=== PATIENT | male | born 1970 | race Caucasian/White ===

== ENCOUNTER 2018-09-12 13:11 | Inpatient (IN) ==
--- OUTSIDE RECORDS SUMMARY | 2018-09-12 13:14 | External Medical Summary | Continuity of Care Document ---
:1970 Author Name Heron De Guzman Address Unavailable Unavailable , Care Team Providers Name Role Phone Grabiel De Guzman Unavailable [email or web address] [place] Cholelithiasis with acute cholecystitis (574.00) (K80.00) Mitral insufficiency (424.0) (I34.0) Allergies and Adverse Reactions No Known Drug Allergies (Allergy) Medications Lisinopril 20 MG Oral Tablet Refills: 0 PriLOSEC 20 MG CPDR Refills: 0 Procedures History of Hernia Repair Status: Complet ed History of Cholecystectomy Laparoscopic Status: Completed History of Ankle Surgery Status: Complet ed Immunizations Immunizations not documented Family History Father Family history of hypertension (V17.49) (Z82.49) Status: Act clotilde Mother Family history of diabetes mellitus (V18.0) (Z83.3) Status: Active Social History - Smoking Status Current some day smoker Plan of Treatment Planned Observations Planned Goals not documented Results No Known Results Results not documented
[2018-09-12] MEDS ORDERED: SODIUM CHLORIDE 0.9% 1000ML 1,000 ML IV ONE (13:30)
[2018-09-12 13:45] LABS: Hematocrit (blood only) 41.4 % (42-52); Mean Corpuscular Hgb Conc 36.2 g/dL (32-36); Mean Corpuscular Volume 82.6 fL (80-100); Mean Platelet Volume 9.3 fL (7.4-10.4); Platelet Count 326 K/uL (130-400); RDW Coefficient of Variation 13.8 % (11.5-14.5); RDW Standard Deviation 41.4 fL (36.4-46.3); Red Blood Count 5.01 M/uL (4.7-6.1); White Blood Count 17.85 K/uL (4.8-10.8)
[2018-09-12] MEDS ORDERED: LORazepam 2 MG/ML VIAL (IM USE) ONE (13:47)
[2018-09-12] MEDS ORDERED: LORazepam 2 MG/4 ML VIAL IV PRN ×2 (13:47→18:00)
[2018-09-12] MEDS ORDERED: HALOPERIDOL LACTATE 5 MG/ML 1 ML VIAL IM STA ×2 (13:47→14:09)
[2018-09-12] MEDS ORDERED: HALOPERIDOL LACTATE 5 MG/ML 1 ML VIAL ONE (13:48)
--- NOTE | 2018-09-12 13:54 | XRay Report ---
XR chest 1V portable CLINICAL HISTORY: Acute change in mental status COMPARISON STUDY: December 28, 2013 FINDINGS: There are postsurgical changes of a midline sternotomy and valvular replacement. There is n o failure. There is no focal pulmonary consolidation. There are no pleural effusions.[ IMPRESSION: No active disease in the chest. Electronically signed by: Jason Restrepo M.D. 09/12/2018 1:52 PM
[2018-09-12 13:58] LABS: iSTAT Ionized Calcium 1.08 mmol/l (1.12-1.32); iSTAT Potassium 3.8 mEq/L (3.3-5.0)
[2018-09-12 13:59] LABS: Partial Thromboplastin Time 26.2 Seconds (21.0-31.0); Prothrombin Time 10.6 Seconds (9.0-12.0)
[2018-09-12 14:01] LABS: Alanine Aminotransferase 83 U/L (12-78); Albumin Level 3.9 gm/dl (3.4-5.0); Aspartate Aminotransferase 47 U/L (15-37); BUN Creatinine Ratio 11.8 (10-20); Blood Urea Nitrogen 15 mg/dl (7-18); Calcium 9.8 mg/dl (8.5-10.1); Carbon Dioxide 16 mmol/L (21-32); Chloride 104 mmol/L (98-107); Creatinine Clr Calc Pharmacy 78.2 ml/min; Est GFR (African American) 78.2; Est GFR (Non-African American) 67.5; Glucose 121 mg/dl (70-99); Magnesium 1.4 mg/dl (1.8-2.4); Potassium 3.8 mmol/L (3.5-5.1); Sodium 134 mmol/L (136-145)
[2018-09-12 14:06] LABS: Albumin Globulin Ratio 0.8 (0.9-2); Alkaline Phosphatase 179 U/L (45-117); Bilirubin,Total 1.1 mg/dl (0.2-1); Globulin 4.7 gm/dl (2.5-4.0); Total Protein 8.6 gm/dl (6.4-8.2); Troponin I < 0.015 ng/ml (0-0.045)
[2018-09-12] MEDS ORDERED: LORazepam 2 MG/4 ML VIAL IV STA (14:09)
[2018-09-12 14:10] LABS: Basophils # (auto) 0.04 K/uL (0-0.2); Basophils % (auto) 0.2 %; Eosinophils # (auto) 0.03 K/uL (0-0.5); Eosinophils % (auto) 0.2 %; Immature Granulocytes # (auto) 0.17 K/uL (0.00-0.02); Lymphocytes # (auto) 2.22 K/uL (1.2-3.4); Lymphocytes % (auto) 12.4 %; Monocytes # (auto) 1.08 K/uL (0.11-0.59); Monocytes % (auto) 6.1 %; Neutrophils # (auto) 14.31 K/uL (1.4-6.5); Neutrophils % (auto) 80.1 %
[2018-09-12] MEDS ORDERED: OPTIRAY 320 125ml IV PRN (14:27)
--- NOTE | 2018-09-12 14:44 | CT Scan Report ---
CT angio head wo/w CT DOSE: 1202.32 mGy.cm CLINICAL HISTORY: Acute change in mental status. Possible stroke. Combative patient. TECHNIQUE: Unenhanced images were obtained the brain. CT angiography was then performed in a dynamic helical fashion during intravenous administration of 119 cc Optiray 320. MIP imaging was acquired A dose lowering technique was utilized adhering to the principles of ALARA. COMPARISON STUDY: None. FINDINGS: The noncontrast study, there is no CT evidence of acute cortical infarction. There is no ev idence of midline shift. There is no evidence of acute hemorrhage. There is no evidence of hydrocepha miguel ángel. No calvarial fractures are visualized. The postcontrast images, there is evidence for dominant left vertebral artery. There are no major int racranial branch occlusions. There are no lesion suspicious for aneurysm. The dural venous sinuses ap pear patent. IMPRESSION: 1. No acute intracranial findings 2. Unremarkable CT angiography of the brain. Electronically signed by: Jason Restrepo M.D. 09/12/2018 2:42 PM
--- NOTE | 2018-09-12 14:45 | CT Scan Report ---
CT angio neck with con CLINICAL HISTORY: Acute change in mental status. Possible acute stroke. COMPARISON STUDY: No previous studies for comparison. TECHNIQUE: CT angiography was performed from the aortic arch to the skull base. MIP imaging was perfo rmed. The patient was scanned in a dynamic helical fashion during intravenous administration of 119 c c of Optiray 320. A dose lowering technique was utilized adhering to the principles of ALARA. CT DOSE: Technique: CT angiogram of the carotid and vertebral arteries was obtained using intravenous contrast and 3-D reconstruction. NASCET criteria was utilized. Findings: The right carotid revealed no evidence of aneurysm and no evidence of dissection. There is no evidenc e of hemodynamic significant stenosis. The left carotid revealed no evidence of hemodynamic significant stenosis. There is no evidence of an eurysm. There is no evidence of dissection. There is no evidence of hemodynamically significant vertebral stenosis. There is no evidence of verte bral dissection. There is a dominant left vertebral artery. IMPRESSION: No evidence of hemodynamically significant carotid or vertebral artery stenosis. No evidence of disse ction. Electronically signed by: Jason Restrepo M.D. 09/12/2018 2:44 PM
[2018-09-12 15:53] LABS: Appearance Urine Clear (Clear); Bacteria Urine Automated Negative (Negative); Bilirubin Urine Negative (Negative); Blood Urine 1+ (Negative); Color Urine Yellow; Glucose Urine UA Negative (Negative); Ketones Urine 1+ (Negative); Leukocyte Esterase Urine Negative (Negative); Nitrite Urine Negative (Negative); Protein Urine Negative (Negative); Specific Gravity Urine 1.013 (1.000-1.030); Urobilinogen Urine Negative (Negative); WBC Urine Automated 0 /hpf (0-5); pH Urine 8.5 (4.5-7.5)
[2018-09-12 16:18] LABS: Amphetamines+Metham, Urine Neg (Neg); Barbiturates, Urine Neg (Neg); Benzodiazepine, Urine Neg (Neg); Cocaine, Urine Neg (Neg); MDMA (Ecstacy), Urine Neg (Neg); Methadone, Urine Neg (Neg); Opiate, Urine Neg (Neg); Phencyclidine, Urine Neg (Neg)
[2018-09-12] MEDS ORDERED: PIPERACILL/TAZOBAC CONSULT ACTIVE PRN ×2 (16:18→18:00)
[2018-09-12] MEDS ORDERED: DAPTOmycin 400 MG in SYRINGE 0 ML IV ONE (16:45)
--- NOTE | 2018-09-12 16:46 | CT Scan Report ---
CT SCAN OF THE ABDOMEN AND PELVIS WITHOUT CONTRAST CLINICAL HISTORY: Elevated bilirubin and LFTs. COMPARISON STUDY: Biliary ultrasound dated 12/28/2013 TECHNIQUE: CT scan of the abdomen and pelvis was performed from the lung bases to the proximal femurs . Images are reviewed in the axial, sagittal, and coronal planes. IV contrast was not administered fo r this examination. A dose lowering technique was utilized adhering to the principles of ALARA. CT DOSE: 662.05 mGy.cm FINDINGS: Lower chest: There is a small hiatal hernia. Liver: The unenhanced liver is normal in size, contour, and attenuation. There is no intrahepatic wil iary ductal dilatation. Gallbladder: Surgically absent Spleen: Normal in size and attenuation. Pancreas: Unremarkable. Adrenal glands: Unremarkable. Kidneys: There is bilateral contrast excretion secondary to a CT scan performed earlier in the day Bowel: There are no transition zones indicate bowel obstruction. There is colonic diverticulosis. The re is no acute diverticulitis. The appendix is difficult to visualize with certainty. There is no ventura dence of acute appendicitis. Peritoneum: There is no intraperitoneal free air or abdominal ascites. Vasculature: The abdominal aorta is normal in course and caliber. Adenopathy: None. Pelvic viscera: The bladder, and pelvic viscera are unremarkable. Skeletal structures: No destructive osseous lesions are seen. IMPRESSION: No acute intra-abdominal or pelvic findings. Electronically signed by: Jason Restrepo M.D. 09/12/2018 4:44 PM
--- NOTE | 2018-09-12 16:51 | History & Physical Report ---
Date of Service September 12, 2018 Assessment & Plan (1) Acute alteration in mental status: Acute change of mental status. Similar episode about 1 year ago per family, but details including place of hospitalization not available. Family will try to get more info. Encephalopathy / delirium - etiology to be determined. Patient has been experiencing severe left wrist and right knee pain. Not sleeping well or eating much. Dehydration, sleep deprivation could be contributing factors. Taking various analgesics, including at least 2 tablets of oxycodone/acetaminophen. No recent alcohol ingestion per family; blood alcohol level undetectable. No known history of cirrhois; serum ammonia normal. Urine tox screen negative. Consider possibility of ingestion of other substances. No acute findings on CT of head. Consider encephalopathy secondary to possible infection as discussed below. Low clinical suspicion for CL[employer] CUTTING INSPECTOR infection; LP would be difficult to obtain safely at this time. Required high doses of lorazepam and haloperidol in ICU for sedation. Admit to ICU for monitoring and further evaluation / management. Case discussed with CCM. (2) Leukocytosis: Meets criteria for SIRS. May or may not have infection. Recent flu symptoms, improving per family. No infiltrates on chest x-ray. UA does not appear to be infected. No acute findings on CT of abdomen and pelvis. Left wrist pain and right knee pain- possible gout, but need to r/o septic arthr itis. Ortho consulted. Blood cultures obtained in ED. Lactate normal. Procalcitonin normal (0.22). ESR 50. CRP pending. Empiric antibiotic coverage with daptomycin and piperacillin / tazobactam pendin g culture results. (3) Transaminitis: LFT's elevated as noted. S/P cholecystectomy. No acute findings on CT of abdomen. History of alcohol use, but none recently per family. Taking uncertain amount of acetaminophen for pain. Check acetaminophen level. Follow LFT's. (4) Hypertension: Usually takes metoprolol succinate. IV metoprolol tartrate while NPO. (5) Status post mitral valve replacement with bioprosthetic valve: No murmur appreciated. No peripheral stigmata of endocarditis. Hemodynamically stable. Check blood cultures. (6) Gout: Check uric acid. Resume allopurinol when able. Ortho consulted regarding left wrist and right knee pain. Coordinate care with outpatient Rheum. (7) Depression: Resume venlafaxine when able to take oral meds. (8) GERD (gastroesophageal reflux disease): IV famotidine while acutely ill and NPO, then resume PPI. (9) DVT prophylaxis: SCD's. Add prophylactic anticoagulant if no need for invasive procedures. Ambulate when able. (10) History of alcohol use: No recent alcohol consumption per family. Empiric IV thiamine, MVI, etc. (11) Discharge planning issues: Discharge disposition to be determined. Probable discharge to home. Family Medicine follow-up with Dr. Berta Mead. History of Present Illness Chief Complaint: confusion Primary Care Provider: Berta Mead, 47 YO male followed by Dr Berta Mead. History of myxomatous mitral valve with bioprosthetic MVR 2013, gout, and other problems as noted below. History of alcohol use in the past, but no recent consumption per family's report. History of hospitalization in [place] or [facility] about 1 year ago, apparently for altered mental status but family does not know the facility or diagnosis. Lives with his family. Experiencing severe left wrist pain attributed to gout. More recently developed right knee pain as well. Pain has been very severe and patient has not been able to sleep or eat well for past few days. Prescribed allopurinol and diclofenac for the gout. Family reports that he is also taking acetaminophen PRN as well as a few doses of ibuprofen. He also took 2 tablets of oxycodone / acetaminophen yesterday. Around 9:00 this morning he seemed to be OK. Came downstairs around 11:30; family observed that he was very confused and nonverbal. Brought to ED for evaluation. CT head ordered to rule out CL[employer] CUTTING INSPECTOR event. Required several doses of lorazepam and haloperidol to obtain CT. Patient was very sedated at time of my evaluation and unable to offer any history. Family reports that he had flu symptoms with pharyngitis and cough about a week ago, but seemed to be recovering from that illness. Allergies Allergy/AdvReac Type Severity Reaction Status Date / Time No Known Allergies Allergy Unknown Verified 12/28/13 08:46 Home Medications Home Medications Medication Instructions Recorded Confirmed Type metoprolol succinate 25 mg PO DAILY 03/25/18 09/12/18 History omeprazole 20 mg PO DAILY 03/25/18 09/12/18 History allopurinol 300 mg PO DAILY 09/12/18 09/12/18 History diclofenac sodium 75 mg PO BID 09/12/18 09/12/18 History venlafaxine 150 mg PO DAILY 09/12/18 09/12/18 History Past Med/Surg History Medical History Migraine (Chronic) GERD (gastroesophageal reflux disease) (Chronic) Depression (Chronic) Anxiety (Chronic) Gout (Chronic) Hypertension (Chronic) Gallstones (Resolved) Surgical History Status post mitral valve replacement with bioprosthetic valve (Chronic) Status post cholecystectomy (Chronic) H/O hernia repair (Chronic) Social History Preferred Language: [place] Breast Surgeon Required: No Beliefs That Will Affect Care: None Current Living Situation: Parent Current Living Situation Comment: live with mother Other Information That Helps Us Care for You: No Feels Safe at Home: Yes Safety Concerns: Feels Safe At This Time Smoking Status: Unknown if ever smoked Hx Alcohol Use: No Hx Substance Use: No Review of Systems Review of Systems: Unobtainable due to reduced consciousness Physical Exam Constitutional: WD/WN, vitals as above well developed, well nourished, + acute distress, + ill appearing and + altered mental status Eyes: PERRL, conjunctivae normal, anicteric sclerae ENMT: external ear and nose normal, oropharynx normal (patient unable to cooperate with assessment of oropharynx) Neck: trachea midline, no thyromegaly Respiratory: normal respiratory effort, lungs clear to auscultation Cardiovascular: Rate/Rhythm: regular rate, regular rhythm and + tachycardic Heart Sounds: no gallop, no murmur and no cardiac rub Vessels: posterior tibial pulses present and dorsalis pedis pulses present; no JVD Extremities: normal capillary refill; no calf tenderness and no edema Gastrointestinal (Abdomen): normal bowel sounds, soft, nontender, no hepatosplenomegaly Musculoskeletal: Head/Neck/Chest: neck supple Extremities: strength 5/5 throughout, + wrist abnormality (swelling, warmth, erythema left wrist) and + hand abnormality (erythema and swelling dorsum left hand); no cyanosis and no clubbing Knee: + knee abnormal to inspection (erythema, warmth, tenderness right knee, ? small effusion) Skin: no rashes, warm and dry Neurologic: sedated after receiving lorazepam and haloperidol nonverbal does not follow commands pupils 3 mm, reactive moves all 4 extr plantar reflexes downgoing bilat Psychiatric: Orientation: + not alert and + not oriented x 3 Lymphatic: no cervical lymphadenopathy Results & Data Vital Signs (Past 12 Hours) Vital Signs Temp Pulse Resp BP Pulse Ox 09/12/18 16:41 90 147/113 H 97 09/12/18 16:40 102 H 97 09/12/18 16:38 101 H 98 09/12/18 16:21 105 H 147/94 H 97 09/12/18 16:20 108 H 99 09/12/18 16:10 101 H 98 09/12/18 16:01 100 H 130/79 96 09/12/18 16:00 100 H 97 09/12/18 15:51 113 H 132/89 98 09/12/18 15:50 112 H 97 09/12/18 15:42 105 H 134/79 95 09/12/18 15:40 104 H 96 09/12/18 15:32 100 H 96 09/12/18 15:31 100 H 121/66 94 09/12/18 15:30 99 H 95 09/12/18 15:23 99 H 129/81 92 09/12/18 15:21 100 H 125/78 96 09/12/18 15:20 114 H 09/12/18 15:11 99 H 134/90 98 09/12/18 15:10 98 H 99 09/12/18 15:00 117 H 96 09/12/18 14:51 108 H 123/78 94 09/12/18 14:50 102 H 97 09/12/18 14:41 96 H 124/85 95 09/12/18 14:40 95 H 94 09/12/18 14:37 103 H 133/85 96 09/12/18 14:36 105 H 99 09/12/18 14:16 97 H 96 09/12/18 14:15 94 H 129/82 99 09/12/18 13:54 86 126/98 09/12/18 13:53 97 H 09/12/18 13:13 37.2 C 111 H 20 161/111 H 97 Laboratory Results Laboratory Results - last 24 hr 09/12/18 09/12/18 09/12/18 13:33 13:33 13:33 WBC 17.85 H RBC 5.01 Hgb 15.0 POC Hgb Hct 41.4 L POC Hct MCV 82.6 MCH 29.9 MCHC 36.2 H RDW Std Deviation 41.4 RDW Coeff of Misha 13.8 Plt Count 326 MPV 9.3 Immature Gran % (Auto) 1.0 Neut % (Auto) 80.1 Lymph % (Auto) 12.4 [place] % (Auto) 6.1 Eos % (Auto) 0.2 Baso % (Auto) 0.2 Immature Gran # (Auto) 0.17 H Neut # (Auto) 14.31 H Lymph # (Auto) 2.22 [place] # (Auto) 1.08 H Eos # (Auto) 0.03 Baso # (Auto) 0.04 PT 10.6 INR 1.0 APTT 26.2 PTT Ratio 1.0 POC Sodium Sodium 134 L POC Potassium Potassium 3.8 POC Chloride Chloride 104 Carbon Dioxide 16 L POC Total CO2 Anion Gap 14.0 H POC Anion Gap POC BUN BUN 15 Creatinine 1.26 POC Creatinine Est Cr Clr Drug Dosing 78.2 Est GFR ( Amer) 78.2 Est GFR (Non-Af Amer) 67.5 BUN/Creatinine Ratio 11.8 Glucose 121 H POC Glucose (other) Lactate Uric Acid 4.6 Calcium 9.8 POC Ioniz Calcium Herbert Magnesium 1.4 L Total Bilirubin 1.1 H AST 47 H ALT 83 H Alkaline Phosphatase 179 H Ammonia Troponin I < 0.015 Total Protein 8.6 H Albumin 3.9 Globulin 4.7 H Albumin/Globulin Ratio 0.8 L Procalcitonin Urine Color Urine Appearance Urine pH Ur Specific [place] Urine Protein Urine Glucose (UA) Urine Ketones Urine Blood Urine Nitrite Urine Bilirubin Urine Urobilinogen Ur Leukocyte Esterase Urine WBC (Auto) Urine RBC (Auto) U Hyaline Cast (Auto) U Epithel Cells (Auto) Urine Bacteria (Auto) Urine Opiates Screen Ur Methadone, Qual Urine Barbiturates Ur Phencyclidine (PCP) U Amphetamin/Meth Scrn MDMA (Ecstasy) Screen U Benzodiazepines Scrn Ur Cocaine Metabolite U Marijuana (THC) Screen Ethyl Alcohol mg/dL Blood Type Antibody Screen 09/12/18 09/12/18 09/12/18 13:33 13:38 13:49 WBC RBC Hgb POC Hgb 15.0 Hct POC Hct 44 MCV MCH MCHC RDW Std Deviation RDW Coeff of Misha Plt Count MPV Immature Gran % (Auto) Neut % (Auto) Lymph % (Auto) [place] % (Auto) Eos % (Auto) Baso % (Auto) Immature Gran # (Auto) Neut # (Auto) Lymph # (Auto) [place] # (Auto) Eos # (Auto) Baso # (Auto) PT INR APTT PTT Ratio POC Sodium 137 Sodium POC Potassium 3.8 Potassium POC Chloride 103 Chloride Carbon Dioxide POC Total CO2 15 L Anion Gap POC Anion Gap 24.0 POC BUN 15 BUN Creatinine POC Creatinine 1.0 Est Cr Clr Drug Dosing Est GFR ( Amer) Est GFR (Non-Af Amer) BUN/Creatinine Ratio Glucose POC Glucose (other) 129 H Lactate Uric Acid Cancelled Calcium POC Ioniz Calcium Herbert 1.08 L Magnesium Total Bilirubin AST ALT Alkaline Phosphatase Ammonia Troponin I Total Protein Albumin Globulin Albumin/Globulin Ratio Procalcitonin Urine Color Urine Appearance Urine pH Ur Specific [place] Urine Protein Urine Glucose (UA) Urine Ketones Urine Blood Urine Nitrite Urine Bilirubin Urine Urobilinogen Ur Leukocyte Esterase Urine WBC (Auto) Urine RBC (Auto) U Hyaline Cast (Auto) U Epithel Cells (Auto) Urine Bacteria (Auto) Urine Opiates Screen Ur Methadone, Qual Urine Barbiturates Ur Phencyclidine (PCP) U Amphetamin/Meth Scrn MDMA (Ecstasy) Screen U Benzodiazepines Scrn Ur Cocaine Metabolite U Marijuana (THC) Screen Ethyl Alcohol mg/dL Blood Type A Positive Antibody Screen NEGATIVE 09/12/18 09/12/18 09/12/18 15:15 15:15 16:23 WBC RBC Hgb POC Hgb Hct POC Hct MCV MCH MCHC RDW Std Deviation RDW Coeff of Misha Plt Count MPV Immature Gran % (Auto) Neut % (Auto) Lymph % (Auto) [place] % (Auto) Eos % (Auto) Baso % (Auto) Immature Gran # (Auto) Neut # (Auto) Lymph # (Auto) [place] # (Auto) Eos # (Auto) Baso # (Auto) PT INR APTT PTT Ratio POC Sodium Sodium POC Potassium Potassium POC Chloride Chloride Carbon Dioxide POC Total CO2 Anion Gap POC Anion Gap POC BUN BUN Creatinine POC Creatinine Est Cr Clr Drug Dosing Est GFR ( Amer) Est GFR (Non-Af Amer) BUN/Creatinine Ratio Glucose POC Glucose (other) Lactate 1.3 Uric Acid Calcium POC Ioniz Calcium Herbert Magnesium Total Bilirubin AST ALT Alkaline Phosphatase Ammonia Troponin I Total Protein Albumin Globulin Albumin/Globulin Ratio Procalcitonin Urine Color Yellow Urine Appearance Clear Urine pH 8.5 H Ur Specific [place] 1.013 Urine Protein Negative Urine Glucose (UA) Negative Urine Ketones 1+ H Urine Blood 1+ H Urine Nitrite Negative Urine Bilirubin Negative Urine Urobilinogen Negative Ur Leukocyte Esterase Negative Urine WBC (Auto) 0 Urine RBC (Auto) 5-10 H U Hyaline Cast (Auto) 1-5 U Epithel Cells (Auto) 10-20 H Urine Bacteria (Auto) Negative Urine Opiates Screen Neg Ur Methadone, Qual Neg Urine Barbiturates Neg Ur Phencyclidine (PCP) Neg U Amphetamin/Meth Scrn Neg MDMA (Ecstasy) Screen Neg U Benzodiazepines Scrn Neg Ur Cocaine Metabolite Neg U Marijuana (THC) Screen Neg Ethyl Alcohol mg/dL Blood Type Antibody Screen 09/12/18 09/12/18 09/12/18 16:23 16:23 16:24 WBC RBC Hgb POC Hgb Hct POC Hct MCV MCH MCHC RDW Std Deviation RDW Coeff of Misha Plt Count MPV Immature Gran % (Auto) Neut % (Auto) Lymph % (Auto) [place] % (Auto) Eos % (Auto) Baso % (Auto) Immature Gran # (Auto) Neut # (Auto) Lymph # (Auto) [place] # (Auto) Eos # (Auto) Baso # (Auto) PT INR APTT PTT Ratio POC Sodium Sodium POC Potassium Potassium POC Chloride Chloride Carbon Dioxide POC Total CO2 Anion Gap POC Anion Gap POC BUN BUN Creatinine POC Creatinine Est Cr Clr Drug Dosing Est GFR ( Amer) Est GFR (Non-Af Amer) BUN/Creatinine Ratio Glucose POC Glucose (other) Lactate Uric Acid Calcium POC Ioniz Calcium Herbert Magnesium Total Bilirubin AST ALT Alkaline Phosphatase Ammonia 16.7 Troponin I Total Protein Albumin Globulin Albumin/Globulin Ratio Procalcitonin 0.22 Urine Color Urine Appearance Urine pH Ur Specific [place] Urine Protein Urine Glucose (UA) Urine Ketones Urine Blood Urine Nitrite Urine Bilirubin Urine Urobilinogen Ur Leukocyte Esterase Urine WBC (Auto) Urine RBC (Auto) U Hyaline Cast (Auto) U Epithel Cells (Auto) Urine Bacteria (Auto) Urine Opiates Screen Ur Methadone, Qual Urine Barbiturates Ur Phencyclidine (PCP) U Amphetamin/Meth Scrn MDMA (Ecstasy) Screen U Benzodiazepines Scrn Ur Cocaine Metabolite U Marijuana (THC) Screen Ethyl Alcohol mg/dL < 3.0 Blood Type Antibody Screen Diagnostic Findings PORTABLE CHEST X-RAY FINDINGS: There are postsurgical changes of a midline sternotomy and valvular replacement. There is no failure. There is no focal pulmonary consolidation. There are no pleural effusions.[ IMPRESSION: No active disease in the chest. Electronically signed by: Jason Restrepo M.D. 09/12/2018 1:52 PM CTA HEAD FINDINGS: The noncontrast study, there is no CT evidence of acute cortical infarction. The re is no evidence of midline shift. There is no evidence of acute hemorrhage. There is no evidence of hydrocephalus. No calvarial fractures are visualized. The postcontrast images, there is evidence for dominant left vertebral artery. There are no major intracranial branch occlusions. There are no lesion suspicious for aneurysm. The dural venous sinuses appear patent. IMPRESSION: 1. No acute intracranial findings 2. Unremarkable CT angiography of the brain. Electronically signed by: Jason Restrepo M.D. 09/12/2018 2:42 PM CTA CERVICAL VESSELS Findings: The right carotid revealed no evidence of aneurysm and no evidence of dissection. There is no evidence of hemodynamic significant stenosis. The left carotid revealed no evidence of hemodynamic significant stenosis. There is no evidence of aneurysm. There is no evidence of dissection. There is no evidence of hemodynamically significant vertebral stenosis. There is no evidence of vertebral dissection. There is a dominant left vertebral artery. IMPRESSION: No evidence of hemodynamically significant carotid or vertebral artery stenosis. No evidence of dissection. Electronically signed by: Jason Restrepo M.D. 09/12/2018 2:[address] ABDOMEN AND PELVIS IMPRESSION: No acute intra-abdominal or pelvic findings. Electronically signed by: Jason Restrepo M.D. 09/12/2018 4:44 PM ECG Additional Comments: EKG performed at [address] at 115 / min, slight ST depression anterior leads. Code Status & VTE Plan Code Status full code VTE Prophylaxis Plan VTE Prophylaxis will be ordered: Yes (1) Leukocytosis Leukocytosis type: unspecified Qualified Code(s): D72.829 - Elevated white blood cell count, unspecified
[2018-09-12] MEDS ORDERED: PIPERACILLIN/TAZOBACTAM 4.5 GM/120 ML BAG IV ONE (17:00)
[2018-09-12 17:20] LABS: Uric Acid 4.6 mg/dl (2.6-7.2)
[2018-09-12] MEDS ORDERED: ICU PROTOCOL FOR HYPERGLYCEMIA PRN (18:00)
[2018-09-12] MEDS ORDERED: PIPERACILLIN/TAZOBACTAM 4.5 GM in DEXTROSE 5% 100 ML IV SCH (18:00)
[2018-09-12] MEDS ORDERED: HYDROmorphone INJ 1 MG/ML SYRINGE IV PRN (18:00)
--- NOTE | 2018-09-12 18:57 | XRay Report ---
XR wrist LT w scaphoid CLINICAL HISTORY: Left wrist pain COMPARISON: None. DISCUSSION: No acute fractures are visualized. Degenerative changes are present within the wrist. The re is a carpal instability pattern with volar tilt of the lunate. IMPRESSION: 1. No acute fractures 2. Carpal instability pattern with volar tilt of the lunate. Electronically signed by: Jason Restrepo M.D. 09/12/2018 6:55 PM
--- NOTE | 2018-09-12 18:57 | XRay Report ---
XR knee RT 3V CLINICAL HISTORY: R knee pain COMPARISON: None. DISCUSSION: No fractures or dislocations are visualized. No destructive lesions are evident IMPRESSION: No fractures or dislocations identified. Electronically signed by: Jason Restrepo M.D. 09/12/2018 6:56 PM
[2018-09-12 18:58] LABS: BUN Creatinine Ratio 13.2 (10-20); C Reactive Protein 7.2 mg/dl (0-0.29); Calcium 8.8 mg/dl (8.5-10.1); Creatinine Clr Calc Pharmacy 87.6 ml/min; Est GFR (African American) 92.2; Est GFR (Non-African American) 79.5; Potassium 3.7 mmol/L (3.5-5.1)
[2018-09-12] MEDS ORDERED: THIAMINE HCL 100 MG in SYRINGE 9 ML IV STA (19:13)
[2018-09-12] MEDS: NORMOSOL-R 1,000 ML IV SCH ×2 (19:14→21:34)
--- NOTE | 2018-09-12 19:28 | Critical Care Consultation ---
Date of Consultation September 12, 2018 Assessment & Plan (1) Admitted to intensive care unit: Reason Critically Ill: 47-year-old male with high gap acidosis and acute mental status changes PLAN: Neuro: Acute encephalopathy: Toxic versus metabolic versus infectious -Patient does not exhibit particular toxidrome -Check HIV and RPR however abrupt mental status change makes these less likely -Check osmolar gap consider isopropyl alcohol ingestion versus toxic alcohol -CTA largely unremarkable, no focality to neuro exam at this time: I think CVA is highly unlikely -Consideration given to synthetic marijuana use -Ammonia within normal limits -Cannot exclude complex migraine however patient was previously combative and would likely require intubation and heavy sedation to obtain adequate images -At this time I feel the risks associated with the aforementioned procedures outweigh the benefits as family reports he is appears to be mildly improving Resp: Nicotine dependence -Smokeless tobacco use CV: Mitral valve replacement -Blood cultures pending -No obvious stigmata of them full vision to brain on CT imaging: Patient does not improve would consider MRI brain Fluids/Renal: High gap anion gap: Present on admission -Has resolved on 1800 labs ID: HIV and RPR pending -Afebrile, no meningismus signs -During my evaluation family states patient seems to be improving and his mental status -Family consented to LP I am deferring at this time however if patient becomes combative again I would intubate the patient to safely perform a lumbar puncture and obtained MRI imaging of the brain -Procalcitonin not indicative of sepsis -Blood cultures pending GI/Nutrition: Transaminitis -Check acute hepatitis panel Heme: Leukocytosis -With left shift DVT prophylaxis: SCDs, holding DVT prophylaxis in the setting that patient may need LP in the next 12 to 24 hours Endocrine: ICU hyperglycemia protocol Musculoskeletal: Polyarthralgia: Urine chlamydia and gonococcus reference DNA probe sent -I think disseminated gonococcus would be unlikely he does not exhibit skin changes or pustules consistent with disseminated gonococcus Elevated CRP Elevated ESR -Elevation equal to age do not feel this is profound elevation at this time. Vascular access: Peripheral IVs Code Status: Full I have personally spent 60 minutes of critical care time in the direct management of this patient. This is a life/limb threatening event. This includes time spent evaluating patient, direct bedside care, chart review, placing orders, interpretation of diagnostic studies, discussion with consultants, patient, and/or family members regarding treatment decisions, as well as other required patient management activities. This time is exclusive of all separately billable procedures, and teaching time and separate from and in addition to any other critical care service time. Present on Admission?: Yes History of Present Illness Attending Physician: Edison Gibson MD History is obtained from family and other providers. Patient is a 47-year-old male with a significant past medical history for mitral valve replacement in 2013 at [facility] secondary to myxomatous mitral valve, status post cholecystectomy prior to that, migraines, reflux, gout. He is also recovering alcoholic reports that he has been sober for approximately 2 years. Family states that approximately 1 week prior patient was complaining of URI upper symptoms of sore throat nasal discharge and headache. In the last 72 hours the patient has not had headache. He was however complaining of arthralgias which is becoming more of a chronic issue for him. The report is t hat he was complaining of an acute gout flare in the last 24 hours. Approximately 11 AM this morning the patient went to his room and then returned to the living room in a altered mental state. He has not complained of fevers or chills in the last 48 hours either. He lives with his parents he does not drive and was incarcerated in the previous 2 years. Of note he had a similar episode while in senior care and he was seen at a [facility], he does not know the results of his evaluation and was reported to be attempting to receive medical records his family does not know what occurred at that time either. Family reports that he chews tobacco does not smoke and there is no reported use of illicit substances. Father reports that he does not know where there is isopropyl alcohol in the house and he does not believe his son would be drinking isopropyl alcohol. He is and has not designated a healthcare power of patent attorney. Allergies Allergy/AdvReac Type Severity Reaction Status Date / Time No Known Allergies Allergy Unknown Verified 12/28/13 08:46 Home Medications Home Medications Medication Instructions Recorded Confirmed Type metoprolol succinate 25 mg PO DAILY 03/25/18 09/12/18 History omeprazole 20 mg PO DAILY 03/25/18 09/12/18 History allopurinol 300 mg PO DAILY 09/12/18 09/12/18 History diclofenac sodium 75 mg PO BID 09/12/18 09/12/18 History venlafaxine 150 mg PO DAILY 09/12/18 09/12/18 History Patient History Medical History Migraine (Chronic) GERD (gastroesophageal reflux disease) (Chronic) Depression (Chronic) Anxiety (Chronic) Gout (Chronic) Hypertension (Chronic) Gallstones (Resolved) Surgical History Status post mitral valve replacement with bioprosthetic valve (Chronic) Status post cholecystectomy (Chronic) H/O hernia repair (Chronic) Social History Preferred Language: Ghanaian Head Correction Officer Required: No Beliefs That Will Affect Care: None Current Living Situation: Parent Current Living Situation Comment: live with mother Other Information That Helps Us Care for You: No Feels Safe at Home: Yes Safety Concerns: Feels Safe At This Time Smoking Status: Unknown if ever smoked Hx Alcohol Use: No Hx Substance Use: No Review of Systems Review of Systems: Unobtainable due to reduced consciousness Physical Exam Physical Exam: General: Well-nourished middle-age male appears stated age I have reviewed the recorded vital signs Neurological: RASS score: -1, Moves all 4 extremities, Psychological: Glascow Coma Scale: Eyes: 4, Verbal 4, Motor 6, Total 14 not following complex commands Eyes: Pupils are equal, round and reactive to light, anicteric sclera. Symmetrical lids. HENT: Oropharynx is clear mucous membranes are moist, . Neck: Supple. Symmetric. trachea midline. No thyromegaly. Cardiovascular: Normal peripheral perfusion. Distal pulses and capillary refill intact. No JVD. Respiratory: Respirations are non-labored, no accessory muscle use. Breath sounds are equal. Gastrointestinal: Soft. Non-distended. Lymphatic: No cervical lymphadenopathy. Musculoskeletal: No deformity. No clubbing nor cyanosis. Results & Data Vital Signs (Past 12 Hours) Vital Signs Temp Pulse Pulse Resp BP BP Pulse Ox 09/12/18 18:00 37 C 85 14 137/85 92 09/12/18 17:21 95 H 139/98 99 09/12/18 17:20 95 H 98 09/12/18 17:11 96 H 158/92 H 100 09/12/18 17:10 94 H 100 09/12/18 17:01 91 H 142/98 H 100 09/12/18 17:00 86 100 09/12/18 16:51 90 159/93 H 98 09/12/18 16:50 89 99 09/12/18 16:41 90 147/113 H 97 09/12/18 16:40 102 H 97 09/12/18 16:38 101 H 98 09/12/18 16:21 105 H 147/94 H 97 09/12/18 16:20 108 H 99 09/12/18 16:10 101 H 98 09/12/18 16:01 100 H 130/79 96 09/12/18 16:00 100 H 97 09/12/18 15:51 113 H 132/89 98 09/12/18 15:50 112 H 97 09/12/18 15:42 105 H 134/79 95 09/12/18 15:40 104 H 96 09/12/18 15:32 100 H 96 09/12/18 15:31 100 H 121/66 94 09/12/18 15:30 99 H 95 09/12/18 15:23 99 H 129/81 92 09/12/18 15:21 100 H 125/78 96 09/12/18 15:20 114 H 09/12/18 15:11 99 H 134/90 98 09/12/18 15:10 98 H 99 09/12/18 15:00 117 H 96 09/12/18 14:51 108 H 123/78 94 09/12/18 14:50 102 H 97 09/12/18 14:41 96 H 124/85 95 09/12/18 14:40 95 H 94 09/12/18 14:37 103 H 133/85 96 09/12/18 14:36 105 H 99 09/12/18 14:16 97 H 96 09/12/18 14:15 94 H 129/82 99 09/12/18 13:54 86 126/98 09/12/18 13:53 97 H 09/12/18 13:13 37.2 C 111 H 20 161/111 H 97 Laboratory Results 09/12/18 09/12/18 09/12/18 Range/Units 19:19 18:17 18:17 WBC (4.8-10.8) K/uL RBC (4.7-6.1) M/uL Hgb (14.0-18.0) g/dL POC Hgb (14.0-18.0) g/dl Hct (42-52) % POC Hct (42-52) % MCV (80-100) fL MCH (25-34) pg MCHC (32-36) g/dL RDW Std Deviation (36.4-46.3) fL RDW Coeff of Misha (11.5-14.5) % Plt Count (130-400) K/uL MPV (7.4-10.4) fL Immature Gran % (Auto) % Neut % (Auto) % Lymph % (Auto) % Kittson % (Auto) % Eos % (Auto) % Baso % (Auto) % Immature Gran # (Auto) (0.00-0.02) K/uL Neut # (Auto) (1.4-6.5) K/uL Lymph # (Auto) (1.2-3.4) K/uL Kittson # (Auto) (0.11-0.59) K/uL Eos # (Auto) (0-0.5) K/uL Baso # (Auto) (0-0.2) K/uL ESR 50 H (0-14) mm/hr PT (9.0-12.0) Seconds INR (0.9-1.1) APTT (21.0-31.0) Seconds PTT Ratio VBG pH Pending POC Sodium (135-144) mEq/L Sodium (136-145) mmol/L POC Potassium (3.3-5.0) mEq/L Potassium (3.5-5.1) mmol/L POC Chloride (101-112) mEq/L Chloride (98-107) mmol/L Carbon Dioxide (21-32) mmol/L POC Total CO2 (24-31) mEq/l Anion Gap (3-11) POC Anion Gap (16-25) mmol/L POC BUN (7-18) mg/dl BUN (7-18) mg/dl Creatinine (0.6-1.4) mg/dl POC Creatinine (0.6-1.3) mg/dl Est Cr Clr Drug Dosing ml/min Est GFR ( Amer) Est GFR (Non-Af Amer) BUN/Creatinine Ratio (10-20) Glucose (70-99) mg/dl POC Glucose (other) (70-99) mg/dl Lactate (0.4-2.0) mmol/L Uric Acid (2.6-7.2) mg/dl Calcium (8.5-10.1) mg/dl POC Ioniz Calcium Herbert (1.12-1.32) mmol/l Magnesium (1.8-2.4) mg/dl Total Bilirubin (0.2-1) mg/dl AST (15-37) U/L ALT (12-78) U/L Alkaline Phosphatase (45-117) U/L Ammonia (11-32) umol/L Troponin I (0-0.045) ng/ml C-Reactive Protein (0-0.29) mg/dl C-React Prot High Sens Total Protein (6.4-8.2) gm/dl Albumin (3.4-5.0) gm/dl Globulin (2.5-4.0) gm/dl Albumin/Globulin Ratio (0.9-2) Procalcitonin (0-0.5) ng/ml Urine Color Urine Appearance (Clear) Urine pH (4.5-7.5) Ur Specific Leggett (1.000-1.030) Urine Protein (Negative) Urine Glucose (UA) (Negative) Urine Ketones (Negative) Urine Blood (Negative) Urine Nitrite (Negative) Urine Bilirubin (Negative) Urine Urobilinogen (Negative) Ur Leukocyte Esterase (Negative) Urine WBC (Auto) (0-5) /hpf Urine RBC (Auto) (0-4) /hpf U Hyaline Cast (Auto) (0-5) /lpf U Epithel Cells (Auto) (0-5) /lpf Urine Bacteria (Auto) (Negative) Nasal Screen MRSA (PCR) Urine Opiates Screen (Neg) Ur Methadone, Qual (Neg) Acetaminophen < 2 L (10-30) ug/ml Urine Barbiturates (Neg) Ur Phencyclidine (PCP) (Neg) U Amphetamin/Meth Scrn (Neg) MDMA (Ecstasy) Screen (Neg) U Benzodiazepines Scrn (Neg) Ur Cocaine Metabolite (Neg) U Marijuana (THC) Screen (Neg) Ethyl Alcohol mg/dL (0-3) mg/dl Blood Type Antibody Screen 09/12/18 09/12/18 09/12/18 Range/Units 18:13 18:00 16:24 WBC (4.8-10.8) K/uL RBC (4.7-6.1) M/uL Hgb (14.0-18.0) g/dL POC Hgb (14.0-18.0) g/dl Hct (42-52) % POC Hct (42-52) % MCV (80-100) fL MCH (25-34) pg MCHC (32-36) g/dL RDW Std Deviation (36.4-46.3) fL RDW Coeff of Misha (11.5-14.5) % Plt Count (130-400) K/uL MPV (7.4-10.4) fL Immature Gran % (Auto) % Neut % (Auto) % Lymph % (Auto) % Kittson % (Auto) % Eos % (Auto) % Baso % (Auto) % Immature Gran # (Auto) (0.00-0.02) K/uL Neut # (Auto) (1.4-6.5) K/uL Lymph # (Auto) (1.2-3.4) K/uL Kittson # (Auto) (0.11-0.59) K/uL Eos # (Auto) (0-0.5) K/uL Baso # (Auto) (0-0.2) K/uL ESR (0-14) mm/hr PT (9.0-12.0) Seconds INR (0.9-1.1) APTT (21.0-31.0) Seconds PTT Ratio VBG pH POC Sodium (135-144) mEq/L Sodium 135 L (136-145) mmol/L POC Potassium (3.3-5.0) mEq/L Potassium 3.7 (3.5-5.1) mmol/L POC Chloride (101-112) mEq/L Chloride 104 (98-107) mmol/L Carbon Dioxide 23 (21-32) mmol/L POC Total CO2 (24-31) mEq/l Anion Gap 8.0 (3-11) POC Anion Gap (16-25) mmol/L POC BUN (7-18) mg/dl BUN 15 (7-18) mg/dl Creatinine 1.10 (0.6-1.4) mg/dl POC Creatinine (0.6-1.3) mg/dl Est Cr Clr Drug Dosing 87.6 ml/min Est GFR ( Amer) 92.2 Est GFR (Non-Af Amer) 79.5 BUN/Creatinine Ratio 13.2 (10-20) Glucose 130 H (70-99) mg/dl POC Glucose (other) (70-99) mg/dl Lactate (0.4-2.0) mmol/L Uric Acid (2.6-7.2) mg/dl Calcium 8.8 (8.5-10.1) mg/dl POC Ioniz Calcium Herbert (1.12-1.32) mmol/l Magnesium (1.8-2.4) mg/dl Total Bilirubin (0.2-1) mg/dl AST (15-37) U/L ALT (12-78) U/L Alkaline Phosphatase (45-117) U/L Ammonia (11-32) umol/L Troponin I (0-0.045) ng/ml C-Reactive Protein 7.20 H (0-0.29) mg/dl C-React Prot High Sens Total Protein (6.4-8.2) gm/dl Albumin (3.4-5.0) gm/dl Globulin (2.5-4.0) gm/dl Albumin/Globulin Ratio (0.9-2) Procalcitonin 0.22 (0-0.5) ng/ml Urine Color Urine Appearance (Clear) Urine pH (4.5-7.5) Ur Specific Leggett (1.000-1.030) Urine Protein (Negative) Urine Glucose (UA) (Negative) Urine Ketones (Negative) Urine Blood (Negative) Urine Nitrite (Negative) Urine Bilirubin (Negative) Urine Urobilinogen (Negative) Ur Leukocyte Esterase (Negative) Urine WBC (Auto) (0-5) /hpf Urine RBC (Auto) (0-4) /hpf U Hyaline Cast (Auto) (0-5) /lpf U Epithel Cells (Auto) (0-5) /lpf Urine Bacteria (Auto) (Negative) Nasal Screen MRSA (PCR) Pending Urine Opiates Screen (Neg) Ur Methadone, Qual (Neg) Acetaminophen (10-30) ug/ml Urine Barbiturates (Neg) Ur Phencyclidine (PCP) (Neg) U Amphetamin/Meth Scrn (Neg) MDMA (Ecstasy) Screen (Neg) U Benzodiazepines Scrn (Neg) Ur Cocaine Metabolite (Neg) U Marijuana (THC) Screen (Neg) Ethyl Alcohol mg/dL (0-3) mg/dl Blood Type Antibody Screen 05/12/19 05/12/19 05/12/19 Range/Units 16:23 16:23 16:23 WBC (4.8-10.8) K/uL RBC (4.7-6.1) M/uL Hgb (14.0-18.0) g/dL POC Hgb (14.0-18.0) g/dl Hct (42-52) % POC Hct (42-52) % MCV (80-100) fL MCH (25-34) pg MCHC (32-36) g/dL RDW Std Deviation (36.4-46.3) fL RDW Coeff of Misha (11.5-14.5) % Plt Count (130-400) K/uL MPV (7.4-10.4) fL Immature Gran % (Auto) % Neut % (Auto) % Lymph % (Auto) % Kittson % (Auto) % Eos % (Auto) % Baso % (Auto) % Immature Gran # (Auto) (0.00-0.02) K/uL Neut # (Auto) (1.4-6.5) K/uL Lymph # (Auto) (1.2-3.4) K/uL Kittson # (Auto) (0.11-0.59) K/uL Eos # (Auto) (0-0.5) K/uL Baso # (Auto) (0-0.2) K/uL ESR (0-14) mm/hr PT (9.0-12.0) Seconds INR (0.9-1.1) APTT (21.0-31.0) Seconds PTT Ratio VBG pH POC Sodium (135-144) mEq/L Sodium (136-145) mmol/L POC Potassium (3.3-5.0) mEq/L Potassium (3.5-5.1) mmol/L POC Chloride (101-112) mEq/L Chloride (98-107) mmol/L Carbon Dioxide (21-32) mmol/L POC Total CO2 (24-31) mEq/l Anion Gap (3-11) POC Anion Gap (16-25) mmol/L POC BUN (7-18) mg/dl BUN (7-18) mg/dl Creatinine (0.6-1.4) mg/dl POC Creatinine (0.6-1.3) mg/dl Est Cr Clr Drug Dosing ml/min Est GFR ( Amer) Est GFR (Non-Af Amer) BUN/Creatinine Ratio (10-20) Glucose (70-99) mg/dl POC Glucose (other) (70-99) mg/dl Lactate 1.3 (0.4-2.0) mmol/L Uric Acid (2.6-7.2) mg/dl Calcium (8.5-10.1) mg/dl POC Ioniz Calcium Herbert (1.12-1.32) mmol/l Magnesium (1.8-2.4) mg/dl Total Bilirubin (0.2-1) mg/dl AST (15-37) U/L ALT (12-78) U/L Alkaline Phosphatase (45-117) U/L Ammonia 16.7 (11-32) umol/L Troponin I (0-0.045) ng/ml C-Reactive Protein (0-0.29) mg/dl C-React Prot High Sens Total Protein (6.4-8.2) gm/dl Albumin (3.4-5.0) gm/dl Globulin (2.5-4.0) gm/dl Albumin/Globulin Ratio (0.9-2) Procalcitonin (0-0.5) ng/ml Urine Color Urine Appearance (Clear) Urine pH (4.5-7.5) Ur Specific Leggett (1.000-1.030) Urine Protein (Negative) Urine Glucose (UA) (Negative) Urine Ketones (Negative) Urine Blood (Negative) Urine Nitrite (Negative) Urine Bilirubin (Negative) Urine Urobilinogen (Negative) Ur Leukocyte Esterase (Negative) Urine WBC (Auto) (0-5) /hpf Urine RBC (Auto) (0-4) /hpf U Hyaline Cast (Auto) (0-5) /lpf U Epithel Cells (Auto) (0-5) /lpf Urine Bacteria (Auto) (Negative) Nasal Screen MRSA (PCR) Urine Opiates Screen (Neg) Ur Methadone, Qual (Neg) Acetaminophen (10-30) ug/ml Urine Barbiturates (Neg) Ur Phencyclidine (PCP) (Neg) U Amphetamin/Meth Scrn (Neg) MDMA (Ecstasy) Screen (Neg) U Benzodiazepines Scrn (Neg) Ur Cocaine Metabolite (Neg) U Marijuana (THC) Screen (Neg) Ethyl Alcohol mg/dL < 3.0 (0-3) mg/dl Blood Type Antibody Screen 09/12/18 09/12/18 09/12/18 Range/Units 15:15 15:15 13:49 WBC (4.8-10.8) K/uL RBC (4.7-6.1) M/uL Hgb (14.0-18.0) g/dL POC Hgb (14.0-18.0) g/dl Hct (42-52) % POC Hct (42-52) % MCV (80-100) fL MCH (25-34) pg MCHC (32-36) g/dL RDW Std Deviation (36.4-46.3) fL RDW Coeff of Misha (11.5-14.5) % Plt Count (130-400) K/uL MPV (7.4-10.4) fL Immature Gran % (Auto) % Neut % (Auto) % Lymph % (Auto) % Kittson % (Auto) % Eos % (Auto) % Baso % (Auto) % Immature Gran # (Auto) (0.00-0.02) K/uL Neut # (Auto) (1.4-6.5) K/uL Lymph # (Auto) (1.2-3.4) K/uL Kittson # (Auto) (0.11-0.59) K/uL Eos # (Auto) (0-0.5) K/uL Baso # (Auto) (0-0.2) K/uL ESR (0-14) mm/hr PT (9.0-12.0) Seconds INR (0.9-1.1) APTT (21.0-31.0) Seconds PTT Ratio VBG pH POC Sodium (135-144) mEq/L Sodium (136-145) mmol/L POC Potassium (3.3-5.0) mEq/L Potassium (3.5-5.1) mmol/L POC Chloride (101-112) mEq/L Chloride (98-107) mmol/L Carbon Dioxide (21-32) mmol/L POC Total CO2 (24-31) mEq/l Anion Gap (3-11) POC Anion Gap (16-25) mmol/L POC BUN (7-18) mg/dl BUN (7-18) mg/dl Creatinine (0.6-1.4) mg/dl POC Creatinine (0.6-1.3) mg/dl Est Cr Clr Drug Dosing ml/min Est GFR ( Amer) Est GFR (Non-Af Amer) BUN/Creatinine Ratio (10-20) Glucose (70-99) mg/dl POC Glucose (other) (70-99) mg/dl Lactate (0.4-2.0) mmol/L Uric Acid (2.6-7.2) mg/dl Calcium (8.5-10.1) mg/dl POC Ioniz Calcium Herbert (1.12-1.32) mmol/l Magnesium (1.8-2.4) mg/dl Total Bilirubin (0.2-1) mg/dl AST (15-37) U/L ALT (12-78) U/L Alkaline Phosphatase (45-117) U/L Ammonia (11-32) umol/L Troponin I (0-0.045) ng/ml C-Reactive Protein (0-0.29) mg/dl C-React Prot High Sens Total Protein (6.4-8.2) gm/dl Albumin (3.4-5.0) gm/dl Globulin (2.5-4.0) gm/dl Albumin/Globulin Ratio (0.9-2) Procalcitonin (0-0.5) ng/ml Urine Color Yellow Urine Appearance Clear (Clear) Urine pH 8.5 H (4.5-7.5) Ur Specific Leggett 1.013 (1.000-1.030) Urine Protein Negative (Negative) Urine Glucose (UA) Negative (Negative) Urine Ketones 1+ H (Negative) Urine Blood 1+ H (Negative) Urine Nitrite Negative (Negative) Urine Bilirubin Negative (Negative) Urine Urobilinogen Negative (Negative) Ur Leukocyte Esterase Negative (Negative) Urine WBC (Auto) 0 (0-5) /hpf Urine RBC (Auto) 5-10 H (0-4) /hpf U Hyaline Cast (Auto) 1-5 (0-5) /lpf U Epithel Cells (Auto) 10-20 H (0-5) /lpf Urine Bacteria (Auto) Negative (Negative) Nasal Screen MRSA (PCR) Urine Opiates Screen Neg (Neg) Ur Methadone, Qual Neg (Neg) Acetaminophen (10-30) ug/ml Urine Barbiturates Neg (Neg) Ur Phencyclidine (PCP) Neg (Neg) U Amphetamin/Meth Scrn Neg (Neg) MDMA (Ecstasy) Screen Neg (Neg) U Benzodiazepines Scrn Neg (Neg) Ur Cocaine Metabolite Neg (Neg) U Marijuana (THC) Screen Neg (Neg) Ethyl Alcohol mg/dL (0-3) mg/dl Blood Type A Positive Antibody Screen NEGATIVE 09/12/18 09/12/18 09/12/18 Range/Units 13:38 13:33 13:33 WBC (4.8-10.8) K/uL RBC (4.7-6.1) M/uL Hgb (14.0-18.0) g/dL POC Hgb 15.0 (14.0-18.0) g/dl Hct (42-52) % POC Hct 44 (42-52) % MCV (80-100) fL MCH (25-34) pg MCHC (32-36) g/dL RDW Std Deviation (36.4-46.3) fL RDW Coeff of Misha (11.5-14.5) % Plt Count (130-400) K/uL MPV (7.4-10.4) fL Immature Gran % (Auto) % Neut % (Auto) % Lymph % (Auto) % Kittson % (Auto) % Eos % (Auto) % Baso % (Auto) % Immature Gran # (Auto) (0.00-0.02) K/uL Neut # (Auto) (1.4-6.5) K/uL Lymph # (Auto) (1.2-3.4) K/uL Kittson # (Auto) (0.11-0.59) K/uL Eos # (Auto) (0-0.5) K/uL Baso # (Auto) (0-0.2) K/uL ESR (0-14) mm/hr PT (9.0-12.0) Seconds INR (0.9-1.1) APTT (21.0-31.0) Seconds PTT Ratio VBG pH POC Sodium 137 (135-144) mEq/L Sodium (136-145) mmol/L POC Potassium 3.8 (3.3-5.0) mEq/L Potassium (3.5-5.1) mmol/L POC Chloride 103 (101-112) mEq/L Chloride (98-107) mmol/L Carbon Dioxide (21-32) mmol/L POC Total CO2 15 L (24-31) mEq/l Anion Gap (3-11) POC Anion Gap 24.0 (16-25) mmol/L POC BUN 15 (7-18) mg/dl BUN (7-18) mg/dl Creatinine (0.6-1.4) mg/dl POC Creatinine 1.0 (0.6-1.3) mg/dl Est Cr Clr Drug Dosing ml/min Est GFR ( Amer) Est GFR (Non-Af Amer) BUN/Creatinine Ratio (10-20) Glucose (70-99) mg/dl POC Glucose (other) 129 H (70-99) mg/dl Lactate (0.4-2.0) mmol/L Uric Acid Cancelled (2.6-7.2) mg/dl Calcium (8.5-10.1) mg/dl POC Ioniz Calcium Herbert 1.08 L (1.12-1.32) mmol/l Magnesium (1.8-2.4) mg/dl Total Bilirubin (0.2-1) mg/dl AST (15-37) U/L ALT (12-78) U/L Alkaline Phosphatase (45-117) U/L Ammonia (11-32) umol/L Troponin I (0-0.045) ng/ml C-Reactive Protein (0-0.29) mg/dl C-React Prot High Sens Pending Total Protein (6.4-8.2) gm/dl Albumin (3.4-5.0) gm/dl Globulin (2.5-4.0) gm/dl Albumin/Globulin Ratio (0.9-2) Procalcitonin (0-0.5) ng/ml Urine Color Urine Appearance (Clear) Urine pH (4.5-7.5) Ur Specific Leggett (1.000-1.030) Urine Protein (Negative) Urine Glucose (UA) (Negative) Urine Ketones (Negative) Urine Blood (Negative) Urine Nitrite (Negative) Urine Bilirubin (Negative) Urine Urobilinogen (Negative) Ur Leukocyte Esterase (Negative) Urine WBC (Auto) (0-5) /hpf Urine RBC (Auto) (0-4) /hpf U Hyaline Cast (Auto) (0-5) /lpf U Epithel Cells (Auto) (0-5) /lpf Urine Bacteria (Auto) (Negative) Nasal Screen MRSA (PCR) Urine Opiates Screen (Neg) Ur Methadone, Qual (Neg) Acetaminophen (10-30) ug/ml Urine Barbiturates (Neg) Ur Phencyclidine (PCP) (Neg) U Amphetamin/Meth Scrn (Neg) MDMA (Ecstasy) Screen (Neg) U Benzodiazepines Scrn (Neg) Ur Cocaine Metabolite (Neg) U Marijuana (THC) Screen (Neg) Ethyl Alcohol mg/dL (0-3) mg/dl Blood Type Antibody Screen 09/12/18 09/12/18 09/12/18 Range/Units 13:33 13:33 13:33 WBC 17.85 H (4.8-10.8) K/uL RBC 5.01 (4.7-6.1) M/uL Hgb 15.0 (14.0-18.0) g/dL POC Hgb (14.0-18.0) g/dl Hct 41.4 L (42-52) % POC Hct (42-52) % MCV 82.6 (80-100) fL MCH 29.9 (25-34) pg MCHC 36.2 H (32-36) g/dL RDW Std Deviation 41.4 (36.4-46.3) fL RDW Coeff of Misha 13.8 (11.5-14.5) % Plt Count 326 (130-400) K/uL MPV 9.3 (7.4-10.4) fL Immature Gran % (Auto) 1.0 % Neut % (Auto) 80.1 % Lymph % (Auto) 12.4 % [place] % (Auto) 6.1 % Eos % (Auto) 0.2 % Baso % (Auto) 0.2 % Immature Gran # (Auto) 0.17 H (0.00-0.02) K/uL Neut # (Auto) 14.31 H (1.4-6.5) K/uL Lymph # (Auto) 2.22 (1.2-3.4) K/uL [place] # (Auto) 1.08 H (0.11-0.59) K/uL Eos # (Auto) 0.03 (0-0.5) K/uL Baso # (Auto) 0.04 (0-0.2) K/uL ESR (0-14) mm/hr PT 10.6 (9.0-12.0) Seconds INR 1.0 (0.9-1.1) APTT 26.2 (21.0-31.0) Seconds PTT Ratio 1.0 VBG pH POC Sodium (135-144) mEq/L Sodium 134 L (136-145) mmol/L POC Potassium (3.3-5.0) mEq/L Potassium 3.8 (3.5-5.1) mmol/L POC Chloride (101-112) mEq/L Chloride 104 (98-107) mmol/L Carbon Dioxide 16 L (21-32) mmol/L POC Total CO2 (24-31) mEq/l Anion Gap 14.0 H (3-11) POC Anion Gap (16-25) mmol/L POC BUN (7-18) mg/dl BUN 15 (7-18) mg/dl Creatinine 1.26 (0.6-1.4) mg/dl POC Creatinine (0.6-1.3) mg/dl Est Cr Clr Drug Dosing 78.2 ml/min Est GFR ( Amer) 78.2 Est GFR (Non-Af Amer) 67.5 BUN/Creatinine Ratio 11.8 (10-20) Glucose 121 H (70-99) mg/dl POC Glucose (other) (70-99) mg/dl Lactate (0.4-2.0) mmol/L Uric Acid 4.6 (2.6-7.2) mg/dl Calcium 9.8 (8.5-10.1) mg/dl POC Ioniz Calcium Herbert (1.12-1.32) mmol/l Magnesium 1.4 L (1.8-2.4) mg/dl Total Bilirubin 1.1 H (0.2-1) mg/dl AST 47 H (15-37) U/L ALT 83 H (12-78) U/L Alkaline Phosphatase 179 H (45-117) U/L Ammonia (11-32) umol/L Troponin I < 0.015 (0-0.045) ng/ml C-Reactive Protein (0-0.29) mg/dl C-React Prot High Sens Total Protein 8.6 H (6.4-8.2) gm/dl Albumin 3.9 (3.4-5.0) gm/dl Globulin 4.7 H (2.5-4.0) gm/dl Albumin/Globulin Ratio 0.8 L (0.9-2) Procalcitonin (0-0.5) ng/ml Urine Color Urine Appearance (Clear) Urine pH (4.5-7.5) Ur Specific [place] (1.000-1.030) Urine Protein (Negative) Urine Glucose (UA) (Negative) Urine Ketones (Negative) Urine Blood (Negative) Urine Nitrite (Negative) Urine Bilirubin (Negative) Urine Urobilinogen (Negative) Ur Leukocyte Esterase (Negative) Urine WBC (Auto) (0-5) /hpf Urine RBC (Auto) (0-4) /hpf U Hyaline Cast (Auto) (0-5) /lpf U Epithel Cells (Auto) (0-5) /lpf Urine Bacteria (Auto) (Negative) Nasal Screen MRSA (PCR) Urine Opiates Screen (Neg) Ur Methadone, Qual (Neg) Acetaminophen (10-30) ug/ml Urine Barbiturates (Neg) Ur Phencyclidine (PCP) (Neg) U Amphetamin/Meth Scrn (Neg) MDMA (Ecstasy) Screen (Neg) U Benzodiazepines Scrn (Neg) Ur Cocaine Metabolite (Neg) U Marijuana (THC) Screen (Neg) Ethyl Alcohol mg/dL (0-3) mg/dl Blood Type Antibody Screen Diagnostic Findings I have reviewed the radiology report of the CT abdomen pelvis, CTA head, CTA neck, chest x-ray, wrist x-ray with scaphoid view
[2018-09-12] MEDS: METOPROLOL TARTRATE 1 MG/ML VIAL IV SCH ×2 (19:31→23:07)
[2018-09-12] MEDS: FAMOTIDINE 20 MG in SYRINGE 3 ML IV SCH (19:32)
[2018-09-12 20:30] LABS: Hepatitis B Surface Antigen Neg (Neg)
--- NOTE | 2018-09-12 20:48 | Emergency Department Note ---
Entered by Manuel Jara acting as a scribe for History of Present Illness General Chief complaint: Swelling/Edema to Extremity Stated complaint: GOUT PAIN Source: family and RN notes reviewed History of Present Illness Provider complaint: Altered Mental Status Onset (ago): hour(s) (This morning) Location: head Pain Consistency: + constant Maximum Pain Intensity: 10 Relieved By: + none Exacerbated By: + none Associated symptoms: + other (Right hand and left knee pain) The patient is a 47 year old male who presents to the Emergency Room with complaints of constant altered mental status that started this morning, per his family. The patient has not been talking, does not answer questions, and does not follow commands. The patient's mother states that he few days ago he had injections for gout flare ups in his left hand and right knee. She also notes that this morning he took 2 Percocet with his breakfast for pain. She states when she left the house this morning he was normal but when she returned he was in his current state. He was last known normal around 9 AM with saw him again later they brought him in for further evaluation due to the confusion. The patient has a history of CAD and has had heart surgery in the past. HPI is limtied secondary to patient's mental status. Home Medications Home Medications Medication Instructions Recorded Confirmed Type metoprolol succinate 25 mg PO DAILY 03/25/18 09/12/18 History omeprazole 20 mg PO DAILY 03/25/18 09/12/18 History allopurinol 300 mg PO DAILY 09/12/18 09/12/18 History diclofenac sodium 75 mg PO BID 09/12/18 09/12/18 History venlafaxine 150 mg PO DAILY 09/12/18 09/12/18 History Allergies Allergy/AdvReac Type Severity Reaction Status Date / Time No Known Allergies Allergy Unknown Verified 12/28/13 08:46 Past Med/Surg History Medical History Migraine (Chronic) GERD (gastroesophageal reflux disease) (Chronic) Depression (Chronic) Anxiety (Chronic) Gout (Chronic) Hypertension (Chronic) Gallstones (Resolved) Surgical History Status post mitral valve replacement with bioprosthetic valve (Chronic) Status post cholecystectomy (Chronic) H/O hernia repair (Chronic) Social History Preferred Language: Bengali 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 Other (Limited secondary to patient's mental status) Physical Exam Vital Signs Vital Signs - 24 hr 09/12/18 13:13 09/12/18 13:53 09/12/18 13:54 Temperature 37.2 C Temperature Source Oral Sepsis Recent Fever Within 48 Hours No Sepsis New/Unexplained Change in Mental Status No Sepsis Action Taken by Nursing No Action Required Pulse Rate 111 H 97 H 86 Pulse Rate [Apical] Pulse Rate from SpO2 Sensor Pulse Rhythm [Apical] Pulse Strength [Apical] Respiratory Rate 20 Respiratory Effort / Characteristics Non-Labored Respiratory Depth Normal Respiratory Pattern Regular Blood Pressure 161/111 H 126/98 Blood Pressure [Left Arm] Blood Pressure Mean 127 107 Blood Pressure Mean [Left Arm] Blood Pressure Position Sitting Blood Pressure Position [Left Arm] Pulse Oximetry 97 Oxygen Delivery Method Room Air Oxygen Flow Rate 09/12/18 14:15 09/12/18 14:16 09/12/18 14:36 Temperature Temperature Source Sepsis Recent Fever Within 48 Hours Sepsis New/Unexplained Change in Mental Status Sepsis Action Taken by Nursing Pulse Rate 94 H 97 H 105 H Pulse Rate [Apical] Pulse Rate from SpO2 Sensor 95 H 97 H 103 H Pulse Rhythm [Apical] Pulse Strength [Apical] Respiratory Rate Respiratory Effort / Characteristics Respiratory Depth Respiratory Pattern Blood Pressure 129/82 Blood Pressure [Left Arm] Blood Pressure Mean 97 Blood Pressure Mean [Left Arm] Blood Pressure Position Blood Pressure Position [Left Arm] Pulse Oximetry 99 96 99 Oxygen Delivery Method Nasal Cannula Nasal Cannula Nasal Cannula Oxygen Flow Rate 2 2 2 09/12/18 14:37 09/12/18 14:40 09/12/18 14:41 Temperature Temperature Source Sepsis Recent Fever Within 48 Hours Sepsis New/Unexplained Change in Mental Status Sepsis Action Taken by Nursing Pulse Rate 103 H 95 H 96 H Pulse Rate [Apical] Pulse Rate from SpO2 Sensor 102 H 95 H 97 H Pulse Rhythm [Apical] Pulse Strength [Apical] Respiratory Rate Respiratory Effort / Characteristics Respiratory Depth Respiratory Pattern Blood Pressure 133/85 124/85 Blood Pressure [Left Arm] Blood Pressure Mean 101 98 Blood Pressure Mean [Left Arm] Blood Pressure Position Blood Pressure Position [Left Arm] Pulse Oximetry 96 94 95 Oxygen Delivery Method Oxygen Flow Rate 09/12/18 14:50 05/12/19 14:51 09/12/18 15:00 Temperature Temperature Source Sepsis Recent Fever Within 48 Hours Sepsis New/Unexplained Change in Mental Status Sepsis Action Taken by Nursing Pulse Rate 102 H 108 H 117 H Pulse Rate [Apical] Pulse Rate from SpO2 Sensor 102 H 107 H 117 H Pulse Rhythm [Apical] Pulse Strength [Apical] Respiratory Rate Respiratory Effort / Characteristics Respiratory Depth Respiratory Pattern Blood Pressure 123/78 Blood Pressure [Left Arm] Blood Pressure Mean 93 Blood Pressure Mean [Left Arm] Blood Pressure Position Blood Pressure Position [Left Arm] Pulse Oximetry 97 94 96 Oxygen Delivery Method Nasal Cannula Nasal Cannula Oxygen Flow Rate 2 2 09/12/18 15:10 09/12/18 15:11 09/12/18 15:20 Temperature Temperature Source Sepsis Recent Fever Within 48 Hours Sepsis New/Unexplained Change in Mental Status Sepsis Action Taken by Nursing Pulse Rate 98 H 99 H 114 H Pulse Rate [Apical] Pulse Rate from SpO2 Sensor 97 H 98 H Pulse Rhythm [Apical] Pulse Strength [Apical] Respiratory Rate Respiratory Effort / Characteristics Respiratory Depth Respiratory Pattern Blood Pressure 134/90 Blood Pressure [Left Arm] Blood Pressure Mean 104 Blood Pressure Mean [Left Arm] Blood Pressure Position Blood Pressure Position [Left Arm] Pulse Oximetry 99 98 Oxygen Delivery Method Nasal Cannula Nasal Cannula Oxygen Flow Rate 2 2 09/12/18 15:21 09/12/18 15:23 09/12/18 15:30 Temperature Temperature Source Sepsis Recent Fever Within 48 Hours Sepsis New/Unexplained Change in Mental Status Sepsis Action Taken by Nursing Pulse Rate 100 H 99 H 99 H Pulse Rate [Apical] Pulse Rate from SpO2 Sensor 99 H 99 H 99 H Pulse Rhythm [Apical] Pulse Strength [Apical] Respiratory Rate Respiratory Effort / Characteristics Respiratory Depth Respiratory Pattern Blood Pressure 125/78 129/81 Blood Pressure [Left Arm] Blood Pressure Mean 93 97 Blood Pressure Mean [Left Arm] Blood Pressure Position Blood Pressure Position [Left Arm] Pulse Oximetry 96 92 95 Oxygen Delivery Method Nasal Cannula Nasal Cannula Nasal Cannula Oxygen Flow Rate 2 2 2 09/12/18 15:31 09/12/18 15:32 09/12/18 15:40 Temperature Temperature Source Sepsis Recent Fever Within 48 Hours Sepsis New/Unexplained Change in Mental Status Sepsis Action Taken by Nursing Pulse Rate 100 H 100 H 104 H Pulse Rate [Apical] Pulse Rate from SpO2 Sensor 100 H 100 H 104 H Pulse Rhythm [Apical] Pulse Strength [Apical] Respiratory Rate Respiratory Effort / Characteristics Respiratory Depth Respiratory Pattern Blood Pressure 121/66 Blood Pressure [Left Arm] Blood Pressure Mean 84 Blood Pressure Mean [Left Arm] Blood Pressure Position Blood Pressure Position [Left Arm] Pulse Oximetry 94 96 96 Oxygen Delivery Method Nasal Cannula Nasal Cannula Nasal Cannula Oxygen Flow Rate 2 2 2 09/12/18 15:42 09/12/18 15:50 09/12/18 15:51 Temperature Temperature Source Sepsis Recent Fever Within 48 Hours Sepsis New/Unexplained Change in Mental Status Sepsis Action Taken by Nursing Pulse Rate 105 H 112 H 113 H Pulse Rate [Apical] Pulse Rate from SpO2 Sensor 104 H 111 H 113 H Pulse Rhythm [Apical] Pulse Strength [Apical] Respiratory Rate Respiratory Effort / Characteristics Respiratory Depth Respiratory Pattern Blood Pressure 134/79 132/89 Blood Pressure [Left Arm] Blood Pressure Mean 97 103 Blood Pressure Mean [Left Arm] Blood Pressure Position Blood Pressure Position [Left Arm] Pulse Oximetry 95 97 98 Oxygen Delivery Method Nasal Cannula Nasal Cannula Nasal Cannula Oxygen Flow Rate 2 2 2 09/12/18 16:00 09/12/18 16:01 09/12/18 16:10 Temperature Temperature Source Sepsis Recent Fever Within 48 Hours Sepsis New/Unexplained Change in Mental Status Sepsis Action Taken by Nursing Pulse Rate 100 H 100 H 101 H Pulse Rate [Apical] Pulse Rate from SpO2 Sensor 100 H 98 H 103 H Pulse Rhythm [Apical] Pulse Strength [Apical] Respiratory Rate Respiratory Effort / Characteristics Respiratory Depth Respiratory Pattern Blood Pressure 130/79 Blood Pressure [Left Arm] Blood Pressure Mean 96 Blood Pressure Mean [Left Arm] Blood Pressure Position Blood Pressure Position [Left Arm] Pulse Oximetry 97 96 98 Oxygen Delivery Method Nasal Cannula Nasal Cannula Nasal Cannula Oxygen Flow Rate 2 2 2 09/12/18 16:20 09/12/18 16:21 09/12/18 16:38 Temperature Temperature Source Sepsis Recent Fever Within 48 Hours Sepsis New/Unexplained Change in Mental Status Sepsis Action Taken by Nursing Pulse Rate 108 H 105 H 101 H Pulse Rate [Apical] Pulse Rate from SpO2 Sensor 207 H 106 H Pulse Rhythm [Apical] Pulse Strength [Apical] Respiratory Rate Respiratory Effort / Characteristics Respiratory Depth Respiratory Pattern Blood Pressure 147/94 H Blood Pressure [Left Arm] Blood Pressure Mean 111 Blood Pressure Mean [Left Arm] Blood Pressure Position Blood Pressure Position [Left Arm] Pulse Oximetry 99 97 98 Oxygen Delivery Method Nasal Cannula Nasal Cannula Nasal Cannula Oxygen Flow Rate 2 2 2 09/12/18 16:40 09/12/18 16:41 09/12/18 16:50 Temperature Temperature Source Sepsis Recent Fever Within 48 Hours Sepsis New/Unexplained Change in Mental Status Sepsis Action Taken by Nursing Pulse Rate 102 H 90 89 Pulse Rate [Apical] Pulse Rate from SpO2 Sensor 103 H 90 89 Pulse Rhythm [Apical] Pulse Strength [Apical] Respiratory Rate Respiratory Effort / Characteristics Respiratory Depth Respiratory Pattern Blood Pressure 147/113 H Blood Pressure [Left Arm] Blood Pressure Mean 124 Blood Pressure Mean [Left Arm] Blood Pressure Position Blood Pressure Position [Left Arm] Pulse Oximetry 97 97 99 Oxygen Delivery Method Nasal Cannula Nasal Cannula Nasal Cannula Oxygen Flow Rate 2 2 2 09/12/18 16:51 09/12/18 17:00 09/12/18 17:01 Temperature Temperature Source Sepsis Recent Fever Within 48 Hours Sepsis New/Unexplained Change in Mental Status Sepsis Action Taken by Nursing Pulse Rate 90 86 91 H Pulse Rate [Apical] Pulse Rate from SpO2 Sensor 91 H 87 92 H Pulse Rhythm [Apical] Pulse Strength [Apical] Respiratory Rate Respiratory Effort / Characteristics Respiratory Depth Respiratory Pattern Blood Pressure 159/93 H 142/98 H Blood Pressure [Left Arm] Blood Pressure Mean 115 112 Blood Pressure Mean [Left Arm] Blood Pressure Position Blood Pressure Position [Left Arm] Pulse Oximetry 98 100 100 Oxygen Delivery Method Nasal Cannula Room Air Room Air Oxygen Flow Rate 2 09/12/18 17:10 09/12/18 17:11 09/12/18 17:20 Temperature Temperature Source Sepsis Recent Fever Within 48 Hours Sepsis New/Unexplained Change in Mental Status Sepsis Action Taken by Nursing Pulse Rate 94 H 96 H 95 H Pulse Rate [Apical] Pulse Rate from SpO2 Sensor 94 H 96 H 93 H Pulse Rhythm [Apical] Pulse Strength [Apical] Respiratory Rate Respiratory Effort / Characteristics Respiratory Depth Respiratory Pattern Blood Pressure 158/92 H Blood Pressure [Left Arm] Blood Pressure Mean 114 Blood Pressure Mean [Left Arm] Blood Pressure Position Blood Pressure Position [Left Arm] Pulse Oximetry 100 100 98 Oxygen Delivery Method Room Air Room Air Room Air Oxygen Flow Rate 09/12/18 17:21 09/12/18 18:00 09/12/18 19:00 Temperature 37 C Temperature Source Oral Sepsis Recent Fever Within 48 Hours Sepsis New/Unexplained Change in Mental Status Sepsis Action Taken by Nursing Pulse Rate 95 H Pulse Rate [Apical] 85 90 Pulse Rate from SpO2 Sensor 96 H Pulse Rhythm [Apical] Regular Regular Pulse Strength [Apical] Normal Normal Respiratory Rate 14 14 Respiratory Effort / Characteristics Non-Labored Non-Labored Spontaneous Respiratory Depth Normal Normal Respiratory Pattern Regular Blood Pressure 139/98 Blood Pressure [Left Arm] 137/85 132/85 Blood Pressure Mean 111 Blood Pressure Mean [Left Arm] 102 100 Blood Pressure Position Blood Pressure Position [Left Arm] Lying Lying Pulse Oximetry 99 92 96 Oxygen Delivery Method Room Air Room Air Room Air Oxygen Flow Rate 09/12/18 19:31 09/12/18 20:00 Temperature 37.2 C Temperature Source Axillary Sepsis Recent Fever Within 48 Hours Sepsis New/Unexplained Change in Mental Status Sepsis Action Taken by Nursing Pulse Rate 87 Pulse Rate [Apical] 77 Pulse Rate from SpO2 Sensor Pulse Rhythm [Apical] Regular Pulse Strength [Apical] Normal Respiratory Rate 14 Respiratory Effort / Characteristics Non-Labored Spontaneous Respiratory Depth Normal Respiratory Pattern Regular Blood Pressure 132/85 Blood Pressure [Left Arm] 144/74 H Blood Pressure Mean Blood Pressure Mean [Left Arm] 97 Blood Pressure Position Blood Pressure Position [Left Arm] Lying Pulse Oximetry 96 Oxygen Delivery Method Room Air Oxygen Flow Rate GENERAL: Sitting up in bed, moving all extremities, Non focal and non verbal. EYE EXAM: normal conjunctiva. PERRL and EOM's grossly intact. OROPHARYNX: no exudate, no erythema, lips, buccal mucosa, and tongue normal and mucous membranes are moist NECK: supple, no nuchal rigidity, no adenopathy, non-tender LUNGS: Clear to auscultation. Normal chest wall mechanics HEART: no murmurs, S1 normal and S2 normal ABDOMEN: abdomen soft, non-tender, normo-active bowel, sounds, no masses, no rebound or guarding. BACK: Back is symmetrical on inspection and there is no deformity, no midline tenderness, no CVA tenderness. SKIN: no rashes and no bruising UPPER EXTREMITIES: upper extremities are grossly normal with exception of pain with palpation to the left wrist and swelling of the left forearm. LOWER EXTREMITIES: No pitting edema. Pain on palpation of the right knee. No significant surrounding erythema does have a small amount of effusion. NEURO EXAM: Awake with eyes open, moving all extremities spontaneously, non verbal, non focal, unable to perform finger to nose or drift. Does withdraw from pain as he has a moderate pain in his right knee. Course ED COURSE: Vital signs were reviewed and showed hypertension and tachycardia. The patients medical record was reviewed The above diagnostic studies were performed and reviewed. ED treatments and interventions as stated above. 1325: The patient was evaluated in room B01. A complete history and physical examination was performed. 1338: The patient became combative while getting his CT scan so I am ordering sedation medication in order to complete the scan. 1352: I updated the patient's family. 1354: I spoke to the patient's mother who said that he has had two episodes like this before. 1357: I spoke to Dr. Torres I[facility] who recommended a CTA. 1406: The patient became combative at CT scan again so I am ordering more sedation medication. 1508: I spoke to Jossie MILLER about the patient's case. 1512: I updated the family on the treatment plan and they agreed. 1540: I spoke to Dr. Arthur Phelps about the patient's case and he is going to accept him for further evaluation. Based on the patients age, coexisting illnesses, exam and lab findings the decision to treat as an inpatient was made. The patient remained stable while under my care. The patient will be evaluated for further management. Consultations Consultation #1: I spoke to Dr. Torres Sanchez who recommended a CTA. Time: 13:57 Consultation #2: I spoke to Jossie MILLER about the patient's case and she is going to accept him for further evaluation. Time: 15:08 Consultation #3: I spoke to Dr. Arthur Phelps about the patient's case and he is going to accept him for further evaluation. Time: 15:40 Administered Medications Parenteral Electrolytes (Normosol-R) 1,000 mls @ 500 mls/hr IV .Q2H JUAN Stop: 09/12/18 21:59 Last Admin: 09/12/18 19:14 Dose: 500 mls/hr Documented by: [id number] Famotidine 20 mg/ Syringe 5 mls @ 2.5 mls/min IV BID JUAN Stop: 10/12/18 20:59 Last Admin: 09/12/18 19:32 Dose: 2.5 mls/min Documented by: [id number] Ioversol (Optiray 320 125ml) 119 ml IV ONCE PRN PRN Reason: Interaction Checking Stop: 09/16/18 14:26 Last Admin: 09/12/18 14:27 Dose: 119 ml Documented by: [id number] Metoprolol Tartrate (Lopressor) 5 mg IV Q6 JUAN Stop: 10/12/18 17:59 Last Admin: 09/12/18 19:31 Dose: 5 mg Documented by: [id number] Discontinued Medications Haloperidol Lactate (Haldol) 10 mg IM NOW STA Stop: 09/12/18 13:48 Last Admin: 09/12/18 13:30 Dose: 10 mg Documented by: [id number] Haloperidol Lactate (Haldol) Confirm Administered Dose 10 mg .ROUTE .STK-MED ONE Stop: 09/12/18 13:49 Last Admin: 09/12/18 14:09 Dose: 10 mg Documented by: [id number] Haloperidol Lactate (Haldol) 10 mg IM NOW STA Stop: 09/12/18 14:10 Last Admin: 09/12/18 14:42 Dose: Not Given Documented by: [id number] Sodium Chloride (Nss 1000ml) 1,000 mls @ 999 mls/hr IV .Q1H1M ONE Stop: 09/12/18 14:30 Last Infusion: 09/12/18 16:49 Dose: 0 mls/hr Documented by: [id number] Admin: 09/12/18 14:40 Dose: 999 mls/hr Documented by: [id number] Lorazepam (Ativan) 2 mg in 4 mls @ 4 mls/min IV NOW STA Stop: 09/12/18 14:10 Last Admin: 09/12/18 14:42 Dose: 4 mls/min Documented by: [id number] Daptomycin 400 mg/ Syringe 8 mls @ 4 mls/min IV 1645 ONE; Protocol Stop: 09/12/18 16:46 Last Admin: 09/12/18 17:06 Dose: 4 mls/min Documented by: [id number] Piperacillin Sod/Tazobactam Sod (Zosyn) 4.5 gm in 120 mls @ 240 mls/hr IV 1700 ONE Stop: 09/12/18 17:29 Last Infusion: 09/12/18 17:36 Dose: 0 mls/hr Documented by: [id number] Admin: 09/12/18 17:06 Dose: 240 mls/hr Documented by: [id number] Thiamine HCl 100 mg/ Syringe 10 mls @ 2 mls/min IV NOW STA Stop: 09/12/18 19:17 Last Admin: 09/12/18 19:31 Dose: 2 mls/min Documented by: [id number] Lorazepam (Ativan) Confirm Administered Dose 2 mg .ROUTE .STK-MED ONE Stop: 09/12/18 13:48 Last Admin: 09/12/18 14:18 Dose: 2 mg Documented by: [id number] Medical Decision Making Differential Diagnosis Differential: Toxicological, Infectious, Stroke, SAH, Trauma, Electrolyte Abnormality, Hypoglycemia, Alcohol Intoxication, Drug Intoxication, Cardiac Abnormality, Sepsis, Meningitis/Encephalitis, Trauma, Excited Delirium, Serotonin Syndrome, Psychiatric, amongst other pathologies entertained. Medical Records Attestation: I reviewed the patient's medical records. Home Medications Current Medication List: was personally reviewed by me Laboratory Data Attestation: I reviewed the patient's lab results. Result diagrams: 09/12/18 13:33 09/12/18 18:13 Lab Results 09/12/18 09/12/18 09/12/18 Range/Units 13:33 13:33 13:33 WBC 17.85 H (4.8-10.8) K/uL RBC 5.01 (4.7-6.1) M/uL Hgb 15.0 (14.0-18.0) g/dL POC Hgb (14.0-18.0) g/dl Hct 41.4 L (42-52) % POC Hct (42-52) % MCV 82.6 (80-100) fL MCH 29.9 (25-34) pg MCHC 36.2 H (32-36) g/dL RDW Std Deviation 41.4 (36.4-46.3) fL RDW Coeff of Misha 13.8 (11.5-14.5) % Plt Count 326 (130-400) K/uL MPV 9.3 (7.4-10.4) fL Immature Gran % (Auto) 1.0 % Neut % (Auto) 80.1 % Lymph % (Auto) 12.4 % [place] % (Auto) 6.1 % Eos % (Auto) 0.2 % Baso % (Auto) 0.2 % Immature Gran # (Auto) 0.17 H (0.00-0.02) K/uL Neut # (Auto) 14.31 H (1.4-6.5) K/uL Lymph # (Auto) 2.22 (1.2-3.4) K/uL [place] # (Auto) 1.08 H (0.11-0.59) K/uL Eos # (Auto) 0.03 (0-0.5) K/uL Baso # (Auto) 0.04 (0-0.2) K/uL ESR (0-14) mm/hr PT 10.6 (9.0-12.0) Seconds INR 1.0 (0.9-1.1) APTT 26.2 (21.0-31.0) Seconds PTT Ratio 1.0 VBG pH (7.36-7.41) POC Sodium (135-144) mEq/L Sodium 134 L (136-145) mmol/L POC Potassium (3.3-5.0) mEq/L Potassium 3.8 (3.5-5.1) mmol/L POC Chloride (101-112) mEq/L Chloride 104 (98-107) mmol/L Carbon Dioxide 16 L (21-32) mmol/L POC Total CO2 (24-31) mEq/l Anion Gap 14.0 H (3-11) POC Anion Gap (16-25) mmol/L POC BUN (7-18) mg/dl BUN 15 (7-18) mg/dl Creatinine 1.26 (0.6-1.4) mg/dl POC Creatinine (0.6-1.3) mg/dl Est Cr Clr Drug Dosing 78.2 ml/min Est GFR ( Amer) 78.2 Est GFR (Non-Af Amer) 67.5 BUN/Creatinine Ratio 11.8 (10-20) Glucose 121 H (70-99) mg/dl POC Glucose (other) (70-99) mg/dl Osmolality (280-300) mOsm/kg Lactate (0.4-2.0) mmol/L Uric Acid 4.6 (2.6-7.2) mg/dl Calcium 9.8 (8.5-10.1) mg/dl POC Ioniz Calcium Herbert (1.12-1.32) mmol/l Magnesium 1.4 L (1.8-2.4) mg/dl Total Bilirubin 1.1 H (0.2-1) mg/dl AST 47 H (15-37) U/L ALT 83 H (12-78) U/L Alkaline Phosphatase 179 H (45-117) U/L Ammonia (11-32) umol/L Troponin I < 0.015 (0-0.045) ng/ml C-Reactive Protein (0-0.29) mg/dl Total Protein 8.6 H (6.4-8.2) gm/dl Albumin 3.9 (3.4-5.0) gm/dl Globulin 4.7 H (2.5-4.0) gm/dl Albumin/Globulin Ratio 0.8 L (0.9-2) Procalcitonin (0-0.5) ng/ml Urine Color Urine Appearance (Clear) Urine pH (4.5-7.5) Ur Specific [place] (1.000-1.030) Urine Protein (Negative) Urine Glucose (UA) (Negative) Urine Ketones (Negative) Urine Blood (Negative) Urine Nitrite (Negative) Urine Bilirubin (Negative) Urine Urobilinogen (Negative) Ur Leukocyte Esterase (Negative) Urine WBC (Auto) (0-5) /hpf Urine RBC (Auto) (0-4) /hpf U Hyaline Cast (Auto) (0-5) /lpf U Epithel Cells (Auto) (0-5) /lpf Urine Bacteria (Auto) (Negative) Nasal Screen MRSA (PCR) (Negative) Urine Opiates Screen (Neg) Ur Methadone, Qual (Neg) Acetaminophen (10-30) ug/ml Urine Barbiturates (Neg) Ur Phencyclidine (PCP) (Neg) U Amphetamin/Meth Scrn (Neg) MDMA (Ecstasy) Screen (Neg) U Benzodiazepines Scrn (Neg) Ur Cocaine Metabolite (Neg) U Marijuana (THC) Screen (Neg) Ethyl Alcohol mg/dL (0-3) mg/dl Hep Bs Antigen (Neg) Blood Type Antibody Screen 09/12/18 09/12/18 09/12/18 Range/Units 13:33 13:38 13:49 WBC (4.8-10.8) K/uL RBC (4.7-6.1) M/uL Hgb (14.0-18.0) g/dL POC Hgb 15.0 (14.0-18.0) g/dl Hct (42-52) % POC Hct 44 (42-52) % MCV (80-100) fL MCH (25-34) pg MCHC (32-36) g/dL RDW Std Deviation (36.4-46.3) fL RDW Coeff of Misha (11.5-14.5) % Plt Count (130-400) K/uL MPV (7.4-10.4) fL Immature Gran % (Auto) % Neut % (Auto) % Lymph % (Auto) % [place] % (Auto) % Eos % (Auto) % Baso % (Auto) % Immature Gran # (Auto) (0.00-0.02) K/uL Neut # (Auto) (1.4-6.5) K/uL Lymph # (Auto) (1.2-3.4) K/uL [place] # (Auto) (0.11-0.59) K/uL Eos # (Auto) (0-0.5) K/uL Baso # (Auto) (0-0.2) K/uL ESR (0-14) mm/hr PT (9.0-12.0) Seconds INR (0.9-1.1) APTT (21.0-31.0) Seconds PTT Ratio VBG pH (7.36-7.41) POC Sodium 137 (135-144) mEq/L Sodium (136-145) mmol/L POC Potassium 3.8 (3.3-5.0) mEq/L Potassium (3.5-5.1) mmol/L POC Chloride 103 (101-112) mEq/L Chloride (98-107) mmol/L Carbon Dioxide (21-32) mmol/L POC Total CO2 15 L (24-31) mEq/l Anion Gap (3-11) POC Anion Gap 24.0 (16-25) mmol/L POC BUN 15 (7-18) mg/dl BUN (7-18) mg/dl Creatinine (0.6-1.4) mg/dl POC Creatinine 1.0 (0.6-1.3) mg/dl Est Cr Clr Drug Dosing ml/min Est GFR ( Amer) Est GFR (Non-Af Amer) BUN/Creatinine Ratio (10-20) Glucose (70-99) mg/dl POC Glucose (other) 129 H (70-99) mg/dl Osmolality (280-300) mOsm/kg Lactate (0.4-2.0) mmol/L Uric Acid Cancelled (2.6-7.2) mg/dl Calcium (8.5-10.1) mg/dl POC Ioniz Calcium Herbert 1.08 L (1.12-1.32) mmol/l Magnesium (1.8-2.4) mg/dl Total Bilirubin (0.2-1) mg/dl AST (15-37) U/L ALT (12-78) U/L Alkaline Phosphatase (45-117) U/L Ammonia (11-32) umol/L Troponin I (0-0.045) ng/ml C-Reactive Protein (0-0.29) mg/dl Total Protein (6.4-8.2) gm/dl Albumin (3.4-5.0) gm/dl Globulin (2.5-4.0) gm/dl Albumin/Globulin Ratio (0.9-2) Procalcitonin (0-0.5) ng/ml Urine Color Urine Appearance (Clear) Urine pH (4.5-7.5) Ur Specific [place] (1.000-1.030) Urine Protein (Negative) Urine Glucose (UA) (Negative) Urine Ketones (Negative) Urine Blood (Negative) Urine Nitrite (Negative) Urine Bilirubin (Negative) Urine Urobilinogen (Negative) Ur Leukocyte Esterase (Negative) Urine WBC (Auto) (0-5) /hpf Urine RBC (Auto) (0-4) /hpf U Hyaline Cast (Auto) (0-5) /lpf U Epithel Cells (Auto) (0-5) /lpf Urine Bacteria (Auto) (Negative) Nasal Screen MRSA (PCR) (Negative) Urine Opiates Screen (Neg) Ur Methadone, Qual (Neg) Acetaminophen (10-30) ug/ml Urine Barbiturates (Neg) Ur Phencyclidine (PCP) (Neg) U Amphetamin/Meth Scrn (Neg) MDMA (Ecstasy) Screen (Neg) U Benzodiazepines Scrn (Neg) Ur Cocaine Metabolite (Neg) U Marijuana (THC) Screen (Neg) Ethyl Alcohol mg/dL (0-3) mg/dl Hep Bs Antigen (Neg) Blood Type A Positive Antibody Screen NEGATIVE 09/12/18 09/12/18 09/12/18 Range/Units 15:15 15:15 16:23 WBC (4.8-10.8) K/uL RBC (4.7-6.1) M/uL Hgb (14.0-18.0) g/dL POC Hgb (14.0-18.0) g/dl Hct (42-52) % POC Hct (42-52) % MCV (80-100) fL MCH (25-34) pg MCHC (32-36) g/dL RDW Std Deviation (36.4-46.3) fL RDW Coeff of Misha (11.5-14.5) % Plt Count (130-400) K/uL MPV (7.4-10.4) fL Immature Gran % (Auto) % Neut % (Auto) % Lymph % (Auto) % [place] % (Auto) % Eos % (Auto) % Baso % (Auto) % Immature Gran # (Auto) (0.00-0.02) K/uL Neut # (Auto) (1.4-6.5) K/uL Lymph # (Auto) (1.2-3.4) K/uL [place] # (Auto) (0.11-0.59) K/uL Eos # (Auto) (0-0.5) K/uL Baso # (Auto) (0-0.2) K/uL ESR (0-14) mm/hr PT (9.0-12.0) Seconds INR (0.9-1.1) APTT (21.0-31.0) Seconds PTT Ratio VBG pH (7.36-7.41) POC Sodium (135-144) mEq/L Sodium (136-145) mmol/L POC Potassium (3.3-5.0) mEq/L Potassium (3.5-5.1) mmol/L POC Chloride (101-112) mEq/L Chloride (98-107) mmol/L Carbon Dioxide (21-32) mmol/L POC Total CO2 (24-31) mEq/l Anion Gap (3-11) POC Anion Gap (16-25) mmol/L POC BUN (7-18) mg/dl BUN (7-18) mg/dl Creatinine (0.6-1.4) mg/dl POC Creatinine (0.6-1.3) mg/dl Est Cr Clr Drug Dosing ml/min Est GFR ( Amer) Est GFR (Non-Af Amer) BUN/Creatinine Ratio (10-20) Glucose (70-99) mg/dl POC Glucose (other) (70-99) mg/dl Osmolality (280-300) mOsm/kg Lactate 1.3 (0.4-2.0) mmol/L Uric Acid (2.6-7.2) mg/dl Calcium (8.5-10.1) mg/dl POC Ioniz Calcium Herbert (1.12-1.32) mmol/l Magnesium (1.8-2.4) mg/dl Total Bilirubin (0.2-1) mg/dl AST (15-37) U/L ALT (12-78) U/L Alkaline Phosphatase (45-117) U/L Ammonia (11-32) umol/L Troponin I (0-0.045) ng/ml C-Reactive Protein (0-0.29) mg/dl Total Protein (6.4-8.2) gm/dl Albumin (3.4-5.0) gm/dl Globulin (2.5-4.0) gm/dl Albumin/Globulin Ratio (0.9-2) Procalcitonin (0-0.5) ng/ml Urine Color Yellow Urine Appearance Clear (Clear) Urine pH 8.5 H (4.5-7.5) Ur Specific [place] 1.013 (1.000-1.030) Urine Protein Negative (Negative) Urine Glucose (UA) Negative (Negative) Urine Ketones 1+ H (Negative) Urine Blood 1+ H (Negative) Urine Nitrite Negative (Negative) Urine Bilirubin Negative (Negative) Urine Urobilinogen Negative (Negative) Ur Leukocyte Esterase Negative (Negative) Urine WBC (Auto) 0 (0-5) /hpf Urine RBC (Auto) 5-10 H (0-4) /hpf U Hyaline Cast (Auto) 1-5 (0-5) /lpf U Epithel Cells (Auto) 10-20 H (0-5) /lpf Urine Bacteria (Auto) Negative (Negative) Nasal Screen MRSA (PCR) (Negative) Urine Opiates Screen Neg (Neg) Ur Methadone, Qual Neg (Neg) Acetaminophen (10-30) ug/ml Urine Barbiturates Neg (Neg) Ur Phencyclidine (PCP) Neg (Neg) U Amphetamin/Meth Scrn Neg (Neg) MDMA (Ecstasy) Screen Neg (Neg) U Benzodiazepines Scrn Neg (Neg) Ur Cocaine Metabolite Neg (Neg) U Marijuana (THC) Screen Neg (Neg) Ethyl Alcohol mg/dL (0-3) mg/dl Hep Bs Antigen (Neg) Blood Type Antibody Screen 09/12/18 09/12/18 09/12/18 Range/Units 16:23 16:23 16:24 WBC (4.8-10.8) K/uL RBC (4.7-6.1) M/uL Hgb (14.0-18.0) g/dL POC Hgb (14.0-18.0) g/dl Hct (42-52) % POC Hct (42-52) % MCV (80-100) fL MCH (25-34) pg MCHC (32-36) g/dL RDW Std Deviation (36.4-46.3) fL RDW Coeff of Misha (11.5-14.5) % Plt Count (130-400) K/uL MPV (7.4-10.4) fL Immature Gran % (Auto) % Neut % (Auto) % Lymph % (Auto) % [place] % (Auto) % Eos % (Auto) % Baso % (Auto) % Immature Gran # (Auto) (0.00-0.02) K/uL Neut # (Auto) (1.4-6.5) K/uL Lymph # (Auto) (1.2-3.4) K/uL [place] # (Auto) (0.11-0.59) K/uL Eos # (Auto) (0-0.5) K/uL Baso # (Auto) (0-0.2) K/uL ESR (0-14) mm/hr PT (9.0-12.0) Seconds INR (0.9-1.1) APTT (21.0-31.0) Seconds PTT Ratio VBG pH (7.36-7.41) POC Sodium (135-144) mEq/L Sodium (136-145) mmol/L POC Potassium (3.3-5.0) mEq/L Potassium (3.5-5.1) mmol/L POC Chloride (101-112) mEq/L Chloride (98-107) mmol/L Carbon Dioxide (21-32) mmol/L POC Total CO2 (24-31) mEq/l Anion Gap (3-11) POC Anion Gap (16-25) mmol/L POC BUN (7-18) mg/dl BUN (7-18) mg/dl Creatinine (0.6-1.4) mg/dl POC Creatinine (0.6-1.3) mg/dl Est Cr Clr Drug Dosing ml/min Est GFR ( Amer) Est GFR (Non-Af Amer) BUN/Creatinine Ratio (10-20) Glucose (70-99) mg/dl POC Glucose (other) (70-99) mg/dl Osmolality (280-300) mOsm/kg Lactate (0.4-2.0) mmol/L Uric Acid (2.6-7.2) mg/dl Calcium (8.5-10.1) mg/dl POC Ioniz Calcium Herbert (1.12-1.32) mmol/l Magnesium (1.8-2.4) mg/dl Total Bilirubin (0.2-1) mg/dl AST (15-37) U/L ALT (12-78) U/L Alkaline Phosphatase (45-117) U/L Ammonia 16.7 (11-32) umol/L Troponin I (0-0.045) ng/ml C-Reactive Protein (0-0.29) mg/dl Total Protein (6.4-8.2) gm/dl Albumin (3.4-5.0) gm/dl Globulin (2.5-4.0) gm/dl Albumin/Globulin Ratio (0.9-2) Procalcitonin 0.22 (0-0.5) ng/ml Urine Color Urine Appearance (Clear) Urine pH (4.5-7.5) Ur Specific [place] (1.000-1.030) Urine Protein (Negative) Urine Glucose (UA) (Negative) Urine Ketones (Negative) Urine Blood (Negative) Urine Nitrite (Negative) Urine Bilirubin (Negative) Urine Urobilinogen (Negative) Ur Leukocyte Esterase (Negative) Urine WBC (Auto) (0-5) /hpf Urine RBC (Auto) (0-4) /hpf U Hyaline Cast (Auto) (0-5) /lpf U Epithel Cells (Auto) (0-5) /lpf Urine Bacteria (Auto) (Negative) Nasal Screen MRSA (PCR) (Negative) Urine Opiates Screen (Neg) Ur Methadone, Qual (Neg) Acetaminophen (10-30) ug/ml Urine Barbiturates (Neg) Ur Phencyclidine (PCP) (Neg) U Amphetamin/Meth Scrn (Neg) MDMA (Ecstasy) Screen (Neg) U Benzodiazepines Scrn (Neg) Ur Cocaine Metabolite (Neg) U Marijuana (THC) Screen (Neg) Ethyl Alcohol mg/dL < 3.0 (0-3) mg/dl Hep Bs Antigen (Neg) Blood Type Antibody Screen 09/12/18 09/12/18 09/12/18 Range/Units 18:00 18:13 18:17 WBC (4.8-10.8) K/uL RBC (4.7-6.1) M/uL Hgb (14.0-18.0) g/dL POC Hgb (14.0-18.0) g/dl Hct (42-52) % POC Hct (42-52) % MCV (80-100) fL MCH (25-34) pg MCHC (32-36) g/dL RDW Std Deviation (36.4-46.3) fL RDW Coeff of Misha (11.5-14.5) % Plt Count (130-400) K/uL MPV (7.4-10.4) fL Immature Gran % (Auto) % Neut % (Auto) % Lymph % (Auto) % [place] % (Auto) % Eos % (Auto) % Baso % (Auto) % Immature Gran # (Auto) (0.00-0.02) K/uL Neut # (Auto) (1.4-6.5) K/uL Lymph # (Auto) (1.2-3.4) K/uL [place] # (Auto) (0.11-0.59) K/uL Eos # (Auto) (0-0.5) K/uL Baso # (Auto) (0-0.2) K/uL ESR (0-14) mm/hr PT (9.0-12.0) Seconds INR (0.9-1.1) APTT (21.0-31.0) Seconds PTT Ratio VBG pH (7.36-7.41) POC Sodium (135-144) mEq/L Sodium 135 L (136-145) mmol/L POC Potassium (3.3-5.0) mEq/L Potassium 3.7 (3.5-5.1) mmol/L POC Chloride (101-112) mEq/L Chloride 104 (98-107) mmol/L Carbon Dioxide 23 (21-32) mmol/L POC Total CO2 (24-31) mEq/l Anion Gap 8.0 (3-11) POC Anion Gap (16-25) mmol/L POC BUN (7-18) mg/dl BUN 15 (7-18) mg/dl Creatinine 1.10 (0.6-1.4) mg/dl POC Creatinine (0.6-1.3) mg/dl Est Cr Clr Drug Dosing 87.6 ml/min Est GFR ( Amer) 92.2 Est GFR (Non-Af Amer) 79.5 BUN/Creatinine Ratio 13.2 (10-20) Glucose 130 H (70-99) mg/dl POC Glucose (other) (70-99) mg/dl Osmolality (280-300) mOsm/kg Lactate (0.4-2.0) mmol/L Uric Acid (2.6-7.2) mg/dl Calcium 8.8 (8.5-10.1) mg/dl POC Ioniz Calcium Herbert (1.12-1.32) mmol/l Magnesium (1.8-2.4) mg/dl Total Bilirubin (0.2-1) mg/dl AST (15-37) U/L ALT (12-78) U/L Alkaline Phosphatase (45-117) U/L Ammonia (11-32) umol/L Troponin I (0-0.045) ng/ml C-Reactive Protein 7.20 H (0-0.29) mg/dl Total Protein (6.4-8.2) gm/dl Albumin (3.4-5.0) gm/dl Globulin (2.5-4.0) gm/dl Albumin/Globulin Ratio (0.9-2) Procalcitonin (0-0.5) ng/ml Urine Color Urine Appearance (Clear) Urine pH (4.5-7.5) Ur Specific [place] (1.000-1.030) Urine Protein (Negative) Urine Glucose (UA) (Negative) Urine Ketones (Negative) Urine Blood (Negative) Urine Nitrite (Negative) Urine Bilirubin (Negative) Urine Urobilinogen (Negative) Ur Leukocyte Esterase (Negative) Urine WBC (Auto) (0-5) /hpf Urine RBC (Auto) (0-4) /hpf U Hyaline Cast (Auto) (0-5) /lpf U Epithel Cells (Auto) (0-5) /lpf Urine Bacteria (Auto) (Negative) Nasal Screen MRSA (PCR) Negative (Negative) Urine Opiates Screen (Neg) Ur Methadone, Qual (Neg) Acetaminophen < 2 L (10-30) ug/ml Urine Barbiturates (Neg) Ur Phencyclidine (PCP) (Neg) U Amphetamin/Meth Scrn (Neg) MDMA (Ecstasy) Screen (Neg) U Benzodiazepines Scrn (Neg) Ur Cocaine Metabolite (Neg) U Marijuana (THC) Screen (Neg) Ethyl Alcohol mg/dL (0-3) mg/dl Hep Bs Antigen (Neg) Blood Type Antibody Screen 09/12/18 09/12/18 09/12/18 Range/Units 18:17 19:19 19:19 WBC (4.8-10.8) K/uL RBC (4.7-6.1) M/uL Hgb (14.0-18.0) g/dL POC Hgb (14.0-18.0) g/dl Hct (42-52) % POC Hct (42-52) % MCV (80-100) fL MCH (25-34) pg MCHC (32-36) g/dL RDW Std Deviation (36.4-46.3) fL RDW Coeff of Misha (11.5-14.5) % Plt Count (130-400) K/uL MPV (7.4-10.4) fL Immature Gran % (Auto) % Neut % (Auto) % Lymph % (Auto) % [place] % (Auto) % Eos % (Auto) % Baso % (Auto) % Immature Gran # (Auto) (0.00-0.02) K/uL Neut # (Auto) (1.4-6.5) K/uL Lymph # (Auto) (1.2-3.4) K/uL [place] # (Auto) (0.11-0.59) K/uL Eos # (Auto) (0-0.5) K/uL Baso # (Auto) (0-0.2) K/uL ESR 50 H (0-14) mm/hr PT (9.0-12.0) Seconds INR (0.9-1.1) APTT (21.0-31.0) Seconds PTT Ratio VBG pH 7.48 H (7.36-7.41) POC Sodium (135-144) mEq/L Sodium (136-145) mmol/L POC Potassium (3.3-5.0) mEq/L Potassium (3.5-5.1) mmol/L POC Chloride (101-112) mEq/L Chloride (98-107) mmol/L Carbon Dioxide (21-32) mmol/L POC Total CO2 (24-31) mEq/l Anion Gap (3-11) POC Anion Gap (16-25) mmol/L POC BUN (7-18) mg/dl BUN (7-18) mg/dl Creatinine (0.6-1.4) mg/dl POC Creatinine (0.6-1.3) mg/dl Est Cr Clr Drug Dosing ml/min Est GFR ( Amer) Est GFR (Non-Af Amer) BUN/Creatinine Ratio (10-20) Glucose (70-99) mg/dl POC Glucose (other) (70-99) mg/dl Osmolality 282 (280-300) mOsm/kg Lactate (0.4-2.0) mmol/L Uric Acid (2.6-7.2) mg/dl Calcium (8.5-10.1) mg/dl POC Ioniz Calcium Herbert (1.12-1.32) mmol/l Magnesium (1.8-2.4) mg/dl Total Bilirubin (0.2-1) mg/dl AST (15-37) U/L ALT (12-78) U/L Alkaline Phosphatase (45-117) U/L Ammonia (11-32) umol/L Troponin I (0-0.045) ng/ml C-Reactive Protein (0-0.29) mg/dl Total Protein (6.4-8.2) gm/dl Albumin (3.4-5.0) gm/dl Globulin (2.5-4.0) gm/dl Albumin/Globulin Ratio (0.9-2) Procalcitonin (0-0.5) ng/ml Urine Color Urine Appearance (Clear) Urine pH (4.5-7.5) Ur Specific [place] (1.000-1.030) Urine Protein (Negative) Urine Glucose (UA) (Negative) Urine Ketones (Negative) Urine Blood (Negative) Urine Nitrite (Negative) Urine Bilirubin (Negative) Urine Urobilinogen (Negative) Ur Leukocyte Esterase (Negative) Urine WBC (Auto) (0-5) /hpf Urine RBC (Auto) (0-4) /hpf U Hyaline Cast (Auto) (0-5) /lpf U Epithel Cells (Auto) (0-5) /lpf Urine Bacteria (Auto) (Negative) Nasal Screen MRSA (PCR) (Negative) Urine Opiates Screen (Neg) Ur Methadone, Qual (Neg) Acetaminophen (10-30) ug/ml Urine Barbiturates (Neg) Ur Phencyclidine (PCP) (Neg) U Amphetamin/Meth Scrn (Neg) MDMA (Ecstasy) Screen (Neg) U Benzodiazepines Scrn (Neg) Ur Cocaine Metabolite (Neg) U Marijuana (THC) Screen (Neg) Ethyl Alcohol mg/dL (0-3) mg/dl Hep Bs Antigen (Neg) Blood Type Antibody Screen 09/12/18 Range/Units 19:35 WBC (4.8-10.8) K/uL RBC (4.7-6.1) M/uL Hgb (14.0-18.0) g/dL POC Hgb (14.0-18.0) g/dl Hct (42-52) % POC Hct (42-52) % MCV (80-100) fL MCH (25-34) pg MCHC (32-36) g/dL RDW Std Deviation (36.4-46.3) fL RDW Coeff of Misha (11.5-14.5) % Plt Count (130-400) K/uL MPV (7.4-10.4) fL Immature Gran % (Auto) % Neut % (Auto) % Lymph % (Auto) % [place] % (Auto) % Eos % (Auto) % Baso % (Auto) % Immature Gran # (Auto) (0.00-0.02) K/uL Neut # (Auto) (1.4-6.5) K/uL Lymph # (Auto) (1.2-3.4) K/uL [place] # (Auto) (0.11-0.59) K/uL Eos # (Auto) (0-0.5) K/uL Baso # (Auto) (0-0.2) K/uL ESR (0-14) mm/hr PT (9.0-12.0) Seconds INR (0.9-1.1) APTT (21.0-31.0) Seconds PTT Ratio VBG pH (7.36-7.41) POC Sodium (135-144) mEq/L Sodium (136-145) mmol/L POC Potassium (3.3-5.0) mEq/L Potassium (3.5-5.1) mmol/L POC Chloride (101-112) mEq/L Chloride (98-107) mmol/L Carbon Dioxide (21-32) mmol/L POC Total CO2 (24-31) mEq/l Anion Gap (3-11) POC Anion Gap (16-25) mmol/L POC BUN (7-18) mg/dl BUN (7-18) mg/dl Creatinine (0.6-1.4) mg/dl POC Creatinine (0.6-1.3) mg/dl Est Cr Clr Drug Dosing ml/min Est GFR ( Amer) Est GFR (Non-Af Amer) BUN/Creatinine Ratio (10-20) Glucose (70-99) mg/dl POC Glucose (other) (70-99) mg/dl Osmolality (280-300) mOsm/kg Lactate (0.4-2.0) mmol/L Uric Acid (2.6-7.2) mg/dl Calcium (8.5-10.1) mg/dl POC Ioniz Calcium Herbert (1.12-1.32) mmol/l Magnesium (1.8-2.4) mg/dl Total Bilirubin (0.2-1) mg/dl AST (15-37) U/L ALT (12-78) U/L Alkaline Phosphatase (45-117) U/L Ammonia (11-32) umol/L Troponin I (0-0.045) ng/ml C-Reactive Protein (0-0.29) mg/dl Total Protein (6.4-8.2) gm/dl Albumin (3.4-5.0) gm/dl Globulin (2.5-4.0) gm/dl Albumin/Globulin Ratio (0.9-2) Procalcitonin (0-0.5) ng/ml Urine Color Urine Appearance (Clear) Urine pH (4.5-7.5) Ur Specific [place] (1.000-1.030) Urine Protein (Negative) Urine Glucose (UA) (Negative) Urine Ketones (Negative) Urine Blood (Negative) Urine Nitrite (Negative) Urine Bilirubin (Negative) Urine Urobilinogen (Negative) Ur Leukocyte Esterase (Negative) Urine WBC (Auto) (0-5) /hpf Urine RBC (Auto) (0-4) /hpf U Hyaline Cast (Auto) (0-5) /lpf U Epithel Cells (Auto) (0-5) /lpf Urine Bacteria (Auto) (Negative) Nasal Screen MRSA (PCR) (Negative) Urine Opiates Screen (Neg) Ur Methadone, Qual (Neg) Acetaminophen (10-30) ug/ml Urine Barbiturates (Neg) Ur Phencyclidine (PCP) (Neg) U Amphetamin/Meth Scrn (Neg) MDMA (Ecstasy) Screen (Neg) U Benzodiazepines Scrn (Neg) Ur Cocaine Metabolite (Neg) U Marijuana (THC) Screen (Neg) Ethyl Alcohol mg/dL (0-3) mg/dl Hep Bs Antigen Neg (Neg) Blood Type Antibody Screen Imaging Data Radiologist's Impression: Radiology results as stated below per my review and the radiologist's interpretation: XR chest 1V portable CLINICAL HISTORY: Acute change in mental status COMPARISON STUDY: December 28, 2013 FINDINGS: There are postsurgical changes of a midline sternotomy and valvular replacement. There is no failure. There is no focal pulmonary consolidation. There are no pleural effusions.[ IMPRESSION: No active disease in the chest. Electronically signed by: Jason Restrepo M.D. 09/12/2018 1:[address] angio head wo/w CT DOSE: 1202.32 mGy.cm CLINICAL HISTORY: Acute change in mental status. Possible stroke. Combative patient. TECHNIQUE: Unenhanced images were obtained the brain. CT angiography was then performed in a dynamic helical fashion during intravenous administration of 119 cc Optiray 320. MIP imaging was acquired A dose lowering technique was utilized adhering to the principles of ALARA. COMPARISON STUDY: None. FINDINGS: The noncontrast study, there is no CT evidence of acute cortical infarction. There is no evidence of midline shift. There is no evidence of acute hemorrhage. There is no evidence of hydrocephalus. No calvarial fractures are visualized. The postcontrast images, there is evidence for dominant left vertebral artery. There are no major intracranial branch occlusions. There are no lesion suspicious for aneurysm. The dural venous sinuses appear patent. IMPRESSION: 1. No acute intracranial findings 2. Unremarkable CT angiography of the brain. Electronically signed by: Jason Restrepo M.D. 09/12/2018 2:[address] angio neck with con CLINICAL HISTORY: Acute change in mental status. Possible acute stroke. COMPARISON STUDY: No previous studies for comparison. TECHNIQUE: CT angiography was performed from the aortic arch to the skull base. MIP imaging was performed. The patient was scanned in a dynamic helical fashion during intravenous administration of 119 cc of Optiray 320. A dose lowering technique was utilized adhering to the principles of ALARA. CT DOSE: Technique: CT angiogram of the carotid and vertebral arteries was obtained using intravenous contrast and 3-D reconstruction. NASCET criteria was utilized. Findings: The right carotid revealed no evidence of aneurysm and no evidence of dissection. There is no evidence of hemodynamic significant stenosis. The left carotid revealed no evidence of hemodynamic significant stenosis. There is no evidence of aneurysm. There is no evidence of dissection. There is no evidence of hemodynamically significant vertebral stenosis. There is no evidence of vertebral dissection. There is a dominant left vertebral artery. IMPRESSION: No evidence of hemodynamically significant carotid or vertebral artery stenosis. No evidence of dissection. Electronically signed by: Jason Restrepo M.D. 09/12/2018 2:44 PM ECG Data Attestation: I personally reviewed and interpreted this ECG as follows: Indication: altered mental status Rate (beats per minute): 115 Rhythm: sinus tachycardia Findings: + other (Normal axis); no PVC Blood Pressure Blood Pressure Findings: Normal blood pressure MDM Narrative Patient is a 47-year-old male who presents the ER for altered mental status. Family notes that this is happened twice before in the past with no significant reason or cause. Labs were obtained and showed a leukocytosis of 17,000. Previous to this he was complaining of pain in the right knee and left wrist being treated for gout with a steroid injection on . Question of the leukocytosis is secondary to the steroid injection. INR was unremarkable. BMP. Had a mild transaminitis bilirubin slightly elevated. Lactate was normal. Tox was negative in light of him taking narcotics at home. He was sedated using a total of 20 of Haldol IM and 4 of Ativan IV as initially made him a stroke alert and was then able to get him through the CT scanner as he kept sitting up and not following direction. CT of the head and neck were negative. Did CT the abdomen after sedation as there is mild transaminitis and an elevated bili to rule out any intra-abdominal pathology. This eventually resulted was unremarkable. His chest x-ray was normal as well. He was afebrile. He was not significant tachycardic. Uncertain of the cause of the encephalopathy/a aphasia. Question of stroke versus metabolic. Did consider meningitis but there is no nuchal rigidity and is afebrile. Did discuss with Dr. Gibson and we elected to wait on the tap. Patient was given IV fluids on the ER and was admitted to the hospital. Family was updated bedside. This would not be consistent with an infectious etiology as this is resolved twice before on its own without intervention per family but uncertain of the cause at this time. Impression & Plan Acute alteration in mental status, Leukocytosis, Transaminitis Critical Care Time I have personally spent greater than 35 minutes of critical care time in the direct management of this patient. This includes bedside care, interpretation of diagnostic studies, and testing, discussion with consultants, patient, and family members, and other required patient management activities. This 35 minutes is in excess of all separately billable procedures. Critical Care Time: Yes Total Critical Care Time: 35 Discharge Plan Visit Data *Final* Discharge Date/Time: 09/12/18 17:30 Chief Complaint: Swelling/Edema to Extremity Stated Complaint: GOUT PAIN ED Provider: Abdi Soto Discharge Problem: Acute alteration in mental status, Leukocytosis, Transaminitis Patient Disposition: Admitted As Inpatient Discharge Instructions Interventions: ED Discharge Assessment Last Done: 09/12/18 17:30 Discharge Problem: Leukocytosis Qualifiers: Leukocytosis type: unspecified Qualified Code(s): D72.829 - Elevated white bl ood cell count, unspecified The scribe's documentation has been prepared under my direction and personally reviewed by me in its entirety. I confirm that the note above accurately reflects all work, treatment, procedures, and medical decision making performed by me.
[2018-09-12 20:59] LABS: Hepatitis C IgG 13Yrs+Old_Rflx Neg (Neg)
[2018-09-12] MEDS ORDERED: FAMOTIDINE 20MG/5ML IV PUSH IV SCH (21:00)
--- NOTE | 2018-09-12 21:06 | Consultation Report ---
DATE OF CONSULTATION: 09/12/2018 CHIEF COMPLAINT: Altered mental status. HISTORY OF PRESENT ILLNESS: This patient is a 47-year-old this gentleman with a history of hospitalization for altered mental status in the past. He has a medical history as well for gout with at least 10 or 11 attacks in the past. He is currently in the Intensive Care Unit and most of the history is obtained from his family. Per their report, he has been complaining of pain in the left wrist as well as in the right knee. He has had gouty attacks in these joints in the past. He presented to the Emergency Room with altered mental status which started around 11:30 this morning when he was confused and nonverbal. He was severely agitated requiring several doses of lorazepam and Haldol to calm down. He is now admitted to the Intensive Care Unit for further monitoring. He has elevated white count and therefore, Orthopedics is consulted to evaluate his left wrist and his right knee to rule out a septic joint. MEDICAL AND SURGICAL HISTORY, MEDICATIONS, ALLERGIES, FAMILY HISTORY AND SOCIAL HISTORY: Reviewed. PHYSICAL EXAMINATION: GENERAL: The patient is sedate, in the bed, arousable to eyes opening, but does not follow commands. EXTREMITIES: Examination of his left wrist revealed some mild erythema. He did apparently have an injection in this wrist a few days ago by his local orthopedic surgeon. There is a very mild swelling over the mid carpal joint. Minimal swelling at the level of the radiocarpal and ulnocarpal joints. He tolerates passive range of motion. There is a very faint erythema, but nothing that is aggressive appearing. His passive range of motion is from 80 degrees of flexion to 90 degrees of extension, 30 degrees of ulnar deviation and 25 degrees of radial deviation. Right knee examination reveals a trace effusion. There is a very faint area of prepatellar erythema with slight warmth. He has intact range of motion passively from 0-100 degrees without any reaction. His ligamentous examination is stable. RESULTS: Reviewed. X-rays of the left wrist, 4 views done at the bedside using a portable technique demonstrate the patient to have evidence of mid carpal instability with flexion of the lunate and extension of the capitate with some degenerative changes. There are no fractures visualized. There is no wrist effusion visualized on my read. Three views of the right knee done today demonstrate no fractures or dislocations. No effusion is seen on these films. IMPRESSION: Altered mental status of uncertain etiology. 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 I am suspicious for a possible gouty flareup in both his left wrist and his right knee. No convincing evidence for septic arthritis in the right knee joint. PLAN: At this point, attempted aspiration of his wrist or knee. Risks outweigh the benefits and therefore we will continue to observe him. He is on broad-spectrum antibiotics. We will continue to follow him clinically and hopefully be able to obtain a better examination if his mental status improves.
[2018-09-12] MEDS: MAGNESIUM SULFATE / D5W 1 GM/100 ML BAG IV SCH (22:57)
[2018-09-12] MEDS: PIPERACILLIN/TAZOBACTAM 3.375 GM in DEXTROSE 5% 100 ML IV SCH (23:02)
[2018-09-13] MEDS: NORMOSOL-R 1,000 ML IV SCH ×2 (00:07→11:47)
[2018-09-13] MEDS: MAGNESIUM SULFATE / D5W 1 GM/100 ML BAG IV SCH ×2 (00:07→01:12)
[2018-09-13 04:08] LABS: Hematocrit (blood only) 33.8 % (42-52); Hemoglobin 12.2 g/dL (14.0-18.0); Mean Corpuscular Hgb Conc 36.1 g/dL (32-36); Mean Corpuscular Volume 83.7 fL (80-100); Mean Platelet Volume 8.5 fL (7.4-10.4); Platelet Count 259 K/uL (130-400); RDW Standard Deviation 42.6 fL (36.4-46.3); Red Blood Count 4.04 M/uL (4.7-6.1)
[2018-09-13 04:18] LABS: Albumin Level 2.8 gm/dl (3.4-5.0); BUN Creatinine Ratio 12.3 (10-20); Bilirubin Direct 0.3 mg/dl (0-0.2); Calcium 7.8 mg/dl (8.5-10.1); Creatinine Clr Calc Pharmacy 99.4 ml/min; Est GFR (African American) 107.3; Est GFR (Non-African American) 92.6; Potassium 3.4 mmol/L (3.5-5.1)
[2018-09-13 04:22] LABS: Albumin Globulin Ratio 0.7 (0.9-2); Bilirubin,Total 0.8 mg/dl (0.2-1); Globulin 3.8 gm/dl (2.5-4.0); Total Protein 6.6 gm/dl (6.4-8.2)
[2018-09-13] MEDS: ACETAMINOPHEN 325 MG TAB PO PRN ×2 (05:07→11:45)
[2018-09-13] MEDS: METOPROLOL TARTRATE 1 MG/ML VIAL IV SCH ×3 (05:07→18:34)
[2018-09-13] MEDS ORDERED: POTASSIUM CHLORIDE 20 MEQ TABCR PO STA (05:24)
[2018-09-13] MEDS: PIPERACILLIN/TAZOBACTAM 3.375 GM in DEXTROSE 5% 100 ML IV SCH ×3 (08:20→23:30)
[2018-09-13] MEDS: FAMOTIDINE 20 MG in SYRINGE 3 ML IV SCH (08:20)
[2018-09-13] MEDS ORDERED: THIAMINE HCL 100 MG in SYRINGE 9 ML IV SCH (09:00)
--- NOTE | 2018-09-13 09:29 | Orthopedic Progress Note ---
Date of Service September 13, 2018 Assessment & Plan (1) Left wrist pain: will continue to monitor Encouraged elevation Allowed for wrist ROM as tolerated Ice PRN pain/swelling Will continue to follow and will discuss findings with Dr. Kahn Present on Admission?: Yes (2) Right knee pain: trace effusion - will monitor for now Allowed for OOB as tolerated, WBAT RLE Will discuss findings with Dr. Kahn and possibly recheck later this afternoon. Will continue to follow Subjective States doing better today, sitting up in bed. States that his left wrist does hurt, mild right knee pain. Unsure of what happened yesterday. Is more alert today and states feel pretty much back to his normal self. Physical Exam Physical Exam: Left wrist/hand with mild edema, mild warmth. Left wrist trace effusion, tenderness of palpation of left wrist joint. pain with active motion, no pain with passive motion. Distal pulses 1+ Distal senstation normal. Right knee - with trace effusion, tolerates active motion to about 100 degrees, able to independently SLR right LE. No calf tenderness, mild warmth right knee as compared to left. Full ankle ROM, no distal edema, sensation normal. Results & Data Vital Signs (Past 12 Hours) Vital Signs Temp Pulse Pulse Resp BP BP Pulse Ox 09/13/18 06:00 68 12 134/71 95 09/13/18 05:07 84 149/84 H 09/13/18 05:00 81 14 149/84 H 98 09/13/18 04:00 36.7 C 83 17 126/80 96 09/13/18 03:00 85 13 136/84 95 09/13/18 02:00 76 12 146/76 H 95 09/13/18 01:00 78 12 131/60 97 09/13/18 00:00 37 C 78 12 124/83 96 09/12/18 23:07 77 118/79 09/12/18 23:00 75 16 118/79 96 09/12/18 22:00 81 16 143/79 H 96
--- NOTE | 2018-09-13 10:43 | Critical Care Progress Note ---
Date of Service September 13, 2018 Assessment & Plan (1) Left wrist pain: Impression: 1. 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 Although very rare but could happen after steroid injection even locally. Also the patient has history of alcohol use in the past. The patient on Effexor but denies taking overdose of it. 2. Gout, affecting the left wrist, status post intra-articular steroid injection. 3. GERD. 4. History of depression. Plan: 1. Neurology consult, appreciate their input. TIA, TGA, atypical seizure, post steroid injection change in mental status. 2. Thiamine 100 mg p.o. daily. 3. Start oral intake. 4. Ambulate the patient. 5. Continue his allopurinol. 6. Pain control if needed, I would avoid narcotics. 7. Heparin subcu for DVT prophylaxis. 8. GI prophylaxis given his history of GERD. Case discussed with the staff on rounds in details, critical care time spent with the patient was 35 minutes. Subjective The patient is fully awake, following commands, answering questions properly, he does not have any expressive aphasia as he did for the past 12 hours, currently the patient continues to have pain in his left wrist, continues to have swelling as well. The patient was admitted to the hospital with altered mental status. Etiology is unknown. Review of Systems Review of Systems: Review of system otherwise was unremarkable, he denies any chest pain, no shortness of breath, no change in bowel movements or urine habits, no nausea or vomiting, no skin rash, swelling in his only joint which is left wrist, tender with movement, denies any swelling in any other joints, no skin rash, no oral lesion. Neurologically he is intact. Physical Exam Physical Exam: Vital signs are stable, S1-S2 regular rate and rhythm, lungs are clear, abdomen is benign, left wrist swelling with minimal motion in the flexion and extension, good capillary filling, no sensation or loss. No edema. Neurologically intact. Results & Data Vital Signs (Past 12 Hours) Vital Signs Temp Pulse Pulse Resp BP BP Pulse Ox 09/13/18 10:00 64 11 L 117/78 94 09/13/18 09:00 71 11 L 129/76 94 09/13/18 08:00 36.5 C 65 12 128/79 94 09/13/18 07:00 73 12 122/77 93 09/13/18 06:00 68 12 134/71 95 05/13/19 05:07 84 149/84 H 09/13/18 05:00 81 14 149/84 H 98 09/13/18 04:00 36.7 C 83 17 126/80 96 09/13/18 03:00 85 13 136/84 95 09/13/18 02:00 76 12 146/76 H 95 09/13/18 01:00 78 12 131/60 97 09/13/18 00:00 37 C 78 12 124/83 96 09/12/18 23:07 77 118/79 09/12/18 23:00 75 16 118/79 96 Laboratory Results Labs are consistent with elevated white count, BMP is acceptable, venous pH is 7.48. Diagnostic Findings X-ray was noted for normal lung parenchyma, normal heart size.
--- NOTE | 2018-09-13 10:47 | Procedure Note ---
EEG Procedure Note Date of Service September 13, 2018 Start / End Times Start Time: 0800 End Time: [id number] Referring Physician Edison Dawson MD History encephalopathy question nonconvulsive seizures Home Medication List Home Medications Medication Instructions Recorded Confirmed Type metoprolol succinate 25 mg PO DAILY 03/25/18 09/12/18 History omeprazole 20 mg PO DAILY 03/25/18 09/12/18 History allopurinol 300 mg PO DAILY 09/12/18 09/12/18 History diclofenac sodium 75 mg PO BID 09/12/18 09/12/18 History venlafaxine 150 mg PO DAILY 09/12/18 09/12/18 History Inpatient Medication List Acetaminophen (Tylenol) 325 mg PO Q4H PRN PRN Reason: Mild Pain Stop: 10/13/18 04:14 Last Admin: 09/13/18 05:07 Dose: 325 mg Documented by: [id number] Thiamine HCl 100 mg/ Syringe 10 mls @ 2 mls/min IV QAM [facility], [facility]1983 Stop: 10/13/18 08:59 Last Admin: 09/13/18 08:21 Dose: 2 mls/min Documented by: [id number] Famotidine 20 mg/ Syringe 5 mls @ 2.5 mls/min IV BID [facility], [facility]1983 Stop: 10/12/18 20:59 Last Admin: 09/13/18 08:20 Dose: 2.5 mls/min Documented by: [id number] Admin: 09/12/18 19:32 Dose: 2.5 mls/min Documented by: [id number] Piperacillin Sod/Tazobactam (Sod 3.375 gm/ Dextrose) 115 mls @ 28.75 mls/hr IV Q8H JUAN; Protocol Stop: 09/15/18 00:00 Last Admin: 09/13/18 08:20 Dose: 28.8 mls/hr Documented by: [id number] Infusion: 09/13/18 03:11 Dose: 0 mls/hr Documented by: [id number] Admin: 09/12/18 23:02 Dose: 28.8 mls/hr Documented by: [id number] Parenteral Electrolytes (Normosol-R) 1,000 mls @ 75 mls/hr IV .[id number] [facility], [facility]–1983 Stop: 10/12/18 23:44 Last Admin: 09/13/18 00:07 Dose: 75 mls/hr Documented by: [id number] Ioversol (Optiray 320 125ml) 119 ml IV ONCE PRN PRN Reason: Interaction Checking Stop: 09/16/18 14:26 Last Admin: 09/12/18 14:27 Dose: 119 ml Documented by: [id number] Metoprolol Tartrate (Lopressor) 5 mg IV Q6 JUAN Stop: 10/12/18 17:59 Last Admin: 09/13/18 05:07 Dose: 5 mg Documented by: [id number] Admin: 09/12/18 23:07 Dose: 5 mg Documented by: [id number] Admin: 09/12/18 19:31 Dose: 5 mg Documented by: [id number] Discontinued Medications Haloperidol Lactate (Haldol) 10 mg IM NOW STA Stop: 09/12/18 13:48 Last Admin: 09/12/18 13:30 Dose: 10 mg Documented by: [id number] Haloperidol Lactate (Haldol) Confirm Administered Dose 10 mg .ROUTE .STK-MED ONE Stop: 09/12/18 13:49 Last Admin: 09/12/18 14:09 Dose: 10 mg Documented by: [id number] Haloperidol Lactate (Haldol) 10 mg IM NOW STA Stop: 09/12/18 14:10 Last Admin: 09/12/18 14:42 Dose: Not Given Documented by: [id number] Sodium Chloride (Nss 1000ml) 1,000 mls @ 999 mls/hr IV .Q1H1M ONE Stop: 09/12/18 14:30 Last Infusion: 09/12/18 16:49 Dose: 0 mls/hr Documented by: [id number] Admin: 09/12/18 14:40 Dose: 999 mls/hr Documented by: [id number] Lorazepam (Ativan) 2 mg in 4 mls @ 4 mls/min IV NOW STA Stop: 09/12/18 14:10 Last Admin: 09/12/18 14:42 Dose: 4 mls/min Documented by: [id number] Daptomycin 400 mg/ Syringe 8 mls @ 4 mls/min IV 1645 ONE; Protocol Stop: 09/12/18 16:46 Last Admin: 09/12/18 17:06 Dose: 4 mls/min Documented by: [id number] Piperacillin Sod/Tazobactam Sod (Zosyn) 4.5 gm in 120 mls @ 240 mls/hr IV 1700 ONE Stop: 09/12/18 17:29 Last Infusion: 09/12/18 17:36 Dose: 0 mls/hr Documented by: [id number] Admin: 09/12/18 17:06 Dose: 240 mls/hr Documented by: [id number] Parenteral Electrolytes (Normosol-R) 1,000 mls @ 500 mls/hr IV .Q2H JUAN Stop: 09/12/18 21:59 Last Infusion: 09/12/18 23:40 Dose: 0 mls/hr Documented by: [id number] Admin: 09/12/18 21:34 Dose: 500 mls/hr Documented by: [id number] Infusion: 09/12/18 21:14 Dose: 500 mls/hr Documented by: [id number] Admin: 09/12/18 19:14 Dose: 500 mls/hr Documented by: [id number] Thiamine HCl 100 mg/ Syringe 10 mls @ 2 mls/min IV NOW STA Stop: 09/12/18 19:17 Last Admin: 09/12/18 19:31 Dose: 2 mls/min Documented by: [id number] Magnesium Sulfate/Dextrose (Magnesium Sulfate / D5w) 1 gm in 100 mls @ 100 mls/hr IV Q1H JUAN Stop: 09/13/18 01:19 Last Infusion: 09/13/18 02:20 Dose: 0 mls/hr Documented by: [id number] Admin: 09/13/18 01:12 Dose: 100 mls/hr Documented by: [id number] Infusion: 09/13/18 01:07 Dose: 100 mls/hr Documented by: [id number] Admin: 09/13/18 00:07 Dose: 100 mls/hr Documented by: [id number] Infusion: 09/12/18 23:57 Dose: 100 mls/hr Documented by: [id number] Admin: 09/12/18 22:57 Dose: 100 mls/hr Documented by: [id number] Lorazepam (Ativan) Confirm Administered Dose 2 mg .ROUTE .STK-MED ONE Stop: 09/12/18 13:48 Last Admin: 09/12/18 14:18 Dose: 2 mg Documented by: [id number] Potassium Chloride (Klor-Con M20) 40 meq PO NOW STA Stop: 09/13/18 05:25 Last Admin: 09/13/18 05:35 Dose: 40 meq Documented by: [id number] Description This is a 21 electrode EEG with a single channel dedicated to limited EKG. The electrodes were placed in accordance with the International 10-20 system. The above study during wakefulness shos a normal posterior alpha rhythm, a nomral central theta pattern and normal bifrontal beta activity Hyperventilation induces no significant changes There is no evidence for potential epiliptogenic activitry Interpretation Normal waking eeg Clinical Correlation Normal eeg with no evidence for a focal or generalized encephalopathy or potentially epileptogenic patterns Edison Dawson MD
--- NOTE | 2018-09-13 13:22 | Neurology Consultation ---
Date of Consultation September 13, 2018 Assessment & Plan (1) Acute alteration in mental status: 1. EEG - no epileptic focus 2. acute MS change- not typical for TGA 3. MRI brain with and without to r/o lesions 4. unlikely injection was source of AMS change- depomedrol 40 mg and 1 ml 2% lidocaine -wrist 5. tox screen negative 6. improving but no clear cause found. 7. LP - evaluation of other caused of memory issues further recommendations to follow Supervising Physician Co-Signing Physician Notes I have seen and discussed above patient with Dr Edison Dawson, neurology I have seen and interviewed Mr. Jimenez today in the presence of his mother who was a witness to the events that precipitated his admission. Currently he is "lethargic" but can be easily aroused to answer questions or at least attempt to answer them. On the surface she is disoriented to place time year date but knows the president is Mr. Connor and knows she is in the hospital. Between questions he goes back into a "drowsy state". He has no cranial neuropathies there is no nuchal rigidity his reflexes are fine toes are downgoing strength is excellent but sensory examination is somewhat unreliable due to his lethargic state To date we have no definable cause for this retracted confusional episode with amnesia other than perhaps to postulate a confusional migraine which is a somewhat unusual presentation in a man of his age despite his history of migraine headaches. We are suggesting an MRI with and without contrast and potentially a lumbar puncture although with no fever no nuchal rigidity with improving mental status, normal EEG and an otherwise unremarkable examination I am not sure what value of the lumbar puncture would add and will reconsider tomorrow once we have the imaging study. A psychiatry evaluation may be in order here only after his mental status is cleared a bit more and we have a chance to review imaging studies etc. Edison Dawson MD History of Present Illness Reason for Consultation: AMS- metabolic imaging negative Requesting Physician: LYSSA Jordan Attending Physician: Edison Gibson MD History of Present Illness Oli is a 47 year old male with a PMH- mitral valve replacement in 2013 at [facility] secondary to myxomatous mitral valve, cholecystectomy, migraines, reflux, gout. He is a recovering alcoholic sober for approximately 2 years. He had been complaining of a URI with sore throat nasal discharge and headache. He has arthralgias which is a chronic issue with him. He sees Dr Gordon for gout and had a flare with subsequent injection last week in his wrist of depomedrol 40 mg, 1 ml 2 % lidocaine. This past week end he became agitated and then was very confused. His family brought him in for evaluation. He lives with his parents he does not drive and was incarcerated in the previous 2 years where he had a similar episode at a hospital in the [facility]. But which hospital is unknown. he chews tobacco, no illicit drugs, no EtOh use curre ntly. He does know he is in the hospital but not sure which one. denies CP, SOB, abdominal pain, one sided weakness, numbness tingling, N, V, headache, vision changes, swallowing difficulty Allergies Allergy/AdvReac Type Severity Reaction Status Date / Time No Known Allergies Allergy Unknown Verified 12/28/13 08:46 Home Medications Home Medications Medication Instructions Recorded Confirmed Type metoprolol succinate 25 mg PO DAILY 03/25/18 09/12/18 History omeprazole 20 mg PO DAILY 03/25/18 09/12/18 History allopurinol 300 mg PO DAILY 09/12/18 09/12/18 History diclofenac sodium 75 mg PO BID 09/12/18 09/12/18 History venlafaxine 150 mg PO DAILY 09/12/18 09/12/18 History Patient History Medical History Migraine (Chronic) GERD (gastroesophageal reflux disease) (Chronic) Depression (Chronic) Anxiety (Chronic) Gout (Chronic) Hypertension (Chronic) Gallstones (Resolved) Surgical History Status post mitral valve replacement with bioprosthetic valve (Chronic) Status post cholecystectomy (Chronic) H/O hernia repair (Chronic) Social History Preferred Language: Mongolian Communication Ability: Impaired Dyer Assistant Required: No Beliefs That Will Affect Care: None Current Living Situation: Parent Current Living Situation Comment: live with mother Other Information That Helps Us Care for You: No Feels Safe at Home: Yes Safety Concerns: Feels Safe At This Time Smoking Status: Unknown if ever smoked Hx Alcohol Use: No Hx Substance Use: No Physical Exam Physical Exam: Physical Exam: Constitutional: appearance nourished, healthy and normal Ears, Nose, Mouth and Throat: mucous membranes moist, no injection and skin normal, eyes normal Cardiovascular: normal S-1 and S-2 and regular rate and rhythm Respiratory: clear to auscultation (CTA) and no rales, rhonchi or wheeze Musculoskeletal: no peripheral edema Skin: no stigmata of neurocutaneous disease noted and normal and intact Eyes: extraocular muscles intact (EOMI) and pupils equal, round and reactive to light (PERRL) NEUROLOGIC EXAMINATION: Mental status: Alert and interactive Oriented to hospital but not name, does not know year, president, knows month is September, and that it is spring, knows sister Odalis when comes in room Oriented to person Speech fluent with no evidence of aphasia, but hesitates on some words. Cranial Nerves smile eye brow raise symmetric Reflexes: Deep tendon reflexes were symmetrical and graded 2/5. Sensory: cool or light touch Coordination: finger to nose no bi pass Gait/Stance: Posture normal sitting up in bed Motor: Negative for pronator drift of out stretched arms with eyes closed. 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 5/5, hip flex plantar flex ext 5/5 bilaterally Results & Data Vital Signs (Past 12 Hours) Vital Signs Temp Pulse Pulse Resp BP BP Pulse Ox 09/13/18 13:00 76 12 126/80 99 09/13/18 12:00 36.9 C 17 132/88 100 09/13/18 11:46 58 L 125/92 09/13/18 11:00 71 18 125/92 97 09/13/18 10:00 64 11 L 117/78 94 09/13/18 09:00 71 11 L 129/76 94 09/13/18 08:00 36.5 C 65 12 128/79 94 09/13/18 07:00 73 12 122/77 93 09/13/18 06:00 68 12 134/71 95 09/13/18 05:07 84 149/84 H 09/13/18 05:00 81 14 149/84 H 98 09/13/18 04:00 36.7 C 83 17 126/80 96 09/13/18 03:00 85 13 136/84 95 09/13/18 02:00 76 12 146/76 H 95 Laboratory Results Abnormal lab results 09/12/18 09/12/18 09/12/18 Range/Units 13:33 13:33 13:38 WBC 17.85 H (4.8-10.8) K/uL RBC (4.7-6.1) M/uL Hgb (14.0-18.0) g/dL Hct 41.4 L (42-52) % MCHC 36.2 H (32-36) g/dL Immature Gran # (Auto) 0.17 H (0.00-0.02) K/uL Neut # (Auto) 14.31 H (1.4-6.5) K/uL Oliver # (Auto) 1.08 H (0.11-0.59) K/uL ESR (0-14) mm/hr VBG pH (7.36-7.41) Sodium 134 L (136-145) mmol/L Potassium (3.5-5.1) mmol/L Carbon Dioxide 16 L (21-32) mmol/L POC Total CO2 15 L (24-31) mEq/l Anion Gap 14.0 H (3-11) Glucose 121 H (70-99) mg/dl POC Glucose (70-99) POC Glucose (other) 129 H (70-99) mg/dl Calcium (8.5-10.1) mg/dl POC Ioniz Calcium Herbert 1.08 L (1.12-1.32) mmol/l Magnesium 1.4 L (1.8-2.4) mg/dl Total Bilirubin 1.1 H (0.2-1) mg/dl Direct Bilirubin (0-0.2) mg/dl AST 47 H (15-37) U/L ALT 83 H (12-78) U/L Alkaline Phosphatase 179 H (45-117) U/L C-Reactive Protein (0-0.29) mg/dl Total Protein 8.6 H (6.4-8.2) gm/dl Albumin (3.4-5.0) gm/dl Globulin 4.7 H (2.5-4.0) gm/dl Albumin/Globulin Ratio 0.8 L (0.9-2) Urine pH (4.5-7.5) Urine Ketones (Negative) Urine Blood (Negative) Urine RBC (Auto) (0-4) /hpf U Epithel Cells (Auto) (0-5) /lpf Acetaminophen (10-30) ug/ml 09/12/18 09/12/18 09/12/18 Range/Units 15:15 18:13 18:17 WBC (4.8-10.8) K/uL RBC (4.7-6.1) M/uL Hgb (14.0-18.0) g/dL Hct (42-52) % MCHC (32-36) g/dL Immature Gran # (Auto) (0.00-0.02) K/uL Neut # (Auto) (1.4-6.5) K/uL Oliver # (Auto) (0.11-0.59) K/uL ESR (0-14) mm/hr VBG pH (7.36-7.41) Sodium 135 L (136-145) mmol/L Potassium (3.5-5.1) mmol/L Carbon Dioxide (21-32) mmol/L POC Total CO2 (24-31) mEq/l Anion Gap (3-11) Glucose 130 H (70-99) mg/dl POC Glucose (70-99) POC Glucose (other) (70-99) mg/dl Calcium (8.5-10.1) mg/dl POC Ioniz Calcium Herbert (1.12-1.32) mmol/l Magnesium (1.8-2.4) mg/dl Total Bilirubin (0.2-1) mg/dl Direct Bilirubin (0-0.2) mg/dl AST (15-37) U/L ALT (12-78) U/L Alkaline Phosphatase (45-117) U/L C-Reactive Protein 7.20 H (0-0.29) mg/dl Total Protein (6.4-8.2) gm/dl Albumin (3.4-5.0) gm/dl Globulin (2.5-4.0) gm/dl Albumin/Globulin Ratio (0.9-2) Urine pH 8.5 H (4.5-7.5) Urine Ketones 1+ H (Negative) Urine Blood 1+ H (Negative) Urine RBC (Auto) 5-10 H (0-4) /hpf U Epithel Cells (Auto) 10-20 H (0-5) /lpf Acetaminophen < 2 L (10-30) ug/ml 09/12/18 09/12/18 09/13/18 Range/Units 18:17 19:19 03:50 WBC 11.80 H (4.8-10.8) K/uL RBC 4.04 L (4.7-6.1) M/uL Hgb 12.2 L (14.0-18.0) g/dL Hct 33.8 L (42-52) % MCHC 36.1 H (32-36) g/dL Immature Gran # (Auto) (0.00-0.02) K/uL Neut # (Auto) (1.4-6.5) K/uL Oliver # (Auto) (0.11-0.59) K/uL ESR 50 H (0-14) mm/hr VBG pH 7.48 H (7.36-7.41) Sodium (136-145) mmol/L Potassium (3.5-5.1) mmol/L Carbon Dioxide (21-32) mmol/L POC Total CO2 (24-31) mEq/l Anion Gap (3-11) Glucose (70-99) mg/dl POC Glucose (70-99) POC Glucose (other) (70-99) mg/dl Calcium (8.5-10.1) mg/dl POC Ioniz Calcium Herbert (1.12-1.32) mmol/l Magnesium (1.8-2.4) mg/dl Total Bilirubin (0.2-1) mg/dl Direct Bilirubin (0-0.2) mg/dl AST (15-37) U/L ALT (12-78) U/L Alkaline Phosphatase (45-117) U/L C-Reactive Protein (0-0.29) mg/dl Total Protein (6.4-8.2) gm/dl Albumin (3.4-5.0) gm/dl Globulin (2.5-4.0) gm/dl Albumin/Globulin Ratio (0.9-2) Urine pH (4.5-7.5) Urine Ketones (Negative) Urine Blood (Negative) Urine RBC (Auto) (0-4) /hpf U Epithel Cells (Auto) (0-5) /lpf Acetaminophen (10-30) ug/ml 09/13/18 09/13/18 09/13/18 Range/Units 03:50 05:30 11:51 WBC (4.8-10.8) K/uL RBC (4.7-6.1) M/uL Hgb (14.0-18.0) g/dL Hct (42-52) % MCHC (32-36) g/dL Immature Gran # (Auto) (0.00-0.02) K/uL Neut # (Auto) (1.4-6.5) K/uL Oliver # (Auto) (0.11-0.59) K/uL ESR (0-14) mm/hr VBG pH (7.36-7.41) Sodium (136-145) mmol/L Potassium 3.4 L (3.5-5.1) mmol/L Carbon Dioxide (21-32) mmol/L POC Total CO2 (24-31) mEq/l Anion Gap (3-11) Glucose (70-99) mg/dl POC Glucose 112 H (70-99) POC Glucose (other) (70-99) mg/dl Calcium 7.8 L (8.5-10.1) mg/dl POC Ioniz Calcium Herbert (1.12-1.32) mmol/l Magnesium 2.9 H (1.8-2.4) mg/dl Total Bilirubin (0.2-1) mg/dl Direct Bilirubin 0.3 H (0-0.2) mg/dl AST 57 H (15-37) U/L ALT (12-78) U/L Alkaline Phosphatase 127 H (45-117) U/L C-Reactive Protein (0-0.29) mg/dl Total Protein (6.4-8.2) gm/dl Albumin 2.8 L (3.4-5.0) gm/dl Globulin (2.5-4.0) gm/dl Albumin/Globulin Ratio 0.7 L (0.9-2) Urine pH (4.5-7.5) Urine Ketones (Negative) Urine Blood (Negative) Urine RBC (Auto) (0-4) /hpf U Epithel Cells (Auto) (0-5) /lpf Acetaminophen (10-30) ug/ml Diagnostic Findings CXR- No active disease in the chest. CTA head- No acute intracranial findings Unremarkable CT angiography of the brain. CTA neck-No evidence of hemodynamically significant carotid or vertebral artery stenosis. No evidence of dissection. CT abd/pelvis-No acute intra-abdominal or pelvic findings. xray knee-No fractures or dislocations identified. wrist xray- No acute fractures Carpal instability pattern with volar tilt of the lunate. EEG- Normal eeg with no evidence for a focal or generalized encephalopathy or potentially epileptogenic patterns
[2018-09-13] MEDS: DAPTOmycin 400 MG in SYRINGE 0 ML IV SCH (18:34)
--- NOTE | 2018-09-13 18:54 | Hospitalist Progress Note ---
Date of Service September 13, 2018 Assessment & Plan (1) Acute alteration in mental status: Acute change of mental status. Similar episode about 1 year ago per family, but details including place of hospitalization not available. Family will try to get more info. Encephalopathy / delirium - etiology to be determined. Patient has been experiencing severe left wrist and right knee pain. Not sleeping well or eating much. Dehydration, sleep deprivation could be contributing factors. Taking various analgesics, including at least 2 tablets of oxycodone/acetaminophen. No recent alcohol ingestion per family; blood alcohol level undetectable. No known history of cirrhois; serum ammonia normal. Urine tox screen negative. Consider possibility of ingestion of other substances. No acute findings on CT of head. Consider encephalopathy secondary to possible infection as discussed below. Low clinical suspicion for MED ASST infection. Required high doses of lorazepam and haloperidol in ICU for sedation. Admitted to ICU for monitoring and further evaluation / management. Neuro status improved, but still somnolent. Neurology consulted. (2) Leukocytosis: Meets criteria for SIRS. May or may not have infection. Recent flu symptoms, improving per family. No infiltrates on chest x-ray. UA does not appear to be infected. No acute findings on CT of abdomen and pelvis. Left wrist pain and right knee pain- possible gout, but need to r/o septic arthritis. Ortho consulted. Blood cultures obtained in ED. Lactate normal. Procalcitonin normal (0.22). ESR 50. CRP 7.20. Empiric antibiotic coverage with daptomycin and piperacillin / tazobactam pending culture results. (3) Transaminitis: Slight elevation of transaminases and alk phos. S/P cholecystectomy. No acute findings on CT of abdomen. History of alcohol use, but none recently per family. Taking uncertain amount of acetaminophen for pain. Acetaminophen level undetectable. Follow LFT's. (4) Hypertension: Usually takes metoprolol succinate. IV metoprolol tartrate while NPO. (5) Status post mitral valve replacement with bioprosthetic valve: No murmur appreciated. No peripheral stigmata of endocarditis. Hemodynamically stable. Check blood cultures. (6) Gout: Check uric acid. Resume allopurinol when able. Ortho consulted regarding left wrist and right knee pain. Coordinate care with outpatient Rheum. (7) Depression: Resume venlafaxine when able to take oral meds. (8) GERD (gastroesophageal reflux disease): IV famotidine while acutely ill and NPO, then resume PPI. (9) DVT prophylaxis: SCD's. Add prophylactic anticoagulant if no need for invasive procedures. Ambulate when able. (10) History of alcohol use: No recent alcohol consumption per family. Empiric IV thiamine, MVI, etc. (11) Discharge planning issues: Discharge disposition to be determined. Probable discharge to home. Family Medicine follow-up with Dr. Berta Mead. Subjective Recheck for altered mental status. Patient seen in their room around 0820. Mental status improved. Still somnolent, but cooperative and follows commands. No new problems reported last night per nursing staff. Review of Systems: Constitutional- no fever. Cardiac- no chest pain. Pulmonary- no cough or SOB. GI- no nausea, vomiting, diarrhea, melena, hematochezia. - no urinary symptoms. Otherwise, as noted above. Physical Exam Constitutional: no acute distress Respiratory: no respiratory distress Auscultation: lungs clear to auscultation bilaterally Cardiovascular: Rate/Rhythm: regular rate and regular rhythm Heart Sounds: no gallop, no murmur and no cardiac rub Vessels: no JVD Extremities: no calf tenderness and no edema Gastrointestinal (Abdomen): normal bowel sounds, soft, nontender, no hepatosplenomegaly Musculoskeletal: Head/Neck/Chest: neck supple Extremities: + extremities abnormal to inspection (tenderness left wrist, swelling dorsum left hand, mild swelling right knee) Skin: no rashes, warm and dry Psychiatric: Orientation: oriented to person and cooperative; + not alert (arousable, conversant, but somnolent), + not oriented to place and + not oriented to time Results & Data Vital Signs (Past 12 Hours) Vital Signs Temp Pulse Pulse Resp BP BP Pulse Ox 09/13/18 18:34 76 129/92 09/13/18 18:00 78 15 129/92 98 09/13/18 17:00 78 11 L 140/88 96 09/13/18 16:00 37.1 C 79 18 127/82 97 09/13/18 15:00 67 20 118/83 94 09/13/18 14:00 65 11 L 142/85 H 97 09/13/18 13:00 76 12 126/80 99 09/13/18 12:00 36.9 C 17 132/88 100 09/13/18 11:46 58 L 125/92 09/13/18 11:00 71 18 125/92 97 09/13/18 10:00 64 11 L 117/78 94 09/13/18 09:00 71 11 L 129/76 94 09/13/18 08:00 36.5 C 65 12 128/79 94 09/13/18 07:00 73 12 122/77 93 Laboratory Results Laboratory Results - last 24 hr 09/12/18 09/12/18 09/12/18 16:24 18:00 18:13 WBC RBC Hgb Hct MCV MCH MCHC RDW Std Deviation RDW Coeff of Misha Plt Count MPV VBG pH Sodium 135 L Potassium 3.7 Chloride 104 Carbon Dioxide 23 Anion Gap 8.0 BUN 15 Creatinine 1.10 Est Cr Clr Drug Dosing 87.6 Est GFR ( Amer) 92.2 Est GFR (Non-Af Amer) 79.5 BUN/Creatinine Ratio 13.2 Glucose 130 H POC Glucose Osmolality Calcium 8.8 Magnesium Total Bilirubin Direct Bilirubin AST ALT Alkaline Phosphatase C-Reactive Protein 7.20 H Total Protein Albumin Globulin Albumin/Globulin Ratio Nasal Screen MRSA (PCR) Negative Acetaminophen Hep Bs Antigen Hepatitis C Antibody HIV 1&2 Ab/P24 Ag 4thGn Neg 09/12/18 09/12/18 09/12/18 18:17 19:19 19:19 WBC RBC Hgb Hct MCV MCH MCHC RDW Std Deviation RDW Coeff of Misha Plt Count MPV VBG pH 7.48 H Sodium Potassium Chloride Carbon Dioxide Anion Gap BUN Creatinine Est Cr Clr Drug Dosing Est GFR ( Amer) Est GFR (Non-Af Amer) BUN/Creatinine Ratio Glucose POC Glucose Osmolality 282 Calcium Magnesium Total Bilirubin Direct Bilirubin AST ALT Alkaline Phosphatase C-Reactive Protein Total Protein Albumin Globulin Albumin/Globulin Ratio Nasal Screen MRSA (PCR) Acetaminophen < 2 L Hep Bs Antigen Hepatitis C Antibody HIV 1&2 Ab/P24 Ag 4thGn 09/12/18 09/13/18 09/13/18 19:35 03:50 03:50 WBC 11.80 H RBC 4.04 L Hgb 12.2 L Hct 33.8 L MCV 83.7 MCH 30.2 MCHC 36.1 H RDW Std Deviation 42.6 RDW Coeff of Misha 14.0 Plt Count 259 MPV 8.5 VBG pH Sodium 137 Potassium 3.4 L Chloride 104 Carbon Dioxide 25 Anion Gap 8.0 BUN 12 Creatinine 0.97 Est Cr Clr Drug Dosing 99.4 Est GFR ( Amer) 107.3 Est GFR (Non-Af Amer) 92.6 BUN/Creatinine Ratio 12.3 Glucose 95 POC Glucose Osmolality Calcium 7.8 L Magnesium Total Bilirubin 0.8 Direct Bilirubin 0.3 H AST 57 H ALT 62 Alkaline Phosphatase 127 H C-Reactive Protein Total Protein 6.6 D Albumin 2.8 L Globulin 3.8 Albumin/Globulin Ratio 0.7 L Nasal Screen MRSA (PCR) Acetaminophen Hep Bs Antigen Neg Hepatitis C Antibody Neg HIV 1&2 Ab/P24 Ag 4thGn 09/13/18 09/13/18 05:30 11:51 WBC RBC Hgb Hct MCV MCH MCHC RDW Std Deviation RDW Coeff of Misha Plt Count MPV VBG pH Sodium Potassium Chloride Carbon Dioxide Anion Gap BUN Creatinine Est Cr Clr Drug Dosing Est GFR ( Amer) Est GFR (Non-Af Amer) BUN/Creatinine Ratio Glucose POC Glucose 112 H Osmolality Calcium Magnesium 2.9 H Total Bilirubin Direct Bilirubin AST ALT Alkaline Phosphatase C-Reactive Protein Total Protein Albumin Globulin Albumin/Globulin Ratio Nasal Screen MRSA (PCR) Acetaminophen Hep Bs Antigen Hepatitis C Antibody HIV 1&2 Ab/P24 Ag 4thGn (1) Leukocytosis Leukocytosis type: unspecified Qualified Code(s): D72.829 - Elevated white blood cell count, unspecified
[2018-09-13] MEDS ORDERED: LORazepam 1 MG/2 ML VIAL IV ONE (20:45)
[2018-09-13] MEDS ORDERED: GADOBUTROL 65ML VIAL IV PRN (21:27)
--- NOTE | 2018-09-13 21:44 | Magnetic Resonance Report ---
MR brain wo/w con CLINICAL HISTORY: 47 years-old Male presenting with altered mental status beginning on 09/12/2018, cur rently complaining of headache, no trauma. TECHNIQUE: Multisequence, multiplanar MR imaging of the brain was performed before and after the admi nistration of intravenous contrast. IV contrast: 8 mL of Gadavist. COMPARISON: CT from 09/12/2018. FINDINGS: Localizer images: Unremarkable. Normal midline sagittal structures. Ventricles and sulci normal in size. No restricted diffusion or h emorrhage. Brain parenchyma normal in appearance with preserved mancilla-white differentiation. No mass e ffect or midline shift. No abnormal parenchymal enhancement. No extra-axial fluid collection. T2 skull base flow voids preserved. Bone marrow signal intensity within the calvarium within normal limits. IMPRESSION: 1. No acute intracranial pathology. No abnormal enhancement. Electronically signed by: Chase Patel M.D. 09/13/2018 9:42 PM
[2018-09-14 05:52] LABS: Hematocrit (blood only) 34.5 % (42-52); Hemoglobin 12.2 g/dL (14.0-18.0); Mean Corpuscular Hgb Conc 35.4 g/dL (32-36); Mean Corpuscular Volume 84.6 fL (80-100); Platelet Count 275 K/uL (130-400); RDW Coefficient of Variation 13.8 % (11.5-14.5); RDW Standard Deviation 42.5 fL (36.4-46.3); Red Blood Count 4.08 M/uL (4.7-6.1); White Blood Count 11.91 K/uL (4.8-10.8)
[2018-09-14 06:32] LABS: Albumin Level 3.1 gm/dl (3.4-5.0); BUN Creatinine Ratio 12.1 (10-20); Bilirubin Direct 0.2 mg/dl (0-0.2); Calcium 8.3 mg/dl (8.5-10.1); Creatinine Clr Calc Pharmacy 86.2 ml/min; Est GFR (African American) 90.2; Est GFR (Non-African American) 77.8; Potassium 3.7 mmol/L (3.5-5.1)
[2018-09-14 06:35] LABS: Albumin Globulin Ratio 0.7 (0.9-2); Bilirubin,Total 0.8 mg/dl (0.2-1); Globulin 4.2 gm/dl (2.5-4.0); Total Protein 7.3 gm/dl (6.4-8.2)
[2018-09-14] MEDS: PIPERACILLIN/TAZOBACTAM 3.375 GM in DEXTROSE 5% 100 ML IV SCH ×2 (07:38→16:23)
--- NOTE | 2018-09-14 08:30 | Orthopedic Progress Note ---
Date of Service September 14, 2018 Assessment & Plan (1) Left wrist pain: Will continue to monitor Continue ROM as tolerated, ice, elevation as needed Will discuss findings with Dr. Kahn Recommend he follow-up with his orthopedist upon discharge (2) Right knee pain: Will continue to monitor Allowed for OOB as tolerated, WBAT RLE Will discuss findings with Dr. Kahn Recommend he follow-up with his orthopedist upon discharge Subjective The patient is awake, resting in bed, alert, following commands, answering questions. He continues to have left wrist pain and right knee pain/swelling. He says he does walk to the bathroom without assistive device. His IV is in his left wrist. He denies f/c/s. He says his left wrist symptoms are similar to what he had a few mths ago when he saw an orthopedist who gave him an injection that helped. The patient was admitted to the hospital with altered mental status. Etiology is unknown. He has been receiving ABX. Physical Exam Physical Exam: Focused left wrist exam: moderate amount of swelling to wrist/hand/fingers. IV intact. No redness or warmth. Diffusely tender to wrist joint. Limited wrist motion due to IV with some discomfort. Able to make a full fist. Motor to AIN, PIN, medial, radial, ulnar nerves intact. Palpable radial pulse. Brisk capillary refill. Sensation intact to light touch. Focused right knee exam: Moderate effusion. No redness or warmth. Diffusely tender. Motion 0-120 with discomfort at end range flexion. Knee stable. Able to perform SLR. NV intact RLE with palpable DP and PT pulses. Neg homans. Calf soft. Sensation intact to light touch. 5/5 EHL, TA, gastroc strength. Results & Data Vital Signs (Past 12 Hours) Vital Signs Temp Pulse Pulse Resp BP Pulse Ox 09/14/18 07:33 36.8 C 79 18 145/82 H 98 09/14/18 06:39 36.8 C 60 17 137/57 L 96 09/13/18 23:16 36.9 C 80 18 135/79 98 09/13/18 22:20 88 09/13/18 20:18 69 Laboratory Results 09/14/18 09/14/18 09/13/18 Range/Units 05:24 05:24 11:51 WBC 11.91 H (4.8-10.8) K/uL RBC 4.08 L (4.7-6.1) M/uL Hgb 12.2 L (14.0-18.0) g/dL Hct 34.5 L (42-52) % MCV 84.6 (80-100) fL MCH 29.9 (25-34) pg MCHC 35.4 (32-36) g/dL RDW Std Deviation 42.5 (36.4-46.3) fL RDW Coeff of Misha 13.8 (11.5-14.5) % Plt Count 275 (130-400) K/uL MPV 9.0 (7.4-10.4) fL Sodium 134 L (136-145) mmol/L Potassium 3.7 (3.5-5.1) mmol/L Chloride 102 (98-107) mmol/L Carbon Dioxide 25 (21-32) mmol/L Anion Gap 7.0 (3-11) BUN 14 (7-18) mg/dl Creatinine 1.12 (0.6-1.4) mg/dl Est Cr Clr Drug Dosing 86.2 ml/min Est GFR ( Amer) 90.2 Est GFR (Non-Af Amer) 77.8 BUN/Creatinine Ratio 12.1 (10-20) Glucose 88 (70-99) mg/dl POC Glucose 112 H (70-99) Calcium 8.3 L (8.5-10.1) mg/dl Total Bilirubin 0.8 (0.2-1) mg/dl Direct Bilirubin 0.2 (0-0.2) mg/dl AST 53 H (15-37) U/L ALT 57 (12-78) U/L Alkaline Phosphatase 128 H (45-117) U/L Total Protein 7.3 (6.4-8.2) gm/dl Albumin 3.1 L (3.4-5.0) gm/dl Globulin 4.2 H (2.5-4.0) gm/dl Albumin/Globulin Ratio 0.7 L (0.9-2) RPR (Nonreactive) Hepatitis A IgM Ab (NON-REACTIVE) Hep B Core IgM Ab (NON-REACTIVE) 09/12/18 09/12/18 Range/Units 19:35 18:17 WBC (4.8-10.8) K/uL RBC (4.7-6.1) M/uL Hgb (14.0-18.0) g/dL Hct (42-52) % MCV (80-100) fL MCH (25-34) pg MCHC (32-36) g/dL RDW Std Deviation (36.4-46.3) fL RDW Coeff of Misha (11.5-14.5) % Plt Count (130-400) K/uL MPV (7.4-10.4) fL Sodium (136-145) mmol/L Potassium (3.5-5.1) mmol/L Chloride (98-107) mmol/L Carbon Dioxide (21-32) mmol/L Anion Gap (3-11) BUN (7-18) mg/dl Creatinine (0.6-1.4) mg/dl Est Cr Clr Drug Dosing ml/min Est GFR ( Amer) Est GFR (Non-Af Amer) BUN/Creatinine Ratio (10-20) Glucose (70-99) mg/dl POC Glucose (70-99) Calcium (8.5-10.1) mg/dl Total Bilirubin (0.2-1) mg/dl Direct Bilirubin (0-0.2) mg/dl AST (15-37) U/L ALT (12-78) U/L Alkaline Phosphatase (45-117) U/L Total Protein (6.4-8.2) gm/dl Albumin (3.4-5.0) gm/dl Globulin (2.5-4.0) gm/dl Albumin/Globulin Ratio (0.9-2) RPR Nonreactive (Nonreactive) Hepatitis A IgM Ab NON-REACTIVE (NON-REACTIVE) Hep B Core IgM Ab NON-REACTIVE (NON-REACTIVE)
[2018-09-14] MEDS ORDERED: PANTOprazole 40 MG TAB PO SCH (09:00)
[2018-09-14] MEDS ORDERED: METOPROLOL SUCC 25MG EXT REL TAB PO SCH (09:00)
[2018-09-14] MEDS ORDERED: VENLAFAXINE HCL XR 150 MG CAPXR PO SCH (09:00)
[2018-09-14] MEDS ORDERED: ALLOPURINOL 300 MG TAB PO SCH (09:00)
[2018-09-14] MEDS ORDERED: THIAMINE HCL 100 MG TAB PO SCH (09:00)
[2018-09-14 11:53] LABS: C-Reactive Protein High Sens. >10.0 MG/L (0.0-3.0)
[2018-09-14 12:00] VITALS: TEMP 98.4
[2018-09-14 12:59] LABS: Chlamydia Trach RNA NOT DETECTED (NOT DETECTED); GC (Neis gonorrhoeae) RNA NOT DETECTED (NOT DETECTED)
--- NOTE | 2018-09-14 15:36 | Neurology Progress Note ---
Date of Service September 14, 2018 Assessment & Plan (1) Acute alteration in mental status: 1. EEG - no epileptic focus 2. acute MS change- not typical for TGA 3. MRI brain with and without to r/o lesions 4. unlikely injection was source of AMS change- depomedrol 40 mg and 1 ml 2% lidocaine -wrist 5. tox screen negative 6. improving but no clear cause found. 7. LP - evaluation of other caused of memory issues- no meningeal enhancement, minimal enhancement WBC, no fevers 8. added lyme testing needs follow up with PCP and rheumatology for further evaluation Supervising Physician Co-Signing Physician Notes I have seen and discussed above patient with Dr Edison Dawson, neurology I saw Mr. Jimenez today in accompaniment of his mother and ex-. He appears to be at least in my judgment back to nearly his baseline as good orientation to person place time, has total amnesia for the events that precipitated admission and is still a little vague about the events that occurred yesterday His headache which was a feature of his illness and preceded the amnestic episode by several days has now resolved His MRI shows no evidence for significant changes, meningeal enhancement or anything that might be consistent with an encephalitis and his EEG is negative. Exam reveals no nuchal rigidity or meningeal signs and is otherwise nonfocal. At this point I see no point in performing a lumbar puncture itself point presented with the option was adamantly against it As far as I am concerned he could be discharged either today or more ideally tomorrow after another night of observation and in light of his ongoing frequent headaches and failure to obtain relief from them over the past several years at the hands of his primary care physician, I would suggest a neurologic follow-up in about 4 to 6 weeks For now neurology is going to sign off the case with the presumptive diagnosis of a "confusional" migraine We have obtained a Lyme titer today this is a precaution as this would be a treatable entity although Lyme disease presenting with an acute amnestic state would be most unlikely The monoarticular or polyarticular arthropathy is most likely in his case due to gout but again Lyme disease could theoretically do this Edison Dawson MD Adria Baird is a 47 year old male with a PMH- 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 He is a recovering alcoholic sober for approximately 2 years. He had been complaining of a URI with sore throat nasal discharge and headache. He has arthralgias which is a chronic issue with him. He sees Dr Gordon for gout and had a flare with subsequent injection last week in his wrist of depomedrol 40 mg, 1 ml 2 % lidocaine. This past week end he became agitated and then was very confused. His family brought him in for evaluation. He lives with his parents he does not drive and was incarcerated in the previous 2 years where he had a similar episode at a hospital in the [facility]. But which hospital is unknown. he chews tobacco, no illicit drugs, no EtOh use currently. His x is in the room today and feels he is very close to his baseline. discussed the only thing that would be to LP him but he is refusing and with no meningeal enhancement, high WBC, fever this would likely be a non diagnostic test. 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 no slurred speech, or dysphagia Results & Data Vital Signs (Past 12 Hours) Vital Signs Temp Pulse Pulse Resp BP BP Pulse Ox 09/14/18 11:59 36.9 C 83 18 149/87 H 97 09/14/18 08:00 89 09/14/18 07:33 36.8 C 79 18 145/82 H 98 09/14/18 06:39 36.8 C 60 17 137/57 L 96 Laboratory Results Abnormal lab results 09/12/18 09/14/18 09/14/18 Range/Units 13:33 05:24 05:24 WBC 11.91 H (4.8-10.8) K/uL RBC 4.08 L (4.7-6.1) M/uL Hgb 12.2 L (14.0-18.0) g/dL Hct 34.5 L (42-52) % Sodium 134 L (136-145) mmol/L Calcium 8.3 L (8.5-10.1) mg/dl AST 53 H (15-37) U/L Alkaline Phosphatase 128 H (45-117) U/L C-React Prot High Sens >10.0 H (0.0-3.0) MG/L Albumin 3.1 L (3.4-5.0) gm/dl Globulin 4.2 H (2.5-4.0) gm/dl Albumin/Globulin Ratio 0.7 L (0.9-2) Diagnostic Findings MRI brain-No acute intracranial pathology. No abnormal enhancement.
[2018-09-14] MEDS: DAPTOmycin 400 MG in SYRINGE 0 ML IV SCH (16:23)
[2018-09-14 16:47] VITALS: PULSE 78; O2SAT 96
--- NOTE | 2018-09-14 16:53 | Hospitalist Progress Note ---
Date of Service September 14, 2018 Assessment & Plan (1) Acute alteration in mental status: Presented with acute change of mental status. Similar episode about 1 year ago per family, but details including place of hospitalization not available. Family will try to get more info. Encephalopathy / delirium - etiology to be determined. Patient has been experiencing severe left wrist and right knee pain. Not sleeping well or eating much. Dehydration, sleep deprivation could be contributing factors. Taking various analgesics, including at least 2 tablets of oxycodone/acetaminophen. No recent alcohol ingestion per family; blood alcohol level undetectable. No known history of cirrhosis; serum ammonia normal. Urine tox screen negative. Consider possibility of ingestion of other substances. No acute findings on CT of head. Consider encephalopathy secondary to possible infection as discussed below. 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 Required high doses of lorazepam and haloperidol in ICU for sedation. Admitted to ICU for monitoring and further evaluation / management. Neurology consulted. EEG negative. MRI negative. Neuro status improved and back to baseline. (2) Leukocytosis: Meets criteria for SIRS. May or may not have infection. Recent flu symptoms, improving per family. No infiltrates on chest x-ray. UA does not appear to be infected. No acute findings on CT of abdomen and pelvis. Left wrist pain and right knee pain- possible gout, but need to r/o septic arthritis. Ortho consulted. Blood cultures obtained in ED. Lactate normal. Procalcitonin normal (0.22). ESR 50. CRP 7.20. Received empiric antibiotic coverage with daptomycin and piperacillin / tazobactam pending culture results. Blood cultures negative. No apparent infection. Antibiotics discontinued. (3) Transaminitis: Slight elevation of transaminases and alk phos. S/P cholecystectomy. No acute findings on CT of abdomen. History of alcohol use, but none recently per family. Taking uncertain amount of acetaminophen for pain. Acetaminophen level undetectable. LFT's day of discharge improved, essentially normal. (4) Hypertension: Continue metoprolol succinate. (5) Status post mitral valve replacement with bioprosthetic valve: No murmur appreciated. No peripheral stigmata of endocarditis. Hemodynamically stable. Blood cultures negative. (6) Gout: Uric acid = 4.6. Ortho consulted regarding left wrist and right knee pain and felt that septic arthritis unlikely. Continue allopurinol and diclofenac. Coordinate care with outpatient Rheum. (7) Depression: Continue venlafaxine. (8) GERD (gastroesophageal reflux disease): Continue PPI. (9) DVT prophylaxis: SCD's. Anticoagulants not utilized because of possible need for invasive procedures. Ambulating. (10) History of alcohol use: No recent alcohol consumption per pt and family. Received IV thiamine. (11) Discharge planning issues: Discharge to home. Family Medicine follow-up with Dr. Berta Mead. Subjective Recheck for altered mental status. Patient seen in their room around 1640. Family visiting. Feels much better. Mental status back to baseline. No headache. No chest pain, cough, SOB, nausea, vomiting, diarrhea. Left wrist pain improved. Right knee pain improved. Ambulating without difficulty. Review of Systems: As noted above. Physical Exam Constitutional: WD/WN, vitals as above well developed and well nourished; no acute distress Eyes: PERRL, conjunctivae normal, anicteric sclerae Respiratory: normal respiratory effort, lungs clear to auscultation no respiratory distress Auscultation: lungs clear to auscultation bilaterally Cardiovascular: Rate/Rhythm: regular rate and regular rhythm Heart Sounds: no gallop, no murmur and no cardiac rub Vessels: no JVD Extremities: normal capillary refill; no calf tenderness and no edema Gastrointestinal (Abdomen): normal bowel sounds, soft, nontender, no hepatosplenomegaly Musculoskeletal: Head/Neck/Chest: neck supple Extremities: + wrist abnormality (swelling, warmth, erythema left wrist improved) and + hand abnormality (erythema and swelling dorsum left hand improved); no cyanosis and no clubbing Knee: + knee abnormal to inspection (erythema, warmth, tenderness right knee- improved, minimal) Skin: no rashes, warm and dry Psychiatric: A+Ox3, euthymic affect Orientation: alert (arousable, conversant, but somnolent) Results & Data Vital Signs (Past 12 Hours) Vital Signs Temp Pulse Pulse Resp BP BP Pulse Ox 09/14/18 16:47 36.9 C 78 18 135/83 96 09/14/18 16:00 81 09/14/18 11:59 36.9 C 83 18 149/87 H 97 09/14/18 08:00 89 09/14/18 07:33 36.8 C 79 18 145/82 H 98 09/14/18 06:39 36.8 C 60 17 137/57 L 96 (1) Leukocytosis Leukocytosis type: unspecified Qualified Code(s): D72.829 - Elevated white blood cell count, unspecified
[2018-09-14 17:03] LABS: Lyme Ab IgG w/WB Rflx Negative (Negative); Lyme Ab IgM w/WB Rflx Negative (Negative)
[2018-09-14 17:11] VITALS: BP 145/82
--- NOTE | 2018-09-15 05:52 | Discharge Summary ---
Date of Service September 15, 2018 Admission HPI Per Admitting Provider 47 YO male followed by Dr Berta Mead. History of myxomatous mitral valve with bioprosthetic MVR 2013, gout, and other problems as noted below. History of alcohol use in the past, but no recent consumption per family's report. History of hospitalization in [facility] about 1 year ago, apparently for altered mental status but family does not know the facility or diagnosis. Lives with his family. Experiencing severe left wrist pain attributed to gout. More recently developed right knee pain as well. Pain has been very severe and patient has not been able to sleep or eat well for past few days. Prescribed allopurinol and diclofenac for the gout. Family reports that he is also taking acetaminophen PRN as well as a few doses of ibuprofen. He also took 2 tablets of oxycodone / acetaminophen yesterday. Around 9:00 this morning he seemed to be OK. Came downstairs around 11:30; family observed that he was very confused and nonverbal. Brought to ED for evaluation. CT head ordered to rule out [employer] event. Required several doses of lorazepam and haloperidol to obtain CT. Patient was very sedated at time of my evaluation and unable to offer any history. Family reports that he had flu symptoms with pharyngitis and cough about a week ago, but seemed to be recovering from that illness. Admission Exam Per Admitting Provider Constitutional: WD/WN, vitals as above well developed, well nourished, + acute distress, + ill appearing and + altered mental status Eyes: PERRL, conjunctivae normal, anicteric sclerae ENMT: external ear and nose normal, oropharynx normal (patient unable to cooperate with assessment of oropharynx) Neck: trachea midline, no thyromegaly Respiratory: normal respiratory effort, lungs clear to auscultation Cardiovascular: Rate/Rhythm: regular rate, regular rhythm and + tachycardic Heart Sounds: no gallop, no murmur and no cardiac rub Vessels: posterior tibial pulses present and dorsalis pedis pulses present; no JVD Extremities: normal capillary refill; no calf tenderness and no edema Gastrointestinal (Abdomen): normal bowel sounds, soft, nontender, no hepatosplenomegaly Musculoskeletal: Head/Neck/Chest: neck supple Extremities: strength 5/5 throughout, + wrist abnormality (swelling, warmth, erythema left wrist) and + hand abnormality (erythema and swelling dorsum left hand); no cyanosis and no clubbing Knee: + knee abnormal to inspection (erythema, warmth, tenderness right knee, ? small effusion) Skin: no rashes, warm and dry Neurologic: sedated after receiving lorazepam and haloperidol nonverbal does not follow commands pupils 3 mm, reactive moves all 4 extr plantar reflexes downgoing bilat Psychiatric: Orientation: + not alert and + not oriented x 3 Lymphatic: no cervical lymphadenopathy Principal Diagnosis altered mental status Discharge Data Allergies Allergy/AdvReac Type Severity Reaction Status Date / Time No Known Allergies Allergy Unknown Verified 12/28/13 08:46 Consultations 09/12/18 15:35 ED Decision to Admit Stat 09/12/18 18:00 Consult Case Management - Discharge Planning Routine Consult Audit Intern Routine Consult Orthopedic Surgery Routine 09/13/18 08:12 Consult Neurology Routine Ordered Studies 09/12/18 13:59 CT angio head wo/w Stat CT angio neck with con Stat 09/12/18 15:22 CT abd pelvis wo con Stat 09/13/18 18:41 MR brain wo/w con Routine Hospital Course (1) Acute alteration in mental status: Presented with acute change of mental status. Similar episode about 1 year ago per family, but details including place of hospitalization not available. Appeared to have encephalopathy / delirium. Patient had been experiencing severe left wrist and right knee pain. Was not sleeping well or eating much. Dehydration, sleep deprivation may have been contributing factors. Taking various analgesics, including at least 2 tablets of oxycodone/acetaminophen. No recent alcohol ingestion per family; blood alcohol level undetectable. No known history of cirrhosis; serum ammonia normal. Urine tox screen negative. Consider possibility of ingestion of other substances. No acute findings on CT of head. Considered encephalopathy secondary to possible infection as discussed below. Low clinical suspicion for [employer] infection. Required high doses of lorazepam and haloperidol in ICU for sedation. Admitted to ICU for monitoring and further evaluation / management. Neurology consulted. EEG negative. MRI negative. Neuro status improved and back to baseline. (2) Leukocytosis: Met criteria for SIRS, but no infection identified. Recent flu symptoms, improving per family. No infiltrates on chest x-ray. UA does not appear to be infected. No acute findings on CT of abdomen and pelvis. Left wrist pain and right knee pain. History of gout. Ortho consulted. Rudolph that septic arthritis unlikely. Blood cultures obtained in ED and remained negative. Lactate normal. Procalcitonin normal (0.22). ESR 50. CRP 7.20. Received empiric antibiotic coverage with daptomycin and piperacillin / tazobactam pending culture results. Blood cultures negative. No apparent infection. Antibiotics discontinued. WBC down to 11,910 by discharge. (3) Transaminitis: Slight elevation of transaminases and alk phos. S/P cholecystectomy. No acute findings on CT of abdomen. History of alcohol use, but none recently per family. Taking uncertain amount of acetaminophen for pain; acetaminophen level undetectable. LFT's day of discharge improved, essentially normal. (4) Hypertension: Continue metoprolol succinate. (5) Status post mitral valve replacement with bioprosthetic valve: No murmur appreciated. No peripheral stigmata of endocarditis. Hemodynamically stable. Blood cultures negative. (6) Gout: Uric acid = 4.6. Ortho consulted regarding left wrist and right knee pain and felt that septic arthritis unlikely. Continue allopurinol and diclofenac. Coordinate care with outpatient Rheum. (7) Depression: Continue venlafaxine. (8) GERD (gastroesophageal reflux disease): Continue PPI. (9) History of alcohol use: No recent alcohol consumption per pt and family. Received IV thiamine. (10) DVT prophylaxis: SCD's. Anticoagulants not utilized because of possible need for invasive procedures. Ambulating. (11) Discharge planning issues: Discharged to home. Family Medicine follow-up with Dr. Berta Mead. Total Time Total Time Spent Total Time Spent (In Minutes): 35 Discharge Plan Discharge Items Patient Disposition: Home - Self-Care Reason For Visit: confusion Discharge Diagnosis: confusion- no sign of stroke Condition: Good Discharge Goals: Improve disease control Activity: Resume your previous activity Non-emergency contact: Primary Care Provider and Hospitalist Call non-emergency contact if: you have any medication questions and your symptoms worsen Follow-up/Referrals: Berta Mead DO [Primary Care Provider] - (09/17/2018 10:20 AM Yasmine Paul MD (covering for Dr. Mead) [facility]) Diet: See below Diet Comment: gout diet Addtl Provider Instructions: OTHER INSTRUCTIONS: Continue previous medications. May also take Extra Strength Tylenol (acetaminophen) 500 mg pills, 2 pills every 8 hours as needed for pain. Seek medical attention if you have: * temperature above 101 * chest pain or trouble breathing * abdominal pain, nausea, vomiting * diarrhea, dark stools or bloody stools * any unanswered questions or concerns Call 911 if symptoms are severe. Call if you have any questions or problems. My cell # is [phone]. You can also reach a [facility] hospitalist on duty at [facility] 24 hours a day by calling [phone]. Prescriptions: New acetaminophen 500 mg tablet 1,000 mg PO Q8H PRN (Reason: fever or pain) Qty: 60 RF: 0 Continued omeprazole 20 mg Capsule,Delayed Release(Dr/Ec) 20 mg PO DAILY RF: 0 metoprolol succinate 25 mg Capsule,Sprinkle,Er 24hr 25 mg PO DAILY RF: 0 venlafaxine 150 mg capsule,extended release 24hr 150 mg PO DAILY RF: 0 allopurinol 300 mg tablet 300 mg PO DAILY RF: 0 diclofenac sodium 75 mg tablet,delayed release (DR/EC) 75 mg PO BID RF: 0 Stand-Alone Forms: My [facility] Discharge Orders: Discharge Order (Routine); Ordered 09/14/18 Ordered By: Edison Gibson Admission Data Admit Date/Time: 09/12/18 16:56 Attending Provider: Edison Gibson Admit Provider: Edison Gibson Primary Care Provider: Berta Mead Other Providers: Edison Gibson ; Ayaan Zazueta ; Chase Kahn ; Edison Dawson Service: Telemetry Medical Other Interventions: Discharge Summary Assessment (RN) Last Done: 09/14/18 17:10 DC Date/Time DO NOT enter until pt leaves facility: 09/14/18 17:33
== END 2018-09-14 17:33 | disposition home or self-care (01) | DRG 71 ==
LOC: ED 13:11 → 1E 16:56 → 2N 09-13 18:43

== ENCOUNTER 2020-02-27 20:10 | Inpatient (IN) ==
[2020-02-27] MEDS ORDERED: LORazepam 2 MG/ML VIAL (IM USE) IM STA (20:27)
[2020-02-27] MEDS ORDERED: HALOPERIDOL LACTATE 5 MG/ML 1 ML VIAL IM STA (20:27)
[2020-02-27 21:25] LABS: Basophils # (auto) 0.01 K/uL (0-0.2); Basophils % (auto) 0.1 %; Eosinophils # (auto) 0.04 K/uL (0-0.5); Eosinophils % (auto) 0.4 %; Hematocrit (blood only) 43.1 % (42-52); Hemoglobin 14.7 g/dL (14.0-18.0); Immature Granulocytes # (auto) 0.03 K/uL (0.00-0.02); Immature Granulocytes % (auto) 0.3 %; Lymphocytes # (auto) 1.78 K/uL (1.2-3.4); Lymphocytes % (auto) 16.8 %; Mean Corpuscular Hemoglobin 31.5 pg (25-34); Mean Corpuscular Hgb Conc 34.1 g/dL (32-36); Mean Corpuscular Volume 92.3 fL (80-100); Monocytes # (auto) 0.66 K/uL (0.11-0.59); Monocytes % (auto) 6.2 %; Neutrophils # (auto) 8.08 K/uL (1.4-6.5); Neutrophils % (auto) 76.2 %; Platelet Count 212 K/uL (130-400); RDW Coefficient of Variation 15.1 % (11.5-14.5); RDW Standard Deviation 50.7 fL (36.4-46.3); Red Blood Count 4.67 M/uL (4.7-6.1)
[2020-02-27 21:47] LABS: Alanine Aminotransferase 47 U/L (12-78); Albumin Level 4.2 gm/dl (3.4-5.0); Aspartate Aminotransferase 57 U/L (15-37); BUN Creatinine Ratio 13.1 (10-20); Blood Urea Nitrogen 15 mg/dl (7-18); Calcium 8.3 mg/dl (8.5-10.1); Carbon Dioxide 27 mmol/L (21-32); Chloride 100 mmol/L (98-107); Est GFR (African American) 83.5; Glucose 120 mg/dl (70-99); Potassium 3.4 mmol/L (3.5-5.1); Sodium 135 mmol/L (136-145)
[2020-02-27 21:48] LABS: Acetaminophen < 2 ug/ml (10-30); Salicylate < 1.7 mg/dl (2.8-20)
[2020-02-27 22:02] LABS: Albumin Globulin Ratio 1.2 (0.9-2); Alkaline Phosphatase 71 U/L (45-117); Bilirubin,Total 1.1 mg/dl (0.2-1); Creatine Kinase 1197 U/L (39-308); Globulin 3.6 gm/dl (2.5-4.0); Total Protein 7.8 gm/dl (6.4-8.2)
[2020-02-27 22:14] LABS: T4 Free Thyroxine 0.96 ng/dl (0.8-1.6)
[2020-02-27] MEDS ORDERED: SODIUM CHLORIDE 0.9% 1000ML 2,000 ML IV ONE (23:42)
[2020-02-28] MEDS ORDERED: LACTATED RINGER'S 1,000 ML IV STA (00:08)
[2020-02-28 00:19] LABS: Lipase 102 U/L (73-393); Magnesium 0.7 mg/dl (1.8-2.4)
[2020-02-28] MEDS ORDERED: MAGNESIUM SULFATE / D5W 1 GM/100 ML BAG IV STA (00:25)
[2020-02-28 00:43] LABS: Procalcitonin < 0.05 ng/ml (0-0.5)
[2020-02-28 00:52] LABS: Lyme Ab IgG w/WB Rflx Negative (Negative); Lyme Ab IgM w/WB Rflx Negative (Negative)
[2020-02-28] MEDS ORDERED: METOPROLOL TARTRATE 1 MG/ML VIAL IV STA (01:08)
--- NOTE | 2020-02-28 01:17 | Emergency Department Note ---
History of Present Illness General Chief complaint: Cardiac Assessment Stated complaint: CHEST PAIN/SHORTNESS OF BREATH Source: patient, EMS and RN notes reviewed Mode of arrival: ambulatory Limitations: no limitations History of Present Illness Provider complaint: Altered mental status, chest pain This patient is a 49-year-old male who presents emergency department with complaints of chest pain per family. Apparently the patient had an acute deterioration in mental status and became anxious and somewhat agitated. The patient came home from work today with mild anxiety and drove to his ex-'s home. He took a Benadryl tablet hoping that this would improve things. He became suddenly nonverbal and increasingly anxious/agitated. Family called EMS for further assistance. Patient did receive 1 mg of IM Ativan prior to arrival. He apparently has a remote history of alcohol abuse however his ex- states he has a breathalyzer in his car which he was driving today, therefore she does not believe he had anything to drink today. He does not have a significant history of substance abuse. The patient has not been ill recently. He has had several episodes similar to this in the past, 1 he was admitted here at [facility] approximately a year and a half ago and another prior to that. Home Medications Home Medications Medication Instructions Recorded Confirmed Type metoprolol succinate 25 mg PO DAILY 03/25/18 02/27/20 History omeprazole 20 mg PO DAILY 03/25/18 02/27/20 History allopurinol 300 mg PO DAILY 09/12/18 02/27/20 History venlafaxine 150 mg PO DAILY 09/12/18 02/27/20 History magnesium chloride 64 mg PO DAILY #5 tab 02/29/20 Rx Allergies Allergy/AdvReac Type Severity Reaction Status Date / Time No Known Allergies Allergy Unknown Verified 12/28/13 08:46 Past Med/Surg History Medical History (Updated 02/29/20 @ 23:56 by Oksana Galindo MD) Anxiety Depression Gallstones GERD (gastroesophageal reflux disease) Gout Hypertension Migraine Surgical History H/O hernia repair Status post cholecystectomy Status post mitral valve replacement with bioprosthetic valve Family History Father Hypertension Mother Diabetes Social History Smoking Status: Never smoker Second Hand Exposure: No; Hx Alcohol Use: Yes Alcohol type: beer Hx Substance Use: No Preferred Language: Croatian Communication Ability: Effective 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 Beliefs That Will Affect Care: None Current Living Situation: Parent Current Living Situation Comment: live with mother Other Information That Helps Us Care for You: No Feels Safe at Home: Yes Safety Concerns: Feels Safe At This Time Assistive Devices: None Review of Systems Unobtainable due to cognitive status Physical Exam Vital Signs Vital Signs - 24 hr 02/27/20 20:20 02/27/20 20:33 02/27/20 21:23 Temperature Temperature Source Pulse Rate 101 H 106 H Pulse Rate from SpO2 Sensor 104 H Respiratory Rate 20 19 Respiratory Effort / Characteristics Non-Labored Spontaneous Respiratory Depth Deep Respiratory Pattern Regular Blood Pressure 141/86 H 141/96 H 154/88 H Blood Pressure Mean 98 111 106 Blood Pressure Position Sitting Pulse Oximetry 99 99 95 Oxygen Delivery Method Room Air Sepsis Recent Fever Within 48 Hours No Sepsis New/Unexplained Change in Mental Status No Sepsis Action Taken by Nursing No Action Required 02/27/20 21:30 02/27/20 22:00 02/27/20 22:44 Temperature Temperature Source Pulse Rate 101 H 110 H Pulse Rate from SpO2 Sensor 109 H Respiratory Rate 25 H 19 Respiratory Effort / Characteristics Respiratory Depth Respiratory Pattern Blood Pressure 172/88 H Blood Pressure Mean 100 Blood Pressure Position Pulse Oximetry 94 Oxygen Delivery Method Sepsis Recent Fever Within 48 Hours Sepsis New/Unexplained Change in Mental Status Sepsis Action Taken by Nursing 02/27/20 23:00 02/27/20 23:01 02/27/20 23:03 Temperature 36.5 C Temperature Source Oral Pulse Rate 116 H 103 H Pulse Rate from SpO2 Sensor Respiratory Rate 20 20 Respiratory Effort / Characteristics Respiratory Depth Respiratory Pattern Blood Pressure 137/84 Blood Pressure Mean 97 Blood Pressure Position Pulse Oximetry 95 Oxygen Delivery Method Room Air Sepsis Recent Fever Within 48 Hours Sepsis New/Unexplained Change in Mental Status Sepsis Action Taken by Nursing 02/28/20 00:00 Temperature Temperature Source Pulse Rate 106 H Pulse Rate from SpO2 Sensor Respiratory Rate 19 Respiratory Effort / Characteristics Respiratory Depth Respiratory Pattern Blood Pressure 152/102 H Blood Pressure Mean 114 Blood Pressure Position Pulse Oximetry 93 Oxygen Delivery Method Room Air Sepsis Recent Fever Within 48 Hours Sepsis New/Unexplained Change in Mental Status Sepsis Action Taken by Nursing Vital signs reviewed. Largely noncooperative with exam and required sedation General: Agitated, anxious and somewhat disoriented 49-year-old male with security around the bed. HEENT: No scleral icterus, PERRLA, neck supple. Atraumatic. Cardiovascular: Tachycardic but regular, no extra sounds Pulmonary: Clear to auscultation bilaterally, normal work of breathing. Abdomen: Soft, nontender, nondistended, positive bowel sounds. Musculoskeletal: Atraumatic, no peripheral edema. Neurologic: Patient awake alert and minimally verbal. Will answer yes and no. Skin: Warm, dry, no rash Course Administered Medications Discontinued Medications Acetaminophen (Acetaminophen 325 Mg Tab) 325 mg PO Q6H PRN PRN Reason: Mild Pain Stop: 03/29/20 02:32 Last Admin: 02/29/20 09:49 Dose: 325 mg Documented by: [id number] Admin: 02/28/20 18:30 Dose: 325 mg Documented by: [id number] Allopurinol (Allopurinol 300 Mg Tab) 300 mg PO DAILY [facility] Stop: 03/29/20 08:59 Last Admin: 02/29/20 08:00 Dose: 300 mg Documented by: [id number] Admin: 02/28/20 08:43 Dose: 300 mg Documented by: [id number] Enoxaparin Sodium (Enoxaparin Inj 40 Mg/0.4 Ml Syr) 40 mg SQ QAM [facility] Stop: 03/29/20 08:59 Last Admin: 02/29/20 08:03 Dose: 40 mg Documented by: [id number] Admin: 02/28/20 08:44 Dose: 40 mg Documented by: [id number] Folic Acid (Folic Acid 1 Mg Tab) 1 mg PO QAM [facility] Stop: 03/30/20 08:59 Last Admin: 02/29/20 08:00 Dose: 1 mg Documented by: [id number] Gabapentin (Gabapentin 400 Mg Cap) 800 mg PO NOW ONE Stop: 02/28/20 18:46 Last Admin: 02/28/20 20:31 Dose: 800 mg Documented by: [id number] Gabapentin (Gabapentin 400 Mg Cap) 400 mg PO Q6H [facility] Stop: 02/29/20 06:01 Last Admin: 02/29/20 06:27 Dose: 400 mg Documented by: [id number] Admin: 02/29/20 00:00 Dose: Not Given Documented by: [id number] Haloperidol Lactate (Haloperidol Lactate 5 Mg/Ml 1 Ml Vial) 5 mg IM NOW STA Stop: 02/27/20 20:28 Last Admin: 02/27/20 20:33 Dose: 5 mg Documented by: [id number] Sodium Chloride (Nss 1000ml) 2,000 mls @ 999 mls/hr IV .Q2H1M ONE Stop: 02/28/20 01:42 Last Infusion: 02/28/20 00:45 Dose: 0 mls/hr Documented by: [id number] Admin: 02/27/20 23:57 Dose: 999 mls/hr Documented by: [id number] Lactated Ringer's (Lr) 1,000 mls @ 250 mls/hr IV .Q4H STA Stop: 02/28/20 04:07 Last Infusion: 02/28/20 01:47 Dose: 0 mls/hr Documented by: [id number] Admin: 02/28/20 00:41 Dose: 250 mls/hr Documented by: [id number] Magnesium Sulfate/Dextrose (Magnesium Sulfate / D5w) 1 gm in 100 mls @ 50 mls/hr IV Q2H STA Stop: 02/28/20 02:24 Last Infusion: 02/28/20 02:38 Dose: 0 mls/hr Documented by: [id number] Admin: 02/28/20 00:41 Dose: 50 mls/hr Documented by: [id number] Multivitamins 10 ml/ Thiamine HCl 100 mg/ Folic Acid 1 mg/Potassium Chloride 40 meq/Sodium Chloride 1,031.2 mls @ 100 mls/hr IV .[id number] STA Stop: 02/28/20 11:48 Last Infusion: 02/28/20 13:01 Dose: 0 mls/hr Documented by: [id number] Admin: 02/28/20 01:47 Dose: 100 mls/hr Documented by: [id number] Magnesium Sulfate/Dextrose (Magnesium Sulfate / D5w) 1 gm in 100 mls @ 50 mls/hr IV Q2H JUAN Stop: 02/28/20 08:44 Last Infusion: 02/28/20 09:45 Dose: 0 mls/hr Documented by: [id number] Admin: 02/28/20 06:40 Dose: 50 mls/hr Documented by: [id number] Infusion: 02/28/20 06:40 Dose: 50 mls/hr Documented by: [id number] Admin: 02/28/20 04:40 Dose: 50 mls/hr Documented by: [id number] Infusion: 02/28/20 04:38 Dose: 50 mls/hr Documented by: [id number] Admin: 02/28/20 02:38 Dose: 50 mls/hr Documented by: [id number] Potassium Chloride 40 meq/ (Sodium Chloride) 1,020 mls @ 60 mls/hr IV .Q17H JUAN Stop: 02/29/20 11:59 Last Admin: 02/29/20 06:27 Dose: 60 mls/hr Documented by: [id number] Infusion: 02/29/20 06:27 Dose: 60 mls/hr Documented by: [id number] Admin: 02/28/20 14:09 Dose: 60 mls/hr Documented by: [id number] Potassium Phosphate 15 mmol/ (Sodium Chloride) 255 mls @ 88 mls/hr IV ONE ONE Stop: 02/28/20 18:23 Last Infusion: 02/28/20 19:22 Dose: 0 mls/hr Documented by: [id number] Admin: 02/28/20 16:28 Dose: 88 mls/hr Documented by: [id number] Influenza Virus Vaccine Quadrival (Influenza Virus Quad Vaccine 0.5 Ml Syr) 0.5 ml IM .ONCE ONE Stop: 02/28/20 08:01 Last Admin: 02/29/20 09:56 Dose: 0.5 ml Documented by: [id number] Ioversol (Optiray 320 125ml) 125 ml IV ONCE ONE Stop: 02/28/20 02:26 Last Admin: 02/28/20 02:25 Dose: 118 ml Documented by: [id number] Lorazepam (Lorazepam 2 Mg/Ml Vial (Im Use)) 2 mg IM NOW STA Stop: 02/27/20 20:28 Last Admin: 02/27/20 20:33 Dose: 2 mg Documented by: [id number] Metoprolol Succinate (Metoprolol Succ 25mg Ext Rel Tab) 25 mg PO DAILY [facility] Stop: 03/29/20 02:54 Last Admin: 02/29/20 08:01 Dose: 25 mg Documented by: [id number] Admin: 02/28/20 03:36 Dose: 25 mg Documented by: [id number] Metoprolol Tartrate (Metoprolol Tartrate 1 Mg/Ml Vial) 2.5 mg IV NOW STA Stop: 02/28/20 01:09 Last Admin: 02/28/20 01:21 Dose: 2.5 mg Documented by: [id number] Metoprolol Tartrate (Metoprolol Tartrate 1 Mg/Ml Vial) Confirm Administered Dose 5 mg IV .STK-MED ONE Stop: 02/28/20 01:20 Last Admin: 02/28/20 01:22 Dose: Not Given Documented by: [id number] Multivitamins (Multivitamin Tab) 1 tab PO QAM JUAN Stop: 03/30/20 08:59 Last Admin: 02/29/20 08:01 Dose: 1 tab Documented by: [id number] Pantoprazole Sodium (Pantoprazole 40 Mg Tab) 40 mg PO DAILY [facility] Stop: 03/29/20 08:59 Last Admin: 02/29/20 08:01 Dose: 40 mg Documented by: [id number] Admin: 02/28/20 08:44 Dose: 40 mg Documented by: [id number] Thiamine HCl (Thiamine Hcl 100 Mg Tab) 100 mg PO QAM [facility] Stop: 03/30/20 08:59 Last Admin: 02/29/20 08:00 Dose: 100 mg Documented by: [id number] Venlafaxine HCl (Venlafaxine Hcl Xr 150 Mg Capxr) 150 mg PO DAILY [facility] Stop: 03/29/20 08:59 Last Admin: 02/29/20 08:00 Dose: 150 mg Documented by: [id number] Admin: 02/28/20 08:43 Dose: 150 mg Documented by: [id number] Critical Care Time Critical Care Time: Yes Total Critical Care Time: 35 I have personally spent greater than 35 minutes of critical care time in the dir ect management of this patient. This includes bedside care, interpretation of diagnostic studies, and testing, discussion with consultants, patient, and family members, and other required patient management activities. This 35 minutes is in excess of all separately billable procedures. Medical Decision Making Differential Diagnosis Overdose, toxicologic, infection, hypoglycemia, electrolyte abnormalities, cardiac sources, intracerebral event, neurologic, trauma, as well as other pathologies. Medical Records Attestation: I reviewed the patient's medical records. Home Medications Current Medication List: was personally reviewed by me Laboratory Data Attestation: I reviewed the patient's lab results. Result diagrams: 02/28/20 02:48 02/29/20 07:08 Lab Results 02/27/20 02/27/20 02/27/20 Range/Units 21:15 21:15 21:15 WBC 10.60 (4.8-10.8) K/uL RBC 4.67 L (4.7-6.1) M/uL Hgb 14.7 (14.0-18.0) g/dL Hct 43.1 (42-52) % MCV 92.3 (80-100) fL MCH 31.5 (25-34) pg MCHC 34.1 (32-36) g/dL RDW Std Deviation 50.7 H (36.4-46.3) fL RDW Coeff of Misha 15.1 H (11.5-14.5) % Plt Count 212 (130-400) K/uL MPV 9.0 (7.4-10.4) fL Immature Gran % (Auto) 0.3 % Neut % (Auto) 76.2 % Lymph % (Auto) 16.8 % Cass % (Auto) 6.2 % Eos % (Auto) 0.4 % Baso % (Auto) 0.1 % Neut # (Auto) 8.08 H (1.4-6.5) K/uL Lymph # (Auto) 1.78 (1.2-3.4) K/uL Cass # (Auto) 0.66 H (0.11-0.59) K/uL Eos # (Auto) 0.04 (0-0.5) K/uL Baso # (Auto) 0.01 (0-0.2) K/uL Immature Gran # (Auto) 0.03 H (0.00-0.02) K/uL Sodium 135 L (136-145) mmol/L Potassium 3.4 L (3.5-5.1) mmol/L Chloride 100 (98-107) mmol/L Carbon Dioxide 27 (21-32) mmol/L Anion Gap 8.0 (3-11) BUN 15 (7-18) mg/dl Creatinine 1.18 (0.6-1.4) mg/dl Est Cr Clr Drug Dosing Not Reportable Est GFR ( Amer) 83.5 Est GFR (Non-Af Amer) 72.0 BUN/Creatinine Ratio 13.1 (10-20) Glucose 120 H (70-99) mg/dl Calcium 8.3 L (8.5-10.1) mg/dl Magnesium 0.7 L* (1.8-2.4) mg/dl Total Bilirubin 1.1 H (0.2-1) mg/dl AST 57 H (15-37) U/L ALT 47 (12-78) U/L Alkaline Phosphatase 71 (45-117) U/L Total Creatine Kinase 1197 H (39-308) U/L Total Protein 7.8 (6.4-8.2) gm/dl Albumin 4.2 (3.4-5.0) gm/dl Globulin 3.6 (2.5-4.0) gm/dl Albumin/Globulin Ratio 1.2 (0.9-2) Lipase 102 (73-393) U/L Procalcitonin (0-0.5) ng/ml TSH 4.790 H (0.300-4.500) uIu/ml Free T4 0.96 (0.8-1.6) ng/dl Salicylates < 1.7 L (2.8-20) mg/dl Acetaminophen < 2 L (10-30) ug/ml Ethyl Alcohol mg/dL (0-3) mg/dl Lyme Disease IgG Ab (Negative) Lyme Disease IgM Ab (Negative) 02/27/20 02/27/20 Range/Units 21:15 21:15 WBC (4.8-10.8) K/uL RBC (4.7-6.1) M/uL Hgb (14.0-18.0) g/dL Hct (42-52) % MCV (80-100) fL MCH (25-34) pg MCHC (32-36) g/dL RDW Std Deviation (36.4-46.3) fL RDW Coeff of Misha (11.5-14.5) % Plt Count (130-400) K/uL MPV (7.4-10.4) fL Immature Gran % (Auto) % Neut % (Auto) % Lymph % (Auto) % Cass % (Auto) % Eos % (Auto) % Baso % (Auto) % Neut # (Auto) (1.4-6.5) K/uL Lymph # (Auto) (1.2-3.4) K/uL Cass # (Auto) (0.11-0.59) K/uL Eos # (Auto) (0-0.5) K/uL Baso # (Auto) (0-0.2) K/uL Immature Gran # (Auto) (0.00-0.02) K/uL Sodium (136-145) mmol/L Potassium (3.5-5.1) mmol/L Chloride (98-107) mmol/L Carbon Dioxide (21-32) mmol/L Anion Gap (3-11) BUN (7-18) mg/dl Creatinine (0.6-1.4) mg/dl Est Cr Clr Drug Dosing Est GFR ( Amer) Est GFR (Non-Af Amer) BUN/Creatinine Ratio (10-20) Glucose (70-99) mg/dl Calcium (8.5-10.1) mg/dl Magnesium (1.8-2.4) mg/dl Total Bilirubin (0.2-1) mg/dl AST (15-37) U/L ALT (12-78) U/L Alkaline Phosphatase (45-117) U/L Total Creatine Kinase (39-308) U/L Total Protein (6.4-8.2) gm/dl Albumin (3.4-5.0) gm/dl Globulin (2.5-4.0) gm/dl Albumin/Globulin Ratio (0.9-2) Lipase (73-393) U/L Procalcitonin < 0.05 (0-0.5) ng/ml TSH (0.300-4.500) uIu/ml Free T4 (0.8-1.6) ng/dl Salicylates (2.8-20) mg/dl Acetaminophen (10-30) ug/ml Ethyl Alcohol mg/dL < 3.0 (0-3) mg/dl Lyme Disease IgG Ab Negative (Negative) Lyme Disease IgM Ab Negative (Negative) Imaging Data Radiologist's Impression: CT OF THE HEAD WITHOUT CONTRAST CLINICAL HISTORY: Altered mental status. COMPARISON STUDY: Head CT and CTA of the head September 12, 2018. MRI of the brain September 13, 2018. CT DOSE: 614.27 mGy.cm TECHNIQUE: Helical axial images of the head were obtained without IV contrast. Automated exposure control was utilized for the study. A dose lowering technique was utilized adhering to the principles of ALARA. FINDINGS: No acute intracranial hemorrhage, midline shift or mass effect is present. The ventricular system is unremarkable. The basal cisterns are patent. No extra-axial collections are present. There are no findings to suggest acute dural sinus thrombosis or acute territorial infarct. No significant calvarial abnormalities are present. Visualized portions of the sinuses and mastoid air cells are clear. IMPRESSION: No acute intracranial findings. ACT 112: Negative or not required by law. Electronically signed by: Kameron Lezama M.D. 02/28/2020 6:58 AM Dictated: 02/28/20655 Transcribed: 02/28/20655 XR chest 1V portable CLINICAL HISTORY: Chest pain. COMPARISON STUDY: Chest radiograph September 12, 2018. FINDINGS: Prosthetic mitral valve is noted as well as median sternotomy wires. Lung volumes are diminished. Patient is rotated. No consolidation is noted. There is slight prominence of the pulmonary vasculature. IMPRESSION: Low lung volumes. No acute findings. ACT 112: Negative or not required by law. Electronically signed by: Kameron Lezama M.D. 02/28/2020 7:19 AM Dictated: 02/28/20717 Transcribed: 02/28/20717 ECG Data Attestation: I personally reviewed and interpreted this ECG as follows: Indication: + altered mental status Rate (beats per minute): 94 Rhythm: + normal sinus ECG Intervals/blocks: + Prolonged QT (477) ECG ST segments: + Normal ST segments (Difficult to interpret in the inferior leads particularly.) ECG Findings: + Other (Poor quality baseline for interpretation); no PACs and no PVCs Blood Pressure Blood Pressure Findings: Elevated blood pressure Blood Pressure Disposition: further management by hospitalist [facility] Narrative This patient was evaluated and appeared to be in no significant distress. Patient was largely uncooperative with exam but nonverbal. He attempted to climb out of bed on several occasions. Multiple security guards were in the room the patient required constant redirection. After a quick review of previous records, it seems the patient required large doses of Haldol and Ativan for a similar presentation as last admission. Patient was given 5 mg of IM Haldol and 2 mg of IM Ativan. He remained awake however he was much more cooperative. Patient still would not speak much beyond "2020" he was able to state he was at the hospital. Patient had no answer for why he is here or how this may have happened. Head CT was performed and reveals no evidence of acute intracranial abnormality. Chest x-ray is clear. Laboratory work reveals a negative alcohol level. Total CK is mildly elevated. Patient was hydrated with normal saline solution. Patient was discussed with Dr. Kovacs of the hospitalist service who will evaluate the patient for admission and further management. Impression & Plan Acute alteration in mental status, History of alcohol use, Agitation Discharge Plan Visit Data Chief Complaint: Cardiac Assessment Stated Complaint: CHEST PAIN/SHORTNESS OF BREATH ED Provider: Oksana Galindo Discharge Problem: Acute alteration in mental status, History of alcohol use, Agitation Patient Disposition: Admitted As Inpatient Discharge Instructions Interventions: ED Discharge Assessment Last Done: 02/28/20 01:59
[2020-02-28] MEDS ORDERED: METOPROLOL TARTRATE 1 MG/ML VIAL IV ONE (01:19)
--- NOTE | 2020-02-28 01:22 | History & Physical Report ---
Date of Service February 28, 2020 Assessment & Plan (1) Encephalopathy: Possible alcohol withdrawal Rule out illicit substance abuse, UTI chronic systolic heart failure (EF 45 to 49%, TTE 2019), patient on the dry side history bioprosthetic MVR hypertension, slight elevated anxiety/mood disorder, unknown status Chronic anemia, hemoglobin better than baseline likely secondary to hemoconcentration. Hypokalemia, hypomagnesemia secondary to clinical dehydration Mild rhabdomyolysis secondary to illness Hyperglycemia rule out DM Medical telemetry DT precautions, NICK S (Initiate gabapentin protocol when patient more awake.) IVF, follow CPK Check UA, check urine tox Replace electrolytes Check hemoglobin A1c DVT prophylaxis. Lovenox subcu Full code Patient's former requesting for updates from providers. Tracie Tony, contact #[phone]. Text document was generated using [employer] voice recognition software. It may contain grammatical or spelling errors. Kindly contact undersigned for clarification of any documentation item in question. History of Present Illness Chief Complaint: Chest pain, shortness of breath, disorientation as per family Primary Care Provider: Berta Mead, History obtained from patient, family, and records. Limited history from patient secondary to disorientation. Medical history significant for chronic systolic heart failure (EF 45 to 49%, TTE 2019), history bioprosthetic MVR, hypertension, anxiety/mood disorder, history of gout, chronic anemia (baseline hemoglobin of 12), ongoing alcohol abuse. Last confinement September 2018 for altered mental status, possible substance ingestion. Patient went to ex-'s home yesterday looking confused and complaining of achy chest pain and shortness of breath. Subsequent nausea and emesis. Patient very restless. Still drinking alcohol as per patiente ex-. Patient brought to the ER for evaluation. Some improvement in mentation after IV fluids given in the ER. 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 Allergies Allergy/AdvReac Type Severity Reaction Status Date / Time No Known Allergies Allergy Unknown Verified 12/28/13 08:46 Home Medications Home Medications Medication Instructions Recorded Confirmed Type metoprolol succinate 25 mg PO DAILY 03/25/18 02/27/20 History omeprazole 20 mg PO DAILY 03/25/18 02/27/20 History allopurinol 300 mg PO DAILY 09/12/18 02/27/20 History venlafaxine 150 mg PO DAILY 09/12/18 02/27/20 History Past Med/Surg History Medical History Anxiety Depression Gallstones GERD (gastroesophageal reflux disease) Gout Hypertension Migraine Surgical History H/O hernia repair Status post cholecystectomy Status post mitral valve replacement with bioprosthetic valve Family History Father Hypertension Mother Diabetes Social History Smoking Status: Never smoker Second Hand Exposure: No; Hx Alcohol Use: Yes Alcohol type: beer Hx Substance Use: No Preferred Language: [place] Communication Ability: Effective Motor Checker Required: No Beliefs That Will Affect Care: None Current Living Situation: Parent Current Living Situation Comment: live with mother Other Information That Helps Us Care for You: No Feels Safe at Home: Yes Safety Concerns: Feels Safe At This Time Assistive Devices: None Review of Systems Review of Systems: As per HPI, all 10 systems reviewed, all other ROS negative Physical Exam Physical Exam: GENERAL: Lethargic , disoriented, no respiratory distress SKIN: Normal color, warm HEENT: [place] palpebral conjunctivae, no ptosis, dry buccal mucosa NECK : Supple, no tenderness CHEST : Decreased breath sounds, no tenderness HEART : Tachycardic, no obvious murmurs ABDOMEN: Some distention, nontender EXTREMITIES : No LE swelling/tenderness, no other conspicuous deformities noted NEUROLOGIC : Lethargic, disoriented, no other gross focality Results & Data Results & Data ([facility]) Vital Signs (Past 12 Hours) Vital Signs Temp Pulse Resp BP Pulse Ox 02/28/20 01:00 101 H 15 134/81 02/28/20 00:00 106 H 19 152/102 H 93 02/27/20 23:03 36.5 C 02/27/20 23:01 103 H 20 137/84 95 02/27/20 23:00 116 H 20 02/27/20 22:44 110 H 19 94 02/27/20 22:00 172/88 H 02/27/20 21:30 101 H 25 H 02/27/20 21:23 106 H 19 154/88 H 95 02/27/20 20:33 101 H 20 141/96 H 99 02/27/20 20:20 141/86 H 99 Laboratory Results Laboratory Results WBC 10.60 K/uL (4.8-10.8) 02/27/20 21:15 RBC 4.67 M/uL (4.7-6.1) L 02/27/20 21:15 Hgb 14.7 g/dL (14.0-18.0) 02/27/20 21:15 Hct 43.1 % (42-52) 02/27/20 21:15 MCV 92.3 fL (80-100) 02/27/20 21:15 MCH 31.5 pg (25-34) 02/27/20 21:15 MCHC 34.1 g/dL (32-36) 02/27/20 21:15 RDW Std Deviation 50.7 fL (36.4-46.3) H 02/27/20 21:15 RDW Coeff of Misha 15.1 % (11.5-14.5) H 02/27/20 21:15 Plt Count 212 K/uL (130-400) 02/27/20 21:15 MPV 9.0 fL (7.4-10.4) 02/27/20 21:15 Immature Gran % (Auto) 0.3 % 02/27/20 21:15 Neut % (Auto) 76.2 % 02/27/20 21:15 Lymph % (Auto) 16.8 % 02/27/20 21:15 Bent % (Auto) 6.2 % 02/27/20 21:15 Eos % (Auto) 0.4 % 02/27/20 21:15 Baso % (Auto) 0.1 % 02/27/20 21:15 Neut # (Auto) 8.08 K/uL (1.4-6.5) H 02/27/20 21:15 Lymph # (Auto) 1.78 K/uL (1.2-3.4) 02/27/20 21:15 Bent # (Auto) 0.66 K/uL (0.11-0.59) H 02/27/20 21:15 Eos # (Auto) 0.04 K/uL (0-0.5) 02/27/20 21:15 Baso # (Auto) 0.01 K/uL (0-0.2) 02/27/20 21:15 Immature Gran # (Auto) 0.03 K/uL (0.00-0.02) H 02/27/20 21:15 Sodium 135 mmol/L (136-145) L 02/27/20 21:15 Potassium 3.4 mmol/L (3.5-5.1) L 02/27/20 21:15 Chloride 100 mmol/L (98-107) 02/27/20 21:15 Carbon Dioxide 27 mmol/L (21-32) 02/27/20 21:15 Anion Gap 8.0 (3-11) 02/27/20 21:15 BUN 15 mg/dl (7-18) 02/27/20 21:15 Creatinine 1.18 mg/dl (0.6-1.4) 02/27/20 21:15 Est Cr Clr Drug Dosing Not Reportable 02/27/20 21:15 Est GFR ( Amer) 83.5 02/27/20 21:15 Est GFR (Non-Af Amer) 72.0 02/27/20 21:15 BUN/Creatinine Ratio 13.1 (-20) 02/27/20 21:15 Glucose 120 mg/dl (70-99) H 02/27/20 21:15 Calcium 8.3 mg/dl (8.5-10.1) L 02/27/20 21:15 Magnesium 0.7 mg/dl (1.8-2.4) L* 02/27/20 21:15 Total Bilirubin 1.1 mg/dl (0.2-1) H 02/27/20 21:15 AST 57 U/L (15-37) H 02/27/20 21:15 ALT 47 U/L (12-78) 02/27/20 21:15 Alkaline Phosphatase 71 U/L (45-117) 02/27/20 21:15 Total Creatine Kinase 1197 U/L (39-308) H 02/27/20 21:15 Total Protein 7.8 gm/dl (6.4-8.2) 10/26/20 21:15 Albumin 4.2 gm/dl (3.4-5.0) 02/27/20 21:15 Globulin 3.6 gm/dl (2.5-4.0) 02/27/20 21:15 Albumin/Globulin Ratio 1.2 (0.9-2) 02/27/20 21:15 Lipase 102 U/L (73-393) 02/27/20 21:15 Procalcitonin < 0.05 ng/ml (0-0.5) 02/27/20 21:15 TSH 4.790 uIu/ml (0.300-4.500) H 02/27/20 21:15 Free T4 0.96 ng/dl (0.8-1.6) 02/27/20 21:15 Salicylates < 1.7 mg/dl (2.8-20) L 02/27/20 21:15 Acetaminophen < 2 ug/ml (10-30) L 02/27/20 21:15 Ethyl Alcohol mg/dL < 3.0 mg/dl (0-3) 02/27/20 21:15 Lyme Disease IgG Ab Negative (Negative) 02/27/20 21:15 Lyme Disease IgM Ab Negative (Negative) 02/27/20 21:[address] head initial read: No acute intracranial hemorrhage, hydrocephalus, edema, mass-effect, or acute cortical infarct. CT chest initial read: No pulmonary embolism or acute aortic syndrome. Status post mitral valve replacement. CT abdomen pelvis initial read: No acute abnormality along the GI tract. Mild colonic and duodenal dive rticulosis without diverticulitis. Fat-containing right inguinal hernia, hepatic steatosis. EKG as per my interpretation rate ninety-five, NSR, normal axis, T wave abnormalities inferior leads
[2020-02-28] MEDS ORDERED: MULTI-VITAMIN INFUSION 10 ML, THIAMINE HCL 100 MG, FOLIC ACID 1 MG, POTASSIUM CHLORIDE ... IV STA (01:30)
[2020-02-28] MEDS ORDERED: OPTIRAY 320 125ml IV ONE (02:25)
[2020-02-28] MEDS ORDERED: LORazepam 1 MG/2 ML VIAL IV PRN (02:33)
[2020-02-28] MEDS ORDERED: LORazepam 3 MG/6 ML VIAL IV PRN (02:33)
[2020-02-28] MEDS ORDERED: oxyCODONE HCL IR 5 MG TAB (IMMEDIATE RELEASE) PO PRN (02:33)
[2020-02-28] MEDS ORDERED: PROMETHAZINE HCL 12.5 MG in SODIUM CHLORIDE 0.9% 50 ML IV PRN (02:33)
[2020-02-28] MEDS ORDERED: ATIVAN IV ALCOHOL WITHDRAWL IV PRN (02:33)
[2020-02-28] MEDS ORDERED: LORazepam 2 MG/4 ML VIAL IV PRN (02:33)
[2020-02-28] MEDS: MAGNESIUM SULFATE / D5W 1 GM/100 ML BAG IV SCH ×3 (02:38→06:40)
[2020-02-28 03:00] LABS: Basophils # (auto) 0.02 K/uL (0-0.2); Basophils % (auto) 0.2 %; Eosinophils # (auto) 0.05 K/uL (0-0.5); Eosinophils % (auto) 0.6 %; Hemoglobin 13.1 g/dL (14.0-18.0); Immature Granulocytes # (auto) 0.02 K/uL (0.00-0.02); Immature Granulocytes % (auto) 0.2 %; Lymphocytes # (auto) 2.11 K/uL (1.2-3.4); Lymphocytes % (auto) 23.7 %; Mean Corpuscular Hemoglobin 31.6 pg (25-34); Mean Corpuscular Hgb Conc 34.5 g/dL (32-36); Mean Corpuscular Volume 91.6 fL (80-100); Mean Platelet Volume 9.3 fL (7.4-10.4); Neutrophils # (auto) 5.91 K/uL (1.4-6.5); Neutrophils % (auto) 66.3 %; Platelet Count 193 K/uL (130-400); RDW Coefficient of Variation 14.9 % (11.5-14.5); RDW Standard Deviation 49.9 fL (36.4-46.3); Red Blood Count 4.15 M/uL (4.7-6.1); White Blood Count 8.91 K/uL (4.8-10.8)
[2020-02-28 03:19] LABS: Alanine Aminotransferase 39 U/L (12-78); Albumin Level 3.4 gm/dl (3.4-5.0); Aspartate Aminotransferase 54 U/L (15-37); BUN Creatinine Ratio 15.6 (10-20); Blood Urea Nitrogen 15 mg/dl (7-18); Calcium 7.5 mg/dl (8.5-10.1); Carbon Dioxide 25 mmol/L (21-32); Chloride 104 mmol/L (98-107); Est GFR (African American) 103.2; Est GFR (Non-African American) 89.1; Glucose 109 mg/dl (70-99); Magnesium 1.3 mg/dl (1.8-2.4); Potassium 3.5 mmol/L (3.5-5.1); Sodium 136 mmol/L (136-145)
[2020-02-28 03:22] LABS: Albumin Globulin Ratio 1.1 (0.9-2); Alkaline Phosphatase 60 U/L (45-117); Bilirubin,Total 1.1 mg/dl (0.2-1); Globulin 3.1 gm/dl (2.5-4.0); Total Protein 6.5 gm/dl (6.4-8.2)
[2020-02-28] MEDS: METOPROLOL SUCC 25MG EXT REL TAB PO SCH (03:36)
[2020-02-28 04:03] LABS: Troponin I < 0.015 ng/ml (0-0.045)
[2020-02-28 04:10] LABS: Creatine Kinase 1598 U/L (39-308)
--- NOTE | 2020-02-28 06:48 | CT Scan Report ---
CT ANGIOGRAPHY OF THE CHEST, PULMONARY EMBOLUS PROTOCOL CLINICAL HISTORY: Cough and shortness of breath. Evaluate for pulmonary embolus. COMPARISON STUDY: Chest radiograph August 28, 2019 and September 12, 2018. TECHNIQUE: Following IV administration of 118 mL of Optiray-320, helical axial images of the chest we re obtained utilizing the pulmonary embolus protocol. Maximal intensity projections and sagittal and coronal reformats were viewed on an independent 3D workstation. IV contrast was administered withou t complication. Automated exposure control was utilized for the study. A dose lowering technique wa s utilized adhering to the principles of ALARA. CT DOSE: 885.82 mGy.cm FINDINGS: No pulmonary emboli are identified. There is no thoracic aortic dissection. There are medi an sternotomy wires. Prosthetic mitral valve is noted. There is no pericardial effusion. Borderline c ardiomegaly is noted. There is a small hiatal hernia. There is no pneumothorax or pleural effusion. N o consolidation is present. There are no pulmonary nodules. No suspicious lesions within the bony tho rax are noted. Fatty infiltration of the liver is noted. The abdomen and pelvis will be reported sepa rately. IMPRESSION: 1. No pulmonary emboli identified. 2. No acute process within the chest. 3. Small hiatal hernia. 4. Status post mitral replacement. ACT 112: Negative or not required by law. Electronically signed by: Kameron Lezama M.D. 02/28/2020 6:46 AM
--- NOTE | 2020-02-28 06:59 | CT Scan Report ---
CT OF THE HEAD WITHOUT CONTRAST CLINICAL HISTORY: Altered mental status. COMPARISON STUDY: Head CT and CTA of the head September 12, 2018. MRI of the brain September 13, 2018. CT DOSE: 614.27 mGy.cm TECHNIQUE: Helical axial images of the head were obtained without IV contrast. Automated exposure con trol was utilized for the study. A dose lowering technique was utilized adhering to the principles o f ALARA. FINDINGS: No acute intracranial hemorrhage, midline shift or mass effect is present. The ventricular system is unremarkable. The basal cisterns are patent. No extra-axial collections are present. There are no findings to suggest acute dural sinus thrombosis or acute territorial infarct. No significant calvarial abnormalities are present. Visualized portions of the sinuses and mastoid air cells are radha ar. IMPRESSION: No acute intracranial findings. ACT 112: Negative or not required by law. Electronically signed by: Kameron Lezama M.D. 02/28/2020 6:58 AM
--- NOTE | 2020-02-28 07:21 | XRay Report ---
XR chest 1V portable CLINICAL HISTORY: Chest pain. COMPARISON STUDY: Chest radiograph September 12, 2018. FINDINGS: Prosthetic mitral valve is noted as well as median sternotomy wires. Lung volumes are dimin ished. Patient is rotated. No consolidation is noted. There is slight prominence of the pulmonary vas culature. IMPRESSION: Low lung volumes. No acute findings. ACT 112: Negative or not required by law. Electronically signed by: Kameron Lezama M.D. 02/28/2020 7:19 AM
[2020-02-28] MEDS ORDERED: INFLUENZA ADMINISTRATION CHARGE ONE (08:00)
[2020-02-28] MEDS ORDERED: INFLUENZA VIRUS QUAD VACCINE 0.5 ML SYR IM ONE (08:00)
[2020-02-28] MEDS: allopurinoL 300 MG TAB PO SCH (08:43)
[2020-02-28] MEDS: VENLAFAXINE HCL XR 150 MG CAPXR PO SCH (08:43)
[2020-02-28] MEDS: PANTOprazole 40 MG TAB PO SCH (08:44)
[2020-02-28] MEDS: ENOXAPARIN INJ 40 MG/0.4 ML SYR SQ SCH (08:44)
--- NOTE | 2020-02-28 08:58 | CT Scan Report ---
ABDOMEN AND PELVIS CT WITH IV CONTRAST CT DOSE: HISTORY: Generalized abdominal pain. Vomiting. TECHNIQUE: Multiaxial CT images of the abdomen and pelvis were performed following the use of intrave nous contrast. A dose lowering technique was utilized adhering to the principles of ALARA. COMPARISON STUDY: Abdomen and pelvis CT 09/12/2018. FINDINGS: Please refer to the same day chest CTA for further evaluation of the lung bases. There are poststernotomy changes and a mitral valve prosthesis. Small hiatus hernia. Mild motion artifact. This results in suboptimal evaluation of the abdomen and pelvis. No fractures within the visualized osseo us structures. Severe hepatic steatosis. Cholecystectomy. The main portal vein is patent. A few duode nal diverticula are noted. The pancreas, spleen, adrenal glands, and kidneys are within normal limits . No hydronephrosis. No retroperitoneal lymphadenopathy. Normal caliber abdominal aorta. There is a l eft circumaortic renal vein. Tiny umbilical hernia. The bladder is unremarkable. Small fat-containing right inguinal hernia. Colonic diverticulosis. No evidence for acute diverticulitis. No bowel wall t hickening or obstruction. Normal appendix. IMPRESSION: 1. No bowel wall thickening or obstruction. 2. Colonic diverticulosis. No evidence for diverticulitis. 3. Severe hepatic steatosis. 4. Cholecystectomy. 5. Additional findings as described above. ACT 112: Negative or not required by law. Electronically signed by: Adiel Adamson M.D. 02/28/2020 8:57 AM
[2020-02-28] MEDS ORDERED: METOPROLOL SUCC 25MG EXT REL TAB PO SCH (09:00)
[2020-02-28 09:28] LABS: Appearance Urine Clear (Clear); Bilirubin Urine Negative (Negative); Blood Urine Negative (Negative); Color Urine Yellow; Glucose Urine UA Negative (Negative); Ketones Urine Trace (Negative); Leukocyte Esterase Urine Negative (Negative); Nitrite Urine Negative (Negative); Protein Urine Negative (Negative); Specific Gravity Urine 1.032 (1.000-1.030); Urobilinogen Urine Negative (Negative)
[2020-02-28 09:48] LABS: Amphetamines+Metham, Urine Neg (Neg); Barbiturates, Urine Neg (Neg); Benzodiazepine, Urine Neg (Neg); Cocaine, Urine Neg (Neg); MDMA (Ecstacy), Urine Neg (Neg); Methadone, Urine Neg (Neg); Opiate, Urine Neg (Neg); Phencyclidine, Urine Neg (Neg)
[2020-02-28 13:46] LABS: Potassium 3.6 mmol/L (3.5-5.1)
[2020-02-28] MEDS: POTASSIUM CHLORIDE 40 MEQ in SODIUM CHLORIDE 0.9% 1000ML 1,000 ML IV SCH (14:09)
[2020-02-28 14:13] LABS: Magnesium 2.4 mg/dl (1.8-2.4); Phosphorus 2.1 mg/dl (2.5-4.9)
[2020-02-28] MEDS ORDERED: POTASSIUM PHOS 3 MMOL/1 ML INFUSION IV STA (15:28)
[2020-02-28] MEDS ORDERED: POTASSIUM PHOSPHATE 15 MMOL in SODIUM CHLORIDE 0.9% 250 ML IV ONE (15:30)
--- NOTE | 2020-02-28 18:26 | Communication Note ---
Date of Service: February 28, 2020 Pt was seen and examined. Lying in bed with no distress Pt said that he feels fine. He said that he did not remember how he gets to the hospital he said that he drink about 8 beers yesterday He said that he drinks mostly during game day. he said that before yesterday, the last time he drank was last Thursday He said that he had episodes of altered mental status once in a few years He said that the last time he had the similar episode was when he was arrested and to to [facility] Denies any chest pain, palpitation, dizziness and SOB General- No acute distress Head- atraumatic Eyes- PERRL, EOMI, no nystagmus ENT- oropharynx clear Neck- supple, no JVD Lungs- clear to auscultation Heart- regular rhythm; no murmur Abdomen- normal bowel sounds, soft, nontender Extremities- no calf tenderness Neuro- alert, oriented x 3; PERRL, EOMI; no facial palsy; no dysarthria, finger to nose intact Skin- warm & dry A/P Encephalopathy Possible related to alcohol withdrawal He said that he drank yesterday but his alcohol level was less than 3 But before yesterday, he said that his last drink was Thursday Counseling on alcohol cessation Will start on gabapentin alcohol withdrawal protocol Continue Ativan with alcohol protocol withdrawn Not interested to inpatient rehab Continue monitor closely for alcohol withdrawal Will transition to PO folic acid and thiamine in am Electrolytes imbalance Mg on admission 0.7 Mg replaced Most recent Mg level was 2.4 Phosphorus 2.1, replaced Continue monitor electrolytes Rhabdo CPK level on admission 1197, then increased to 2008 Continue IVF Will check CPK level in am DVT px on Lovenox Code status Full code
[2020-02-28] MEDS: ACETAMINOPHEN 325 MG TAB PO PRN (18:30)
[2020-02-28] MEDS ORDERED: GABAPENTIN 800MG ALCOHOL WITHDRAWAL LOAD PO ONE (18:36)
[2020-02-28] MEDS ORDERED: GABAPENTIN 400 MG CAP PO ONE (18:45)
--- NOTE | 2020-02-29 05:49 | Electrocardiogram Report ---
Test Reason : Blood Pressure : / mmHG Vent. Rate : 094 BPM Atrial Rate : 094 BPM P-R Int : 142 ms QRS Dur : 082 ms QT Int : 382 ms P-R-T Axes : -11 020 036 degrees QTc Int : 477 ms Poor data quality, interpretation may be adversely affected Normal sinus rhythm Normal ECG When compared with ECG of 12-SEP-2018 13:29, No significant change Confirmed by Teja Morse ([id number]) on 02/29/2020 5:48:49 AM Referred By: REFERRED SELF Confirmed By:Teja Morse
[2020-02-29] MEDS: POTASSIUM CHLORIDE 40 MEQ in SODIUM CHLORIDE 0.9% 1000ML 1,000 ML IV SCH (06:27)
[2020-02-29] MEDS: GABAPENTIN 400 MG CAP PO SCH ×2 (06:27)
[2020-02-29] MEDS: VENLAFAXINE HCL XR 150 MG CAPXR PO SCH (08:00)
[2020-02-29] MEDS: allopurinoL 300 MG TAB PO SCH (08:00)
[2020-02-29] MEDS: PANTOprazole 40 MG TAB PO SCH (08:01)
[2020-02-29] MEDS: METOPROLOL SUCC 25MG EXT REL TAB PO SCH (08:01)
[2020-02-29] MEDS: ENOXAPARIN INJ 40 MG/0.4 ML SYR SQ SCH (08:03)
[2020-02-29 08:05] LABS: BUN Creatinine Ratio 11.5 (10-20); Calcium 8.2 mg/dl (8.5-10.1); Creatinine Clr Calc Pharmacy 84.3 ml/min; Est GFR (African American) 98.4; Est GFR (Non-African American) 84.9; Potassium 4.8 mmol/L (3.5-5.1)
[2020-02-29 08:12] LABS: Phosphorus 2.5 mg/dl (2.5-4.9)
[2020-02-29] MEDS ORDERED: FOLIC ACID 1 MG TAB PO SCH (09:00)
[2020-02-29] MEDS ORDERED: MULTIVITAMIN TAB PO SCH (09:00)
[2020-02-29] MEDS ORDERED: THIAMINE HCL 100 MG TAB PO SCH (09:00)
[2020-02-29] MEDS: ACETAMINOPHEN 325 MG TAB PO PRN (09:49)
--- NOTE | 2020-02-29 12:40 | Discharge Summary ---
Date of Service February 29, 2020 Admission HPI Per Admitting Provider History obtained from patient, family, and records. Limited history from patient secondary to disorientation. Medical history significant for chronic systolic heart failure (EF 45 to 49%, TTE 2018), history bioprosthetic MVR, hypertension, anxiety/mood disorder, history of gout, chronic anemia (baseline hemoglobin of 12), ongoing alcohol abuse. Last confinement September 2018 for altered mental status, possible substance ingestion. Patient went to ex-'s home yesterday looking confused and complaining of achy chest pain and shortness of breath. Subsequent nausea and emesis. Patient very restless. Still drinking alcohol as per patiente ex-. Patient brought to the ER for evaluation. Some improvement in mentation after IV fluids given in the ER. 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 Exam Per Admitting Provider GENERAL: Lethargic , disoriented, no respiratory distress SKIN: Normal color, warm HEENT: [place] palpebral conjunctivae, no ptosis, dry buccal mucosa NECK : Supple, no tenderness CHEST : Decreased breath sounds, no tenderness HEART : Tachycardic, no obvious murmurs ABDOMEN: Some distention, nontender EXTREMITIES : No LE swelling/tenderness, no other conspicuous deformities noted NEUROLOGIC : Lethargic, disoriented, no other gross focality Principal Diagnosis Metabolic Encephalopathy Alcohol withdrawal Hypomagnesemia Hypophosphatemia Discharge Exam Constitutional well nourished; no acute distress Eyes PERRL, conjunctivae normal, anicteric sclerae ENMT external ear and nose normal, oropharynx normal Respiratory normal respiratory effort, lungs clear to auscultation Cardiovascular RRR, no murmur, no edema Gastrointestinal (Abdomen) normal bowel sounds, soft, nontender, no hepatosplenomegaly Musculoskeletal no cyanosis or clubbing, extremities motor strength 5/5 Neurologic PERRL, EOMI, accommodation nl, no face palsy, no dysarthria Psychiatric A+Ox3, euthymic affect Discharge Data Allergies Allergy/AdvReac Type Severity Reaction Status Date / Time No Known Allergies Allergy Unknown Verified 12/28/13 08:46 Consultations 02/27/20 23:42 ED Decision to Admit Stat 02/28/20 02:33 Consult Case Management - Discharge Planning Routine Ordered Studies 02/27/20 20:27 CT head/brain wo con Stat No acute intracranial hemorrhage, midline shift or mass effect is present. The ventricular system is unremarkable. The basal cisterns are patent. No extra- axial collections are present. There are no findings to suggest acute dural sinus thrombosis or acute territorial infarct. No significant calvarial abnormalities are present. Visualized portions of the sinuses and mastoid air cells are clear. IMPRESSION: No acute intracranial findings. 02/27/20 23:58 CT abd pelvis IV con only Stat lease refer to the same day chest CTA for further evaluation of the lung bases. There are poststernotomy changes and a mitral valve prosthesis. Small hiatus hernia. Mild motion artifact. This results in suboptimal evaluation of the abdomen and pelvis. No fractures within the visualized osseous structures. Severe hepatic steatosis. Cholecystectomy. The main portal vein is patent. A few duodenal diverticula are noted. The pancreas, spleen, adrenal glands, and kidneys are within normal limits. No hydronephrosis. No retroperitoneal lymphadenopathy. Normal caliber abdominal aorta. There is a left circumaortic renal vein. Tiny umbilical hernia. The bladder is unremarkable. Small fat- containing right inguinal hernia. Colonic diverticulosis. No evidence for acute diverticulitis. No bowel wall thickening or obstruction. Normal appendix. IMPRESSION: 1. No bowel wall thickening or obstruction. 2. Colonic diverticulosis. No evidence for diverticulitis. 3. Severe hepatic steatosis. 4. Cholecystectomy. 5. Additional findings as described above. CT angio chest PE protocol Stat FINDINGS: No pulmonary emboli are identified. There is no thoracic aortic dissection. There are median sternotomy wires. Prosthetic mitral valve is noted. There is no pericardial effusion. Borderline cardiomegaly is noted. There is a small hiatal hernia. There is no pneumothorax or pleural effusion. No consolidation is present. There are no pulmonary nodules. No suspicious lesions within the bony thorax are noted. Fatty infiltration of the liver is noted. The abdomen and pelvis will be reported separately. IMPRESSION: 1. No pulmonary emboli identified. 2. No acute process within the chest. 3. Small hiatal hernia. 4. Status post mitral replacement. Hospital Course (1) Encephalopathy: Metabolic encephalopathy resolved Alcohol withdrawal Alcohol was <3 on admission Negative tox screen Patient was managed with IV fluids and alcohol withdrawal protocol He reports binge drinking over the weekend Counselled patient extensively on need for alcohol rehab. Patient insists on being discharged today. States he will try to quit on his own. Hypokalemia Hypomagnesemia Hypophosphatemia On admission, K was 3.4, Mag was 0.7, Phosphorus was 2.1 Multiple electrolytes likely due to alcoholism and poor intake All these were aggressively repleted and normalized Educated patient Discharged on po magnesium for next few days Check BMP, mag, phosp in 1 week and follow up with PCP Anxiety/mood disorder Stable Continue venlafaxine Mild rhabdomyolysis CPK elevated Was 1197 on admission, peaked at 2007 and trending down to 1697 today with IVF Patient insisting of being discharged today Encouraged to stay hydrated Chronic systolic heart failure (EF 45 to 49%, TTE 2018) History of bioprosthetic MVR Hypertension Continue metoprolol succinate. Follow up with PCP Total Time Total Time Spent Total Time Spent (In Minutes): 45 Total Time Includes: Examination of the Patient, Discharge Planning and Medication Reconciliation Discharge Plan Discharge Items Patient Disposition: Home - Self-Care Reason For Visit: ENCEPHALOPATHY Discharge Diagnosis: Alcohol withdrawal Hypomagnesemia Hypophosphatemia Activity: Resume your previous activity Non-emergency contact: Primary Care Provider Call non-emergency contact if: you have any medication questions Follow-up/Referrals: Berta Mead DO [Primary Care Provider] - (Date & Time 03/02/2020 11:10 AM Provider Berta Mead DO [facility] ) Diet: Heart Healthy Ambulatory Orders: Basic Metabolic Panel (Routine) Timeframe: 1 Week Location: Determined by Patient Ordered By: Marci Hoyos Magnesium (Routine) Timeframe: 1 Week Location: Determined by Patient Ordered By: Marci Hoyos Phosphorus (Routine) Timeframe: 1 Week Location: Determined by Patient Ordered By: Marci Hoyos Addtl Attending Provider Instructions: Mr Jimenez. You came to the hospital due to confusion. You were evaluated and managed for alcohol withdrawal. You were also found to have abnormal electrolytes (low magnesium, low phosphorus levels) Please do the blood tests ordered - Basic metabolic panel, magnesium, phosphorus in a week and follow up the results with your Primary Doctor. Please follow up with your Primary Doctor in 1 week. You were also counselled on alcohol rehab You are being discharged on tablet magnesium for the next few days. It was a pleasure taking care of you. Pending Studies at Discharge: No Stand-Alone Forms: My [facility], Smoking Cessation Medications and DC Order Prescriptions: New magnesium chloride 64 mg tablet,delayed release (DR/EC) 64 mg PO DAILY Qty: 5 RF: 0 Continued omeprazole 20 mg Capsule,Delayed Release(Dr/Ec) 20 mg PO DAILY RF: 0 metoprolol succinate 25 mg Capsule,Sprinkle,Er 24hr 25 mg PO DAILY RF: 0 venlafaxine 150 mg capsule,extended release 24hr 150 mg PO DAILY RF: 0 allopurinol 300 mg tablet 300 mg PO DAILY RF: 0 Discharge Orders: Discharge Order (Routine); Ordered 02/29/20 Ordered By: Marci Hoyos Admission Data Admit Date/Time: 02/28/20 01:25 Attending Provider: Marci Hoyos I. Admit Provider: Roni No Primary Care Provider: Berta Mead Other Providers: Roni No ; Tomas Vines Other Interventions: Discharge Summary Assessment (RN) Last Done: 02/29/20 12:59
[2020-02-29] MEDS ORDERED: GABAPENTIN 400 MG CAP PO SCH (14:00)
[2020-03-01] MEDS ORDERED: GABAPENTIN 400 MG CAP PO SCH (18:00)
[2020-03-03] MEDS ORDERED: GABAPENTIN 400 MG CAP PO SCH (06:00)
== END 2020-02-29 13:18 | disposition home or self-care (01) | DRG 896 ==
LOC: ED 20:10 → 2S 02-28 01:25 → SUATTDRO 02-28 01:25 → 2S 02-28 01:59

== ENCOUNTER 2020-05-01 04:09 | Inpatient (IN) ==
[2020-05-01] MEDS ORDERED: SODIUM CHLORIDE 0.9% 1000ML 1,000 ML IV ONE (04:22)
[2020-05-01] MEDS ORDERED: HYDROmorphone INJ 1 MG/ML SYRINGE IV STA (04:22)
--- NOTE | 2020-05-01 04:40 | Emergency Department Note ---
Impression & Plan Delirium tremens, Hypomagnesemia, Substernal chest pain ED Provider Note Name: JORGE A BEATTY Age: 49 Sex: M Arrives Via: Walk-In Informant: Patient (poor historian as quite agitated), parents ([phone]), chart ED Provider: Krzysztof Rothman MD Chief Complaint: Chest pain Impression: Delirium Tremens Substernal Chest Pain Hypomagnesemia Medical Decision Makin yr old male with history HTN, Gout, Anxiety/Depression, GERD, Migraine, Alcoholism, Hypomagnesemia arrives with parents severely agitated and anxious pacing around room clutching his chest. Able to calm enough to get CTA chest but then rapidly deteriorated with tremors, shakes and difficulty following commands. Able to get him to admit last etoh was about 48 hours ago and that he had been drinking heavily recently (which parents suspected). His agitation was to the point where not following commands tearing off monitors and trying to get out of bed over rails. This necessitated IV ativan with IM haldol for chemical sedation/restraint. Over the course of the next 1-2 hours with frequent bedside management required multiple further ativan IV until much calmers, mild tachy and no longer severe tremors. Of note, mildly prolonged qtc which he has had previously and tolerated haldol. IV mag was also given with severe hypomagnesemia. CT Chest was read as no acute findings though mitral valve repair looked unusual location on initial senior it engineer film and radiologist suggested line controller evaluation or echo. Discussed with hospitalist who will evaluate further. Prior Medical Record and Triage/Nursing Notes reviewed by Me Additional history obtained from chart and parents Differentials: ACS, Dissection, PE, Withdrawal, Overdose, Electrolyte issue, ne urologic, amongst other pathologies. Vital Signs: reviewed and remarkable for HTN, Tachy Interventions: Saline lock, dilaudid 1 mg iv, ativan 2mg iv x 2, haldol 10mg IM, NSS bolus 1 L IV, Banana bag 1 L IV Labs:Reviewed and remarkable for +etoh Imaging:X ray results are stated below per my interpretation: Chest: 1 view: No infiltrate, no effusion, normal cardiac border. [facility] Radiologist interpretation reviewed by me: "CT CHEST W/WO Contrast: COMPARISON: Chest CT dated 02/28/20 Status post mitral valve replacement. On senior it engineer imaging, the ring of the mitral valve replacement appears slightly discontinuous. This appears different from th e prior study, question due to motion vs hardware failure. Consider further evaluation. There is a fracture of the second sternotomy wire on the right, previously seen. No evidence of aortic dissection or aneurysm. Limited evaluation for pulmonary embolism due to motion and contrast bolus timing. Lungs are clear. No pleural effusion. Radiologist: Wisam Grace M.D." EKG:Per My Interpretation: Indication Chest Pain: Sinus Tachy 117 bpm, qtc 507. No Ectopy. No Ischemia. Compared to EKG 02/27/20, no significant changes with mild increase in QTC. Cardiac/Tele Monitoring: Cardiac Monitoring: An Order was placed for continuous cardiac monitoring. The monitor shows a rate of 115 with a sinus tach rhythm. Consults:Dr Johnny Johnson Hospitalist Plan: Disposition:Hospitalization. Condition: Fair History of Present Illness:49 male arrives for evaluation of chest pain. Patient with 12 hours rapidly worsening substernal chest pain. Tearing in nature. Radiates to back and left shoulder. Worse with deep inspiration. Better with standing, worse with laying back. Notes no medications prior to arrival. Associated with anxiety, tremors, and shortness of breath. No cough, fevers, palpitations, nausea, vomiting, syncope, abdominal pain, urinary/bowel c hanges, leg swelling, nor other symptoms. History of mitral valve repair. Denies CAD history. [place] family CAD history. States this happened previously but he can not recall what it was. Admit history alcoholism but denies recent drinking. Parents note acute agitation this evening thus reason for bringing him to ED. Rapidly worsening. Associated with not acting himself. Has occurred previously with rapid cessation of drinking alcohol though they note his roommates stated he hadn't been drinking recently. ROS: See above HPI for pertinent positives & negatives. A total of 10 systems reviewed and were otherwise negative. Past Medical History:HTN, Gout, Anxiety/Depression, GERD, Migraine, Alcoholism, Hypomagnesemia Past Surgical History:Cholecystectomy, Mitral valve repair (bioprosthetic) Family History:HTN, DMII Social History:Non smoker, Alcoholic, lives with parents, no drugs Home Medications:Allopurinol, magnesium, metoprolol, omeprazole, venlafaxine Allergies:NKDA Vitals:Blood Pressure: 167/102, Pulse 112, RR 20, T 36.7C, O2 98% on RA Physical Exam: GENERAL: Patient is severely anxious and uncomfortable appearing and in mod erate/severe distress. Pacing around room clutching his chest, unable to stay still EYES: No scleral icterus, unremarkable pupils. ENT: Mucous membranes moist, no nasal congestion. NECK: No masses appreciated, nomeningismus, trachea is midline. RESPIRATORY: No dyspnea. Clear to auscultation and equal bilaterally. No wheeze, no rhonchi. CARDIOVASCULAR: Tachy.No murmurs, rubs, gallops appreciated. GASTROINTESTINAL: Abdomen soft, non-tender, no peritonitis.Bowel sounds positive.No masses appreciated. BACK: No midline tenderness, no CVA tenderness EXTREMITIES: Normal motion all extremities, no cyanosis, no edema. NEUROLOGIC: Alert and oriented, no acute motor or sensory deficits, no focal weakness, cranial nerves grossly intact. SKIN: No rash, no jaundice, no diaphoresis. PSYCH: agitated, very anxious GCS: 15 ED Course: Times/Reassessments: Many repetitive evaluations, eventually slowly calming down and laying in bed without agitation. Critical Care: I have personally spent 75 minutes of critical care time in the direct management of this patient. Acute Delirium Tremens with severe agitation requiring extensive sedation management. This was a life/limb threatening event. This 75 minutes is in excess of all separately billable procedures. Krzysztof Rothman MD Past Med/Surg History Medical History (Updated 05/01/20 @ 11:29 by Mila Reyes PA-C) Anxiety Depression Gallstones GERD (gastroesophageal reflux disease) Gout Hypertension Migraine Surgical History H/O hernia repair Status post cholecystectomy Status post mitral valve replacement with bioprosthetic valve Family History Father Hypertension Mother Diabetes Social History Smoking Status: Never smoker Second Hand Exposure: No; Do You Dip or Chew Tobacco: No; Hx Alcohol Use: Yes Alcohol type: beer Hx Substance Use: No Preferred Language: Belarusian Communication Ability: Effective 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 Beliefs That Will Affect Care: None Current Living Situation: Parent Current Living Situation Comment: live with mother Other Information That Helps Us Care for You: No Feels Safe at Home: Yes Safety Concerns: Feels Safe At This Time Assistive Devices: None Allergies Allergies Allergy/AdvReac Type Severity Reaction Status Date / Time No Known Allergies Allergy Unknown Verified 05/01/20 04:18 Home Meds Home Medications Medication Instructions Recorded Confirmed metoprolol succinate 25 mg PO DAILY 03/25/18 05/01/20 omeprazole 20 mg PO DAILY 03/25/18 05/01/20 allopurinol 300 mg PO DAILY 09/12/18 05/01/20 venlafaxine 150 mg PO DAILY 09/12/18 05/01/20 Previous Rx's Medication Instructions Recorded magnesium chloride 64 mg PO DAILY #5 tab 02/29/20 Results & Data (ED) Vital Signs Vital Signs - 24 hr 05/01/20 04:15 05/01/20 04:20 05/01/20 04:31 Temperature 36.7 C Temperature Source Oral Pulse Rate 129 H 129 H 113 H Pulse Rate [Right Finger] Pulse Rate from SpO2 Sensor Respiratory Rate 22 16 17 Respiratory Effort / Characteristics Labored Respiratory Depth Deep Blood Pressure 167/102 H Blood Pressure [Right Arm] Blood Pressure Mean 123 Blood Pressure Mean [Right Arm] Blood Pressure Position Lying Blood Pressure Position [Right Arm] Pulse Oximetry 98 Oxygen Delivery Method Room Air Sepsis Recent Fever Within 48 Hours No Sepsis New/Unexplained Change in Mental Status N/A Sepsis Action Taken by Nursing No Action Required 05/01/20 04:40 05/01/20 05:08 05/01/20 05:09 Temperature Temperature Source Pulse Rate 125 H 109 H 110 H Pulse Rate [Right Finger] Pulse Rate from SpO2 Sensor Respiratory Rate 18 15 17 Respiratory Effort / Characteristics Respiratory Depth Blood Pressure 168/120 H Blood Pressure [Right Arm] Blood Pressure Mean 133 Blood Pressure Mean [Right Arm] Blood Pressure Position Blood Pressure Position [Right Arm] Pulse Oximetry Oxygen Delivery Method Sepsis Recent Fever Within 48 Hours Sepsis New/Unexplained Change in Mental Status Sepsis Action Taken by Nursing 05/01/20 05:10 05/01/20 05:20 05/01/20 05:37 Temperature Temperature Source Pulse Rate 109 H 123 H 115 H Pulse Rate [Right Finger] Pulse Rate from SpO2 Sensor Respiratory Rate 17 21 16 Respiratory Effort / Characteristics Respiratory Depth Blood Pressure Blood Pressure [Right Arm] Blood Pressure Mean Blood Pressure Mean [Right Arm] Blood Pressure Position Blood Pressure Position [Right Arm] Pulse Oximetry Oxygen Delivery Method Sepsis Recent Fever Within 48 Hours Sepsis New/Unexplained Change in Mental Status Sepsis Action Taken by Nursing 05/01/20 05:38 05/01/20 05:40 05/01/20 05:50 Temperature Temperature Source Pulse Rate 120 H 123 H 112 H Pulse Rate [Right Finger] 115 H Pulse Rate from SpO2 Sensor 118 H 120 H 113 H Respiratory Rate 19 16 20 Respiratory Effort / Characteristics Respiratory Depth Normal Blood Pressure 176/106 H Blood Pressure [Right Arm] 176/106 H Blood Pressure Mean 111 Blood Pressure Mean [Right Arm] 129 Blood Pressure Position Blood Pressure Position [Right Arm] Lying Pulse Oximetry 100 95 100 Oxygen Delivery Method Room Air Sepsis Recent Fever Within 48 Hours Sepsis New/Unexplained Change in Mental Status Sepsis Action Taken by Nursing 05/01/20 06:00 05/01/20 06:01 05/01/20 06:10 Temperature Temperature Source Pulse Rate 110 H 110 H 117 H Pulse Rate [Right Finger] Pulse Rate from SpO2 Sensor 111 H 109 H 241 H Respiratory Rate 16 14 17 Respiratory Effort / Characteristics Respiratory Depth Blood Pressure 158/82 H Blood Pressure [Right Arm] Blood Pressure Mean 110 Blood Pressure Mean [Right Arm] Blood Pressure Position Blood Pressure Position [Right Arm] Pulse Oximetry 88 L 96 81 L Oxygen Delivery Method Sepsis Recent Fever Within 48 Hours Sepsis New/Unexplained Change in Mental Status Sepsis Action Taken by Nursing 05/01/20 06:20 05/01/20 06:30 05/01/20 06:31 Temperature Temperature Source Pulse Rate 120 H 120 H 118 H Pulse Rate [Right Finger] Pulse Rate from SpO2 Sensor Respiratory Rate 21 20 14 Respiratory Effort / Characteristics Respiratory Depth Blood Pressure 119/63 Blood Pressure [Right Arm] Blood Pressure Mean 82 Blood Pressure Mean [Right Arm] Blood Pressure Position Blood Pressure Position [Right Arm] Pulse Oximetry Oxygen Delivery Method Sepsis Recent Fever Within 48 Hours Sepsis New/Unexplained Change in Mental Status Sepsis Action Taken by Nursing 05/01/20 06:40 05/01/20 06:50 05/01/20 06:56 Temperature Temperature Source Pulse Rate 120 H 124 H Pulse Rate [Right Finger] 116 H Pulse Rate from SpO2 Sensor Respiratory Rate 13 16 20 Respiratory Effort / Characteristics Respiratory Depth Normal Blood Pressure Blood Pressure [Right Arm] 121/78 Blood Pressure Mean Blood Pressure Mean [Right Arm] 92 Blood Pressure Position Blood Pressure Position [Right Arm] Lying Pulse Oximetry 96 Oxygen Delivery Method Room Air Sepsis Recent Fever Within 48 Hours Sepsis New/Unexplained Change in Mental Status Sepsis Action Taken by Nursing 05/01/20 07:00 05/01/20 07:01 05/01/20 07:10 Temperature Temperature Source Pulse Rate 120 H 120 H 114 H Pulse Rate [Right Finger] Pulse Rate from SpO2 Sensor Respiratory Rate 15 19 13 Respiratory Effort / Characteristics Respiratory Depth Blood Pressure 120/64 Blood Pressure [Right Arm] Blood Pressure Mean 82 Blood Pressure Mean [Right Arm] Blood Pressure Position Blood Pressure Position [Right Arm] Pulse Oximetry 95 98 Oxygen Delivery Method Room Air Room Air Sepsis Recent Fever Within 48 Hours Sepsis New/Unexplained Change in Mental Status Sepsis Action Taken by Nursing 05/01/20 07:20 05/01/20 07:30 05/01/20 07:31 Temperature Temperature Source Pulse Rate 121 H 118 H 117 H Pulse Rate [Right Finger] Pulse Rate from SpO2 Sensor Respiratory Rate 12 15 Respiratory Effort / Characteristics Respiratory Depth Blood Pressure 123/78 Blood Pressure [Right Arm] Blood Pressure Mean 89 Blood Pressure Mean [Right Arm] Blood Pressure Position Blood Pressure Position [Right Arm] Pulse Oximetry 100 98 99 Oxygen Delivery Method Room Air Room Air Room Air Sepsis Recent Fever Within 48 Hours Sepsis New/Unexplained Change in Mental Status Sepsis Action Taken by Nursing 05/01/20 07:40 05/01/20 07:50 05/01/20 08:00 Temperature Temperature Source Pulse Rate 106 H 115 H 115 H Pulse Rate [Right Finger] Pulse Rate from SpO2 Sensor 116 H 116 H Respiratory Rate 12 15 14 Respiratory Effort / Characteristics Respiratory Depth Blood Pressure 137/78 Blood Pressure [Right Arm] Blood Pressure Mean 94 Blood Pressure Mean [Right Arm] Blood Pressure Position Blood Pressure Position [Right Arm] Pulse Oximetry 98 96 99 Oxygen Delivery Method Room Air Room Air Room Air Sepsis Recent Fever Within 48 Hours Sepsis New/Unexplained Change in Mental Status Sepsis Action Taken by Nursing 05/01/20 08:01 05/01/20 08:10 05/01/20 08:20 Temperature Temperature Source Pulse Rate 114 H 112 H 111 H Pulse Rate [Right Finger] Pulse Rate from SpO2 Sensor 113 H 115 H 111 H Respiratory Rate 15 11 L 17 Respiratory Effort / Characteristics Respiratory Depth Blood Pressure Blood Pressure [Right Arm] Blood Pressure Mean Blood Pressure Mean [Right Arm] Blood Pressure Position Blood Pressure Position [Right Arm] Pulse Oximetry 100 97 99 Oxygen Delivery Method Room Air Sepsis Recent Fever Within 48 Hours Sepsis New/Unexplained Change in Mental Status Sepsis Action Taken by Nursing 05/01/20 08:30 05/01/20 08:31 05/01/20 08:40 Temperature Temperature Source Pulse Rate 110 H 104 H Pulse Rate [Right Finger] Pulse Rate from SpO2 Sensor 108 H 105 H 98 H Respiratory Rate 21 Respiratory Effort / Characteristics Respiratory Depth Blood Pressure 133/81 Blood Pressure [Right Arm] Blood Pressure Mean 97 Blood Pressure Mean [Right Arm] Blood Pressure Position Blood Pressure Position [Right Arm] Pulse Oximetry 100 100 100 Oxygen Delivery Method Room Air Room Air Sepsis Recent Fever Within 48 Hours Sepsis New/Unexplained Change in Mental Status Sepsis Action Taken by Nursing 05/01/20 08:50 05/01/20 09:00 05/01/20 09:01 Temperature Temperature Source Pulse Rate 97 H 105 H Pulse Rate [Right Finger] Pulse Rate from SpO2 Sensor 90 100 H 101 H Respiratory Rate 16 Respiratory Effort / Characteristics Respiratory Depth Blood Pressure 133/92 Blood Pressure [Right Arm] Blood Pressure Mean 106 Blood Pressure Mean [Right Arm] Blood Pressure Position Blood Pressure Position [Right Arm] Pulse Oximetry 100 100 100 Oxygen Delivery Method Sepsis Recent Fever Within 48 Hours Sepsis New/Unexplained Change in Mental Status Sepsis Action Taken by Nursing 05/01/20 09:10 05/01/20 09:20 05/01/20 09:30 Temperature Temperature Source Pulse Rate 100 H 100 H Pulse Rate [Right Finger] Pulse Rate from SpO2 Sensor 105 H 102 H Respiratory Rate 12 15 Respiratory Effort / Characteristics Respiratory Depth Blood Pressure 147/86 H Blood Pressure [Right Arm] Blood Pressure Mean 122 Blood Pressure Mean [Right Arm] Blood Pressure Position Blood Pressure Position [Right Arm] Pulse Oximetry 100 100 100 Oxygen Delivery Method Room Air Room Air Sepsis Recent Fever Within 48 Hours Sepsis New/Unexplained Change in Mental Status Sepsis Action Taken by Nursing 05/01/20 09:31 05/01/20 09:40 05/01/20 09:50 Temperature Temperature Source Pulse Rate 104 H 102 H 100 H Pulse Rate [Right Finger] Pulse Rate from SpO2 Sensor 102 H 100 H Respiratory Rate 14 13 12 Respiratory Effort / Characteristics Respiratory Depth Blood Pressure Blood Pressure [Right Arm] Blood Pressure Mean Blood Pressure Mean [Right Arm] Blood Pressure Position Blood Pressure Position [Right Arm] Pulse Oximetry 100 100 Oxygen Delivery Method Sepsis Recent Fever Within 48 Hours Sepsis New/Unexplained Change in Mental Status Sepsis Action Taken by Nursing 05/01/20 10:00 05/01/20 10:01 05/01/20 10:10 Temperature Temperature Source Pulse Rate 94 H 97 H 102 H Pulse Rate [Right Finger] Pulse Rate from SpO2 Sensor 96 H 98 H 99 H Respiratory Rate 16 14 13 Respiratory Effort / Characteristics Respiratory Depth Blood Pressure 146/80 H Blood Pressure [Right Arm] Blood Pressure Mean 94 Blood Pressure Mean [Right Arm] Blood Pressure Position Blood Pressure Position [Right Arm] Pulse Oximetry 100 100 100 Oxygen Delivery Method Room Air Sepsis Recent Fever Within 48 Hours Sepsis New/Unexplained Change in Mental Status Sepsis Action Taken by Nursing 05/01/20 10:20 05/01/20 10:30 05/01/20 10:40 Temperature Temperature Source Pulse Rate 90 88 Pulse Rate [Right Finger] Pulse Rate from SpO2 Sensor 90 89 91 H Respiratory Rate 13 12 15 Respiratory Effort / Characteristics Respiratory Depth Blood Pressure 148/94 H Blood Pressure [Right Arm] Blood Pressure Mean 102 Blood Pressure Mean [Right Arm] Blood Pressure Position Blood Pressure Position [Right Arm] Pulse Oximetry 100 100 100 Oxygen Delivery Method Sepsis Recent Fever Within 48 Hours Sepsis New/Unexplained Change in Mental Status Sepsis Action Taken by Nursing Laboratory Data Result diagrams: 05/01/20 04:33 05/01/20 11:41 Lab Results 05/01/20 05/01/20 05/01/20 Range/Units 04:33 04:33 04:33 WBC 11.28 H (4.8-10.8) K/uL RBC 4.85 (4.7-6.1) M/uL Hgb 15.8 (14.0-18.0) g/dL POC Hgb (14.0-18.0) g/dl Hct 45.2 (42-52) % POC Hct (42-52) % MCV 93.2 (80-100) fL MCH 32.6 (25-34) pg MCHC 35.0 (32-36) g/dL RDW Std Deviation 49.8 H (36.4-46.3) fL RDW Coeff of Misha 14.6 H (11.5-14.5) % Plt Count 272 (130-400) K/uL MPV 10.0 (7.4-10.4) fL Immature Gran % (Auto) 0.3 % Neut % (Auto) 73.3 % Lymph % (Auto) 19.2 % Weld % (Auto) 6.6 % Eos % (Auto) 0.3 % Baso % (Auto) 0.3 % Neut # (Auto) 8.27 H (1.4-6.5) K/uL Lymph # (Auto) 2.17 (1.2-3.4) K/uL Weld # (Auto) 0.75 H (0.11-0.59) K/uL Eos # (Auto) 0.03 (0-0.5) K/uL Baso # (Auto) 0.03 (0-0.2) K/uL Immature Gran # (Auto) 0.03 H (0.00-0.02) K/uL PT Cancelled INR Cancelled D-Dimer Cancelled POC Sodium (135-144) mmol/L Sodium Cancelled POC Potassium (3.3-5.0) mmol/L Potassium Cancelled POC Chloride (101-112) mmol/L Chloride Cancelled Carbon Dioxide Cancelled POC Total CO2 (24-31) mmol/L Anion Gap Cancelled POC Anion Gap (16-25) mmol/L POC BUN (7-18) mg/dl BUN Cancelled Creatinine Cancelled POC Creatinine (0.6-1.3) mg/dl Est Cr Clr Drug Dosing Cancelled Est GFR ( Amer) Cancelled Est GFR (Non-Af Amer) Cancelled BUN/Creatinine Ratio Cancelled Glucose Cancelled POC Glucose (other) (70-99) mg/dl Calcium Cancelled POC Ioniz Calcium Herbert (1.12-1.32) mmol/l Magnesium Cancelled Total Bilirubin Cancelled Direct Bilirubin Cancelled AST Cancelled ALT Cancelled Alkaline Phosphatase Cancelled Troponin I Cancelled Total Protein Cancelled Albumin Cancelled Urine Color Urine Appearance (Clear) Urine pH (4.5-7.5) Ur Specific Charlotte (1.000-1.030) Urine Protein (Negative) Urine Glucose (UA) (Negative) Urine Ketones (Negative) Urine Blood (Negative) Urine Nitrite (Negative) Urine Bilirubin (Negative) Urine Urobilinogen (Negative) Ur Leukocyte Esterase (Negative) Urine WBC (Auto) (0-5) /hpf Urine RBC (Auto) (0-4) /hpf U Hyaline Cast (Auto) (0-5) /lpf U Epithel Cells (Auto) (0-5) /lpf Urine Bacteria (Auto) (Negative) Urine Opiates Screen (Neg) Ur Methadone, Qual (Neg) Urine Barbiturates (Neg) Ur Phencyclidine (PCP) (Neg) U Amphetamin/Meth Scrn (Neg) MDMA (Ecstasy) Screen (Neg) U Benzodiazepines Scrn (Neg) Ur Cocaine Metabolite (Neg) U Marijuana (THC) Screen (Neg) Ethyl Alcohol mg/dL (0-3) mg/dl SARS-CoV-2 Ag (Rapid) (Negative) 05/01/20 05/01/20 05/01/20 Range/Units 04:38 04:46 04:46 WBC (4.8-10.8) K/uL RBC (4.7-6.1) M/uL Hgb (14.0-18.0) g/dL POC Hgb 17.0 (14.0-18.0) g/dl Hct (42-52) % POC Hct 50 (42-52) % MCV (80-100) fL MCH (25-34) pg MCHC (32-36) g/dL RDW Std Deviation (36.4-46.3) fL RDW Coeff of Misha (11.5-14.5) % Plt Count (130-400) K/uL MPV (7.4-10.4) fL Immature Gran % (Auto) % Neut % (Auto) % Lymph % (Auto) % Weld % (Auto) % Eos % (Auto) % Baso % (Auto) % Neut # (Auto) (1.4-6.5) K/uL Lymph # (Auto) (1.2-3.4) K/uL Weld # (Auto) (0.11-0.59) K/uL Eos # (Auto) (0-0.5) K/uL Baso # (Auto) (0-0.2) K/uL Immature Gran # (Auto) (0.00-0.02) K/uL PT INR D-Dimer POC Sodium 131 L (135-144) mmol/L Sodium POC Potassium 5.1 H (3.3-5.0) mmol/L Potassium POC Chloride 99 L (101-112) mmol/L Chloride Carbon Dioxide POC Total CO2 18 L (24-31) mmol/L Anion Gap POC Anion Gap 21.0 (16-25) mmol/L POC BUN 18 (7-18) mg/dl BUN Creatinine POC Creatinine 1.0 (0.6-1.3) mg/dl Est Cr Clr Drug Dosing Est GFR ( Amer) Est GFR (Non-Af Amer) BUN/Creatinine Ratio Glucose POC Glucose (other) 111 H (70-99) mg/dl Calcium POC Ioniz Calcium Herbert 0.91 L (1.12-1.32) mmol/l Magnesium Total Bilirubin Direct Bilirubin AST ALT Alkaline Phosphatase Troponin I Total Protein Albumin Urine Color Dark Yellow Urine Appearance Clear (Clear) Urine pH 5.0 (4.5-7.5) Ur Specific [place] 1.027 (1.000-1.030) Urine Protein 1+ H (Negative) Urine Glucose (UA) Negative (Negative) Urine Ketones 4+ H (Negative) Urine Blood 1+ H (Negative) Urine Nitrite Negative (Negative) Urine Bilirubin Negative (Negative) Urine Urobilinogen Negative (Negative) Ur Leukocyte Esterase Negative (Negative) Urine WBC (Auto) 1-5 (0-5) /hpf Urine RBC (Auto) 0-4 (0-4) /hpf U Hyaline Cast (Auto) 1-5 (0-5) /lpf U Epithel Cells (Auto) 5-10 H (0-5) /lpf Urine Bacteria (Auto) Negative (Negative) Urine Opiates Screen Neg (Neg) Ur Methadone, Qual Neg (Neg) Urine Barbiturates Neg (Neg) Ur Phencyclidine (PCP) Neg (Neg) U Amphetamin/Meth Scrn Neg (Neg) MDMA (Ecstasy) Screen Neg (Neg) U Benzodiazepines Scrn Neg (Neg) Ur Cocaine Metabolite Neg (Neg) U Marijuana (THC) Screen Neg (Neg) Ethyl Alcohol mg/dL (0-3) mg/dl SARS-CoV-2 Ag (Rapid) (Negative) 05/01/20 05/01/20 05/01/20 Range/Units 05:12 05:12 05:12 WBC (4.8-10.8) K/uL RBC (4.7-6.1) M/uL Hgb (14.0-18.0) g/dL POC Hgb (14.0-18.0) g/dl Hct (42-52) % POC Hct (42-52) % MCV (80-100) fL MCH (25-34) pg MCHC (32-36) g/dL RDW Std Deviation (36.4-46.3) fL RDW Coeff of Misha (11.5-14.5) % Plt Count (130-400) K/uL MPV (7.4-10.4) fL Immature Gran % (Auto) % Neut % (Auto) % Lymph % (Auto) % Weld % (Auto) % Eos % (Auto) % Baso % (Auto) % Neut # (Auto) (1.4-6.5) K/uL Lymph # (Auto) (1.2-3.4) K/uL Weld # (Auto) (0.11-0.59) K/uL Eos # (Auto) (0-0.5) K/uL Baso # (Auto) (0-0.2) K/uL Immature Gran # (Auto) (0.00-0.02) K/uL PT 11.0 INR 1.0 D-Dimer 900 H* POC Sodium (135-144) mmol/L Sodium 131 L POC Potassium (3.3-5.0) mmol/L Potassium 3.3 L POC Chloride (101-112) mmol/L Chloride 94 L Carbon Dioxide 15 L POC Total CO2 (24-31) mmol/L Anion Gap 22.0 H POC Anion Gap (16-25) mmol/L POC BUN (7-18) mg/dl BUN 14 Creatinine 1.14 POC Creatinine (0.6-1.3) mg/dl Est Cr Clr Drug Dosing 75.8 Est GFR ( Amer) 87.0 Est GFR (Non-Af Amer) 75.1 BUN/Creatinine Ratio 12.1 Glucose 112 H POC Glucose (other) (70-99) mg/dl Calcium 8.3 L POC Ioniz Calcium Herbert (1.12-1.32) mmol/l Magnesium 1.0 L Total Bilirubin 1.1 H Direct Bilirubin 0.4 H AST 70 H ALT 82 H Alkaline Phosphatase 73 Troponin I < 0.015 Total Protein 7.2 Albumin 3.9 Urine Color Urine Appearance (Clear) Urine pH (4.5-7.5) Ur Specific [place] (1.000-1.030) Urine Protein (Negative) Urine Glucose (UA) (Negative) Urine Ketones (Negative) Urine Blood (Negative) Urine Nitrite (Negative) Urine Bilirubin (Negative) Urine Urobilinogen (Negative) Ur Leukocyte Esterase (Negative) Urine WBC (Auto) (0-5) /hpf Urine RBC (Auto) (0-4) /hpf U Hyaline Cast (Auto) (0-5) /lpf U Epithel Cells (Auto) (0-5) /lpf Urine Bacteria (Auto) (Negative) Urine Opiates Screen (Neg) Ur Methadone, Qual (Neg) Urine Barbiturates (Neg) Ur Phencyclidine (PCP) (Neg) U Amphetamin/Meth Scrn (Neg) MDMA (Ecstasy) Screen (Neg) U Benzodiazepines Scrn (Neg) Ur Cocaine Metabolite (Neg) U Marijuana (THC) Screen (Neg) Ethyl Alcohol mg/dL 49.0 H (0-3) mg/dl SARS-CoV-2 Ag (Rapid) (Negative) 05/01/20 Range/Units 08:51 WBC (4.8-10.8) K/uL RBC (4.7-6.1) M/uL Hgb (14.0-18.0) g/dL POC Hgb (14.0-18.0) g/dl Hct (42-52) % POC Hct (42-52) % MCV (80-100) fL MCH (25-34) pg MCHC (32-36) g/dL RDW Std Deviation (36.4-46.3) fL RDW Coeff of Misha (11.5-14.5) % Plt Count (130-400) K/uL MPV (7.4-10.4) fL Immature Gran % (Auto) % Neut % (Auto) % Lymph % (Auto) % Weld % (Auto) % Eos % (Auto) % Baso % (Auto) % Neut # (Auto) (1.4-6.5) K/uL Lymph # (Auto) (1.2-3.4) K/uL Weld # (Auto) (0.11-0.59) K/uL Eos # (Auto) (0-0.5) K/uL Baso # (Auto) (0-0.2) K/uL Immature Gran # (Auto) (0.00-0.02) K/uL PT INR D-Dimer POC Sodium (135-144) mmol/L Sodium POC Potassium (3.3-5.0) mmol/L Potassium POC Chloride (101-112) mmol/L Chloride Carbon Dioxide POC Total CO2 (24-31) mmol/L Anion Gap POC Anion Gap (16-25) mmol/L POC BUN (7-18) mg/dl BUN Creatinine POC Creatinine (0.6-1.3) mg/dl Est Cr Clr Drug Dosing Est GFR ( Amer) Est GFR (Non-Af Amer) BUN/Creatinine Ratio Glucose POC Glucose (other) (70-99) mg/dl Calcium POC Ioniz Calcium Herbert (1.12-1.32) mmol/l Magnesium Total Bilirubin Direct Bilirubin AST ALT Alkaline Phosphatase Troponin I Total Protein Albumin Urine Color Urine Appearance (Clear) Urine pH (4.5-7.5) Ur Specific Charlotte (1.000-1.030) Urine Protein (Negative) Urine Glucose (UA) (Negative) Urine Ketones (Negative) Urine Blood (Negative) Urine Nitrite (Negative) Urine Bilirubin (Negative) Urine Urobilinogen (Negative) Ur Leukocyte Esterase (Negative) Urine WBC (Auto) (0-5) /hpf Urine RBC (Auto) (0-4) /hpf U Hyaline Cast (Auto) (0-5) /lpf U Epithel Cells (Auto) (0-5) /lpf Urine Bacteria (Auto) (Negative) Urine Opiates Screen (Neg) Ur Methadone, Qual (Neg) Urine Barbiturates (Neg) Ur Phencyclidine (PCP) (Neg) U Amphetamin/Meth Scrn (Neg) MDMA (Ecstasy) Screen (Neg) U Benzodiazepines Scrn (Neg) Ur Cocaine Metabolite (Neg) U Marijuana (THC) Screen (Neg) Ethyl Alcohol mg/dL (0-3) mg/dl SARS-CoV-2 Ag (Rapid) Negative (Negative) Administered Medications Enoxaparin Sodium (Enoxaparin Inj 40 Mg/0.4 Ml Syr) 40 mg SQ Q24H [facility] Stop: 05/31/20 11:29 Last Admin: 05/01/20 22:16 Dose: Not Given Documented by: [id number] Folic Acid (Folic Acid 1 Mg Tab) 1 mg PO QAM JUAN Stop: 05/31/20 12:29 Last Admin: 05/01/20 14:11 Dose: 1 mg Documented by: [id number] Magnesium Oxide (Magnesium Oxide 400 Mg Tab) 400 mg PO BID [facility] Stop: 05/31/20 20:59 Last Admin: 05/01/20 22:16 Dose: 400 mg Documented by: [id number] Thiamine HCl (Thiamine Hcl 100 Mg Tab) 100 mg PO QAM JUAN Stop: 05/31/20 12:29 Last Admin: 05/01/20 14:12 Dose: 100 mg Documented by: [id number] Discontinued Medications Gabapentin (Gabapentin 600 Mg Tab) 1,200 mg PO NOW ONE Stop: 05/01/20 12:01 Last Admin: 05/01/20 12:15 Dose: 1,200 mg Documented by: [id number] Haloperidol Lactate (Haloperidol Lactate 5 Mg/Ml 1 Ml Vial) 10 mg IM NOW STA Stop: 05/01/20 05:25 Last Admin: 05/01/20 05:33 Dose: 10 mg Documented by: [id number] Hydromorphone HCl (Hydromorphone Inj 1 Mg/Ml Syringe) 1 mg IV NOW STA Stop: 05/01/20 04:23 Last Admin: 05/01/20 04:45 Dose: 1 mg Documented by: [id number] Sodium Chloride (Nss 1000ml) 1,000 mls @ 999 mls/hr IV .Q1H1M ONE Stop: 05/01/20 05:22 Last Infusion: 05/01/20 06:55 Dose: 0 mls/hr Documented by: [id number] Admin: 05/01/20 04:45 Dose: 999 mls/hr Documented by: [id number] Lorazepam (Ativan) 2 mg in 4 mls @ 4 mls/min IV NOW STA Stop: 05/01/20 04:49 Last Admin: 05/01/20 05:10 Dose: 4 mls/min Documented by: [id number] Multivitamins 10 ml/ Thiamine HCl 100 mg/ Folic Acid 1 mg/Sodium Chloride 1,01 1.2 mls @ 1,011.2 mls/hr IV .Q1H ONE Stop: 05/01/20 06:22 Last Infusion: 05/01/20 06:55 Dose: 0 mls/hr Documented by: [id number] Admin: 05/01/20 05:53 Dose: 1,011.2 mls/hr Documented by: [id number] Lorazepam (Ativan) 2 mg in 4 mls @ 4 mls/min IV NOW STA Stop: 05/01/20 05:25 Last Admin: 05/01/20 05:33 Dose: 4 mls/min Documented by: [id number] Lorazepam (Ativan) 2 mg in 4 mls @ 4 mls/min IV NOW STA Stop: 05/01/20 05:47 Last Admin: 05/01/20 05:53 Dose: 4 mls/min Documented by: [id number] Magnesium Sulfate/Dextrose (Magnesium Sulfate / D5w) 1 gm in 100 mls @ 200 mls/ hr IV Q30M JUAN Stop: 05/01/20 06:55 Last Infusion: 05/01/20 07:24 Dose: 0 mls/hr Documented by: [id number] Admin: 05/01/20 06:55 Dose: 200 mls/hr Documented by: [id number] Infusion: 05/01/20 06:40 Dose: 200 mls/hr Documented by: [id number] Admin: 05/01/20 06:10 Dose: 200 mls/hr Documented by: [id number] Lorazepam (Ativan) 2 mg in 4 mls @ 4 mls/min IV NOW STA Stop: 05/01/20 05:59 Last Admin: 05/01/20 06:10 Dose: 4 mls/min Documented by: [id number] Sodium Chloride (Nss 1000ml) 1,000 mls @ 125 mls/hr IV .Q8H JUAN Stop: 05/31/20 06:44 Last Admin: 05/01/20 08:51 Dose: Not Given Documented by: [id number] Lorazepam (Ativan) 2 mg in 4 mls @ 4 mls/min IV Q30M PRN PRN Reason: Alcohol Withdrawal Stop: 05/31/20 07:20 Last Admin: 05/01/20 08:51 Dose: 4 mls/min Documented by: [id number] Dextrose/Sodium Chloride (D5w And Nss) 1,000 mls @ 60 mls/hr IV .[id number] JUAN Stop: 05/02/20 12:00 Last Admin: 05/01/20 15:52 Dose: Not Given Documented by: [id number] Magnesium Sulfate/Dextrose (Magnesium Sulfate / D5w) 1 gm in 100 mls @ 50 mls/hr IV Q2H JUAN Stop: 05/01/20 18:14 Last Infusion: 05/01/20 16:15 Dose: 0 mls/hr Documented by: [id number] Admin: 05/01/20 15:15 Dose: 100 mls/hr Documented by: [id number] Infusion: 05/01/20 15:12 Dose: 0 mls/hr Documented by: [id number] Admin: 05/01/20 14:12 Dose: 50 mls/hr Documented by: [id number] Ioversol (Optiray 320 125ml) 118 ml IV ONCE ONE Stop: 05/01/20 04:45 Last Admin: 05/01/20 04:44 Dose: 1 ml Documented by: [id number] Lorazepam (Lorazepam 2 Mg/4 Ml Vial) Confirm Administered Dose 2 mg .ROUTE .STK- MED ONE Stop: 05/01/20 04:50 Last Admin: 05/01/20 05:10 Dose: Not Given Documented by: [id number] Discharge Plan Visit Data Chief Complaint: Chest Pain Stated Complaint: CHEST PAIN ED Provider: Krzysztof Rothman Discharge Problem: Delirium tremens, Hypomagnesemia, Substernal chest pain Patient Disposition: Admitted As Inpatient Discharge Instructions Interventions: ED Discharge Assessment Last Done: 05/01/20 11:14
[2020-05-01] MEDS ORDERED: OPTIRAY 320 125ml IV ONE (04:44)
[2020-05-01 04:45] LABS: Basophils # (auto) 0.03 K/uL (0-0.2); Basophils % (auto) 0.3 %; Eosinophils # (auto) 0.03 K/uL (0-0.5); Eosinophils % (auto) 0.3 %; Hematocrit (blood only) 45.2 % (42-52); Hemoglobin 15.8 g/dL (14.0-18.0); Immature Granulocytes # (auto) 0.03 K/uL (0.00-0.02); Immature Granulocytes % (auto) 0.3 %; Lymphocytes # (auto) 2.17 K/uL (1.2-3.4); Lymphocytes % (auto) 19.2 %; Mean Corpuscular Hemoglobin 32.6 pg (25-34); Mean Corpuscular Volume 93.2 fL (80-100); Monocytes # (auto) 0.75 K/uL (0.11-0.59); Monocytes % (auto) 6.6 %; Neutrophils # (auto) 8.27 K/uL (1.4-6.5); Neutrophils % (auto) 73.3 %; Platelet Count 272 K/uL (130-400); RDW Coefficient of Variation 14.6 % (11.5-14.5); RDW Standard Deviation 49.8 fL (36.4-46.3); Red Blood Count 4.85 M/uL (4.7-6.1); White Blood Count 11.28 K/uL (4.8-10.8)
[2020-05-01] MEDS ORDERED: LORazepam 2 MG/4 ML VIAL IV STA ×4 (04:48→05:58)
[2020-05-01] MEDS ORDERED: LORazepam 2 MG/4 ML VIAL ONE (04:49)
[2020-05-01 04:53] LABS: iSTAT Ionized Calcium 0.91 mmol/l (1.12-1.32); iSTAT Potassium 5.1 mmol/L (3.3-5.0)
[2020-05-01 05:17] LABS: Appearance Urine Clear (Clear); Bacteria Urine Automated Negative (Negative); Bilirubin Urine Negative (Negative); Blood Urine 1+ (Negative); Color Urine Dark Yellow; Glucose Urine UA Negative (Negative); Ketones Urine 4+ (Negative); Leukocyte Esterase Urine Negative (Negative); Nitrite Urine Negative (Negative); Protein Urine 1+ (Negative); RBC Urine Automated 0-4 /hpf (0-4); Specific Gravity Urine 1.027 (1.000-1.030); Urobilinogen Urine Negative (Negative)
[2020-05-01] MEDS ORDERED: MULTI-VITAMIN INFUSION 10 ML, THIAMINE HCL 100 MG, FOLIC ACID 1 MG in SODIUM CHLORIDE 0... IV ONE (05:23)
[2020-05-01] MEDS ORDERED: HALOPERIDOL LACTATE 5 MG/ML 1 ML VIAL IM STA (05:24)
[2020-05-01 05:33] LABS: Amphetamines+Metham, Urine Neg (Neg); Barbiturates, Urine Neg (Neg); Benzodiazepine, Urine Neg (Neg); Cocaine, Urine Neg (Neg); MDMA (Ecstacy), Urine Neg (Neg); Methadone, Urine Neg (Neg); Opiate, Urine Neg (Neg); Phencyclidine, Urine Neg (Neg)
[2020-05-01 05:55] LABS: Alanine Aminotransferase 82 U/L (12-78); Albumin Level 3.9 gm/dl (3.4-5.0); Alkaline Phosphatase 73 U/L (45-117); Aspartate Aminotransferase 70 U/L (15-37); BUN Creatinine Ratio 12.1 (10-20); Bilirubin Direct 0.4 mg/dl (0-0.2); Bilirubin,Total 1.1 mg/dl (0.2-1); Blood Urea Nitrogen 14 mg/dl (7-18); Calcium 8.3 mg/dl (8.5-10.1); Carbon Dioxide 15 mmol/L (21-32); Chloride 94 mmol/L (98-107); Creatinine Clr Calc Pharmacy 75.8 ml/min; Est GFR (Non-African American) 75.1; Glucose 112 mg/dl (70-99); Potassium 3.3 mmol/L (3.5-5.1); Sodium 131 mmol/L (136-145); Total Protein 7.2 gm/dl (6.4-8.2); Troponin I < 0.015 ng/ml (0-0.045)
[2020-05-01 06:00] LABS: D Dimer 900 ug/L FEU (0-500)
[2020-05-01] MEDS: MAGNESIUM SULFATE / D5W 1 GM/100 ML BAG IV SCH ×4 (06:10→15:15)
[2020-05-01] MEDS ORDERED: SODIUM CHLORIDE 0.9% 1000ML 1,000 ML IV SCH (06:45)
--- NOTE | 2020-05-01 06:45 | XRay Report ---
XR chest 1V portable HISTORY: 49 years-old Male chest pain acute atypical chest pain COMPARISON: CTA of the chest of same day TECHNIQUE: Portable AP view of the chest FINDINGS: Cardiomediastinal and hilar silhouettes are within normal limits. Prior median sternotomy with mitral valvular prosthesis. There is no pneumothorax, pleural effusion, airspace consolidation or overt pul monary edema. Bones of the chest appear grossly intact. IMPRESSION: No acute process. ACT 112: Negative or not required by law. The above report was generated using voice recognition software. It may contain grammatical, syntax o r spelling errors. Electronically signed by: Loyd Asher M.D. 05/01/2020 6:44 AM
[2020-05-01] MEDS ORDERED: LORazepam 2 MG/4 ML VIAL IV PRN ×2 (07:21→11:30)
--- NOTE | 2020-05-01 08:49 | CT Scan Report ---
CT ANGIOGRAPHY OF THE CHEST DISSECTION PROTOCOL CLINICAL HISTORY: acute onset tearing substernal chest pain COMPARISON STUDY: Chest CT February 28, 2020. Chest radiograph May 01, 2020. TECHNIQUE: Before and following the IV administration of 118 mL of Optiray-320, helical axial images of the chest were obtained. Maximal intensity projections and sagittal and coronal reformats were vi ewed on an independent 3D workstation. IV contrast was administered without complication. Automated exposure control was utilized for the study. A dose lowering technique was utilized adhering to the principles of ALARA. CT DOSE: 959.60 mGy.cm FINDINGS: The caliber of the thoracic aorta is normal. There is no intramural hematoma or thoracic a ortic dissection. This exam is moderately compromised by motion artifact. On home theater installer image, there is ap parent disruption of the ring for the prosthetic mitral valve. This is likely artifactual and related to motion artifact. Size of the heart is normal. No pericardial effusion. No pneumothorax or pleural effusion is noted. There is no consolidation. A small hiatal hernia is present. Visualized portions of the upper abdomen demonstrate marked hepatic steatosis. Gallbladder is surgically absent. IMPRESSION: 1. No thoracic aortic dissection. Normal caliber thoracic aorta. 2. Exam moderately compromised by motion artifact. 3. Apparent disruption of the ring for the prosthetic mitral valve on home theater installer image is likely artifactu al and related to motion artifact. 4. Severe hepatic steatosis. 5. Small hiatal hernia ACT 112: Negative or not required by law. Electronically signed by: Kameron Lezama M.D. 05/01/2020 8:48 AM
--- NOTE | 2020-05-01 10:55 | History & Physical Report ---
Date of Service May 01, 2020 Assessment & Plan (1) Substernal chest pain: Unclear etiology at present - CTA chest negative for PE or aortic dissection - Trend troponins - Monitor on telemetry - Check ECHO due to potential abnormality of mitral valve on CT although thought more likely due to motion artifact (2) Alcohol withdrawal: - Gabapentin protocol for alcohol withdrawal - Continue PRN IV Ativan (3) Hypomagnesemia: Given IV repletion in ED - will recheck labs this morning with additional repletion prn (4) GERD (gastroesophageal reflux disease): IV Pepcid until mental status improves - then will resume oral PPI therapy (5) Status post mitral valve replacement with bioprosthetic valve: Check ECHO as discussed in #1 (6) Depression: Resume Effexor once mental status improves (7) Hypertension: On Toprol XL as outpatient Pt seen and reviewed with attending physician, Dr. Phelan. Plan of care discussed and as outlined above. Mayra Reyes PA-C History of Present Illness Chief Complaint: Chest Pain Primary Care Provider: Berta Mead DO This is a 49 y/o male with a history of EtOH abuse and prior admissions for withdrawal and encephalopathy, s/p bioprosthetic mitral valve replacement, HTN, IBS, GERD, gout, and major depression who presented to the ED early this morning with chest pain. History from the patient is currently unobtainable due to sedation/chemical restraints that pt received due to agitation in the ED. Chart extensively reviewed. Pt apparently presented to the ED via private vehicle earlier today clutching his chest and complaining of several hours of progressive tearing chest pain. Pain was worse with lying down and with deep breathing. Initially pt was able to cooperate with CT and evaluation, but then he developed progressive worsening agitation, delirium, and tremors in the ED requiring multiple doses of IV Ativan and IM Haldol. Pt has a history of alcohol abuse and multiple prior admissions for alcohol withdrawal and encephalopathy. Most recently, pt was admitted in February. He declined rehab at that time. Allergies Allergy/AdvReac Type Severity Reaction Status Date / Time No Known Allergies Allergy Unknown Verified 05/01/20 04:18 Home Medications Medication Instructions Recorded Confirmed Type metoprolol succinate 25 mg PO DAILY 03/25/18 05/01/20 History omeprazole 20 mg PO DAILY 03/25/18 05/01/20 History allopurinol 300 mg PO DAILY 05/12/19 12/29/20 History venlafaxine 150 mg PO DAILY 09/12/18 05/01/20 History magnesium chloride 64 mg PO DAILY #5 tab 02/29/20 05/01/20 Rx Past Med/Surg History Medical History (Updated 05/01/20 @ 11:29 by Mila Reyes PA-C) Anxiety Depression Gallstones GERD (gastroesophageal reflux disease) Gout Hypertension Migraine Surgical History H/O hernia repair Status post cholecystectomy Status post mitral valve replacement with bioprosthetic valve Family History Father Hypertension Mother Diabetes Social History Smoking Status: Never smoker Second Hand Exposure: No; Do You Dip or Chew Tobacco: No; Hx Alcohol Use: Yes Alcohol type: beer Hx Substance Use: No Preferred Language: Bangladeshi Communication Ability: Effective Contact Worker Lithography Required: No Beliefs That Will Affect Care: None Current Living Situation: Parent Current Living Situation Comment: live with mother Other Information That Helps Us Care for You: No Feels Safe at Home: Yes Safety Concerns: Feels Safe At This Time Assistive Devices: None Review of Systems Review of Systems: Unobtainable due to reduced consciousness (chemically sedated at present) Physical Exam Constitutional: sedated, lying in bed, no acute distress at present Neck: trachea midline Respiratory: no respiratory distress and no labored breathing Auscultation: lungs clear to auscultation bilaterally; no rales, no rhonchi and no wheezes Cardiovascular: Rate/Rhythm: regular rate and regular rhythm Vessels: dorsalis pedis pulses present and radial pulses present Extremities: no pedal edema Gastrointestinal (Abdomen): Inspection/Auscultation: normal bowel sounds; abdomen not distended Percussion/Palpation: abdomen soft Musculoskeletal: Head/Neck/Chest: normocephalic, head atraumatic and neck supple Skin: no rashes, warm and dry no jaundice Neurologic: Motor/Sensory: no tremor (at present) Results & Data Results & Data ([facility]) Vital Signs (Past 12 Hours) Vital Signs Temp Pulse Pulse Resp BP BP Pulse Ox 05/01/20 08:10 112 H 11 L 97 05/01/20 08:01 114 H 15 100 05/01/20 08:00 115 H 14 137/78 99 05/01/20 07:50 115 H 15 96 05/01/20 07:40 106 H 12 98 05/01/20 07:31 117 H 15 99 05/01/20 07:30 118 H 12 123/78 98 05/01/20 07:20 121 H 100 05/01/20 07:10 114 H 13 98 05/01/20 07:01 120 H 19 95 05/01/20 07:00 120 H 15 120/64 05/01/20 06:56 116 H 20 121/78 96 05/01/20 06:50 124 H 16 05/01/20 06:40 120 H 13 05/01/20 06:31 118 H 14 119/63 05/01/20 06:30 120 H 20 05/01/20 06:20 120 H 21 05/01/20 06:10 117 H 17 81 L 05/01/20 06:01 110 H 14 158/82 H 96 05/01/20 06:00 110 H 16 88 L 05/01/20 05:50 112 H 20 100 05/01/20 05:40 123 H 16 95 05/01/20 05:38 120 H 115 H 19 176/106 H 176/106 H 100 05/01/20 05:37 115 H 16 05/01/20 05:20 123 H 21 05/01/20 05:10 109 H 17 05/01/20 05:09 110 H 17 168/120 H 05/01/20 05:08 109 H 15 05/01/20 04:40 125 H 18 05/01/20 04:31 113 H 17 05/01/20 04:20 129 H 16 05/01/20 04:15 36.7 C 129 H 22 167/102 H 98 Laboratory Results Laboratory Results - last 24 hr 05/01/20 05/01/20 05/01/20 04:33 04:33 04:33 WBC 11.28 H RBC 4.85 Hgb 15.8 POC Hgb Hct 45.2 POC Hct MCV 93.2 MCH 32.6 MCHC 35.0 RDW Std Deviation 49.8 H RDW Coeff of Misha 14.6 H Plt Count 272 MPV 10.0 Immature Gran % (Auto) 0.3 Neut % (Auto) 73.3 Lymph % (Auto) 19.2 [place] % (Auto) 6.6 Eos % (Auto) 0.3 Baso % (Auto) 0.3 Neut # (Auto) 8.27 H Lymph # (Auto) 2.17 [place] # (Auto) 0.75 H Eos # (Auto) 0.03 Baso # (Auto) 0.03 Immature Gran # (Auto) 0.03 H PT Cancelled INR Cancelled D-Dimer Cancelled POC Sodium Sodium Cancelled POC Potassium Potassium Cancelled POC Chloride Chloride Cancelled Carbon Dioxide Cancelled POC Total CO2 Anion Gap Cancelled POC Anion Gap POC BUN BUN Cancelled Creatinine Cancelled POC Creatinine Est Cr Clr Drug Dosing Cancelled Est GFR ( Amer) Cancelled Est GFR (Non-Af Amer) Cancelled BUN/Creatinine Ratio Cancelled Glucose Cancelled POC Glucose (other) Calcium Cancelled POC Ioniz Calcium Herbert Magnesium Cancelled Total Bilirubin Cancelled Direct Bilirubin Cancelled AST Cancelled ALT Cancelled Alkaline Phosphatase Cancelled Troponin I Cancelled Total Protein Cancelled Albumin Cancelled Urine Color Urine Appearance Urine pH Ur Specific Fithian Urine Protein Urine Glucose (UA) Urine Ketones Urine Blood Urine Nitrite Urine Bilirubin Urine Urobilinogen Ur Leukocyte Esterase Urine WBC (Auto) Urine RBC (Auto) U Hyaline Cast (Auto) U Epithel Cells (Auto) Urine Bacteria (Auto) Urine Opiates Screen Ur Methadone, Qual Urine Barbiturates Ur Phencyclidine (PCP) U Amphetamin/Meth Scrn MDMA (Ecstasy) Screen U Benzodiazepines Scrn Ur Cocaine Metabolite U Marijuana (THC) Screen Ethyl Alcohol mg/dL SARS-CoV-2 Ag (Rapid) 05/01/20 05/01/20 05/01/20 04:38 04:46 04:46 WBC RBC Hgb POC Hgb 17.0 Hct POC Hct 50 MCV MCH MCHC RDW Std Deviation RDW Coeff of Misha Plt Count MPV Immature Gran % (Auto) Neut % (Auto) Lymph % (Auto) [place] % (Auto) Eos % (Auto) Baso % (Auto) Neut # (Auto) Lymph # (Auto) [place] # (Auto) Eos # (Auto) Baso # (Auto) Immature Gran # (Auto) PT INR D-Dimer POC Sodium 131 L Sodium POC Potassium 5.1 H Potassium POC Chloride 99 L Chloride Carbon Dioxide POC Total CO2 18 L Anion Gap POC Anion Gap 21.0 POC BUN 18 BUN Creatinine POC Creatinine 1.0 Est Cr Clr Drug Dosing Est GFR ( Amer) Est GFR (Non-Af Amer) BUN/Creatinine Ratio Glucose POC Glucose (other) 111 H Calcium POC Ioniz Calcium Herbert 0.91 L Magnesium Total Bilirubin Direct Bilirubin AST ALT Alkaline Phosphatase Troponin I Total Protein Albumin Urine Color Dark Yellow Urine Appearance Clear Urine pH 5.0 Ur Specific Fithian 1.027 Urine Protein 1+ H Urine Glucose (UA) Negative Urine Ketones 4+ H Urine Blood 1+ H Urine Nitrite Negative Urine Bilirubin Negative Urine Urobilinogen Negative Ur Leukocyte Esterase Negative Urine WBC (Auto) 1-5 Urine RBC (Auto) 0-4 U Hyaline Cast (Auto) 1-5 U Epithel Cells (Auto) 5-10 H Urine Bacteria (Auto) Negative Urine Opiates Screen Neg Ur Methadone, Qual Neg Urine Barbiturates Neg Ur Phencyclidine (PCP) Neg U Amphetamin/Meth Scrn Neg MDMA (Ecstasy) Screen Neg U Benzodiazepines Scrn Neg Ur Cocaine Metabolite Neg U Marijuana (THC) Screen Neg Ethyl Alcohol mg/dL SARS-CoV-2 Ag (Rapid) 05/01/20 05/01/20 05/01/20 05:12 05:12 05:12 WBC RBC Hgb POC Hgb Hct POC Hct MCV MCH MCHC RDW Std Deviation RDW Coeff of Misha Plt Count MPV Immature Gran % (Auto) Neut % (Auto) Lymph % (Auto) [place] % (Auto) Eos % (Auto) Baso % (Auto) Neut # (Auto) Lymph # (Auto) [place] # (Auto) Eos # (Auto) Baso # (Auto) Immature Gran # (Auto) PT 11.0 INR 1.0 D-Dimer 900 H* POC Sodium Sodium 131 L POC Potassium Potassium 3.3 L POC Chloride Chloride 94 L Carbon Dioxide 15 L POC Total CO2 Anion Gap 22.0 H POC Anion Gap POC BUN BUN 14 Creatinine 1.14 POC Creatinine Est Cr Clr Drug Dosing 75.8 Est GFR ( Amer) 87.0 Est GFR (Non-Af Amer) 75.1 BUN/Creatinine Ratio 12.1 Glucose 112 H POC Glucose (other) Calcium 8.3 L POC Ioniz Calcium Herbert Magnesium 1.0 L Total Bilirubin 1.1 H Direct Bilirubin 0.4 H AST 70 H ALT 82 H Alkaline Phosphatase 73 Troponin I < 0.015 Total Protein 7.2 Albumin 3.9 Urine Color Urine Appearance Urine pH Ur Specific Fithian Urine Protein Urine Glucose (UA) Urine Ketones Urine Blood Urine Nitrite Urine Bilirubin Urine Urobilinogen Ur Leukocyte Esterase Urine WBC (Auto) Urine RBC (Auto) U Hyaline Cast (Auto) U Epithel Cells (Auto) Urine Bacteria (Auto) Urine Opiates Screen Ur Methadone, Qual Urine Barbiturates Ur Phencyclidine (PCP) U Amphetamin/Meth Scrn MDMA (Ecstasy) Screen U Benzodiazepines Scrn Ur Cocaine Metabolite U Marijuana (THC) Screen Ethyl Alcohol mg/dL 49.0 H SARS-CoV-2 Ag (Rapid) 05/01/20 08:51 WBC RBC Hgb POC Hgb Hct POC Hct MCV MCH MCHC RDW Std Deviation RDW Coeff of Misha Plt Count MPV Immature Gran % (Auto) Neut % (Auto) Lymph % (Auto) [place] % (Auto) Eos % (Auto) Baso % (Auto) Neut # (Auto) Lymph # (Auto) [place] # (Auto) Eos # (Auto) Baso # (Auto) Immature Gran # (Auto) PT INR D-Dimer POC Sodium Sodium POC Potassium Potassium POC Chloride Chloride Carbon Dioxide POC Total CO2 Anion Gap POC Anion Gap POC BUN BUN Creatinine POC Creatinine Est Cr Clr Drug Dosing Est GFR ( Amer) Est GFR (Non-Af Amer) BUN/Creatinine Ratio Glucose POC Glucose (other) Calcium POC Ioniz Calcium Herbert Magnesium Total Bilirubin Direct Bilirubin AST ALT Alkaline Phosphatase Troponin I Total Protein Albumin Urine Color Urine Appearance Urine pH Ur Specific Fithian Urine Protein Urine Glucose (UA) Urine Ketones Urine Blood Urine Nitrite Urine Bilirubin Urine Urobilinogen Ur Leukocyte Esterase Urine WBC (Auto) Urine RBC (Auto) U Hyaline Cast (Auto) U Epithel Cells (Auto) Urine Bacteria (Auto) Urine Opiates Screen Ur Methadone, Qual Urine Barbiturates Ur Phencyclidine (PCP) U Amphetamin/Meth Scrn MDMA (Ecstasy) Screen U Benzodiazepines Scrn Ur Cocaine Metabolite U Marijuana (THC) Screen Ethyl Alcohol mg/dL SARS-CoV-2 Ag (Rapid) Negative Diagnostic Findings Chest X-ray 05/01/20 - IMPRESSION: No acute process. CTA Chest 05/01/20 - IMPRESSION: 1. No thoracic aortic dissection. Normal caliber thoracic aorta. 2. Exam moderately compromised by motion artifact. 3. Apparent disruption of the ring for the prosthetic mitral valve on diamond sizer and grader image is likely artifactual and related to motion artifact. 4. Severe hepatic steatosis. 5. Small hiatal hernia Medications Administered Lorazepam (Ativan) 2 mg in 4 mls @ 4 mls/min IV Q30M PRN PRN Reason: Alcohol Withdrawal Stop: 05/31/20 07:20 Last Admin: 05/01/20 08:51 Dose: 4 mls/min Documented by: [id number] Discontinued Medications Haloperidol Lactate (Haloperidol Lactate 5 Mg/Ml 1 Ml Vial) 10 mg IM NOW STA Stop: 05/01/20 05:25 Last Admin: 05/01/20 05:33 Dose: 10 mg Documented by: [id number] Hydromorphone HCl (Hydromorphone Inj 1 Mg/Ml Syringe) 1 mg IV NOW STA Stop: 05/01/20 04:23 Last Admin: 05/01/20 04:45 Dose: 1 mg Documented by: [id number] Sodium Chloride (Nss 1000ml) 1,000 mls @ 999 mls/hr IV .Q1H1M ONE Stop: 05/01/20 05:22 Last Infusion: 05/01/20 06:55 Dose: 0 mls/hr Documented by: [id number] Admin: 05/01/20 04:45 Dose: 999 mls/hr Documented by: [id number] Lorazepam (Ativan) 2 mg in 4 mls @ 4 mls/min IV NOW STA Stop: 05/01/20 04:49 Last Admin: 05/01/20 05:10 Dose: 4 mls/min Documented by: [id number] Multivitamins 10 ml/ Thiamine HCl 100 mg/ Folic Acid 1 mg/Sodium Chloride 1,011.2 mls @ 1,011.2 mls/hr IV .Q1H ONE Stop: 05/01/20 06:22 Last Infusion: 05/01/20 06:55 Dose: 0 mls/hr Documented by: [id number] Admin: 05/01/20 05:53 Dose: 1,011.2 mls/hr Documented by: [id number] Lorazepam (Ativan) 2 mg in 4 mls @ 4 mls/min IV NOW STA Stop: 05/01/20 05:25 Last Admin: 05/01/20 05:33 Dose: 4 mls/min Documented by: [id number] Lorazepam (Ativan) 2 mg in 4 mls @ 4 mls/min IV NOW STA Stop: 05/01/20 05:47 Last Admin: 05/01/20 05:53 Dose: 4 mls/min Documented by: [id number] Magnesium Sulfate/Dextrose (Magnesium Sulfate / D5w) 1 gm in 100 mls @ 200 mls/hr IV Q30M JUAN Stop: 05/01/20 06:55 Last Infusion: 05/01/20 07:24 Dose: 0 mls/hr Documented by: [id number] Admin: 05/01/20 06:55 Dose: 200 mls/hr Documented by: [id number] Infusion: 05/01/20 06:40 Dose: 200 mls/hr Documented by: [id number] Admin: 05/01/20 06:10 Dose: 200 mls/hr Documented by: [id number] Lorazepam (Ativan) 2 mg in 4 mls @ 4 mls/min IV NOW STA Stop: 05/01/20 05:59 Last Admin: 05/01/20 06:10 Dose: 4 mls/min Documented by: [id number] Sodium Chloride (Nss 1000ml) 1,000 mls @ 125 mls/hr IV .Q8H JUAN Stop: 05/31/20 06:44 Last Admin: 05/01/20 08:51 Dose: Not Given Documented by: [id number] Ioversol (Optiray 320 125ml) 118 ml IV ONCE ONE Stop: 05/01/20 04:45 Last Admin: 05/01/20 04:44 Dose: 1 ml Documented by: [id number] Lorazepam (Lorazepam 2 Mg/4 Ml Vial) Confirm Administered Dose 2 mg .ROUTE .STK- MED ONE Stop: 05/01/20 04:50 Last Admin: 05/01/20 05:10 Dose: Not Given Documented by: [id number] Code Status & VTE Plan VTE Prophylaxis Plan VTE Prophylaxis will be ordered: Yes Supervising Physician Co-Signing Physician Notes I, Dr. Lee Phelan, have seen and examined the patient with physician casting assistant and subsequent exam independently and on exam General: answers questions about his personal health history, he attributes initial symptoms to hypomagnesemia. he reports vomiting at home but denies hemoptysis. when asked, he minimizes his use of alcohol at home Heart: mildly tachycardia Lungs: clear to auscultation, on room air Abdomen: denies abdomen pain, soft Extremities/neuro: moves all extremities Psych: currently alert but the returned to sleep Assessment and Plan Patient's echocardiogram has been performed and results are pending. His distre ss in the emergency room and complains of chest pain to ED physician is unclear etiology but patient attributes to cramping from hypomagnesemia. will follow up echocardiogram to rule out cardiac cause of chest pain. target serum magnesium of [address] on alcohol withdrawal protocol and telemetry monitoring. if cardiac etiology is ruled out and chest pain returns then consider GI source. agree with other assessment and plans as documented by physician casting assistant (1) Alcohol withdrawal Complication of substance-induced condition: with delirium Qualified Code(s): F10.231 - Alcohol dependence with withdrawal delirium (2) Depression Active/Remission status: remission status unspecified Depression Type: major depressive disorder Major depression recurrence: recurrent Qualified Code(s): F33.9 - Major depressive disorder, recurrent, unspecified (3) GERD (gastroesophageal reflux disease) Esophagitis presence: esophagitis presence not specified Qualified Code(s): K21.9 - Gastro-esophageal reflux disease without esophagitis (4) Hypertension Hypertension type: essential hypertension Qualified Code(s): I10 - Essential (primary) hypertension
[2020-05-01] MEDS ORDERED: ATIVAN IV ALCOHOL WITHDRAWL IV PRN (11:30)
[2020-05-01] MEDS ORDERED: LORazepam 3 MG/6 ML VIAL IV PRN (11:30)
[2020-05-01] MEDS ORDERED: ACETAMINOPHEN 325 MG TAB PO PRN ×2 (11:30→15:47)
[2020-05-01] MEDS ORDERED: GABAPENTIN 1200MG ALCOHOL WITHDRAWAL LOAD PO STA (11:30)
[2020-05-01] MEDS ORDERED: GABAPENTIN 600 MG TAB PO ONE (12:00)
[2020-05-01 12:21] LABS: BUN Creatinine Ratio 15.6 (10-20); Blood Urea Nitrogen 10 mg/dl (7-18); Calcium 7.1 mg/dl (8.5-10.1); Carbon Dioxide 23 mmol/L (21-32); Chloride 106 mmol/L (98-107); Creatine Kinase 476 U/L (39-308); Est GFR (African American) 130.8; Est GFR (Non-African American) 112.8; Glucose 117 mg/dl (70-99); Lipase 89 U/L (73-393); Magnesium 1.7 mg/dl (1.8-2.4); Potassium 3.9 mmol/L (3.5-5.1); Sodium 136 mmol/L (136-145); Troponin I < 0.015 ng/ml (0-0.045)
[2020-05-01] MEDS ORDERED: D5W AND NSS 1,000 ML IV SCH (13:45)
[2020-05-01] MEDS: FOLIC ACID 1 MG TAB PO SCH (14:11)
[2020-05-01] MEDS: THIAMINE HCL 100 MG TAB PO SCH (14:12)
--- NOTE | 2020-05-01 15:01 | Electrocardiogram Report ---
Test Reason : Blood Pressure : / mmHG Vent. Rate : 117 BPM Atrial Rate : 117 BPM P-R Int : 146 ms QRS Dur : 084 ms QT Int : 364 ms P-R-T Axes : 048 043 054 degrees QTc Int : 507 ms Poor data quality, interpretation may be adversely affected Sinus tachycardia Nonspecific T wave abnormality When compared with ECG of 27-FEB-2020 21:21, No significant change was found Confirmed by Forrest Ortiz ([id number]) on 05/01/2020 3:01:21 PM Referred By: REFERRED SELF Confirmed By:Syed Ortiz
[2020-05-01] MEDS ORDERED: ENOXAPARIN INJ 40 MG/0.4 ML SYR SQ SCH (21:00)
[2020-05-01] MEDS: MAGNESIUM OXIDE 400 MG TAB PO SCH (22:16)
[2020-05-01] MEDS: GABAPENTIN 600 MG TAB PO SCH ×2 (23:41→23:52)
[2020-05-02] MEDS: LORazepam 1 MG/2 ML VIAL IV PRN ×2 (02:52→16:15)
[2020-05-02] MEDS ORDERED: LORazepam 1.5 MG/3 ML VIAL IV STA (05:34)
[2020-05-02 05:50] LABS: Basophils # (auto) 0.04 K/uL (0-0.2); Basophils % (auto) 0.7 %; Eosinophils # (auto) 0.08 K/uL (0-0.5); Eosinophils % (auto) 1.4 %; Hematocrit (blood only) 43.1 % (42-52); Hemoglobin 14.5 g/dL (14.0-18.0); Immature Granulocytes # (auto) 0.02 K/uL (0.00-0.02); Immature Granulocytes % (auto) 0.3 %; Lymphocytes # (auto) 1.77 K/uL (1.2-3.4); Lymphocytes % (auto) 30.4 %; Mean Corpuscular Hgb Conc 33.6 g/dL (32-36); Mean Corpuscular Volume 95.1 fL (80-100); Mean Platelet Volume 9.2 fL (7.4-10.4); Monocytes # (auto) 0.41 K/uL (0.11-0.59); Neutrophils % (auto) 60.2 %; Platelet Count 182 K/uL (130-400); RDW Coefficient of Variation 14.6 % (11.5-14.5); RDW Standard Deviation 50.9 fL (36.4-46.3); Red Blood Count 4.53 M/uL (4.7-6.1); White Blood Count 5.82 K/uL (4.8-10.8)
[2020-05-02] MEDS ORDERED: GABAPENTIN 600 MG TAB PO SCH ×3 (06:00→21:00)
[2020-05-02 06:09] LABS: Albumin Level 3.8 gm/dl (3.4-5.0); Calcium 8.7 mg/dl (8.5-10.1); Creatinine Clr Calc Pharmacy 83.9 ml/min; Est GFR (African American) 98.4; Est GFR (Non-African American) 84.9; Magnesium 2.2 mg/dl (1.8-2.4); Potassium 3.1 mmol/L (3.5-5.1)
[2020-05-02 06:18] LABS: Albumin Globulin Ratio 1.2 (0.9-2); Bilirubin,Total 1.8 mg/dl (0.2-1); Globulin 3.2 gm/dl (2.5-4.0); Phosphorus 2.3 mg/dl (2.5-4.9)
[2020-05-02] MEDS ORDERED: HALOPERIDOL LACTATE 5 MG/ML 1 ML VIAL IM STA (06:25)
[2020-05-02] MEDS ORDERED: FAMOTIDINE 20 MG in SYRINGE 3 ML IV SCH (08:00)
[2020-05-02] MEDS: MAGNESIUM OXIDE 400 MG TAB PO SCH (08:02)
[2020-05-02] MEDS: THIAMINE HCL 100 MG TAB PO SCH (08:02)
[2020-05-02] MEDS ORDERED: LORazepam 0.5 MG/1 ML VIAL IV PRN (08:52)
[2020-05-02] MEDS ORDERED: chlordiazePOXIDE ALCOHOL WITHDRAWL 25MG PO STA (08:52)
[2020-05-02] MEDS ORDERED: METOPROLOL SUCC 25MG EXT REL TAB PO SCH (09:00)
[2020-05-02] MEDS ORDERED: NSS + 20MEQ KCL 20 MEQ/1,000 ML BAG IV SCH (09:30)
[2020-05-02] MEDS: POTASSIUM CHLORIDE / WTR 10 MEQ/100 ML PLCT IV SCH ×4 (09:44→14:20)
[2020-05-02] MEDS ORDERED: D5NSS + 20MEQ KCL 20 MEQ/1,000 ML BAG IV SCH (09:45)
[2020-05-02] MEDS ORDERED: PANTOprazole 40 MG in SYRINGE 0 ML IV SCH (09:45)
[2020-05-02] MEDS: FOLIC ACID 1 MG TAB PO SCH (09:50)
[2020-05-02] MEDS: POT PHOSPHATE MONOBASIC W/ SOD TAB PO SCH ×3 (09:51→16:52)
--- NOTE | 2020-05-02 10:58 | Gastrointestinal Consultation ---
Date of Consultation May 02, 2020 Assessment & Plan (1) Chest pain: -Pantoprazole 40 mg BID -Carafate 1 gm four times daily -Pepcid 20 mg BID -Continue with cardiac work-up per hospitalist team -No indication for emergent endoscopic evaluation at present (2) Alcoholism: Here with alcohol withdrawal. CT shows hepatic steatosis. -Recommend alcohol cessation & rehab Supervising Physician Co-Signing Physician Notes I personally evaluated the patient and agree with the findings as documented by LYSSA Goodman Exam: abd: soft, nt, nd History of Present Illness Reason for Consultation: "Chest pain, alcoholism" Attending Physician: Myron Monte MD History of Present Illness Patient is a 49 yo male with a PMH of alcoholism, history of admissions for alcohol withdrawal and encephalopathy, MV replacement, HTN, IBS, GERD, gout, & depression. He presented to the ED with chest pain. Unfortunately due to alcohol withdrawal and agitation, he required sedation and history is limited. The patient is sleeping sounding during my evaluation after receiving a dose of Haldol. Per reports, he had reported tearing chest pain. Initial troponins unremarkable. EKG without acute concerns. CTA unremarkable for acute issues. In the past, patient has refused rehab for alcohol use. It appears he has a home medication of Omeprazole 20 mg daily. GI has been consulted for "chest pain & alcoholism." Allergies Allergy/AdvReac Type Severity Reaction Status Date / Time No Known Allergies Allergy Unknown Verified 05/01/20 04:18 Home Medications Medication Instructions Recorded Confirmed Type metoprolol succinate 25 mg PO DAILY 03/25/18 05/01/20 History omeprazole 20 mg PO DAILY 03/25/18 05/01/20 History allopurinol 300 mg PO DAILY 09/12/18 05/01/20 History venlafaxine 150 mg PO DAILY 09/12/18 05/01/20 History magnesium chloride 64 mg PO DAILY #5 tab 02/29/20 05/01/20 Rx Patient History Medical History (Updated 05/02/20 @ 10:55 by Maureen Kam PA-C) Anxiety Depression Gallstones GERD (gastroesophageal reflux disease) Gout Hypertension Migraine Surgical History H/O hernia repair Status post cholecystectomy Status post mitral valve replacement with bioprosthetic valve Family History Father Hypertension Mother Diabetes Social History Smoking Status: Never smoker Second Hand Exposure: No; Do You Dip or Chew Tobacco: No; Hx Alcohol Use: Yes Alcohol type: beer Hx Substance Use: No Preferred Language: Tanzanian Communication Ability: Effective Crap Shooter Required: No Beliefs That Will Affect Care: None Current Living Situation: Parent Current Living Situation Comment: live with mother Other Information That Helps Us Care for You: No Feels Safe at Home: Yes Safety Concerns: Feels Safe At This Time Assistive Devices: None Review of Systems Review of Systems: Unobtainable due to reduced consciousness Physical Exam Constitutional: well developed Respiratory: normal respiratory effort Cardiovascular: Extremities: no edema Gastrointestinal (Abdomen): Inspection/Auscultation: abdomen normal to in spection; abdomen not distended Musculoskeletal: Head/Neck/Chest: normocephalic Psychiatric: not arousable this AM after receiving Haldol Results & Data ([facility]) Vital Signs (Past 12 Hours) Vital Signs Temp Pulse Resp BP BP Pulse Ox 05/02/20 07:35 37.1 C 18 152/94 H 96 05/02/20 02:44 37.1 C 110 H 20 151/106 H 145/108 H 98 05/01/20 23:20 36.8 C 90 18 167/91 H 100 Laboratory Results H/H 14.5/43.1 BUN 11/Cr 1.03
[2020-05-02] MEDS: chlordiazePOXIDE HCl 25 MG CAP PO SCH ×2 (11:32→16:15)
[2020-05-02] MEDS ORDERED: SUCRALFATE 1 GM/10 ML UDC PO SCH (17:00)
--- NOTE | 2020-05-02 18:28 | Hospitalist Progress Note ---
Date of Service May 02, 2020 Assessment & Plan (1) Chest pain: (1) Substernal chest pain possible Esophagitis, GERD, Gastric Ulcer Acute coronary syndrome ruled out - Troponins negative EKG no signs of acute ischemia Echo: EF 55 to 60%, there is mild concentric LVH, left atrium is moderately dilated, there is a bioprosthetic mitral valve, prosthetic mitral valve is well- seated, prosthetic mitral valve peak and/or mean gradients are normal No significant bioprosthetic mitral valve regurgitation - CTA chest negative for PE or aortic dissection -Immersion Metal Cleaner consulted, Dr. San, recommendations: Protonix 40 mg twice daily Carafate 1 g 4 times daily Pepcid 20 mg twice daily No indication for emergent endoscopic evaluation (2) Alcohol Intoxication - Gabapentin protocol provided for alcohol withdrawal No overt signs and symptoms of alcohol withdrawal -LFTs mildly elevated CT shows hepatic steatosis -Further work-up, management, follow-up of alcoholism, elevated LFTs and hepatic steatosis as outpatient (3) Hypomagnesemia: replaced (4) GERD (gastroesophageal reflux disease): per #1 (5) Status post mitral valve replacement with bioprosthetic valve: ECHO: no issues, refer to #1 (6) Depression: Patient denies depression symptoms, denies suicidal ideations Effexor (7) Hypertension: On Toprol XL as outpatient Reevaluate in the evening Patient remains stable overall, chest pain-free, no signs of withdrawal States that he is ready already to be discharged Plan of care discussed with patient in detail and at length All questions answered He is is understanding, agreeable, comfortable plan of care His mother also updated twice, plan of care discussed with her in detail and at length All questions were answered Also understanding, agreeable, comfortable with plan of care Admission and Anticipated Discharge Date Admission Date: May 01, 2020 Subjective Delayed entry Date of service noted above Follow-up for chest pain Seen in the morning with RN at bedside Patient is sleeping but easily awakened Oriented X 3, calm, cooperative, pleasant chest pain free states he feels fine overall denies headache, dizziness, blurred vision, dyspnea, palpitations, abdominal pain nausea/vomiting, problems with urination/BM, tremors, anxiety, sweats, hallucinations no other symptoms Review of Systems Review of Systems: All systems reviewed & are unremarkable except as noted in Subjective Physical Exam Physical Exam: General- oriented x 3, not in distress, speaks in sentences with no effort or accessory muscle use Head- atraumatic Eyes- PERRL, EOMI, anicteric ENT- oropharynx clear Neck- supple, no JVD, no adenopathy, no thyromegaly; carotids +2/2, no bruits appreciated Lungs- clear to auscultation bilaterally, no rales/wheezes Heart- normal rate, regular rhythm; no murmur, no gallop, no rub appreciated Abdomen- normal bowel sounds, nondistended, soft, nontender, no masses or hepato splenomegaly Extremities- no pretibial edema, no calf tenderness; peripheral pulses intact no tremors Neuro- alert, oriented x 3; CN 2-12 grossly intact; motor 5/5 bilaterally;sensation 100% on all extremities; no other gross focal neurologic deficits Skin- warm & dry Results & Data Results & Data ([facility]) Vital Signs (Past 12 Hours) Vital Signs Temp Pulse Pulse Pulse Resp BP BP 05/02/20 18:18 36.5 C 110 H 79 20 136/92 145/108 H 05/02/20 17:00 83 05/02/20 15:11 36.5 C 79 20 136/92 05/02/20 11:15 36.5 C 95 H 20 137/88 05/02/20 07:35 37.1 C 18 152/94 H Pulse Ox 05/02/20 18:18 98 05/02/20 17:00 05/02/20 15:11 98 05/02/20 11:15 98 05/02/20 07:35 96 Laboratory Results all noted and reviewed
[2020-05-02] MEDS ORDERED: FAMOTIDINE 20 MG TAB PO SCH (21:00)
[2020-05-03] MEDS ORDERED: GABAPENTIN 600 MG TAB PO SCH (10:00)
[2020-05-04] MEDS ORDERED: GABAPENTIN 600 MG TAB PO SCH (22:00)
[2020-05-05] MEDS ORDERED: chlordiazePOXIDE HCl 5 MG CAP PO SCH (09:00)
--- NOTE | 2020-05-07 08:04 | Discharge Summary ---
Date of Service May 07, 2020 Admission HPI Per Admitting Provider This is a 49 y/o male with a history of EtOH abuse and prior admissions for withdrawal and encephalopathy, s/p bioprosthetic mitral valve replacement, HTN, IBS, GERD, gout, and major depression who presented to the ED early this morning with chest pain. History from the patient is currently unobtainable due to sedation/chemical restraints that pt received due to agitation in the ED. Chart extensively reviewed. Pt apparently presented to the ED via private vehicle earlier today clutching his chest and complaining of several hours of progressive tearing chest pain. Pain was worse with lying down and with deep breathing. Initially pt was able to cooperate with CT and evaluation, but then he developed progressive worsening agitation, delirium, and tremors in the ED requiring multiple doses of IV Ativan and IM Haldol. Pt has a history of alcohol abuse and multiple prior admissions for alcohol withdrawal and encephalopathy. Most recently, pt was admitted in February. He declined rehab at that time. Admission Exam Per Admitting Provider Constitutional: sedated, lying in bed, no acute distress at present Neck: trachea midline Respiratory: no respiratory distress and no labored breathing Auscultation: lungs clear to auscultation bilaterally; no rales, no rhonchi and no wheezes Cardiovascular: Rate/Rhythm: regular rate and regular rhythm Vessels: dorsalis pedis pulses present and radial pulses present Extremities: no pedal edema Gastrointestinal (Abdomen): Inspection/Auscultation: normal bowel sounds; abdomen not distended Percussion/Palpation: abdomen soft Musculoskeletal: Head/Neck/Chest: normocephalic, head atraumatic and neck supple Skin: no rashes, warm and dry no jaundice Neurologic: Motor/Sensory: no tremor (at present) Principal Diagnosis Chest pain, atypical, likely secondary to underlying esophagitis, GERD, gastric ulcer Alcohol intoxication Discharge Exam General- oriented x 3, not in distress, speaks in sentences with no effort or accessory muscle use Head- atraumatic Eyes- PERRL, EOMI, anicteric ENT- oropharynx clear Neck- supple, no JVD, no adenopathy, no thyromegaly; carotids +2/2, no bruits appreciated Lungs- clear to auscultation bilaterally, no rales/wheezes Heart- normal rate, regular rhythm; no murmur, no gallop, no rub appreciated Abdomen- normal bowel sounds, nondistended, soft, nontender, no masses or hepatosplenomegaly Extremities- no pretibial edema, no calf tenderness; peripheral pulses intact no tremors Neuro- alert, oriented x 3; CN 2-12 grossly intact; motor 5/5 bilaterally;sensation 100% on all extremities; no other gross focal neurologic deficits Skin- warm & dry Discharge Data Allergies Allergy/AdvReac Type Severity Reaction Status Date / Time No Known Allergies Allergy Unknown Verified 05/01/20 04:18 Consultations 05/01/20 06:42 ED Decision to Admit Stat 05/02/20 09:07 Consult Gastroenterology Routine Ordered Studies 05/01/20 04:22 CT angio chest dissec wo/w con Urgent COMPARISON STUDY: Chest CT February 28, 2020. Chest radiograph May 01, 2020. TECHNIQUE: Before and following the IV administration of 118 mL of Optiray-320, helical axial images of the chest were obtained. Maximal intensity projections and sagittal and coronal reformats were viewed on an independent 3D workstation. IV contrast was administered without complication. Automated exposure control was utilized for the study. A dose lowering technique was utilized adhering to the principles of ALARA. CT DOSE: 959.60 mGy.cm FINDINGS: The caliber of the thoracic aorta is normal. There is no intramural hematoma or thoracic aortic dissection. This exam is moderately compromised by motion artifact. On mex[employer] food machine tender image, there is apparent disruption of the ring for the prosthetic mitral valve. This is likely artifactual and related to motion a rtifact. Size of the heart is normal. No pericardial effusion. No pneumothorax or pleural effusion is noted. There is no consolidation. A small hiatal hernia is present. Visualized portions of the upper abdomen demonstrate marked hepatic steatosis. Gallbladder is surgically absent. IMPRESSION: 1. No thoracic aortic dissection. Normal caliber thoracic aorta. 2. Exam moderately compromised by motion artifact. 3. Apparent disruption of the ring for the prosthetic mitral valve on [employer] machine tender image is likely artifactual and related to motion artifact. 4. Severe hepatic steatosis. 5. Small hiatal hernia Hospital Course (1) Chest pain: (1) Substernal chest pain possible Esophagitis, GERD, Gastric Ulcer Acute coronary syndrome ruled out - Troponins negative EKG no signs of acute ischemia Echo: EF 55 to 60%, there is mild concentric LVH, left atrium is moderately dilated, there is a bioprosthetic mitral valve, prosthetic mitral valve is well- seated, prosthetic mitral valve peak and/or mean gradients are normal No significant bioprosthetic mitral valve regurgitation ff up mild LVH as outpatient - D dimer 900 CTA chest negative for PE or aortic dissection no signs/symptoms of DVT -[facility] consulted, Dr. San, recommendations: Protonix 40 mg twice daily Carafate 1 g 4 times daily Pepcid 20 mg twice daily No indication for emergent endoscopic evaluation - patient's chest pain completely resolved on hospital day #2 ambulating with no problems, tolerating diet well ff up with PCP in 1 week (2) Alcohol Intoxication - Gabapentin protocol provided for alcohol withdrawal No overt signs and symptoms of alcohol withdrawal while admitted -LFTs mildly elevated CT shows SEVERE hepatic steatosis -Further work-up, management, follow-up of alcoholism, elevated LFTs and hepatic steatosis as outpatient (3) Hypomagnesemia: replaced (4) GERD (gastroesophageal reflux disease): per #1 (5) Status post mitral valve replacement with bioprosthetic valve: ECHO: no issues, refer to #1 (6) Depression: Patient denies depression symptoms, denies suicidal ideations Effexor (7) Hypertension: On Toprol XL as outpatient (+) mild concentric LVH on echo ff up as outpatient Reevaluate in the evening Patient remains stable overall, chest pain-free, no signs of withdrawal States that he is ready already to be discharged Plan of care discussed with patient in detail and at length All questions answered He is is understanding, agreeable, comfortable plan of care His mother also updated twice, plan of care discussed with her in detail and at length All questions were answered Also understanding, agreeable, comfortable with plan of care Total Time Total Time Spent Total Time Spent (In Minutes): > 30 minutes Discharge Plan Discharge Items Patient Disposition: Home - Self-Care Reason For Visit: ALCOHOL WITHDRAWAL,CHEST PAIN Discharge Diagnosis: Chest pain Possible esophageal or stomach ulcer Alcohol intoxication Activity: As commented below Activity Comment: Resume activity gradually as tolerated Lifting: Wait until after follow-up appointment Exercise/Sports: Wait until after follow-up appointment Driving/Machine Use: No driving until reevaluated and allowed by primary care physician next wee Non-emergency contact: Primary Care Provider Call non-emergency contact if: you have any medication questions, your symptoms worsen, your pain is not controlled, your pain is worsening, your pain is unusual for you, your pain is concerning for you and you have a fever Follow-up/Referrals: Zeke San MD [Physician] - Berta Mead DO [Primary Care Provider] - Diet: Heart Healthy Addtl Attending Provider Instructions: Please review your new medication list and follow instructions carefully. Your New medications include: Gabapentin- to be taken for 3 days, to prevent alcohol withdrawal, do not take this medication if you are going to drink alcohol 05/03/2020 : 600 mg/1 tab every 8 hours 05/04/2020: 600 mg / 1 tablet every 12 hours 05/05/2020: 600 mg / 1 tablet once, then stop Protonix- to heal possible gastritis or stomach ulcer Famotidine- to heal possible gastritis or stomach ulcer Sucralfate- to heal possible esophageal ulcer Potassium tablet-for low potassium level Folate, thiamine, multivitamins- supplements No alcohol or smoking. Return to the ER immediately if you are having tremors/shaking, anxiety, sweating, confusion. Primary care physician or return to the ER immediately if you are having worsening of chest pain, Abdominal pain, nausea vomiting, bloody or black stools. Follow-up with your primary care physician next week. The clinic will be calling you soon for the appointment. Follow-up with formwork carpenter Dr. San in 2 weeks. Contact information noted above. Please call his office to set up an appointment. Pending Studies at Discharge: Yes Studies:: Repeat blood work including complete blood count, basic metabolic profile, liver function test on Follow-up with primary care physician next week Stand-Alone Forms: [facility], Work/School Release (Inpt), Smoking Cessation Medications and DC Order Prescriptions: New gabapentin 600 mg Tablet 600 mg PO UD Qty: 6 RF: 0 sucralfate 100 mg/mL Suspension 10 ml PO QID Qty: 1200 RF: 1 thiamine HCl (vitamin B1) [Vitamin B-1] 100 mg Tablet 100 mg PO QAM Qty: 7 RF: 0 famotidine 20 mg Tablet 20 mg PO BID Qty: 60 RF: 1 folic acid 1 mg Tablet 1 mg PO QAM Qty: 7 RF: 0 pantoprazole [Protonix] 40 mg tablet,delayed release (DR/EC) 40 mg PO BID Qty: 60 RF: 1 multivitamin Tablet 1 tab PO DAILY Qty: 30 RF: 0 potassium chloride [Klor-Con M20] 20 mEq tablet,ER particles/crystals 40 meq PO DAILY Qty: 14 RF: 0 Continued magnesium chloride 64 mg tablet,delayed release (DR/EC) 64 mg PO DAILY Qty: 5 RF: 0 metoprolol succinate 25 mg Capsule,Sprinkle,Er 24hr 25 mg PO DAILY RF: 0 venlafaxine 150 mg capsule,extended release 24hr 150 mg PO DAILY RF: 0 allopurinol 300 mg tablet 300 mg PO DAILY RF: 0 Discontinued omeprazole 20 mg Capsule,Delayed Release(Dr/Ec) 20 mg PO DAILY RF: 0 Discharge Orders: Discharge Order (Routine); Ordered 05/02/20 Ordered By: Myron Monte Admission Data Admit Date/Time: 05/01/20 10:41 Attending Provider: Myron Monte Admit Provider: Lee Phelan Primary Care Provider: Berta Mead Other Providers: Timoteo Turner ; Lee Phelan ; Zeke San Other Interventions: Discharge Summary Assessment (RN) Last Done: 05/02/20 18:18
== END 2020-05-02 19:01 | disposition home or self-care (01) | DRG 392 ==
LOC: ED 04:09 → SUATTDRO 10:41 → EDINP 10:41 → 2S 23:36

== ENCOUNTER 2020-05-15 15:57 | Inpatient (IN) ==
[2020-05-15] MEDS ORDERED: FAMOTIDINE 20MG IV PUSH 20 MG/5 ML SYR IV STA (17:31)
[2020-05-15] MEDS ORDERED: MULTI-VITAMIN INFUSION 10 ML, THIAMINE HCL 100 MG, FOLIC ACID 1 MG in SODIUM CHLORIDE 0... IV ONE (17:31)
--- NOTE | 2020-05-15 17:53 | XRay Report ---
XR chest 1V portable HISTORY: 49 years-old Male abdominal pain acute generalized abdominal pain COMPARISON: Chest radiograph 05/01/2020 TECHNIQUE: Portable AP view of the chest FINDINGS: Cardiac mediastinal and hilar silhouettes are within normal limits. Prior median sternotomy with mitr al valvular prosthesis. No pneumothorax, pleural effusion, airspace consolidation or overt pulmonary edema. Bones of the chest appear grossly intact. IMPRESSION: No acute process. ACT 112: Negative or not required by law. The above report was generated using voice recognition software. It may contain grammatical, syntax o r spelling errors. Electronically signed by: Loyd Ahser M.D. 05/15/2020 5:51 PM
[2020-05-15 18:07] LABS: Basophils # (auto) 0.03 K/uL (0-0.2); Basophils % (auto) 0.2 %; Eosinophils # (auto) 0.01 K/uL (0-0.5); Eosinophils % (auto) 0.1 %; Hematocrit (blood only) 40.1 % (42-52); Hemoglobin 14.2 g/dL (14.0-18.0); Immature Granulocytes # (auto) 0.05 K/uL (0.00-0.02); Immature Granulocytes % (auto) 0.4 %; Lymphocytes # (auto) 1.27 K/uL (1.2-3.4); Lymphocytes % (auto) 9.4 %; Mean Corpuscular Hemoglobin 32.4 pg (25-34); Mean Corpuscular Hgb Conc 35.4 g/dL (32-36); Mean Corpuscular Volume 91.6 fL (80-100); Mean Platelet Volume 9.2 fL (7.4-10.4); Monocytes # (auto) 0.81 K/uL (0.11-0.59); Neutrophils % (auto) 83.9 %; Platelet Count 309 K/uL (130-400); RDW Standard Deviation 46.9 fL (36.4-46.3); Red Blood Count 4.38 M/uL (4.7-6.1); White Blood Count 13.57 K/uL (4.8-10.8)
[2020-05-15 18:26] LABS: Alanine Aminotransferase 81 U/L (12-78); Albumin Level 4.3 gm/dl (3.4-5.0); Aspartate Aminotransferase 61 U/L (15-37); BUN Creatinine Ratio 11.4 (10-20); Blood Urea Nitrogen 13 mg/dl (7-18); Calcium 8.9 mg/dl (8.5-10.1); Carbon Dioxide 19 mmol/L (21-32); Chloride 98 mmol/L (98-107); Creatinine Clr Calc Pharmacy 81.9 ml/min; Est GFR (Non-African American) 75.1; Glucose 122 mg/dl (70-99); Lipase 166 U/L (73-393); Potassium 3.5 mmol/L (3.5-5.1); Sodium 131 mmol/L (136-145)
[2020-05-15 18:37] LABS: Albumin Globulin Ratio 1.2 (0.9-2); Alkaline Phosphatase 95 U/L (45-117); Bilirubin,Total 1.1 mg/dl (0.2-1); Globulin 3.7 gm/dl (2.5-4.0); Phosphorus 2.4 mg/dl (2.5-4.9); Troponin I < 0.015 ng/ml (0-0.045)
[2020-05-15] MEDS ORDERED: IOVERSOL 100ml IV ONE (18:55)
--- NOTE | 2020-05-15 19:05 | CT Scan Report ---
CT head/brain wo con CLINICAL HISTORY: 49 years-old Male with memory issues. Acute memory loss TECHNIQUE: Multiple axial CT images of the head were obtained without contrast. A dose lowering tech nique was utilized adhering to the principles of ALARA. CT DOSE: 614.27 mGy.cm COMPARISON: Head CT 02/28/2020 FINDINGS: No acute intracranial hemorrhage, midline shift, intracranial mass, hydrocephalus, territorial ischem ia or abnormal extra-axial collection. The calvarium is intact. The paranasal sinuses, mastoid air cells, and middle ear cavities are clear . IMPRESSION: No acute intracranial abnormality. ACT 112: Negative or not required by law. The above report was generated using voice recognition software. It may contain grammatical, syntax o r spelling errors. Electronically signed by: Loyd Asher M.D. 05/15/2020 7:04 PM
--- NOTE | 2020-05-15 19:13 | Emergency Department Note ---
Impression & Plan Abdominal pain, Hypomagnesemia, Alcohol withdrawal ED Provider Note Provider: Abhijit Clemente MD DATE OF SERVICE:05/15/2020 CHIEF COMPLAINT: Abdominal pain HISTORY OF PRESENT ILLNESS: Patient is a 49-year-old gentleman history of alcoholism, hypomagnesemia, hypokalemia, GERD, bioprosthetic mitral valve, gout presenting here today reporting that he is having some mid to lower abdominal discomfort today. Patient denies any use of alcohol or nausea or vomiting. Patient denies chest pain or shortness of breath or URI symptoms. Patient denies any trauma. Patient states pain presents today and he had similar pain in the past. Patient states he was recently admitted but does not give details. Patient denies any memory issue or confusion. Patient denies any recent use of alcohol and is unable to state what exactly had a last drink. Triage notes indicate the patient presented with his daughter; triage notes indicate she was somewhat concerned as per the triage note he was throwing up in the middle the night has had low potassium magnesium before has been having chills and sweats and forgetting things. Daughter evidently reported he last drank yesterday. Discussed with the patient he denies all of this and does not wish for me to contact family. Patient states he likes to pace in the room. Patient denies any blood in stool or melena. REVIEW OF SYSTEMS: A total of 10 review of systems was obtained and negative except as stated above in the HPI. PAST MEDICAL HISTORY: As noted above MEDICATIONS: Reviewed home medication list SOCIAL HISTORY: Patient denies current alcohol use. PHYSICAL EXAM: GENERAL: alert and oriented to person in no acute distress pacing in room appears somewhat anxious Head: normocephalic and atraumatic EYES: No injection, discharge or icterus. NECK: Trachea midline. Supple. ENT: Mucous membranes pink and moist. LUNGS: Airway patent. No retractions. Breath sounds clear with good air entry bilaterally. HEART: Regular rate and rhythm. No chest wall tenderness ABDOMEN: Soft without mass or peritonitis with some slight mid abdominal tenderness on palpation SKIN: Acyanotic, warm, dry, without rashes EXTREMITIES: Without swelling, tenderness or deformity NEUROLOGICAL: No focal deficits. No aphasia. No facial droop or slurred speech. Patient however does at times make some odd statements does not appear to be responding to external stimuli. Ambulatory. Does have a slight resting hand tremor. EK bpm sinus tachycardia. No PVC or PAC. No acute ST segment elevation or depression. QTC 498. CONTINUOUS CARDIAC MONITORING: was ordered and showed a heart rate of 100s bpm in sinus tachycardia Patient's laboratory studies and imaging reviewed. Differential includes Appendicitis, infections, diverticulitis, UTI, obstr uction, mesenteric ischemia, aortic pathology, inflammatory bowel disease, renal colic, PUD, pancreatitis, biliary pathology, hernia, volvulus, constipation, cardiac, neurological as well as other pathologies. IMPRESSION/MEDICAL DECISION MAKING: Patient is complaining of some lower abdominal pain but denies other significant symptoms. Patient specifically denies any alcohol use and does not wish me to contact his family. Triage note is somewhat concerning. Recent admission and noted history of alcohol history in the past. Denies any GI bleed symptomatology. Patient did not want me speaking with family although given the past medical records and the triage report from the daughter available to me here you have concerns for some alcohol withdrawal and symptomatology did recent alcohol usage. Specific leukocytosis 13 is noted with slight hyponatremia. Magnesium is significantly low at 1.0 but no hypokalemia. Given IV magnesium repletion. Negative troponin. No evidence acute pancreatitis based on normal lipase. Slight elevation of AST and ALT improved compared to previous. TSH within normal limit. Alcohol levels undetectable. Chest x-ray appears clear. CT the abdomen pelvis questions a nonspecific colitis the sigmoid colon per radiology report. No evidence of acute intracranial event on the CT of the head; completed mainly due to the question of some memory or confusion issues with an alcohol use history. Did receive a banana bag here as well as several doses of Valium as he did seem to be in some alcohol withdrawal clinically. Delirium tremens as noted in his problem history although he does not truly relay a seizure history and I do not see clear notes of DTs mentioned in prior medical records briefly reviewed here. Patient did report that he was wanting to get up from the couch (i.e. the stretcher that he was laying on) and that he wanted his feet out of the water (no water present on the floor or significantly in the exam room). Patient continues to pace in the room and seems a bit antsy. Does have some improvement of his abdominal discomfort and what appears to be some alcohol withdrawal symptoms (tremor, hypertension, tachycardia) with the IV Valium here. Again review of medical records indicate multiple admissions for mental status changes in the past appears to be attributed to substance issues. Discussed with the patient findings and my recommendation for further monitoring here given my concern for alcohol withdrawal and symptom control. He was in agreement. The hospitalist was contacted. DIAGNOSIS: Abdominal pain, hypomagnesemia, alcohol withdrawal DISPOSITION: Hospitalist will evaluate Patient was agreeable with this plan. Critical Care I have personally spent 32 minutes of critical care time in the direct management of this patient. This includes bedside care, interpretation of yovani gnostic studies, and testing, discussion with consultants, patient, and family members, and other required patient management activities. These 32 minutes is in excess of all separately billable procedures. Past Med/Surg History Medical History (Updated 05/15/20 @ 20:05 by Abhijit Clemente M.D.) Anxiety Depression Gallstones GERD (gastroesophageal reflux disease) Gout Hypertension Migraine Surgical History H/O hernia repair Status post cholecystectomy Status post mitral valve replacement with bioprosthetic valve Family History Father Hypertension Mother Diabetes Social History Smoking Status: Never smoker Second Hand Exposure: No; Hx Alcohol Use: Yes Alcohol type: beer Hx Substance Use: No Preferred Language: Yi Communication Ability: Effective Cheese Supervisor Required: No Beliefs That Will Affect Care: None Current Living Situation: Parent Current Living Situation Comment: live with mother Feels Safe at Home: Yes Assistive Devices: None Allergies Allergies Allergy/AdvReac Type Severity Reaction Status Date / Time No Known Allergies Allergy Verified 05/15/20 18:23 Home Meds Home Medications Medication Instructions Recorded Confirmed metoprolol succinate 25 mg PO DAILY 03/25/18 05/15/20 allopurinol 300 mg PO DAILY 09/12/18 05/15/20 venlafaxine 150 mg PO DAILY 09/12/18 05/15/20 gabapentin 600 mg PO TID 05/15/20 05/15/20 multivitamin with folic acid 1 tab PO DAILY 05/15/20 05/15/20 [Tab-A-Juan Daniel] omeprazole 20 mg PO BID 05/15/20 05/15/20 omeprazole 20 mg PO DAILY 05/15/20 05/15/20 Results & Data (ED) Vital Signs Vital Signs - 24 hr 05/15/20 16:29 05/15/20 17:57 05/15/20 18:07 Temperature 36.4 C L Temperature Source Oral Pulse Rate 98 H 109 H 108 H Pulse Rate from SpO2 Sensor 106 H Pulse Rhythm Regular Pulse Strength Normal Respiratory Rate 20 15 18 Respiratory Effort / Characteristics Non-Labored Respiratory Depth Normal Respiratory Pattern Regular Blood Pressure 169/115 H 175/107 H Blood Pressure Mean 133 131 Blood Pressure Position Sitting Pulse Oximetry 100 99 100 Oxygen Delivery Method Room Air Room Air Sepsis Recent Fever Within 48 Hours No Sepsis New/Unexplained Change in Mental Status N/A Sepsis Action Taken by Nursing No Action Required 05/15/20 18:12 05/15/20 18:20 05/15/20 18:30 Temperature Temperature Source Pulse Rate 108 H 99 H 101 H Pulse Rate from SpO2 Sensor 109 H 100 H 102 H Pulse Rhythm Pulse Strength Respiratory Rate 16 20 14 Respiratory Effort / Characteristics Respiratory Depth Respiratory Pattern Blood Pressure 162/96 H Blood Pressure Mean 120 Blood Pressure Position Pulse Oximetry 100 98 99 Oxygen Delivery Method Sepsis Recent Fever Within 48 Hours Sepsis New/Unexplained Change in Mental Status Sepsis Action Taken by Nursing 05/15/20 18:31 05/15/20 18:40 05/15/20 19:06 Temperature Temperature Source Pulse Rate 98 H 103 H 108 H Pulse Rate from SpO2 Sensor 93 H 102 H Pulse Rhythm Pulse Strength Respiratory Rate 16 20 18 Respiratory Effort / Characteristics Respiratory Depth Respiratory Pattern Blood Pressure Blood Pressure Mean Blood Pressure Position Pulse Oximetry 100 93 Oxygen Delivery Method Sepsis Recent Fever Within 48 Hours Sepsis New/Unexplained Change in Mental Status Sepsis Action Taken by Nursing 05/15/20 19:10 05/15/20 19:20 05/15/20 19:21 Temperature Temperature Source Pulse Rate 110 H 101 H 101 H Pulse Rate from SpO2 Sensor 101 H 102 H Pulse Rhythm Pulse Strength Respiratory Rate 20 15 14 Respiratory Effort / Characteristics Respiratory Depth Respiratory Pattern Blood Pressure 171/102 H Blood Pressure Mean 120 Blood Pressure Position Pulse Oximetry 100 100 Oxygen Delivery Method Sepsis Recent Fever Within 48 Hours Sepsis New/Unexplained Change in Mental Status Sepsis Action Taken by Nursing 05/15/20 19:30 05/15/20 19:31 05/15/20 19:40 Temperature Temperature Source Pulse Rate 95 H 97 H 103 H Pulse Rate from SpO2 Sensor 95 H 98 H 103 H Pulse Rhythm Pulse Strength Respiratory Rate 23 20 15 Respiratory Effort / Characteristics Respiratory Depth Respiratory Pattern Blood Pressure 142/89 H Blood Pressure Mean 100 Blood Pressure Position Pulse Oximetry 96 96 96 Oxygen Delivery Method Room Air Sepsis Recent Fever Within 48 Hours Sepsis New/Unexplained Change in Mental Status Sepsis Action Taken by Nursing 05/15/20 19:50 Temperature Temperature Source Pulse Rate 108 H Pulse Rate from SpO2 Sensor 109 H Pulse Rhythm Pulse Strength Respiratory Rate 21 Respiratory Effort / Characteristics Respiratory Depth Respiratory Pattern Blood Pressure Blood Pressure Mean Blood Pressure Position Pulse Oximetry 98 Oxygen Delivery Method Sepsis Recent Fever Within 48 Hours Sepsis New/Unexplained Change in Mental Status Sepsis Action Taken by Nursing Laboratory Data Result diagrams: 05/15/20 17:49 05/15/20 17:49 Lab Results 05/15/20 05/15/20 05/15/20 Range/Units 17:49 17:49 17:49 WBC 13.57 H (4.8-10.8) K/uL RBC 4.38 L (4.7-6.1) M/uL Hgb 14.2 (14.0-18.0) g/dL Hct 40.1 L (42-52) % MCV 91.6 (80-100) fL MCH 32.4 (25-34) pg MCHC 35.4 (32-36) g/dL RDW Std Deviation 46.9 H (36.4-46.3) fL RDW Coeff of Misha 14.0 (11.5-14.5) % Plt Count 309 (130-400) K/uL MPV 9.2 (7.4-10.4) fL Immature Gran % (Auto) 0.4 % Neut % (Auto) 83.9 % Lymph % (Auto) 9.4 % Prentiss % (Auto) 6.0 % Eos % (Auto) 0.1 % Baso % (Auto) 0.2 % Neut # (Auto) 11.40 H (1.4-6.5) K/uL Lymph # (Auto) 1.27 (1.2-3.4) K/uL Prentiss # (Auto) 0.81 H (0.11-0.59) K/uL Eos # (Auto) 0.01 (0-0.5) K/uL Baso # (Auto) 0.03 (0-0.2) K/uL Immature Gran # (Auto) 0.05 H (0.00-0.02) K/uL Sodium 131 L (136-145) mmol/L Potassium 3.5 (3.5-5.1) mmol/L Chloride 98 (98-107) mmol/L Carbon Dioxide 19 L (21-32) mmol/L Anion Gap 14.0 H (3-11) BUN 13 (7-18) mg/dl Creatinine 1.14 (0.6-1.4) mg/dl Est Cr Clr Drug Dosing 81.9 ml/min Est GFR ( Amer) 87.0 Est GFR (Non-Af Amer) 75.1 BUN/Creatinine Ratio 11.4 (10-20) Glucose 122 H (70-99) mg/dl Calcium 8.9 (8.5-10.1) mg/dl Phosphorus 2.4 L (2.5-4.9) mg/dl Magnesium 1.0 L (1.8-2.4) mg/dl Total Bilirubin 1.1 H (0.2-1) mg/dl AST 61 H (15-37) U/L ALT 81 H (12-78) U/L Alkaline Phosphatase 95 (45-117) U/L Ammonia (11-32) umol/L Troponin I < 0.015 (0-0.045) ng/ml Total Protein 8.0 (6.4-8.2) gm/dl Albumin 4.3 (3.4-5.0) gm/dl Globulin 3.7 (2.5-4.0) gm/dl Albumin/Globulin Ratio 1.2 (0.9-2) Lipase 166 (73-393) U/L TSH 2.740 (0.300-4.500) uIu/ml Ethyl Alcohol mg/dL < 3.0 (0-3) mg/dl 05/15/20 Range/Units 17:49 WBC (4.8-10.8) K/uL RBC (4.7-6.1) M/uL Hgb (14.0-18.0) g/dL Hct (42-52) % MCV (80-100) fL MCH (25-34) pg MCHC (32-36) g/dL RDW Std Deviation (36.4-46.3) fL RDW Coeff of Misha (11.5-14.5) % Plt Count (130-400) K/uL MPV (7.4-10.4) fL Immature Gran % (Auto) % Neut % (Auto) % Lymph % (Auto) % Prentiss % (Auto) % Eos % (Auto) % Baso % (Auto) % Neut # (Auto) (1.4-6.5) K/uL Lymph # (Auto) (1.2-3.4) K/uL Prentiss # (Auto) (0.11-0.59) K/uL Eos # (Auto) (0-0.5) K/uL Baso # (Auto) (0-0.2) K/uL Immature Gran # (Auto) (0.00-0.02) K/uL Sodium (136-145) mmol/L Potassium (3.5-5.1) mmol/L Chloride (98-107) mmol/L Carbon Dioxide (21-32) mmol/L Anion Gap (3-11) BUN (7-18) mg/dl Creatinine (0.6-1.4) mg/dl Est Cr Clr Drug Dosing ml/min Est GFR ( Amer) Est GFR (Non-Af Amer) BUN/Creatinine Ratio (10-20) Glucose (70-99) mg/dl Calcium (8.5-10.1) mg/dl Phosphorus (2.5-4.9) mg/dl Magnesium (1.8-2.4) mg/dl Total Bilirubin (0.2-1) mg/dl AST (15-37) U/L ALT (12-78) U/L Alkaline Phosphatase (45-117) U/L Ammonia 25.0 (11-32) umol/L Troponin I (0-0.045) ng/ml Total Protein (6.4-8.2) gm/dl Albumin (3.4-5.0) gm/dl Globulin (2.5-4.0) gm/dl Albumin/Globulin Ratio (0.9-2) Lipase (73-393) U/L TSH (0.300-4.500) uIu/ml Ethyl Alcohol mg/dL (0-3) mg/dl Administered Medications Discontinued Medications Diazepam (Diazepam 5 Mg/Ml Inj 10ml Vial) 10 mg IV NOW STA Stop: 05/15/20 18:11 Last Admin: 05/15/20 18:15 Dose: 10 mg Documented by: [id number] Diazepam (Diazepam 5 Mg/Ml Inj 10ml Vial) 20 mg IV NOW STA Stop: 05/15/20 19:10 Last Admin: 05/15/20 19:20 Dose: 20 mg Documented by: [id number] Multivitamins 10 ml/ Thiamine HCl 100 mg/ Folic Acid 1 mg/Sodium Chloride 1,011.2 mls @ 1,011.2 mls/hr IV .Q1H ONE Stop: 05/15/20 18:30 Last Admin: 05/15/20 18:11 Dose: 1,011.2 mls/hr Documented by: [id number] Famotidine (Pepcid 20mg Iv Push) 20 mg in 5 mls @ 2.5 mls/min IV NOW STA Stop: 05/15/20 17:32 Last Admin: 05/15/20 18:15 Dose: 2.5 mls/min Documented by: [id number] Magnesium Sulfate/Dextrose (Magnesium Sulfate / D5w) 1 gm in 100 mls @ 200 mls/hr IV Q30M JUAN Stop: 05/15/20 19:44 Last Admin: 05/15/20 20:08 Dose: 200 mls/hr Documented by: [id number] Infusion: 05/15/20 20:08 Dose: 0 mls/hr Documented by: [id number] Admin: 05/15/20 19:28 Dose: 200 mls/hr Documented by: [id number] Ioversol (Ioversol 100ml) 91 ml IV ONCE ONE Stop: 05/15/20 18:56 Last Admin: 05/15/20 18:56 Dose: 91 ml Documented by: [id number] Discharge Plan Visit Data Chief Complaint: Illness Stated Complaint: VOMITING,SHACKING,MEMORY LOSS, ED Provider: Abhijit Clemente Discharge Problem: Abdominal pain, Hypomagnesemia, Alcohol withdrawal Patient Disposition: Being Evaluated by Hospitalist Forms Stand Alone Forms: [facility] Prescriptions Prescriptions: No Action metoprolol succinate 25 mg Capsule,Sprinkle,Er 24hr 25 mg PO DAILY RF: 0 venlafaxine 150 mg capsule,extended release 24hr 150 mg PO DAILY RF: 0 allopurinol 300 mg tablet 300 mg PO DAILY RF: 0 omeprazole 20 mg capsule,delayed release(DR/EC) 20 mg PO DAILY RF: 0 multivitamin with folic acid [Tab-A-Juan Daniel] 400 mcg tablet 1 tab PO DAILY RF: 0 omeprazole 20 mg Capsule,Delayed Release(Dr/Ec) 20 mg PO BID RF: 0 gabapentin 600 mg tablet 600 mg PO TID RF: 0 Referrals Referrals: Carrington Lei DO [Primary Care Provider] - Discharge Problem: Abdominal pain Qualifiers: Abdominal location: periumbilical Qualified Code(s): R10.33 - Periumbilical pain Alcohol withdrawal Qualifiers: Complication of substance-induced condition: with unspecified complication Qualified Code(s): F10.239 - Alcohol dependence with withdrawal, unspecified
--- NOTE | 2020-05-15 19:23 | CT Scan Report ---
ABDOMEN AND PELVIS CT WITH IV CONTRAST CT DOSE: 583.12 mGy.cm HISTORY: Acute mid abdominal pain. mid abdominal pain TECHNIQUE: Multiaxial CT images of the abdomen and pelvis were performed following the IV administrat ion of 91 cc of Optiray 320, A dose lowering technique was utilized adhering to the principles of AL PRO. COMPARISON STUDY: CT abdomen and pelvis 02/28/2020 FINDINGS: Prior median sternotomy with mitral valvular prosthesis. Clear lung bases. No pneumatosis o r pneumoperitoneum. The spleen, pancreas and adrenal glands are unremarkable. Cholecystectomy. Severe hepatic steatosis. No evidence of cirrhosis. Patency of the hepatic and portal veins. Kidneys and ur eters are unremarkable. No urolith. Prostate is upper limits of normal in size. Mild bladder wall thi ckening. A small right inguinal hernia is present which contains mesenteric fat and a portion of the right lateral anterior urinary bladder. No aortic aneurysm or adenopathy. Small hiatal hernia. Small duodenal diverticulum. There is no bowel obstruction. Colonic diverticulos is. Mild wall thickening is noted within multiple portions of the large bowel which is likely seconda ry to partial distention. Noninflamed appendix. Tiny fat filled periumbilical hernia. Bones appear in tact. No acute fracture. 1.8 cm lucent lesion of the left femoral neck is unchanged and likely benign . Avascular necrosis of the bilateral femoral heads. Mild articular depression is noted on the left. IMPRESSION: 1. No bowel obstruction. Normal appendix. 2. Areas of mild colonic wall thickening noted, most pronounced in the sigmoid colon which may be sec ondary to partial distention versus a mild nonspecific colitis. 3. Colonic diverticulosis. 4. Small right inguinal hernia contains mesenteric fat and a portion of the urinary bladder. 5. Severe hepatic steatosis. 6. Small hiatal hernia. 7. Avascular necrosis of the bilateral femoral heads with mild articular collapse on the left. ACT 112: Negative or not required by law. The above report was generated using voice recognition software. It may contain grammatical, syntax o r spelling errors. Electronically signed by: Loyd Asher M.D. 05/15/2020 7:21 PM
[2020-05-15] MEDS: MAGNESIUM SULFATE / D5W 1 GM/100 ML BAG IV SCH ×2 (19:28→20:08)
[2020-05-15] MEDS ORDERED: METOPROLOL TARTRATE 1 MG/ML VIAL IV PRN (21:04)
[2020-05-15] MEDS ORDERED: NITROGLYCERIN SL 0.4 MG/TAB TAB SL PRN (22:19)
[2020-05-15] MEDS ORDERED: LORazepam 3 MG/6 ML VIAL IV PRN (22:19)
[2020-05-15] MEDS ORDERED: GABAPENTIN 1200MG ALCOHOL WITHDRAWAL LOAD PO STA (22:19)
[2020-05-15] MEDS ORDERED: ATIVAN IV ALCOHOL WITHDRAWL IV PRN (22:19)
[2020-05-15] MEDS ORDERED: LORazepam 2 MG/4 ML VIAL IV PRN (22:19)
[2020-05-15] MEDS ORDERED: ONDANSETRON INJ 2 MG/ML 2 ML VIAL IV PRN (22:19)
[2020-05-15] MEDS: D5W AND 1/2NSS 1,000 ML IV SCH (22:30)
[2020-05-15] MEDS: LORazepam 1 MG/2 ML VIAL IV PRN (22:36)
[2020-05-15] MEDS ORDERED: GABAPENTIN 600 MG TAB PO ONE (23:00)
[2020-05-15] MEDS: THIAMINE HCL 100 MG in SYRINGE 9 ML IV SCH (23:28)
[2020-05-15] MEDS: PANTOprazole 40 MG in SYRINGE 0 ML IV SCH (23:28)
[2020-05-15] MEDS: FOLIC ACID 1 MG in SYRINGE 9.8 ML IV SCH (23:29)
--- NOTE | 2020-05-15 23:41 | History and Physical Report ---
DATE OF ADMISSION: 05/15/2020 CHIEF COMPLAINT: Abdominal discomfort, jittery. HISTORY OF PRESENT ILLNESS: This 49-year-old male with past medical history significant for multiple admissions secondary to encephalopathy thought to be from alcohol withdrawal, history of status post bioprosthetic mitral valve replacement, hypertension, IBS, GERD, gout, major depression, was brought in by family because he was jittery and nausea, and vomiting. As per father on phone, the patient gets these kind of symptoms whenever he drinks alcohol and the patient's father and mother are telling him to quit alcohol but he is not listening. He moved out of the house, and he was brought in because he was jittery and throwing up. As per the patient, he came here because he was nauseous, abdominal pain and not able to eat anything because of pain. He denies any recent alcohol. He says his last drink was 1 week ago. The patient recently was in the hospital, admitted on 05/01/2020 and discharged on 05/07/2020. At that time he was admitted for chest pain thought to be from esophagitis and also alcohol intoxication. After discharge he followed with GI and changed his Protonix, Carafate, Pepcid to omeprazole 20 mg b.i.d. The patient currently is somewhat restless. He wants to stand up to feel better. He says he has some mild headache. His abdominal pain is mild now. Currently, no nausea, no chest pain, no shortness of breath, no cough, no loss of sense of smell or taste. No fevers, no blurred vision, no earache, no runny nose, no sore throat. Normal bowel and bladder movements. No rash, no swelling in the legs. He says he is currently living with a friend. ALLERGIES: No known drug allergies. PAST MEDICAL HISTORY: As mentioned above. PAST SURGICAL HISTORY: EGD with biopsy, [employer] mitral valve, replacement of mitral valve with bioprosthetic, nasal septal defect repair, inguinal hernia repair, laparoscopic cholecystectomy, vasectomy. MEDICATIONS: The patient is on allopurinol 300 mg p.o. daily, gabapentin 600 mg p.o. t.i.d., metoprolol succinate 25 mg p.o. daily, multivitamins with folic acid 1 tablet daily, omeprazole 20 mg p.o. b.i.d., venlafaxine 150 mg p.o. daily. Last admission, he was also discharged on potassium and magnesium supplements. FAMILY HISTORY: Significant for mother has diabetes. Father has hypertension. SOCIAL HISTORY: Currently lives with a friend. No smoking. Chews tobacco, seems to drink, he is still drinking alcohol, no drug use. REVIEW OF SYMPTOMS: As per HPI. Rest of review of systems negative. PHYSICAL EXAMINATION: GENERAL: The patient is of moderate build, not in acute distress. VITAL SIGNS: Temperature 36.4, pulse 108, respiratory rate 19, blood pressure 164/112, oxygen 98% on room air. HEENT: Pupils equal, round, reactive to light. Oral mucosa moist. NECK: Supple. No neck masses. CARDIOVASCULAR: S1, S2 heard. Tachycardia. No murmurs. RESPIRATORY SYSTEM: Normal AP diameter. No accessory muscle use. No wheezing, no crackles. ABDOMEN: Soft, bowel sounds present, nontender. No distention. CENTRAL NERVOUS SYSTEM: Cranial nerves II-XII grossly intact, nonfocal. EXTREMITIES: No edema, no erythema. LABORATORY DATA: WBC 13.5, hemoglobin 13.2, hematocrit 40.1, platelets 309. Sodium 131, potassium 3.5, chloride 98, bicarbonate 19, BUN 13, creatinine 1.1, serum glucose 132, calcium 8.9, phosphorus 2.4, magnesium 1, total bilirubin 1.1, AST 61, ALT 81, alkaline phosphatase 95. Ammonia 25. Troponin I less than 0.015. Lipase 166. TSH 2.7. Ethyl alcohol less than 3. IMAGING: CT of the head, no acute findings. Chest x-ray, no acute process. CT of the abdomen and pelvis shows mild nonspecific colitis, hepatic steatosis, small right inguinal hernia contains mesenteric fat and portion of the urinary bladder. Colonic diverticulosis, avascular necrosis of bilateral femoral heads with mild articular collapse on the left. EKG: Sinus tachycardia, rate of 108, no significant change was found. ASSESSMENT AND PLAN: This 49-year-old male presents with nausea, abdominal discomfort and also possibly alcohol withdrawal. 1. Alcohol withdrawal. History of multiple admissions for alcohol withdrawal. Father says he is still drinking that is causing trouble and requested us to help him. We will place him on alcohol withdrawal protocol with gabapentin, IV Ativan. The patient is on home gabapentin 600 mg p.o. t.i.d. We will hold this for now and restart when gabapentin is being tapered. Received banana bag. IV thiamine, IV folic acid, multivitamin daily. Closely monitor for withdrawal in [email or web address] tele. IV Lopressor p.r.n. 2. History of electrolyte abnormalities. Magnesium is 1, phosphorus 2.4. Sodium 131. Getting fluids and also replace magnesium and phosphorus. We will follow the repeat labs.He was discharged on potassium and magnesium supplements last admission Needs close followup with pcp on discharge. 3. Elevated LFTs, most likely from alcoholic hepatitis. We will follow the repeat labs. 4. Leukocytosis. We will repeat labs in a.m. Ongoing infection. 5. Gastroesophageal reflux disease. Abdominal discomfort and nausea. Continue his Protonix. GI consulted. 6. Nonspecific colitis. Consulted GI. Keep n.p.o. for now and fluids. 7. Status post mitral valve replacement with bioprosthetic valve. Recent echo was okay. 8.. Depression. Continue his venlafaxine. 9. Hypertension, on Toprol-XL, currently placed on IV Lopressor p.r.n. for alcohol withdrawal. 10. Avascular necrosis of bilateral Femoral heads. Needs followup. 11. Deep venous thrombosis prophylaxis, sequential compression devices. DISPOSITION: Closely monitor in the [email or web address] tele. Level 1 full code. Expect discharge home and follow with family doctor. May need alcohol rehabilitation. MTDD
[2020-05-16 05:03] LABS: Appearance Urine Cloudy (Clear); Bacteria Urine Automated Negative (Negative); Bilirubin Urine Negative (Negative); Blood Urine Negative (Negative); Cast Urine Automated 0 /lpf (0-5); Color Urine Yellow; Epithelial Cell Urine Auto 0-5 /lpf (0-5); Glucose Urine UA Negative (Negative); Ketones Urine Negative (Negative); Leukocyte Esterase Urine Negative (Negative); Nitrite Urine Negative (Negative); Protein Urine Negative (Negative); RBC Urine Automated 0-4 /hpf (0-4); Specific Gravity Urine 1.025 (1.000-1.030); Urobilinogen Urine Negative (Negative); WBC Urine Automated 0 /hpf (0-5); pH Urine 7.5 (4.5-7.5)
[2020-05-16 05:30] LABS: Basophils # (auto) 0.02 K/uL (0-0.2); Basophils % (auto) 0.3 %; Eosinophils # (auto) 0.07 K/uL (0-0.5); Eosinophils % (auto) 0.9 %; Hematocrit (blood only) 36.9 % (42-52); Hemoglobin 12.9 g/dL (14.0-18.0); Immature Granulocytes # (auto) 0.03 K/uL (0.00-0.02); Immature Granulocytes % (auto) 0.4 %; Lymphocytes # (auto) 2.21 K/uL (1.2-3.4); Lymphocytes % (auto) 29.2 %; Mean Corpuscular Hemoglobin 32.7 pg (25-34); Mean Corpuscular Volume 93.7 fL (80-100); Mean Platelet Volume 9.3 fL (7.4-10.4); Monocytes # (auto) 0.55 K/uL (0.11-0.59); Monocytes % (auto) 7.3 %; Neutrophils # (auto) 4.69 K/uL (1.4-6.5); Neutrophils % (auto) 61.9 %; Platelet Count 254 K/uL (130-400); RDW Coefficient of Variation 14.1 % (11.5-14.5); RDW Standard Deviation 48.3 fL (36.4-46.3); Red Blood Count 3.94 M/uL (4.7-6.1); White Blood Count 7.57 K/uL (4.8-10.8)
[2020-05-16 05:33] LABS: Amphetamines+Metham, Urine Neg (Neg); Barbiturates, Urine Neg (Neg); Benzodiazepine, Urine Pos (Neg); Cocaine, Urine Neg (Neg); MDMA (Ecstacy), Urine Neg (Neg); Methadone, Urine Neg (Neg); Opiate, Urine Neg (Neg); Phencyclidine, Urine Neg (Neg)
[2020-05-16] MEDS: GABAPENTIN 600 MG TAB PO SCH ×3 (05:33→20:35)
[2020-05-16 06:06] LABS: Albumin Level 3.4 gm/dl (3.4-5.0); BUN Creatinine Ratio 9.5 (10-20); Bilirubin Direct 0.3 mg/dl (0-0.2); Calcium 7.9 mg/dl (8.5-10.1); Creatinine Clr Calc Pharmacy 92.3 ml/min; Est GFR (African American) 99.6; Est GFR (Non-African American) 85.9; Magnesium 2.1 mg/dl (1.8-2.4); Potassium 3.4 mmol/L (3.5-5.1)
[2020-05-16 06:14] LABS: Bilirubin,Total 1.2 mg/dl (0.2-1); Phosphorus 3.5 mg/dl (2.5-4.9); Total Protein 6.6 gm/dl (6.4-8.2)
[2020-05-16] MEDS ORDERED: POTASSIUM CHLORIDE CRTAB 20 MEQ TABCR PO ONE (07:15)
[2020-05-16] MEDS: FOLIC ACID 1 MG in SYRINGE 9.8 ML IV SCH (08:20)
[2020-05-16] MEDS: D5W AND 1/2NSS 1,000 ML IV SCH ×2 (08:20→17:55)
[2020-05-16] MEDS: CEROVITE ADV FORMULA TAB PO SCH (08:21)
[2020-05-16] MEDS: METOPROLOL SUCC 25MG EXT REL TAB PO SCH (08:21)
[2020-05-16] MEDS: PANTOprazole 40 MG in SYRINGE 0 ML IV SCH ×2 (08:22→20:35)
[2020-05-16] MEDS: VENLAFAXINE HCL XR 150 MG CAPXR PO SCH (08:22)
[2020-05-16] MEDS: allopurinoL 300 MG TAB PO SCH (08:22)
[2020-05-16] MEDS: THIAMINE HCL 100 MG in SYRINGE 9 ML IV SCH (08:23)
--- NOTE | 2020-05-16 08:53 | Gastrointestinal Consultation ---
Date of Consultation May 16, 2020 Assessment & Plan (1) Abdominal pain: 49 year old male admitted w/ nausea/vomiting abd pain, CT w/ colitis who does report a loose stools 1-2 times daily, nonbloody. Symptoms 100% resolved since admission. No GI contraindication to diet No GI contraindication to discharge Continue OP therapy for GERD Stool studies/cdiff if diarrhea persist [place] toxicology screen OP EGD/Colonosocpy Will sign off. Thank you for allowing us to participate in the care of this patient. Please call with any acute changes, questions or concerns. Please see addendum below with additional recommendation from my supervising physician. Supervising Physician Co-Signing Physician Notes I saw and evaluated the patient, we are asked to evaluate the patient based on nausea. The patient notes that he has been trying to decrease his alcohol consumption and notes that anytime he goes through withdrawal he develops nausea and vomiting. He did have an imaging study upon admission which showed mild colonic wall thickening. The patient is not certain if he is ever had an upper endoscopy nor colonoscopy performed. The patient does have 1 semiformed bowel movement per day and notes no diarrhea. He notes that he is feeling much better today and during our evaluation was placing his shoes on as he was expecting to leave the hospital soon. Physical examination No obvious distress Patient somewhat disheveled appearing with poor dentition Impression: Patient with recurrent symptoms of nausea likely related to substance abuse history. I would recommend screening the patient for cannabis use as this could certainly cause symptoms of nausea. In addition we would suggest a C. difficile PCR given the loose stool. The patient can certainly undergo further evaluation with upper endoscopy and colonoscopy over the next 4 to 6 weeks as an outpatient. Please call with any questions or concerns GI to sign off History of Present Illness Reason for Consultation: colitis Requesting Physician: Mell Attending Physician: Myron Monte MD History of Present Illness 49 year old male with history of GERD, HTN, IBS, Migraines, gout, depression and bioprosthetic mitral valve replacement admitted to [facility] for abd pain, nausea/vomiting - CT w/ colitis. GI asked to evaluate. Suggest that 1/2 days after ETOH consumption he developed abd pain, nausea/vomiting. Emesis is bile/food. No black or bloody emesis. He does have GERD - reflux w/ burning. He notes chronic loose stools. 1-2 times daily. No black or bloody stools CT: No bowel obstruction. Normal appendix.Areas of mild colonic wall thickening noted, most pronounced in the sigmoid colon which may be secondary to partial distention versus a mild nonspecific colitis.Colonic diverticulosis.Small right inguinal hernia contains mesenteric fat and a portion of the urinary bladder. Severe hepatic steatosis. Small hiatal hernia.Avascular necrosis of the bilateral femoral heads with mild articular collapse on the left. EGD 2009: Z-line irregular,. - Hiatus hernia. - Normal stomach. - Normal examined duodenum Allergies Allergy/AdvReac Type Severity Reaction Status Date / Time No Known Allergies Allergy Verified 05/15/20 18:23 Home Medications Medication Instructions Recorded Confirmed Type metoprolol succinate 25 mg PO DAILY 03/25/18 05/15/20 History allopurinol 300 mg PO DAILY 09/12/18 05/15/20 History venlafaxine 150 mg PO DAILY 09/12/18 05/15/20 History gabapentin 600 mg PO TID 05/15/20 05/15/20 History multivitamin with folic acid 1 tab PO DAILY 05/15/20 05/15/20 History [Tab-A-Juan Daniel] omeprazole 20 mg PO BID 05/15/20 05/15/20 History Patient History Medical History (Updated 05/15/20 @ 20:05 by Abhijit Clemente M.D.) Anxiety Depression Gallstones GERD (gastroesophageal reflux disease) Gout Hypertension Migraine Surgical History H/O hernia repair Status post cholecystectomy Status post mitral valve replacement with bioprosthetic valve Family History Father Hypertension Mother Diabetes Social History Smoking Status: Never smoker Second Hand Exposure: No; Do You Dip or Chew Tobacco: No; Hx Alcohol Use: Yes Alcohol type: beer Hx Substance Use: No Preferred Language: Argentine Communication Ability: Effective C D Stripper Required: No Beliefs That Will Affect Care: None Current Living Situation: Parent Current Living Situation Comment: live with mother Other Information That Helps Us Care for You: No Feels Safe at Home: Yes Safety Concerns: Feels Safe At This Time Assistive Devices: None Review of Systems Constitutional: no fever, no chills and no fatigue Respiratory: no cough, no dyspnea and no dyspnea on exertion Cardiovascular: no chest pain, no dyspnea and no palpitations Gastrointestinal: no abdominal pain, no nausea, no coffee ground emesis, no change in bowel habits, no diarrhea/loose stools, no blood in stools and no melena Physical Exam Constitutional: well developed and well nourished; no acute distress and not ill appearing Neck: trachea midline Respiratory: normal respiratory effort, lungs clear to auscultation Gastrointestinal (Abdomen): normal bowel sounds, soft, nontender, no hepatosplenomegaly Results & Data ([facility]) Vital Signs (Past 12 Hours) Vital Signs Temp Pulse Pulse Resp BP BP Pulse Ox 05/16/20 07:16 36.8 C 94 H 20 152/99 H 94 05/16/20 04:25 36.7 C 99 H 16 128/83 99 05/16/20 00:34 36.8 C 99 H 16 124/75 98 05/15/20 23:00 99 H 05/15/20 22:23 37.5 C 107 H 20 160/94 H 96 05/15/20 21:53 108 H 12 171/111 H 99 05/15/20 21:52 107 H 14 Laboratory Results 05/16/20 05/16/20 05/16/20 Range/Units Unknown Unknown Unknown WBC (4.8-10.8) K/uL RBC (4.7-6.1) M/uL Hgb (14.0-18.0) g/dL Hct (42-52) % MCV (80-100) fL MCH (25-34) pg MCHC (32-36) g/dL RDW Std Deviation (36.4-46.3) fL RDW Coeff of Misha (11.5-14.5) % Plt Count (130-400) K/uL MPV (7.4-10.4) fL Immature Gran % (Auto) % Neut % (Auto) % Lymph % (Auto) % [place] % (Auto) % Eos % (Auto) % Baso % (Auto) % Neut # (Auto) (1.4-6.5) K/uL Lymph # (Auto) (1.2-3.4) K/uL [place] # (Auto) (0.11-0.59) K/uL Eos # (Auto) (0-0.5) K/uL Baso # (Auto) (0-0.2) K/uL Immature Gran # (Auto) (0.00-0.02) K/uL Sodium (136-145) mmol/L Potassium (3.5-5.1) mmol/L Chloride (98-107) mmol/L Carbon Dioxide (21-32) mmol/L Anion Gap (3-11) BUN (7-18) mg/dl Creatinine (0.6-1.4) mg/dl Est Cr Clr Drug Dosing ml/min Est GFR ( Amer) Est GFR (Non-Af Amer) BUN/Creatinine Ratio (10-20) Glucose (70-99) mg/dl Calcium (8.5-10.1) mg/dl Phosphorus (2.5-4.9) mg/dl Magnesium (1.8-2.4) mg/dl Total Bilirubin (0.2-1) mg/dl Direct Bilirubin (0-0.2) mg/dl AST (15-37) U/L ALT (12-78) U/L Alkaline Phosphatase (45-117) U/L Ammonia (11-32) umol/L Troponin I (0-0.045) ng/ml Total Protein (6.4-8.2) gm/dl Albumin (3.4-5.0) gm/dl Globulin (2.5-4.0) gm/dl Albumin/Globulin Ratio (0.9-2) Lipase (73-393) U/L TSH (0.300-4.500) uIu/ml Urine Color Yellow Urine Appearance Cloudy A (Clear) Urine pH 7.5 (4.5-7.5) Ur Specific [place] 1.025 (1.000-1.030) Urine Protein Negative (Negative) Urine Glucose (UA) Negative (Negative) Urine Ketones Negative (Negative) Urine Blood Negative (Negative) Urine Nitrite Negative (Negative) Urine Bilirubin Negative (Negative) Urine Urobilinogen Negative (Negative) Ur Leukocyte Esterase Negative (Negative) Urine WBC (Auto) 0 (0-5) /hpf Urine RBC (Auto) 0-4 (0-4) /hpf U Hyaline Cast (Auto) 0 (0-5) /lpf U Epithel Cells (Auto) 0-5 (0-5) /lpf Urine Bacteria (Auto) Negative (Negative) Urine Opiates Screen Neg (Neg) Ur Methadone, Qual Neg (Neg) Urine Barbiturates Neg (Neg) Ur Phencyclidine (PCP) Neg (Neg) U Amphetamin/Meth Scrn Neg (Neg) MDMA (Ecstasy) Screen Neg (Neg) U OH-Alprazolam Confrm Pending U Benzodiazepines Scrn Pos H (Neg) 7-Amino Clonazepam Pending Ur Nordiazepam Confirm Pending U OH-ethylflurazepam Pending U Lorazepam Cnf GC/MS Pending U Oxazepam Confm GC/MS Pending Ur Temazepam Confirm Pending U OH-Triazolam Confirm Pending U OH-Midazolam Confirm Pending Ur Cocaine Metabolite Neg (Neg) U Marijuana (THC) Screen Neg (Neg) Drug Screen Comment Pending Ethyl Alcohol mg/dL (0-3) mg/dl COVID-19 Eval Order SARS-CoV-2, RNA, NAAT (NEGATIVE) 05/16/20 05/16/20 05/15/20 Range/Units 05:00 05:00 21:00 WBC 7.57 (4.8-10.8) K/uL RBC 3.94 L (4.7-6.1) M/uL Hgb 12.9 L (14.0-18.0) g/dL Hct 36.9 L (42-52) % MCV 93.7 (80-100) fL MCH 32.7 (25-34) pg MCHC 35.0 (32-36) g/dL RDW Std Deviation 48.3 H (36.4-46.3) fL RDW Coeff of Misha 14.1 (11.5-14.5) % Plt Count 254 (130-400) K/uL MPV 9.3 (7.4-10.4) fL Immature Gran % (Auto) 0.4 % Neut % (Auto) 61.9 % Lymph % (Auto) 29.2 % [place] % (Auto) 7.3 % Eos % (Auto) 0.9 % Baso % (Auto) 0.3 % Neut # (Auto) 4.69 (1.4-6.5) K/uL Lymph # (Auto) 2.21 (1.2-3.4) K/uL [place] # (Auto) 0.55 (0.11-0.59) K/uL Eos # (Auto) 0.07 (0-0.5) K/uL Baso # (Auto) 0.02 (0-0.2) K/uL Immature Gran # (Auto) 0.03 H (0.00-0.02) K/uL Sodium 136 (136-145) mmol/L Potassium 3.4 L (3.5-5.1) mmol/L Chloride 103 (98-107) mmol/L Carbon Dioxide 27 (21-32) mmol/L Anion Gap 6.0 (3-11) BUN 10 (7-18) mg/dl Creatinine 1.02 (0.6-1.4) mg/dl Est Cr Clr Drug Dosing 92.3 ml/min Est GFR ( Amer) 99.6 Est GFR (Non-Af Amer) 85.9 BUN/Creatinine Ratio 9.5 L (10-20) Glucose 134 H (70-99) mg/dl Calcium 7.9 L (8.5-10.1) mg/dl Phosphorus 3.5 D (2.5-4.9) mg/dl Magnesium 2.1 (1.8-2.4) mg/dl Total Bilirubin 1.2 H (0.2-1) mg/dl Direct Bilirubin 0.3 H (0-0.2) mg/dl AST 48 H (15-37) U/L ALT 65 (12-78) U/L Alkaline Phosphatase 78 (45-117) U/L Ammonia (11-32) umol/L Troponin I (0-0.045) ng/ml Total Protein 6.6 (6.4-8.2) gm/dl Albumin 3.4 (3.4-5.0) gm/dl Globulin (2.5-4.0) gm/dl Albumin/Globulin Ratio (0.9-2) Lipase (73-393) U/L TSH (0.300-4.500) uIu/ml Urine Color Urine Appearance (Clear) Urine pH (4.5-7.5) Ur Specific [place] (1.000-1.030) Urine Protein (Negative) Urine Glucose (UA) (Negative) Urine Ketones (Negative) Urine Blood (Negative) Urine Nitrite (Negative) Urine Bilirubin (Negative) Urine Urobilinogen (Negative) Ur Leukocyte Esterase (Negative) Urine WBC (Auto) (0-5) /hpf Urine RBC (Auto) (0-4) /hpf U Hyaline Cast (Auto) (0-5) /lpf U Epithel Cells (Auto) (0-5) /lpf Urine Bacteria (Auto) (Negative) Urine Opiates Screen (Neg) Ur Methadone, Qual (Neg) Urine Barbiturates (Neg) Ur Phencyclidine (PCP) (Neg) U Amphetamin/Meth Scrn (Neg) MDMA (Ecstasy) Screen (Neg) U OH-Alprazolam Confrm U Benzodiazepines Scrn (Neg) 7-Amino Clonazepam Ur Nordiazepam Confirm U OH-ethylflurazepam U Lorazepam Cnf GC/MS U Oxazepam Confm GC/MS Ur Temazepam Confirm U OH-Triazolam Confirm U OH-Midazolam Confirm Ur Cocaine Metabolite (Neg) U Marijuana (THC) Screen (Neg) Drug Screen Comment Ethyl Alcohol mg/dL (0-3) mg/dl COVID-19 Eval Order SARS-CoV-2, RNA, NAAT NEGATIVE (NEGATIVE) 05/15/20 05/15/20 05/15/20 Range/Units 21:00 17:49 17:49 WBC (4.8-10.8) K/uL RBC (4.7-6.1) M/uL Hgb (14.0-18.0) g/dL Hct (42-52) % MCV (80-100) fL MCH (25-34) pg MCHC (32-36) g/dL RDW Std Deviation (36.4-46.3) fL RDW Coeff of Misha (11.5-14.5) % Plt Count (130-400) K/uL MPV (7.4-10.4) fL Immature Gran % (Auto) % Neut % (Auto) % Lymph % (Auto) % [place] % (Auto) % Eos % (Auto) % Baso % (Auto) % Neut # (Auto) (1.4-6.5) K/uL Lymph # (Auto) (1.2-3.4) K/uL [place] # (Auto) (0.11-0.59) K/uL Eos # (Auto) (0-0.5) K/uL Baso # (Auto) (0-0.2) K/uL Immature Gran # (Auto) (0.00-0.02) K/uL Sodium (136-145) mmol/L Potassium (3.5-5.1) mmol/L Chloride (98-107) mmol/L Carbon Dioxide (21-32) mmol/L Anion Gap (3-11) BUN (7-18) mg/dl Creatinine (0.6-1.4) mg/dl Est Cr Clr Drug Dosing ml/min Est GFR ( Amer) Est GFR (Non-Af Amer) BUN/Creatinine Ratio (10-20) Glucose (70-99) mg/dl Calcium (8.5-10.1) mg/dl Phosphorus (2.5-4.9) mg/dl Magnesium (1.8-2.4) mg/dl Total Bilirubin (0.2-1) mg/dl Direct Bilirubin (0-0.2) mg/dl AST (15-37) U/L ALT (12-78) U/L Alkaline Phosphatase (45-117) U/L Ammonia 25.0 (11-32) umol/L Troponin I (0-0.045) ng/ml Total Protein (6.4-8.2) gm/dl Albumin (3.4-5.0) gm/dl Globulin (2.5-4.0) gm/dl Albumin/Globulin Ratio (0.9-2) Lipase (73-393) U/L TSH (0.300-4.500) uIu/ml Urine Color Urine Appearance (Clear) Urine pH (4.5-7.5) Ur Specific [place] (1.000-1.030) Urine Protein (Negative) Urine Glucose (UA) (Negative) Urine Ketones (Negative) Urine Blood (Negative) Urine Nitrite (Negative) Urine Bilirubin (Negative) Urine Urobilinogen (Negative) Ur Leukocyte Esterase (Negative) Urine WBC (Auto) (0-5) /hpf Urine RBC (Auto) (0-4) /hpf U Hyaline Cast (Auto) (0-5) /lpf U Epithel Cells (Auto) (0-5) /lpf Urine Bacteria (Auto) (Negative) Urine Opiates Screen (Neg) Ur Methadone, Qual (Neg) Urine Barbiturates (Neg) Ur Phencyclidine (PCP) (Neg) U Amphetamin/Meth Scrn (Neg) MDMA (Ecstasy) Screen (Neg) U OH-Alprazolam Confrm U Benzodiazepines Scrn (Neg) 7-Amino Clonazepam Ur Nordiazepam Confirm U OH-ethylflurazepam U Lorazepam Cnf GC/MS U Oxazepam Confm GC/MS Ur Temazepam Confirm U OH-Triazolam Confirm U OH-Midazolam Confirm Ur Cocaine Metabolite (Neg) U Marijuana (THC) Screen (Neg) Drug Screen Comment Ethyl Alcohol mg/dL < 3.0 (0-3) mg/dl COVID-19 Eval [email or web address]-2, RNA, NAAT (NEGATIVE) 05/15/20 05/15/20 Range/Units 17:49 17:49 WBC 13.57 H (4.8-10.8) K/uL RBC 4.38 L (4.7-6.1) M/uL Hgb 14.2 (14.0-18.0) g/dL Hct 40.1 L (42-52) % MCV 91.6 (80-100) fL MCH 32.4 (25-34) pg MCHC 35.4 (32-36) g/dL RDW Std Deviation 46.9 H (36.4-46.3) fL RDW Coeff of Misha 14.0 (11.5-14.5) % Plt Count 309 (130-400) K/uL MPV 9.2 (7.4-10.4) fL Immature Gran % (Auto) 0.4 % Neut % (Auto) 83.9 % Lymph % (Auto) 9.4 % [place] % (Auto) 6.0 % Eos % (Auto) 0.1 % Baso % (Auto) 0.2 % Neut # (Auto) 11.40 H (1.4-6.5) K/uL Lymph # (Auto) 1.27 (1.2-3.4) K/uL [place] # (Auto) 0.81 H (0.11-0.59) K/uL Eos # (Auto) 0.01 (0-0.5) K/uL Baso # (Auto) 0.03 (0-0.2) K/uL Immature Gran # (Auto) 0.05 H (0.00-0.02) K/uL Sodium 131 L (136-145) mmol/L Potassium 3.5 (3.5-5.1) mmol/L Chloride 98 (98-107) mmol/L Carbon Dioxide 19 L (21-32) mmol/L Anion Gap 14.0 H (3-11) BUN 13 (7-18) mg/dl Creatinine 1.14 (0.6-1.4) mg/dl Est Cr Clr Drug Dosing 81.9 ml/min Est GFR ( Amer) 87.0 Est GFR (Non-Af Amer) 75.1 BUN/Creatinine Ratio 11.4 (10-20) Glucose 122 H (70-99) mg/dl Calcium 8.9 (8.5-10.1) mg/dl Phosphorus 2.4 L (2.5-4.9) mg/dl Magnesium 1.0 L (1.8-2.4) mg/dl Total Bilirubin 1.1 H (0.2-1) mg/dl Direct Bilirubin (0-0.2) mg/dl AST 61 H (15-37) U/L ALT 81 H (12-78) U/L Alkaline Phosphatase 95 (45-117) U/L Ammonia (11-32) umol/L Troponin I < 0.015 (0-0.045) ng/ml Total Protein 8.0 (6.4-8.2) gm/dl Albumin 4.3 (3.4-5.0) gm/dl Globulin 3.7 (2.5-4.0) gm/dl Albumin/Globulin Ratio 1.2 (0.9-2) Lipase 166 (73-393) U/L TSH 2.740 (0.300-4.500) uIu/ml Urine Color Urine Appearance (Clear) Urine pH (4.5-7.5) Ur Specific [place] (1.000-1.030) Urine Protein (Negative) Urine Glucose (UA) (Negative) Urine Ketones (Negative) Urine Blood (Negative) Urine Nitrite (Negative) Urine Bilirubin (Negative) Urine Urobilinogen (Negative) Ur Leukocyte Esterase (Negative) Urine WBC (Auto) (0-5) /hpf Urine RBC (Auto) (0-4) /hpf U Hyaline Cast (Auto) (0-5) /lpf U Epithel Cells (Auto) (0-5) /lpf Urine Bacteria (Auto) (Negative) Urine Opiates Screen (Neg) Ur Methadone, Qual (Neg) Urine Barbiturates (Neg) Ur Phencyclidine (PCP) (Neg) U Amphetamin/Meth Scrn (Neg) MDMA (Ecstasy) Screen (Neg) U OH-Alprazolam Confrm U Benzodiazepines Scrn (Neg) 7-Amino Clonazepam Ur Nordiazepam Confirm U OH-ethylflurazepam U Lorazepam Cnf GC/MS U Oxazepam Confm GC/MS Ur Temazepam Confirm U OH-Triazolam Confirm U OH-Midazolam Confirm Ur Cocaine Metabolite (Neg) U Marijuana (THC) Screen (Neg) Drug Screen Comment Ethyl Alcohol mg/dL (0-3) mg/dl COVID-19 Eval Order SARS-CoV-2, RNA, NAAT (NEGATIVE) (1) Abdominal pain Abdominal location: periumbilical Qualified Code(s): R10.33 - Periumbilical pain
[2020-05-16] MEDS ORDERED: ACETAMINOPHEN 325 MG TAB ONE (11:28)
[2020-05-16] MEDS ORDERED: ACETAMINOPHEN 325 MG TAB PO PRN (11:29)
[2020-05-16] MEDS: LORazepam 1 MG/2 ML VIAL IV PRN (12:44)
[2020-05-16] MEDS ORDERED: LORazepam 0.5 MG/1 ML VIAL IV PRN (14:00)
--- NOTE | 2020-05-16 14:02 | Electrocardiogram Report ---
Test Reason : Blood Pressure : / mmHG Vent. Rate : 108 BPM Atrial Rate : 108 BPM P-R Int : 144 ms QRS Dur : 086 ms QT Int : 372 ms P-R-T Axes : 066 045 044 degrees QTc Int : 498 ms Sinus tachycardia Otherwise normal ECG When compared with ECG of 01-MAY-2020 04:18, No significant change was found Confirmed by Coy Wilks ([id number]) on 05/16/2020 2:02:04 PM Referred By: Carrington Lei Confirmed By:Coy Wilks
--- NOTE | 2020-05-16 18:48 | Hospitalist Progress Note ---
Date of Service May 16, 2020 Assessment & Plan (1) Abdominal pain: (2) Alcohol withdrawal: 49-year-old male with history of bioprosthetic mitral valve replacement, hypertension, depression anxiety, alcoholism Continue with nausea, abdominal discomfort and signs of alcohol withdrawal. 1. Alcohol withdrawal. History of multiple admissions for alcohol withdrawal. Patient reports that his last drink was last Thursday Currently on alcohol drip protocol including gabapentin taper, and as needed Ativan Patient's NICK score ranges from 2-6 Has received IV Ativan twice today so far Explained to patient that since it is his fourth day from his last drink, he is high risk for developing DTs today Advised to stay to continue alcohol withdrawal protocol, and avoid DTs Patient verbalized understanding, agreeable, comfortable plan of care 2. History of electrolyte abnormalities. Given magnesium, phosphorus, potassium supplement Continue to monitor 3. Elevated LFTs, most likely from alcoholic hepatitis. Improving 4. Leukocytosis. Resolved No signs of infection 5. Abdominal discomfort, nausea History of gastroesophageal reflux disease. CT abdomen pelvis: Nonspecific colitis GI consulted, endoscopy not recommended at this point Continue PPI twice daily 7. Status post mitral valve replacement with bioprosthetic valve. Recent echo was okay. 8.. Depression. Continue his venlafaxine. 9. Hypertension, on Toprol-XL, currently placed on IV Lopressor p.r.n. for alcohol withdrawal. 10. Avascular necrosis of bilateral Femoral head Outpatient follow-up 11. Deep venous thrombosis prophylaxis SCDs Disposition Anticipate discharge to home tomorrow when medically stable Plan of care discussed in detail at length All questions were answered He is understanding and agreeable, comfortable plan of care Admission and Anticipated Discharge Date Admission Date: May 15, 2020 Subjective Follow-up for nausea/vomiting, signs of alcohol withdrawal, etc. Seen standing at the entry of the room Patient requested to transfer to hospital bed Patient is awake alert, oriented x3, calm, cooperative, pleasant States he feels better today overall Denies tremors, sweating, confusion, anxiety Ports nausea and epigastric discomfort have resolved Tolerated soft diet for lunch Denies other symptoms Review of Systems Review of Systems: All systems reviewed & are unremarkable except as noted in Subjective Physical Exam Physical Exam: General- oriented x 3, not in distress, speaks in sentences with no effort or accessory muscle use Head- atraumatic Eyes- PERRL, EOMI, anicteric ENT- oropharynx clear Neck- supple, no JVD, no adenopathy, no thyromegaly; carotids +2/2, no bruits appreciated Lungs- clear to auscultation bilaterally, no rales/wheezes Heart- normal rate, regular rhythm; no murmur, no gallop, no rub appreciated Abdomen- normal bowel sounds, nondistended, soft, nontender, no masses or hepatosplenomegaly Extremities- no pretibial edema, no calf tenderness; peripheral pulses intact Positive very mild hand tremors Neuro- alert, oriented x 3; CN 2-12 grossly intact; motor 5/5 bilaterally;sensation 100% on all extremities; no other gross focal neurologic deficits Skin- warm & dry Results & Data Results & Data ([facility]) Vital Signs (Past 12 Hours) Vital Signs Temp Pulse Pulse Resp BP BP Pulse Ox 05/16/20 18:18 108 H 05/16/20 15:09 36.5 C 111 H 20 143/97 H 96 05/16/20 12:45 90 16 154/93 H 100 05/16/20 12:00 81 18 160/95 H 05/16/20 11:32 95 H 170/119 H 05/16/20 11:05 36.9 C 95 H 20 170/119 H 95 05/16/20 08:30 91 H 05/16/20 07:16 36.8 C 94 H 20 152/99 H 94 Laboratory Results Laboratory Results - last 24 hr 05/15/20 05/15/20 05/16/20 21:00 21:00 05:00 WBC RBC Hgb Hct MCV MCH MCHC RDW Std Deviation RDW Coeff of Misha Plt Count MPV Immature Gran % (Auto) Neut % (Auto) Lymph % (Auto) [place] % (Auto) Eos % (Auto) Baso % (Auto) Neut # (Auto) Lymph # (Auto) [place] # (Auto) Eos # (Auto) Baso # (Auto) Immature Gran # (Auto) Sodium 136 Potassium 3.4 L Chloride 103 Carbon Dioxide 27 Anion Gap 6.0 BUN 10 Creatinine 1.02 Est Cr Clr Drug Dosing 92.3 Est GFR ( Amer) 99.6 Est GFR (Non-Af Amer) 85.9 BUN/Creatinine Ratio 9.5 L Glucose 134 H Calcium 7.9 L Phosphorus 3.5 D Magnesium 2.1 Total Bilirubin 1.2 H Direct Bilirubin 0.3 H AST 48 H ALT 65 Alkaline Phosphatase 78 Total Protein 6.6 Albumin 3.4 Urine Color Urine Appearance Urine pH Ur Specific [place] Urine Protein Urine Glucose (UA) Urine Ketones Urine Blood Urine Nitrite Urine Bilirubin Urine Urobilinogen Ur Leukocyte Esterase Urine WBC (Auto) Urine RBC (Auto) U Hyaline Cast (Auto) U Epithel Cells (Auto) Urine Bacteria (Auto) Urine Opiates Screen Ur Methadone, Qual Urine Barbiturates Ur Phencyclidine (PCP) U Amphetamin/Meth Scrn MDMA (Ecstasy) Screen U OH-Alprazolam Confrm U Benzodiazepines Scrn 7-Amino Clonazepam Ur Nordiazepam Confirm U OH-ethylflurazepam U Lorazepam Cnf GC/MS U Oxazepam Confm GC/MS Ur Temazepam Confirm U OH-Triazolam Confirm U OH-Midazolam Confirm Ur Cocaine Metabolite U Marijuana (THC) Screen Drug Screen Comment COVID-19 Eval [facility] SARS-CoV-2, RNA, NAAT NEGATIVE 05/16/20 05/16/20 05/16/20 05:00 Unknown Unknown WBC 7.57 RBC 3.94 L Hgb 12.9 L Hct 36.9 L MCV 93.7 MCH 32.7 MCHC 35.0 RDW Std Deviation 48.3 H RDW Coeff of Misha 14.1 Plt Count 254 MPV 9.3 Immature Gran % (Auto) 0.4 Neut % (Auto) 61.9 Lymph % (Auto) 29.2 [place] % (Auto) 7.3 Eos % (Auto) 0.9 Baso % (Auto) 0.3 Neut # (Auto) 4.69 Lymph # (Auto) 2.21 [place] # (Auto) 0.55 Eos # (Auto) 0.07 Baso # (Auto) 0.02 Immature Gran # (Auto) 0.03 H Sodium Potassium Chloride Carbon Dioxide Anion Gap BUN Creatinine Est Cr Clr Drug Dosing Est GFR ( Amer) Est GFR (Non-Af Amer) BUN/Creatinine Ratio Glucose Calcium Phosphorus Magnesium Total Bilirubin Direct Bilirubin AST ALT Alkaline Phosphatase Total Protein Albumin Urine Color Yellow Urine Appearance Cloudy A Urine pH 7.5 Ur Specific [place] 1.025 Urine Protein Negative Urine Glucose (UA) Negative Urine Ketones Negative Urine Blood Negative Urine Nitrite Negative Urine Bilirubin Negative Urine Urobilinogen Negative Ur Leukocyte Esterase Negative Urine WBC (Auto) 0 Urine RBC (Auto) 0-4 U Hyaline Cast (Auto) 0 U Epithel Cells (Auto) 0-5 Urine Bacteria (Auto) Negative Urine Opiates Screen Neg Ur Methadone, Qual Neg Urine Barbiturates Neg Ur Phencyclidine (PCP) Neg U Amphetamin/Meth Scrn Neg MDMA (Ecstasy) Screen Neg U OH-Alprazolam Confrm U Benzodiazepines Scrn Pos H 7-Amino Clonazepam Ur Nordiazepam Confirm U OH-ethylflurazepam U Lorazepam Cnf GC/MS U Oxazepam Confm GC/MS Ur Temazepam Confirm U OH-Triazolam Confirm U OH-Midazolam Confirm Ur Cocaine Metabolite Neg U Marijuana (THC) Screen Neg Drug Screen Comment COVID-19 Eval Order SARS-CoV-2, RNA, NAAT 05/16/20 Unknown WBC RBC Hgb Hct MCV MCH MCHC RDW Std Deviation RDW Coeff of Misha Plt Count MPV Immature Gran % (Auto) Neut % (Auto) Lymph % (Auto) [place] % (Auto) Eos % (Auto) Baso % (Auto) Neut # (Auto) Lymph # (Auto) [place] # (Auto) Eos # (Auto) Baso # (Auto) Immature Gran # (Auto) Sodium Potassium Chloride Carbon Dioxide Anion Gap BUN Creatinine Est Cr Clr Drug Dosing Est GFR ( Amer) Est GFR (Non-Af Amer) BUN/Creatinine Ratio Glucose Calcium Phosphorus Magnesium Total Bilirubin Direct Bilirubin AST ALT Alkaline Phosphatase Total Protein Albumin Urine Color Urine Appearance Urine pH Ur Specific [place] Urine Protein Urine Glucose (UA) Urine Ketones Urine Blood Urine Nitrite Urine Bilirubin Urine Urobilinogen Ur Leukocyte Esterase Urine WBC (Auto) Urine RBC (Auto) U Hyaline Cast (Auto) U Epithel Cells (Auto) Urine Bacteria (Auto) Urine Opiates Screen Ur Methadone, Qual Urine Barbiturates Ur Phencyclidine (PCP) U Amphetamin/Meth Scrn MDMA (Ecstasy) Screen U OH-Alprazolam Confrm Pending U Benzodiazepines Scrn 7-Amino Clonazepam Pending Ur Nordiazepam Confirm Pending U OH-ethylflurazepam Pending U Lorazepam Cnf GC/MS Pending U Oxazepam Confm GC/MS Pending Ur Temazepam Confirm Pending U OH-Triazolam Confirm Pending U OH-Midazolam Confirm Pending Ur Cocaine Metabolite U Marijuana (THC) Screen Drug Screen Comment Pending COVID-19 Eval Order SARS-CoV-2, RNA, NAAT (1) Abdominal pain Abdominal location: periumbilical Qualified Code(s): R10.33 - Periumbilical pain (2) Alcohol withdrawal Complication of substance-induced condition: with unspecified complication Qualified Code(s): F10.239 - Alcohol dependence with withdrawal, unspecified
[2020-05-17] MEDS: GABAPENTIN 600 MG TAB PO SCH ×2 (03:39→11:41)
[2020-05-17] MEDS: D5W AND 1/2NSS 1,000 ML IV SCH (03:39)
[2020-05-17] MEDS: METOPROLOL SUCC 25MG EXT REL TAB PO SCH (08:58)
[2020-05-17] MEDS: THIAMINE HCL 100 MG in SYRINGE 9 ML IV SCH (08:59)
[2020-05-17] MEDS: PANTOprazole 40 MG in SYRINGE 0 ML IV SCH (08:59)
[2020-05-17] MEDS: VENLAFAXINE HCL XR 150 MG CAPXR PO SCH (08:59)
[2020-05-17] MEDS: allopurinoL 300 MG TAB PO SCH (08:59)
[2020-05-17] MEDS: FOLIC ACID 1 MG in SYRINGE 9.8 ML IV SCH (08:59)
[2020-05-17] MEDS: CEROVITE ADV FORMULA TAB PO SCH (08:59)
[2020-05-17 11:19] LABS: BUN Creatinine Ratio 11.5 (10-20); Calcium 8.2 mg/dl (8.5-10.1); Est GFR (African American) 103.2; Est GFR (Non-African American) 89.1; Potassium 3.7 mmol/L (3.5-5.1)
--- NOTE | 2020-05-17 11:58 | Hospitalist Progress Note ---
Date of Service May 17, 2020 Assessment & Plan (1) Abdominal pain: (2) Alcohol withdrawal: 49-year-old male with history of bioprosthetic mitral valve replacement, hypertension, depression anxiety, alcoholism Continue with nausea, abdominal discomfort and signs of alcohol withdrawal. 1. Alcohol withdrawal. History of multiple admissions for alcohol withdrawal. Patient reports that his last drink was last Thursday Currently on alcohol drip protocol including gabapentin taper, and as needed Ativan Patient's NICK score ranges from 2-6 Has received IV Ativan twice today so far Explained to patient that since it is his fourth day from his last drink, he is high risk for developing DTs today Advised to stay to continue alcohol withdrawal protocol, and avoid DTs Patient verbalized understanding, agreeable, comfortable plan of care 05/17 stable NICK score 4 since last night on exam, no tremors, anxiety or other signs of alcohol withdrawal discharge to home today ff up with PCP 05/22/20 2. History of electrolyte abnormalities. Given magnesium, phosphorus, potassium supplement discharge on K and Mg supplements repeat BMP and Mg on ff up with PCP next week 3. Elevated LFTs, most likely from alcoholic hepatitis. Improved repeat LFTs on ff up with PCP next week 4. Leukocytosis. Resolved No signs of infection 5. Abdominal discomfort, nausea History of gastroesophageal reflux disease. CT abdomen pelvis: Nonspecific colitis GI consulted- Dr. Anam Ozuna, recommend outpatient Endoscopy and Colonoscopy Continue Prilosec twice daily 7. Status post mitral valve replacement with bioprosthetic valve. no cardiac symptoms echo from last admission: stable 8.. Depression. denies anxiety, depression symptoms Continue venlafaxine. 9. Hypertension on Toprol-XL BP mildly elevated, systolic 140s-150s asymptomatic monitor as outpatient 10. Avascular necrosis of bilateral Femoral head CT abdomen/pelvis: Avascular necrosis of the bilateral femoral heads with mild articular collapse on the left. Outpatient follow-up 11. Right Heel Pain Disposition discharge to home ff up with PCP 05/22/20 Plan of care discussed in detail at length All questions were answered He is understanding and agreeable, comfortable plan of care Admission and Anticipated Discharge Date Admission Date: May 15, 2020 Subjective ff up for nausea, abdominal pain, alcohol withdrawal symptoms seen resting in bed, sitting up at the edge of the bed, in good spirits, very pleasant states he feels much better overall nausea, abdominal pain have resolved, tolerating diet well (+) normal BMs- soft, brown denies tremors, anxiety, depression, sweats, hallucinations no dyspnea, chest pain, palpitations, dizziness has mild right heel pain no other symptoms states he is ready and would like to be discharged today Review of Systems Review of Systems: All systems reviewed & are unremarkable except as noted in Subjective Physical Exam Physical Exam: General- oriented x 3, not in distress, speaks in sentences with no effort or accessory muscle use Eyes- anicteric Neck- no JVD Lungs- clear BS BL no rales no wheezing Heart- normal rate, regular rhythm; no murmurs Abdomen- normal bowel sounds, nondistended, soft, nontender Extremities- no pretibial edema, no calf tenderness no tremors Neuro- alert, oriented x 3; no gross focal neurologic deficits Skin- warm & dry Results & Data Results & Data ([facility]) Vital Signs (Past 12 Hours) Vital Signs Temp Pulse Pulse Resp BP BP Pulse Ox 05/17/20 11:16 36.6 C 79 20 156/107 H 98 05/17/20 09:26 82 05/17/20 07:53 36.6 C 78 18 171/113 H 174/103 H 99 05/17/20 04:55 36.5 C 82 18 133/86 97 Laboratory Results Laboratory Results - last 24 hr 05/17/20 10:08 Sodium 139 Potassium 3.7 Chloride 107 Carbon Dioxide 25 Anion Gap 7.0 BUN 11 Creatinine 0.99 Est Cr Clr Drug Dosing 95.0 Est GFR ( Amer) 103.2 Est GFR (Non-Af Amer) 89.1 BUN/Creatinine Ratio 11.5 Glucose 125 H Calcium 8.2 L Phosphorus 2.0 L D Magnesium 2.0 (1) Alcohol withdrawal Complication of substance-induced condition: with unspecified complication Qualified Code(s): F10.239 - Alcohol dependence with withdrawal, unspecified (2) Abdominal pain Abdominal location: periumbilical Qualified Code(s): R10.33 - Periumbilical pain
--- NOTE | 2020-05-17 12:47 | XRay Report ---
XR foot LT min 3V routine CLINICAL HISTORY: foot pain, left , r/o fracture COMPARISON: None. DISCUSSION: There are postsurgical changes involve the distal fibula. There are osteoarthritic change s the level the first metatarsal phalangeal joint. No acute fractures or dislocations are visualized. IMPRESSION: 1. No acute fractures 2. Degenerative changes at the level of the first metatarsal phalangeal joint ACT 112: Negative or not required by law. Electronically signed by: Jason Restrepo M.D. 05/17/2020 12:46 PM
--- NOTE | 2020-05-17 19:36 | Discharge Summary ---
Date of Service May 17, 2020 Admission HPI Per Admitting Provider CHIEF COMPLAINT: Abdominal discomfort, jittery. HISTORY OF PRESENT ILLNESS: This 49-year-old male with past medical history significant for multiple admissions secondary to encephalopathy thought to be from alcohol withdrawal, history of status post bioprosthetic mitral valve replacement, hypertension, IBS, GERD, gout, major depression, was brought in by family because he was jittery and nausea, and vomiting. As per father on phone, the patient gets these kind of symptoms whenever he drinks alcohol and the patient's father and mother are telling him to quit alcohol but he is not listening. He moved out of the house, and he was brought in because he was jittery and throwing up. As per the patient, he came here because he was nauseous, abdominal pain and not able to eat anything because of pain. He denies any recent alcohol. He says his last drink was 1 week ago. The patient recently was in the hospital, admitted on 05/01/2020 and discharged on 05/07/2020. At that time he was admitted for chest pain thought to be from esophagitis and also alcohol intoxication. After discharge he followed with GI and changed his Protonix, Carafate, Pepcid to omeprazole 20 mg b.i.d. The patient currently is somewhat restless. He wants to stand up to feel better. He says he has some mild headache. His abdominal pain is mild now. Currently, no nausea, no chest pain, no shortness of breath, no cough, no loss of sense of smell or taste. No fevers, no blurred vision, no earache, no runny nose, no sore throat. Normal bowel and bladder movements. No rash, no swelling in the legs. He says he is currently living with a friend. Admission Exam Per Admitting Provider GENERAL: The patient is of moderate build, not in acute distress. VITAL SIGNS: Temperature 36.4, pulse 108, respiratory rate 19, blood pressure 164/112, oxygen 98% on room air. HEENT: Pupils equal, round, reactive to light. Oral mucosa moist. NECK: Supple. No neck masses. CARDIOVASCULAR: S1, S2 heard. Tachycardia. No murmurs. RESPIRATORY SYSTEM: Normal AP diameter. No accessory muscle use. No wheezing, no crackles. ABDOMEN: Soft, bowel sounds present, nontender. No distention. CENTRAL NERVOUS SYSTEM: Cranial nerves II-XII grossly intact, nonfocal. EXTREMITIES: No edema, no erythema. Principal Diagnosis NAUSEA AND ABDOMINAL PAIN, LIKELY SECONDARY TO ALCOHOLISM Discharge Exam General- oriented x 3, not in distress, speaks in sentences with no effort or accessory muscle use Eyes- anicteric Neck- no JVD Lungs- clear BS BL no rales no wheezing Heart- normal rate, regular rhythm; no murmurs Abdomen- normal bowel sounds, nondistended, soft, nontender Extremities- no pretibial edema, no calf tenderness no tremors Neuro- alert, oriented x 3; no gross focal neurologic deficits Skin- warm & dry Discharge Data Allergies Allergy/AdvReac Type Severity Reaction Status Date / Time No Known Allergies Allergy Verified 05/15/20 18:23 Consultations 05/15/20 19:59 ED Decision to Admit Stat 05/15/20 22:19 Consult Case Management - Discharge Planning Routine 05/16/20 08:00 Consult Gastroenterology Routine Ordered Studies 05/15/20 17:32 CT abd pelvis IV con only Stat COMPARISON STUDY: CT abdomen and pelvis 02/28/2020 FINDINGS: Prior median sternotomy with mitral valvular prosthesis. Clear lung bases. No pneumatosis or pneumoperitoneum. The spleen, pancreas and adrenal glands are unremarkable. Cholecystectomy. Severe hepatic steatosis. No evidence of cirrhosis. Patency of the hepatic and portal veins. Kidneys and ureters are unremarkable. No urolith. Prostate is upper limits of normal in size. Mild bladder wall thickening. A small right inguinal hernia is present which contains mesenteric fat and a portion of the right lateral anterior urinary bladder. No aortic aneurysm or adenopathy. Small hiatal hernia. Small duodenal diverticulum. There is no bowel obstruction. Colonic diverticulosis. Mild wall thickening is noted within multiple portions of the large bowel which is likely secondary to partial distention. Noninflamed appendix. Tiny fat filled periumbilical hernia. Bones appear intact. No acute fracture. 1.8 cm lucent lesion of the left femoral neck is unchanged and likely benign. Avascular necrosis of the bilateral femoral heads. Mild articular depression is noted on the left. IMPRESSION: 1. No bowel obstruction. Normal appendix. 2. Areas of mild colonic wall thickening noted, most pronounced in the sigmoid colon which may be secondary to partial distention versus a mild nonspecific colitis. 3. Colonic diverticulosis. 4. Small right inguinal hernia contains mesenteric fat and a portion of the urinary bladder. 5. Severe hepatic steatosis. 6. Small hiatal hernia. 7. Avascular necrosis of the bilateral femoral heads with mild articular collapse on the left. 05/15/20 18:16 CT head/brain wo con Stat No acute intracranial hemorrhage, midline shift, intracranial mass, hydrocephalus, territorial ischemia or abnormal extra-axial collection. The calvarium is intact. The paranasal sinuses, mastoid air cells, and middle ear cavities are clear. IMPRESSION: No acute intracranial abnormality. Hospital Course (1) Abdominal pain: (2) Alcohol withdrawal: 49-year-old male with history of bioprosthetic mitral valve replacement, hypertension, depression anxiety, alcoholism Continue with nausea, abdominal discomfort and signs of alcohol withdrawal. 1. Alcohol withdrawal. History of multiple admissions for alcohol withdrawal. Patient reports that his last drink was last Thursday Currently on alcohol drip protocol including gabapentin taper, and as needed Ativan Patient's NICK score ranges from 2-6 Has received IV Ativan twice today so far Explained to patient that since it is his fourth day from his last drink, he is high risk for developing DTs today Advised to stay to continue alcohol withdrawal protocol, and avoid DTs Patient verbalized understanding, agreeable, comfortable plan of care 05/17 stable NICK score 4 since last night on exam, no tremors, anxiety or other signs of alcohol withdrawal discharge to home today ff up with PCP 05/22/20 2. History of electrolyte abnormalities. Given magnesium, phosphorus, potassium supplement discharge on K and Mg supplements repeat BMP and Mg on ff up with PCP next week 3. Elevated LFTs, most likely from alcoholic hepatitis. Improved repeat LFTs on ff up with PCP next week 4. Leukocytosis. Resolved No signs of infection 5. Abdominal discomfort, nausea History of gastroesophageal reflux disease. CT abdomen pelvis: Nonspecific colitis GI consulted- Dr. Anam Ozuna, recommend outpatient Endoscopy and Colonoscopy Continue Prilosec twice daily 7. Status post mitral valve replacement with bioprosthetic valve. no cardiac symptoms echo from last admission: stable 8.. Depression. denies anxiety, depression symptoms Continue venlafaxine. 9. Hypertension on Toprol-XL BP mildly elevated, systolic 140s-150s asymptomatic monitor as outpatient 10. Avascular necrosis of bilateral Femoral head CT abdomen/pelvis: Avascular necrosis of the bilateral femoral heads with mild articular collapse on the left. Outpatient follow-up 11. Right Heel Pain Disposition discharge to home ff up with PCP 05/22/20 Plan of care discussed in detail at length All questions were answered He is understanding and agreeable, comfortable plan of care Total Time Total Time Spent Total Time Spent (In Minutes): 50 MINUTES Discharge Plan Discharge Items Patient Disposition: Home - Self-Care Reason For Visit: ABDOMINAL DISCOMFORT Discharge Diagnosis: NAUSEA, ABDOMINAL DISCOMFORT LIKELY FROM GASTROESOPHAGEAL REFLUX DISEASE, IN THE SETTING OF ALCOHOL USE ALCOHOL WITHDRAWAL Activity: Resume your previous activity Activity Comment: GRADUALLY TOLERATED Driving/Machine Use: NO DRIVING UNTIL RE-EVALUATED AND ALLOWED BY PRIMARY CARE PHYSICIAN Non-emergency contact: Primary Care Provider Call non-emergency contact if: you have any medication questions, your symptoms worsen, your pain is not controlled, your pain is worsening, your pain is unusual for you, your pain is concerning for you and you have a fever Follow-up/Referrals: Anam Ozuna DO [Physician] - Carrington Lei DO [Primary Care Provider] - 05/22/20 11:00 am Diet: Heart Healthy Addtl Attending Provider Instructions: CONTINUE USING OMEPRAZOLE TWICE A DAY, AT LEAST 30 MINUTES BEFORE BREAKFAST AND DINNER. DO NOT SKIP MEALS. NO ALCOHOL, SMOKING. DO NOT TAKE MEDICATIONS UNDER THE CLASS OF NSAID'S SUCH IBUPROFEN, NAPROXEN, ETC. CALL YOUR PRIMARY CARE PHYSICIAN FIRST BEFORE STARTING ANY MEDICATIONS. CALL PRIMARY CARE PHYSICIAN OR RETURN TO THE ER IMMEDIATELY IF WITH RECURRENCE OF SYMPTOMS INCLUDING ABDOMINAL PAIN, NAUSEA/VOMITING BLOOD IN THE STOOLS ANXIETY, SHAKINESS, SWEATING, CONFUSION FOLLOW UP WITH PRIMARY CARE PHYSICIAN OUTLINED ABOVE. YOU NEED TO HAVE AN OUTPATIENT UPPER GI ENDOSCOPY AND COLONOSCOPY IN 4-6 WEEKS AT [facility]. PLEASE CALL THEIR OFFICE TO SET UP AN APPOINTMENT WITH DR. ANAM OZUNA. CONTACT INFORMATION NOTED ABOVE. Pending Studies at Discharge: Yes Studies:: UPPER GI ENDOSCOPY AND COLONOSCOPY in 4-6 WEEKS Stand-Alone Forms: My [employer], Smoking Cessation Medications and DC Order Prescriptions: New potassium chloride [Klor-Con 10] 10 mEq tablet extended release 20 meq PO DAILY Qty: 14 RF: 0 magnesium oxide 400 mg magnesium tablet 400 mg PO BID Qty: 14 RF: 0 Continued metoprolol succinate 25 mg Capsule,Sprinkle,Er 24hr 25 mg PO DAILY RF: 0 venlafaxine 150 mg capsule,extended release 24hr 150 mg PO DAILY RF: 0 allopurinol 300 mg tablet 300 mg PO DAILY RF: 0 multivitamin with folic acid [Tab-A-Juan Daniel] 400 mcg tablet 1 tab PO DAILY RF: 0 omeprazole 20 mg Capsule,Delayed Release(Dr/Ec) 20 mg PO BID RF: 0 gabapentin 600 mg tablet 600 mg PO TID RF: 0 Discharge Orders: Discharge Order (Routine); Ordered 05/17/20 Ordered By: Myron Monte Admission Data Admit Date/Time: 05/15/20 20:44 Attending Provider: Myron Monte Admit Provider: Timoteo Turner Primary Care Provider: Carrington Lei Other Providers: Timoteo Turner ; Mukund Burk ; Mauricio Clark Other Interventions: Discharge Summary Assessment (RN) Last Done: 05/17/20 13:18
[2020-05-17 23:27] LABS: 7-Aminoclonaz, Confirm NEGATIVE ng/mL (<25); Hydro-Alp Ur, GC/MS NEGATIVE ng/mL (<25); Hydroxyethylflurazepam, Conf NEGATIVE ng/mL (<50); Hydroxymidazolam Ur, GC/MS NEGATIVE ng/mL (<50); Hydroxytriazolam NEGATIVE ng/mL (<50); Lorazepam, Ur GC/MS NEGATIVE ng/mL (<50); Nordiazepam, Confirm 115 ng/mL (<50); Oxazepam Ur, GC/MS NEGATIVE ng/mL (<50); Temazepam, Confirm 80 ng/mL (<50)
[2020-05-18] MEDS ORDERED: GABAPENTIN 600 MG TAB PO SCH
[2020-05-19] MEDS ORDERED: GABAPENTIN 600 MG TAB PO SCH (12:00)
== END 2020-05-17 13:40 | disposition home or self-care (01) | DRG 897 ==
LOC: ED 15:57 → SUATTDRO 20:44 → 2W 20:44

== ENCOUNTER 2020-07-19 19:03 | Inpatient (IN) ==
[2020-07-19] MEDS ORDERED: FAMOTIDINE 20MG/5ML IV PUSH IV STA (19:37)
[2020-07-19] MEDS ORDERED: LORazepam 2 MG/4 ML VIAL IV STA (19:37)
[2020-07-19] MEDS ORDERED: MULTI-VITAMIN INFUSION 10 ML, THIAMINE HCL 100 MG, FOLIC ACID 1 MG in SODIUM CHLORIDE 0... IV ONE (19:37)
[2020-07-19 19:52] LABS: Basophils # (auto) 0.03 K/uL (0-0.2); Basophils % (auto) 0.5 %; Hematocrit (blood only) 40.6 % (42-52); Hemoglobin 14.9 g/dL (14.0-18.0); Immature Granulocytes # (auto) 0.03 K/uL (0.00-0.02); Immature Granulocytes % (auto) 0.5 %; Lymphocytes # (auto) 0.77 K/uL (1.2-3.4); Lymphocytes % (auto) 13.1 %; Mean Corpuscular Hemoglobin 32.4 pg (25-34); Mean Corpuscular Hgb Conc 36.7 g/dL (32-36); Mean Corpuscular Volume 88.3 fL (80-100); Mean Platelet Volume 9.7 fL (7.4-10.4); Monocytes # (auto) 0.61 K/uL (0.11-0.59); Monocytes % (auto) 10.4 %; Neutrophils # (auto) 4.42 K/uL (1.4-6.5); Neutrophils % (auto) 75.5 %; Platelet Count 194 K/uL (130-400); RDW Coefficient of Variation 13.2 % (11.5-14.5); White Blood Count 5.86 K/uL (4.8-10.8)
[2020-07-19] MEDS: MAGNESIUM SULFATE / D5W 1 GM/100 ML BAG IV SCH ×2 (19:52→20:47)
[2020-07-19 20:04] LABS: Alanine Aminotransferase 120 U/L (12-78); Albumin Level 4.1 gm/dl (3.4-5.0); Aspartate Aminotransferase 154 U/L (15-37); BUN Creatinine Ratio 12.9 (10-20); Blood Urea Nitrogen 16 mg/dl (7-18); Calcium 8.6 mg/dl (8.5-10.1); Carbon Dioxide 13 mmol/L (21-32); Chloride 98 mmol/L (98-107); Creatinine Clr Calc Pharmacy 79.1 ml/min; Est GFR (Non-African American) 69.9; Glucose 83 mg/dl (70-99); Lipase 103 U/L (73-393); Magnesium 1.1 mg/dl (1.8-2.4); Potassium 3.5 mmol/L (3.5-5.1); Prothrombin Time 10.3 Seconds (9.0-12.0); Sodium 129 mmol/L (136-145)
[2020-07-19 20:14] LABS: Albumin Globulin Ratio 1.2 (0.9-2); Alkaline Phosphatase 94 U/L (45-117); Bilirubin,Total 0.6 mg/dl (0.2-1); Globulin 3.6 gm/dl (2.5-4.0); Phosphorus 2.6 mg/dl (2.5-4.9); Total Protein 7.7 gm/dl (6.4-8.2); Troponin I < 0.015 ng/ml (0-0.045)
[2020-07-19] MEDS ORDERED: LACTATED RINGER'S 1,000 ML IV ONE (20:15)
--- NOTE | 2020-07-19 20:23 | XRay Report ---
XR chest 1V portable HISTORY: Weakness. Shortness of breath. COMPARISON: 05/15/2020. FINDINGS: No pneumothorax. No pleural effusions. The heart is normal in size. There are low lung volu mes. The lungs are clear. There are poststernotomy changes and a cardiac valve prosthesis. IMPRESSION: No significant change compared to the prior study. No acute process. ACT 112: Negative or not required by law. Electronically signed by: Adiel Adamson M.D. 07/19/2020 8:21 PM
[2020-07-19] MEDS ORDERED: dexAMETHasone**PF** 10 MG/ML VIAL IV ONE (20:28)
[2020-07-19] MEDS ORDERED: LORazepam 1 MG/2 ML VIAL IV STA (20:28)
[2020-07-19] MEDS ORDERED: THIAMINE HCL 100 MG in SYRINGE 9 ML IV STA (21:03)
[2020-07-19] MEDS ORDERED: MAGNESIUM SULFATE / D5W 1 GM/100 ML BAG IV STA (21:03)
[2020-07-19] MEDS ORDERED: OPTIRAY 320 125ml IV ONE (21:15)
--- NOTE | 2020-07-19 21:20 | Emergency Department Note ---
Impression & Plan COVID-19, Hypomagnesemia, Alcohol withdrawal, Breathlessness, Acute hyponatremia ED Provider Note Provider: Abhijit Clemente MD DATE OF SERVICE: 07/19/2020 CHIEF COMPLAINT: Short of breath, nauseous, jittery HISTORY OF PRESENT ILLNESS: Patient is a 49-year-old gentleman history of alcoholism, DTs, hypomagnesemia, GERD, bioprosthetic mitral valve, hypertension presenting with daughter today reporting that he began to feel quite short of breath today as well as having some nausea. No vomiting reported or significant chest or abdominal pain. No trauma reported. States last drink was about 2 hours prior to arrival. States he has had episodes like this previously and was admitted recently and his magnesium sometimes gets low. Daughter reports sometimes gets quite anxious and combative and confused related to his alcohol use and withdrawal. Patient denies other drug use to me. Patient denies hallucinations but states he feels very shaky. Denies focal weakness. Denies significant fevers per his report but has had some sweating. REVIEW OF SYSTEMS: A total of 10 review of systems was obtained and negative except as stated above in the HPI. PAST MEDICAL HISTORY: As noted above MEDICATIONS: Reviewed home medications with the patient states is not taking his magnesium SOCIAL HISTORY: Regular alcohol use but denies other drugs PHYSICAL EXAM: GENERAL: alert and oriented sitting on the stretcher appears somewhat tremulous and anxious appearing, diaphoretic Head: normocephalic and atraumatic EYES: No injection, discharge or icterus. NECK: Trachea midline. ENT: Mucous membranes pink and moist. LUNGS: Airway patent. No retractions. Breath sounds clear HEART: Regular rate and rhythm. No chest wall tenderness ABDOMEN: Soft and non-tender, without guarding or rebound. SKIN: Acyanotic, warm, diaphoretic EXTREMITIES: Without swelling, tenderness or deformity NEUROLOGICAL: No focal deficits but you notice a mild diffuse resting tremor in the extremities.. No aphasia. No facial droop or slurred speech. A few tongue fasciculations are noted. Ambulatory. EK bpm normal sinus tachycardia. No PVC or PAC. Some baseline artifact but no clear ST segment elevation or depression. QTC 494. Normal axis. CONTINUOUS CARDIAC MONITORING: was ordered and showed a heart rate of 90s-100s bpm in sinus tachycardia to normal sinus rhythm Patient's laboratory studies and imaging reviewed. Differential includes Infection, dehydration, metabolic abnormality, hypo/hyperglycemia, electrolyte disturbance, anemia, hypoxia, cardiac sources, intracerebral event, toxicologic, neurologic, as well as other pathologies. IMPRESSION/MEDICAL DECISION MAKING: Patient presents appears somewhat tremulous. Significant alcohol history history of withdrawal. Not having hallucinations. Hypertensive and mildly tachycardic with some tremor concern for withdrawal given some Ativan here. Blood work was obtained. Patient denies significant chest pain or abdominal pa in. CBC without significant abnormality. Hyponatremia noted with significantly low magnesium 1.1. Lactate elevated 6.7. Alcohol still mildly detectable at 41. Covid test was positive. Patient denies known history of this. No evidence of pancreatitis based on labs or cardiac injury based on EKG and troponin. LFTs in the low to mid 100s somewhat higher than previous baseline but bilirubin not significant elevated. Denies extended abdominal pain. Patient was improved on reevaluation after the Ativan. Discussed with him findings include Covid test. Patient not significant hypoxic given his significant symptoms given a dose of steroids here in edition IV magnesium replacement and IV fluids. Do not see clear bacterial infectious source. CT of the chest and the pelvis completed look for other acute findings such as PE or intra-abdominal pathology although lower suspicion. Discussed with patient require admission given his significant symptoms. Additional dose of IV Ativan was given. Hospitalist contacted. Patient did receive a banana bag in addition to IV fluid as well as some intravenous thiamine. Stat read reports for the CTs were obtained as below without significant acute findings. Patient again is improved with Ativan appears much more comfortable now. Advised hospitalist need for monitoring given his likely alcohol withdrawal state. DIAGNOSIS: Hypomagnesemia, hyponatremia, COVID-19, alcohol withdrawal DISPOSITION: Hospitalist will evaluate Patient was agreeable with this plan. Critical Care I have personally spent 33 minutes of critical care time in the direct management of this patient. This includes bedside care, interpretation of diagnostic studies, and testing, discussion with consultants, patient, and family members, and other required patient management activities. These 33 minutes is in excess of all separately billable procedures. Preliminary Findings Only See Final Report For Complete Findings CTA CHEST: Motion artifact limits the evaluation No evidence of large central or hilar pulmonary embolism Thoracic aorta within limits No pericardial or pleural effusion Status post mitral valve replacement Central airways are patent Considering motion the lungs appear clear Radiologist: Manuel Gomez M.D. Study ready at 21:33 and initial results transmitted at 21:47 Preliminary Findings Only See Final Report For Complete Findings CT ABDOMEN & PELVIS With Contrast: Comparison 05/15/2020 Hepatic steatosis again noted Other abdominal solid organs and abdominal aorta appear within limits Status post cholecystectomy No bowel dilation or free air Difficult to exclude a mild colitis of the left colon Right inguinal hernia containing fat and portion of the right side of the blad ayaka again noted No free fluid Radiologist: Manuel Gomez M.D. Study ready at 21:42 and initial results transmitted at 21:56 Past Med/Surg History Medical History (Updated 07/19/20 @ 21:35 by Abhijit Clemente M.D.) Anxiety Depression Gallstones GERD (gastroesophageal reflux disease) Gout Hypertension Migraine Surgical History H/O hernia repair Status post cholecystectomy Status post mitral valve replacement with bioprosthetic valve Family History Father Hypertension Mother Diabetes Social History Smoking Status: Never smoker Second Hand Exposure: No; Hx Alcohol Use: Yes Alcohol type: beer Hx Substance Use: No Preferred Language: Northern Irish Communication Ability: Effective Clarifier Required: No Beliefs That Will Affect Care: None marital status: Current Living Situation: Parent Current Living Situation Comment: live with mother Feels Safe at Home: Yes Assistive Devices: None Allergies Allergies Allergy/AdvReac Type Severity Reaction Status Date / Time No Known Allergies Allergy Verified 07/19/20 21:33 Home Meds Home Medications Medication Instructions Recorded Confirmed metoprolol succinate 25 mg PO DAILY 03/25/18 07/19/20 allopurinol 300 mg PO DAILY 09/12/18 07/19/20 venlafaxine 150 mg PO DAILY 09/12/18 07/19/20 omeprazole 20 mg PO DAILY 05/15/20 07/19/20 Results & Data (ED) Vital Signs Vital Signs - 24 hr 07/19/20 19:11 07/19/20 19:31 07/19/20 19:38 Temperature 36.3 C L Temperature Source Temporal Artery Scan Pulse Rate 104 H 109 H Pulse Rate from SpO2 Sensor 109 H Respiratory Rate 18 21 Blood Pressure 166/126 H 171/109 H Blood Pressure Mean 139 129 Pulse Oximetry 99 96 Oxygen Delivery Method Room Air Room Air Sepsis Recent Fever Within 48 Hours No Sepsis New/Unexplained Change in Mental Status Yes Sepsis Action Taken by Nursing No Action Required 07/19/20 22:09 07/19/20 22:30 Temperature Temperature Source Pulse Rate 110 H 106 H Pulse Rate from SpO2 Sensor 114 H 107 H Respiratory Rate 21 22 Blood Pressure 172/148 H Blood Pressure Mean 156 Pulse Oximetry 98 97 Oxygen Delivery Method Room Air Sepsis Recent Fever Within 48 Hours Sepsis New/Unexplained Change in Mental Status Sepsis Action Taken by Nursing Laboratory Data Result diagrams: 07/19/20 19:30 07/19/20 19:30 Lab Results 07/19/20 07/19/20 07/19/20 Range/Units 19:30 19:30 19:30 WBC 5.86 (4.8-10.8) K/uL RBC 4.60 L (4.7-6.1) M/uL Hgb 14.9 (14.0-18.0) g/dL Hct 40.6 L (42-52) % MCV 88.3 (80-100) fL MCH 32.4 (25-34) pg MCHC 36.7 H (32-36) g/dL RDW Std Deviation 43.0 (36.4-46.3) fL RDW Coeff of Misha 13.2 (11.5-14.5) % Plt Count 194 (130-400) K/uL MPV 9.7 (7.4-10.4) fL Immature Gran % (Auto) 0.5 % Neut % (Auto) 75.5 % Lymph % (Auto) 13.1 % [place] % (Auto) 10.4 % Eos % (Auto) 0.0 % Baso % (Auto) 0.5 % Neut # (Auto) 4.42 (1.4-6.5) K/uL Lymph # (Auto) 0.77 L (1.2-3.4) K/uL [place] # (Auto) 0.61 H (0.11-0.59) K/uL Eos # (Auto) 0.00 (0-0.5) K/uL Baso # (Auto) 0.03 (0-0.2) K/uL Immature Gran # (Auto) 0.03 H (0.00-0.02) K/uL PT 10.3 (9.0-12.0) Seconds INR 1.0 (0.9-1.1) Sodium 129 L (136-145) mmol/L Potassium 3.5 (3.5-5.1) mmol/L Chloride 98 (98-107) mmol/L Carbon Dioxide 13 L (21-32) mmol/L Anion Gap 18.0 H (3-11) BUN 16 (7-18) mg/dl Creatinine 1.21 (0.6-1.4) mg/dl Est Cr Clr Drug Dosing 79.1 ml/min Est GFR ( Amer) 81.0 Est GFR (Non-Af Amer) 69.9 BUN/Creatinine Ratio 12.9 (10-20) Glucose 83 (70-99) mg/dl Lactate (0.4-2.0) mmol/L Calcium 8.6 (8.5-10.1) mg/dl Phosphorus 2.6 (2.5-4.9) mg/dl Magnesium 1.1 L (1.8-2.4) mg/dl Total Bilirubin 0.6 (0.2-1) mg/dl AST 154 H (15-37) U/L ALT 120 H (12-78) U/L Alkaline Phosphatase 94 (45-117) U/L Troponin I < 0.015 (0-0.045) ng/ml Total Protein 7.7 (6.4-8.2) gm/dl Albumin 4.1 (3.4-5.0) gm/dl Globulin 3.6 (2.5-4.0) gm/dl Albumin/Globulin Ratio 1.2 (0.9-2) Lipase 103 (73-393) U/L TSH 1.370 (0.300-4.500) uIu/ml Ethyl Alcohol mg/dL (0-3) mg/dl COVID-19 Eval Order SARS-CoV-2, RNA, NAAT (NEGATIVE) 07/19/20 07/19/20 07/19/20 Range/Units 19:43 19:43 19:55 WBC (4.8-10.8) K/uL RBC (4.7-6.1) M/uL Hgb (14.0-18.0) g/dL Hct (42-52) % MCV (80-100) fL MCH (25-34) pg MCHC (32-36) g/dL RDW Std Deviation (36.4-46.3) fL RDW Coeff of Misha (11.5-14.5) % Plt Count (130-400) K/uL MPV (7.4-10.4) fL Immature Gran % (Auto) % Neut % (Auto) % Lymph % (Auto) % [place] % (Auto) % Eos % (Auto) % Baso % (Auto) % Neut # (Auto) (1.4-6.5) K/uL Lymph # (Auto) (1.2-3.4) K/uL [place] # (Auto) (0.11-0.59) K/uL Eos # (Auto) (0-0.5) K/uL Baso # (Auto) (0-0.2) K/uL Immature Gran # (Auto) (0.00-0.02) K/uL PT (9.0-12.0) Seconds INR (0.9-1.1) Sodium (136-145) mmol/L Potassium (3.5-5.1) mmol/L Chloride (98-107) mmol/L Carbon Dioxide (21-32) mmol/L Anion Gap (3-11) BUN (7-18) mg/dl Creatinine (0.6-1.4) mg/dl Est Cr Clr Drug Dosing ml/min Est GFR ( Amer) Est GFR (Non-Af Amer) BUN/Creatinine Ratio (10-20) Glucose (70-99) mg/dl Lactate 6.7 H* (0.4-2.0) mmol/L Calcium (8.5-10.1) mg/dl Phosphorus (2.5-4.9) mg/dl Magnesium (1.8-2.4) mg/dl Total Bilirubin (0.2-1) mg/dl AST (15-37) U/L ALT (12-78) U/L Alkaline Phosphatase (45-117) U/L Troponin I (0-0.045) ng/ml Total Protein (6.4-8.2) gm/dl Albumin (3.4-5.0) gm/dl Globulin (2.5-4.0) gm/dl Albumin/Globulin Ratio (0.9-2) Lipase (73-393) U/L TSH (0.300-4.500) uIu/ml Ethyl Alcohol mg/dL 41.3 H (0-3) mg/dl COVID-19 Eval [facility] SARS-CoV-2, RNA, NAAT (NEGATIVE) 07/19/20 Range/Units 19:55 WBC (4.8-10.8) K/uL RBC (4.7-6.1) M/uL Hgb (14.0-18.0) g/dL Hct (42-52) % MCV (80-100) fL MCH (25-34) pg MCHC (32-36) g/dL RDW Std Deviation (36.4-46.3) fL RDW Coeff of Misha (11.5-14.5) % Plt Count (130-400) K/uL MPV (7.4-10.4) fL Immature Gran % (Auto) % Neut % (Auto) % Lymph % (Auto) % [place] % (Auto) % Eos % (Auto) % Baso % (Auto) % Neut # (Auto) (1.4-6.5) K/uL Lymph # (Auto) (1.2-3.4) K/uL [place] # (Auto) (0.11-0.59) K/uL Eos # (Auto) (0-0.5) K/uL Baso # (Auto) (0-0.2) K/uL Immature Gran # (Auto) (0.00-0.02) K/uL PT (9.0-12.0) Seconds INR (0.9-1.1) Sodium (136-145) mmol/L Potassium (3.5-5.1) mmol/L Chloride (98-107) mmol/L Carbon Dioxide (21-32) mmol/L Anion Gap (3-11) BUN (7-18) mg/dl Creatinine (0.6-1.4) mg/dl Est Cr Clr Drug Dosing ml/min Est GFR ( Amer) Est GFR (Non-Af Amer) BUN/Creatinine Ratio (10-20) Glucose (70-99) mg/dl Lactate (0.4-2.0) mmol/L Calcium (8.5-10.1) mg/dl Phosphorus (2.5-4.9) mg/dl Magnesium (1.8-2.4) mg/dl Total Bilirubin (0.2-1) mg/dl AST (15-37) U/L ALT (12-78) U/L Alkaline Phosphatase (45-117) U/L Troponin I (0-0.045) ng/ml Total Protein (6.4-8.2) gm/dl Albumin (3.4-5.0) gm/dl Globulin (2.5-4.0) gm/dl Albumin/Globulin Ratio (0.9-2) Lipase (73-393) U/L TSH (0.300-4.500) uIu/ml Ethyl Alcohol mg/dL (0-3) mg/dl COVID-19 Eval Order SARS-CoV-2, RNA, NAAT POSITIVE A* (NEGATIVE) Administered Medications Discontinued Medications Dexamethasone Sodium Phosphate (DexamethasonePf 10 Mg/Ml Vial) 6 mg IV NOW ONE Stop: 07/19/20 20:29 Last Admin: 07/19/20 20:47 Dose: 6 mg Documented by: [id number] Famotidine (Famotidine 20mg/5ml Iv Push) 20 mg IV ONE STA Stop: 07/19/20 19:38 Last Admin: 07/19/20 19:52 Dose: 20 mg Documented by: [id number] Multivitamins 10 ml/ Thiamine HCl 100 mg/ Folic Acid 1 mg/Sodium Chloride 1,011.2 mls @ 1,011.2 mls/hr IV .Q1H ONE Stop: 07/19/20 20:36 Last Infusion: 07/19/20 21:51 Dose: 0 mls/hr Documented by: [id number] Admin: 07/19/20 20:47 Dose: 1,011.2 mls/hr Documented by: [id number] Lorazepam (Ativan) 2 mg in 4 mls @ 4 mls/min IV NOW STA Stop: 07/19/20 19:38 Last Admin: 07/19/20 19:52 Dose: 4 mls/min Documented by: [id number] Magnesium Sulfate/Dextrose (Magnesium Sulfate / D5w) 1 gm in 100 mls @ 200 mls/hr IV Q30M JUAN Stop: 07/19/20 20:37 Last Infusion: 07/19/20 21:51 Dose: 0 mls/hr Documented by: [id number] Admin: 07/19/20 20:47 Dose: 200 mls/hr Documented by: [id number] Infusion: 07/19/20 20:22 Dose: 200 mls/hr Documented by: [id number] Admin: 07/19/20 19:52 Dose: 200 mls/hr Documented by: [id number] Lactated Ringer's (Lr) 1,000 mls @ 999 mls/hr IV .Q1H1M ONE Stop: 07/19/20 21:15 Last Infusion: 07/19/20 21:51 Dose: 0 mls/hr Documented by: [id number] Admin: 07/19/20 20:47 Dose: 999 mls/hr Documented by: [id number] Lorazepam (Ativan) 1 mg in 2 mls @ 2 mls/min IV NOW STA Stop: 07/19/20 20:29 Last Admin: 07/19/20 20:47 Dose: 2 mls/min Documented by: [id number] Magnesium Sulfate/Dextrose (Magnesium Sulfate / D5w) 1 gm in 100 mls @ 100 mls/hr IV NOW STA Stop: 07/19/20 22:02 Last Admin: 07/19/20 21:58 Dose: 100 mls/hr Documented by: [id number] Thiamine HCl 100 mg/ Syringe 10 mls @ 2 mls/min IV NOW STA Stop: 07/19/20 21:07 Last Admin: 07/19/20 21:58 Dose: 2 mls/min Documented by: [id number] Ioversol (Optiray 320 125ml) 116 ml IV ONCE ONE Stop: 07/19/20 21:16 Last Admin: 07/19/20 21:15 Dose: 116 ml Documented by: [id number] Discharge Plan Visit Data Chief Complaint: Abnormal Labs/Diagnostic Testing Stated Complaint: LOW MAGNESIUM, DELIRIOUS, SOB ED Provider: Abhijit Clemente Discharge Problem: COVID-19, Hypomagnesemia, Alcohol withdrawal, Breathlessness, Acute hyponatre jose alejandro Patient Disposition: Being Evaluated by Hospitalist Forms Stand Alone Forms: [facility] Prescriptions Prescriptions: No Action metoprolol succinate 25 mg Capsule,Sprinkle,Er 24hr 25 mg PO DAILY RF: 0 venlafaxine 150 mg capsule,extended release 24hr 150 mg PO DAILY RF: 0 allopurinol 300 mg tablet 300 mg PO DAILY RF: 0 omeprazole 20 mg Capsule,Delayed Release(Dr/Ec) 20 mg PO DAILY RF: 0 Referrals Referrals: Carrington Lei DO [Primary Care Provider] - Discharge Problem: Alcohol withdrawal Qualifiers: Complication of substance-induced condition: with unspecified complication Qualified Code(s): F10.239 - Alcohol dependence with withdrawal, unspecified
[2020-07-20] MEDS ORDERED: ACETAMINOPHEN 325 MG TAB ONE (00:14)
[2020-07-20] MEDS ORDERED: ACETAMINOPHEN 325 MG TAB PO STA (00:24)
[2020-07-20] MEDS ORDERED: cloNIDine HCL 0.1 MG TAB PO ONE ×4 (00:44→20:29)
[2020-07-20] MEDS ORDERED: LORazepam 1.5 MG/3 ML VIAL IV STA (00:44)
[2020-07-20] MEDS ORDERED: LORazepam 1 MG/2 ML VIAL IV PRN (01:33)
[2020-07-20] MEDS ORDERED: GABAPENTIN 1200MG ALCOHOL WITHDRAWAL LOAD PO STA (01:33)
[2020-07-20] MEDS ORDERED: LORazepam 3 MG/6 ML VIAL IV PRN (01:33)
[2020-07-20] MEDS ORDERED: ONDANSETRON INJ 2 MG/ML 2 ML VIAL IV PRN (01:33)
[2020-07-20] MEDS ORDERED: ATIVAN IV ALCOHOL WITHDRAWL IV PRN (01:33)
[2020-07-20] MEDS ORDERED: LORazepam 2 MG/4 ML VIAL IV PRN (01:33)
[2020-07-20] MEDS ORDERED: NITROGLYCERIN SL 0.4 MG/TAB TAB SL PRN (01:33)
[2020-07-20] MEDS ORDERED: GABAPENTIN 600 MG TAB PO ONE (01:33)
--- NOTE | 2020-07-20 02:11 | History and Physical Report ---
DATE OF ADMISSION: 07/20/2020 CHIEF COMPLAINT: Alcoholism, hypomagnesemia, and COVID. HISTORY OF PRESENT ILLNESS: This is a 49-year-old male with past medical history significant for multiple admissions for alcohol withdrawal and electrolyte abnormalities, history of bioprosthetic mitral valve replacement, hypertension, IBS, GERD, gout, depression, who was brought in by his family because he was getting confused and jittery and sweating and family thought 4 times he was admitted with similar problem and thought that when his electrolytes go down, he behaves like this, and he was brought into the hospital. Currently living with his friend. Family was contacted by friend and daughter brought him to the hospital. When he came in, he was jittery and shaky and with Ativan he is doing much better. His rapid COVID test came back positive. The patient denies any cough, no fever, no headaches, no blurred vision, no earache, no runny nose, no sore throat, no nausea, no abdominal pain. Normal bowel and bladder movements. Appetite is good. No chest pain, no shortness of breath. Currently resting comfortably and hemodynamically stable. Denies any fevers at home. Has mild temp spike in the ER. His lactate is 6.7. Sodium is 129, bicarbonate is 13. Troponin is negative. Ethyl alcohol level 41. SARS-CoV-[address] of the chest, no acute findings. CT abdomen and pelvis, no acute finding in the preliminary report. ALLERGIES: No known drug allergies. PAST MEDICAL HISTORY: As mentioned above. PAST SURGICAL HISTORY: EGD with biopsies, [employer] mitral valve replacement with bioprosthetic valve, nasal septal defect repair, inguinal hernia repair, laparoscopic cholecystectomy, vasectomy. MEDICATIONS: The patient is on allopurinol 300 mg p.o. daily, Toprol-XL 25 mg p.o. daily, omeprazole 20 mg p.o. daily, venlafaxine 150 mg p.o. daily. FAMILY HISTORY: Significant for mother has diabetes, father has hypertension. SOCIAL HISTORY: Currently lives with a friend. No smoking. Chews tobacco. Still drinking 6-10 beers every day, says is cutting down. No drug use. REVIEW OF SYSTEMS: As per HPI. Rest of the review of systems negative. PHYSICAL EXAMINATION: GENERAL: The patient is of moderate build, not in acute distress. VITAL SIGNS: Temperature 37.9, pulse 108, respiratory rate 21, blood pressure 181/118, oxygen 97% on room air. HEENT: Pupils equal, round, and reactive to light. Oral mucosa moist. NECK: No neck masses seen. CARDIOVASCULAR: S1, S2 heard, tachycardia. No murmur, no gallop. RESPIRATORY SYSTEM: Normal AP diameter. No accessory muscle use. No wheezing, no crackles. ABDOMEN: Soft, bowel sounds present, nontender. No distention. CENTRAL NERVOUS SYSTEM: Alert and oriented. Speech is clear. Obeys simple commands. Moves extremities. EXTREMITIES: No edema, no erythema. LABORATORY DATA: WBC 5.8, hemoglobin 14.9, hematocrit 40.6, platelets 194. PT 10.3, INR 1. Sodium 129, potassium 3.5, chloride 98, bicarbonate 13, BUN 16, creatinine 1.2, serum glucose 83, lactate 6.7, calcium 8.6, phosphorus 2.6, magnesium 1.1, total bilirubin 0.6, AST 154, ALT 120, alkaline phosphatase 94. Troponin I less than 0.015. Lipase 103. TSH 1.3. Ethyl alcohol 41. SARS-CoV-2 RNA positive. IMAGING DATA: Chest x-ray, no acute process. CTA of the chest, preliminary report, no evidence of large central pulmonary embolism. Thoracic aorta within normal limits. No pericardial or pleural effusion. Lungs appear clear. CTA of abdomen and pelvis, preliminary report, hepatic steatosis, no acute findings. EKG: Sinus tachycardia at a rate of 106, no significant change was found, QTc of 494. ASSESSMENT AND PLAN: This is a 49-year-old male with multiple admissions for alcohol withdrawal, who presents with confusion at home and jittery, shakiness, thought to be from low magnesium. 1. Alcohol withdrawal: Still drinking 6-10 beers a day. Most likely symptoms are from alcohol withdrawal. He says he is trying to cut down alcohol. Feeling better after given Ativan in the ER, will continue with gabapentin protocol, IV Ativan as per protocol. Received banana bag in the ER. Will place on p.o. thiamine, p.o. folic acid, multivitamins, clonidine p.r.n. Closely monitor in the tele floor. 2. COVID-19 positive: The patient is currently asymptomatic and his CTA of the chest is okay and saturating fine on room air. Does not meet any criteria for remdesivir or prednisone. Received a dose of Decadron in the ER. Will monitor. 3. Elevated lactic acids, mostly from alcohol abuse. Will follow the repeat lactic acid level, on fluids. 4. Anion gap metabolic acidosis, most likely from starvation ketosis. Will get D5 normal saline. Follow the repeat labs. 5. Hyponatremia: Sodium 129. Follow the repeat labs. Getting fluids. 6.Elevated AST, ALT, mostly from alcoholism. Will follow the repeat labs. 7. History of gout. Continue allopurinol. 8. History of hypertension. Continue Toprol-XL. Placed on clonidine p.r.n. 9. Gastroesophageal reflux disease: Continue omeprazole. 10. History of depression: Continue venlafaxine. 11. History of mitral valve replacement with bioprosthetic valve. 12. History of avascular necrosis of bilateral femoral head on last admission with CAT scan of abdomen or pelvis. Needs followup. 13. Deep venous thrombosis prophylaxis: We will place him on Lovenox as platelet counts are okay. DISPOSITION: Closely monitor in the tele floor. Level 1 full code. Expect to discharge home and follow with family doctor. PT and OT prior to discharge. Social service to help with discharge planning. YOLANDA
[2020-07-20] MEDS: D5W AND NSS 1,000 ML IV SCH ×2 (02:31→12:11)
[2020-07-20 03:49] LABS: Appearance Urine Clear (Clear); Bilirubin Urine Negative (Negative); Blood Urine Negative (Negative); Color Urine Yellow; Glucose Urine UA Negative (Negative); Ketones Urine 1+ (Negative); Leukocyte Esterase Urine Negative (Negative); Nitrite Urine Negative (Negative); Protein Urine Negative (Negative); Specific Gravity Urine 1.019 (1.000-1.030); Urobilinogen Urine Negative (Negative)
[2020-07-20 03:59] LABS: Basophils # (auto) 0.01 K/uL (0-0.2); Basophils % (auto) 0.3 %; Hematocrit (blood only) 39.5 % (42-52); Hemoglobin 14.4 g/dL (14.0-18.0); Immature Granulocytes # (auto) 0.01 K/uL (0.00-0.02); Immature Granulocytes % (auto) 0.3 %; Lymphocytes # (auto) 0.54 K/uL (1.2-3.4); Lymphocytes % (auto) 16.8 %; Mean Corpuscular Hemoglobin 32.3 pg (25-34); Mean Corpuscular Hgb Conc 36.5 g/dL (32-36); Mean Corpuscular Volume 88.6 fL (80-100); Mean Platelet Volume 9.8 fL (7.4-10.4); Monocytes # (auto) 0.11 K/uL (0.11-0.59); Monocytes % (auto) 3.4 %; Neutrophils # (auto) 2.54 K/uL (1.4-6.5); Neutrophils % (auto) 79.2 %; Platelet Count 174 K/uL (130-400); RDW Coefficient of Variation 13.1 % (11.5-14.5); RDW Standard Deviation 42.8 fL (36.4-46.3); Red Blood Count 4.46 M/uL (4.7-6.1); White Blood Count 3.21 K/uL (4.8-10.8)
[2020-07-20 04:41] LABS: BUN Creatinine Ratio 12.7 (10-20); Calcium 7.6 mg/dl (8.5-10.1); Creatinine Clr Calc Pharmacy 77.1 ml/min; Est GFR (African American) 77.9; Est GFR (Non-African American) 67.2; Magnesium 2.2 mg/dl (1.8-2.4); Phosphorus 3.7 mg/dl (2.5-4.9); Potassium 4.2 mmol/L (3.5-5.1)
--- NOTE | 2020-07-20 07:41 | CT Scan Report ---
CT ANGIOGRAM OF THE CHEST CLINICAL HISTORY: Dyspnea. Nausea. Covid. COMPARISON STUDY: Chest CT dated 05/01/2020. Chest x-ray dated 07/19/2020. TECHNIQUE: Following the IV administration of 118 cc of Optiray 320, CT angiogram of the chest was pe rformed from the upper abdomen to the thoracic inlet utilizing the pulmonary embolus protocol. Images are reviewed in the axial, sagittal, and coronal planes. 3-D MIPS images are created and assessed. I V contrast was administered without complication. A dose lowering technique was utilized adhering to the principles of ALARA. The examination is compromised by motion artifact. FINDINGS: Thyroid: Imaged portions of the thyroid gland are normal in size and attenuation. Thoracic aorta: The thoracic aorta is normal in caliber and demonstrates standard 3-vessel arch anato my. No dissection is seen. Pulmonary vasculature: The pulmonary trunk is normal in caliber. There are no filling defects identif ied in main, lobar, or proximal segmental pulmonary branches to suggest pulmonary embolus. Evaluation of the peripheral branches is degraded by motion artifact. Heart: The patient is status post midline sternotomy and mitral valve surgery. The heart is normal in size and without pericardial effusion. Lungs and pleural spaces: Evaluation of the lung parenchyma is significantly degraded by motion artif act. No airspace consolidation or pleural effusion is identified. The trachea and central airways layo ear clear. Mediastinum: There is no mediastinal lymphadenopathy. Leeanna: Clear. Axillae: There is no axillary lymphadenopathy. Upper abdomen: The liver is steatotic. Cholecystectomy clips are noted. A small to moderate hiatal he rnia is identified. Skeletal structures: No lytic or blastic bony lesions are seen. IMPRESSION: 1. Significantly motion compromised examination. 2. There is no evidence of pulmonary embolus in the main, lobar, or proximal segmental pulmonary sinan lazaro. Evaluation of the peripheral branches is degraded by motion artifact. 3. There is no airspace consolidation or pleural effusion. 4. Hepatic steatosis. 5. Additional findings as above. ACT 112: Negative or not required by law. Electronically signed by: Alexis Mari M.D. 07/20/2020 7:40 AM
--- NOTE | 2020-07-20 08:01 | CT Scan Report ---
CT OF THE ABDOMEN AND PELVIS WITH CONTRAST CLINICAL HISTORY: COVID, nausea, alcohol hx elevated lfts COMPARISON STUDY: CT of the abdomen and pelvis May 15, 2020. TECHNIQUE: Following IV administration of 116 mL of Optiray-320, axial images of the abdomen and pelv is were obtained from the lung bases to the proximal femurs. Images were reviewed in the axial, sagit dusty, and coronal planes. IV contrast was administered without complication. Automated exposure contr ol was utilized for the study. A dose lowering technique was utilized adhering to the principles of ALARA. CT DOSE: 1524.55 mGy.cm FINDINGS: Please note that the chest CT will be reported separately. No pneumatosis, free air or port al venous gas is noted. Severe hepatic steatosis is again noted. There is no biliary ductal dilatatio n status post cholecystectomy. Several diverticula of the second portion the duodenum are noted. Ther e is no peripancreatic infiltration. The spleen, adrenal glands and kidneys are normal. There is no h ydronephrosis. No hepatic lesions are identified. There is no evidence for a bowel obstruction. Sigmo id diverticulosis is noted without evidence for acute diverticulitis. Diffuse colonic wall thickening is probably due to underdistention. The appendix is normal. There is no lymphadenopathy. Major vascu lature is patent. As before, a portion of the bladder extends into a right inguinal hernia. There is avascular necrosis of both femoral heads with collapse on the left. No suspicious osseous lesions are noted. No acute fractures are noted. IMPRESSION: 1. No definite acute process within the abdomen or pelvis. Mild long segment colonic wall thickening is likely due to underdistention. A mild nonspecific colitis could appear similar but is considered l ess likely. 2. No bowel obstruction. 3. Severe hepatic steatosis. 4. Right inguinal hernia which contains a portion of the bladder. This is unchanged. 5. Avascular necrosis of both femoral heads. ACT 112: Negative or not required by law. Electronically signed by: Kameron Lezama M.D. 07/20/2020 7:59 AM
[2020-07-20] MEDS: PANTOprazole 40 MG TAB PO SCH (08:28)
[2020-07-20] MEDS: VENLAFAXINE HCL XR 150 MG CAPXR PO SCH (08:28)
[2020-07-20] MEDS: CEROVITE ADV FORMULA TAB PO SCH (08:29)
[2020-07-20] MEDS: THIAMINE HCL 100 MG TAB PO SCH (08:29)
[2020-07-20] MEDS: GABAPENTIN 600 MG TAB PO SCH ×3 (08:29→20:58)
[2020-07-20] MEDS: allopurinoL 300 MG TAB PO SCH (08:30)
[2020-07-20] MEDS: FOLIC ACID 1 MG TAB PO SCH (08:30)
[2020-07-20] MEDS: ENOXAPARIN INJ 40 MG/0.4 ML SYR SQ SCH (08:30)
[2020-07-20 08:42] LABS: D Dimer 610 ug/L FEU (0-500)
[2020-07-20] MEDS ORDERED: METOPROLOL SUCC 25MG EXT REL TAB PO SCH (09:00)
[2020-07-20] MEDS ORDERED: ACETAMINOPHEN 500 MG TAB PO PRN (10:07)
[2020-07-20] MEDS ORDERED: REMDESIVIR 200 MG in SODIUM CHLORIDE 0.9% 210 ML IV ONE (13:00)
[2020-07-20] MEDS ORDERED: SODIUM CHLORIDE 0.9% 10ML FLUSH IV SCH (13:00)
--- NOTE | 2020-07-20 13:50 | Hospitalist Progress Note ---
Date of Service July 20, 2020 Assessment & Plan (1) Alcohol withdrawal: He has history of alcoholism Has not been drinking daily as per the patient He has not been drinking heavily but has history of recurrent admission in the hospital with withdrawal symptoms Noted to be minimally confused at home and that was the reason that he was sent into the emergency room He does not have any symptoms of withdrawal now He has been ambulating in the room without any unsteady gait He wants to go home He was warned against possible withdrawal symptoms down the line and can cause serious problem ,even then he wanted to leave (2) Electrolyte imbalance: He was noted to have hyponatremia with sodium of 129 Hypomagnesemia with magnesium of 1.1 Those are replaced and the numbers are getting better We will check again at around 4 PM today and if those are unremarkable he wants to go home He was warned that the electrolytes level can go down specially if he continues to drink He is well aware about the consequences (3) COVID-19: He does not have any exposure to COVID-19 Received the first dose of vaccine on last or so He does not have any symptoms and had CT scans remain unremarkable He does not require any oxygen at rest Again he was born that the condition may get worse that he may require treatment He was advised to take extreme precaution to prevent Covid spread for 10 days from now (4) Status post mitral valve replacement with bioprosthetic valve: No acute findings and/or symptoms (5) Hypertension: Blood pressure remains on the upper side We will continue current medications We will increase dose of beta-laurel to 50 mg daily We will get Lopressor 25 mg p.o. now (6) Gout: No acute attack (7) Anxiety: (8) GERD (gastroesophageal reflux disease): Continue with the Protonix DVT prophylaxis Lovenox Admission and Anticipated Discharge Date Admission Date: July 20, 2020 Subjective 07/20/2020 The patient was seen and examined in telemetry unit He was admitted with mild confusion as noted by his family members and also his friend with whom he lives with He denies any symptoms now and has been ambulating inside the room without any problem He has Covid 19+ and also received the first dose of Covid vaccine last or so He definitely wants to go home Review of Systems Review of Systems: All systems reviewed and are unremarkable except as noted below Respiratory: no cough and no dyspnea Cardiovascular: no palpitations Neurologic: no gait abnormality, no unsteadiness, no tremor(s) and no confusion Physical Exam Physical Exam: Moving around in the room without any symptoms Constitutional: well developed and well nourished; not ill appearing Eyes: PERRL, conjunctivae normal, anicteric sclerae ENMT: external ear and nose normal, oropharynx normal Neck: trachea midline, no thyromegaly Respiratory: no respiratory distress Auscultation: lungs clear to auscultation bilaterally Cardiovascular: Rate/Rhythm: regular rate, regular rhythm and + tachycardic Gastrointestinal (Abdomen): Inspection/Auscultation: normal bowel sounds; abdomen not distended Percussion/Palpation: abdomen soft; abdomen nontender Musculoskeletal: No acute arthritis in any joint Neurologic: Alert, awake and oriented x3. No tremors involving the outstretched hands and no focal sensory and/or motor deficit appreciated Psychiatric: A+Ox3, euthymic affect Results & Data Results & Data ([facility]) Vital Signs (Past 12 Hours) Vital Signs Temp Pulse Pulse Resp BP BP Pulse Ox 07/20/20 11:56 143/100 H 07/20/20 11:38 36.7 C 111 H 20 171/139 H 99 07/20/20 10:02 84 07/20/20 07:48 36.4 C L 85 18 147/92 H 99 07/20/20 02:36 102 H 156/107 H 07/20/20 01:44 105 H 07/20/20 01:38 36.7 C 107 H 20 169/100 H 96 Laboratory Results Short CBC 07/19/20 07/20/20 Range/Units 19:30 03:49 WBC 5.86 3.21 L (4.8-10.8) K/uL Hgb 14.9 14.4 (14.0-18.0) g/dL Hct 40.6 L 39.5 L (42-52) % Plt Count 194 174 (130-400) K/uL BMP 07/19/20 07/20/20 19:30 03:49 Sodium 129 L 131 L Potassium 3.5 4.2 D Chloride 98 102 Carbon Dioxide 13 L 21 BUN 16 16 Creatinine 1.21 1.25 Glucose 83 231 H Calcium 8.6 7.6 L Cardiac Enzymes 07/19/20 07/20/20 Range/Units 19:30 07:36 Troponin I < 0.015 < 0.015 (0-0.045) ng/ml Liver Function 07/19/20 Range/Units 19:30 Total Bilirubin 0.6 (0.2-1) mg/dl AST 154 H (15-37) U/L ALT 120 H (12-78) U/L Alkaline Phosphatase 94 (45-117) U/L Albumin 4.1 (3.4-5.0) gm/dl Urine 07/20/20 Range/Units 01:58 Urine Color Yellow Urine Appearance Clear (Clear) Urine pH 5.0 (4.5-7.5) Ur Specific [place] 1.019 (1.000-1.030) Urine Protein Negative (Negative) Urine Glucose (UA) Negative (Negative) Medications Administered Current Inpatient Medications Acetaminophen (Acetaminophen 500 Mg Tab) 1,000 mg PO Q8H PRN PRN Reason: Pain or Fever Stop: 08/19/20 10:06 Allopurinol (Allopurinol 300 Mg Tab) 300 mg PO DAILY [facility] Stop: 08/19/20 08:59 Last Admin: 07/20/20 08:30 Dose: 300 mg Documented by: Clonidine HCl (Clonidine Hcl 0.1 Mg Tab) 0.1 mg PO Q4H PRN PRN Reason: Hypertension Stop: 08/19/20 01:32 Enoxaparin Sodium (Enoxaparin Inj 40 Mg/0.4 Ml Syr) 40 mg SQ QAM [facility] Stop: 08/19/20 08:59 Last Admin: 07/20/20 08:30 Dose: 40 mg Documented by: Folic Acid (Folic Acid 1 Mg Tab) 1 mg PO QAM [facility] Stop: 08/19/20 08:59 Last Admin: 07/20/20 08:30 Dose: 1 mg Documented by: Gabapentin (Gabapentin 600 Mg Tab) 600 mg PO Q6H [facility] Stop: 07/20/20 14:01 Last Admin: 07/20/20 08:29 Dose: 600 mg Documented by: Gabapentin (Gabapentin 600 Mg Tab) 600 mg PO Q8H [facility] Stop: 07/21/20 14:01 Gabapentin (Gabapentin 600 Mg Tab) 600 mg PO Q12H [facility] Stop: 07/22/20 14:01 Gabapentin (Gabapentin 600 Mg Tab) 600 mg PO Q24H [facility] Stop: 07/23/20 14:01 Lorazepam (Ativan) 1 mg in 2 mls @ 2 mls/min IV UD PRN; Protocol PRN Reason: EtOH Withdrawl AWSS Score 6,7 Stop: 08/19/20 01:32 Lorazepam (Ativan) 2 mg in 4 mls @ 4 mls/min IV UD PRN; Protocol PRN Reason: EtOH Withdrawl AWSS Score 8,9 Stop: 08/19/20 01:32 Lorazepam (Ativan) 3 mg in 6 mls @ 4 mls/min IV ONCE PRN; Protocol PRN Reason: EtOH Withdrawl AWSS Score >=10 Stop: 08/19/20 01:32 Dextrose/Sodium Chloride (D5w And Nss) 1,000 mls @ 100 mls/hr IV .Q10H [facility] Stop: 07/21/20 09:00 Last Admin: 07/20/20 12:11 Dose: 100 mls/hr Documented by: Metoprolol Succinate (Metoprolol Succ 25mg Ext Rel Tab) 25 mg PO DAILY [facility] Stop: 08/19/20 08:59 Last Admin: 07/20/20 08:28 Dose: 25 mg Documented by: Multivitamins/Minerals (Cerovite Adv Formula Tab) [facility] Stop: 08/19/20 08:59 Last Admin: 07/20/20 08:29 Dose: 1 tab Documented by: Nitroglycerin (Nitroglycerin Sl 0.4 Mg/Tab Tab) 0.4 mg SL UD PRN PRN Reason: Chest Pain Stop: 08/19/20 01:32 Ondansetron HCl (Ondansetron Inj 2 Mg/Ml 2 Ml Vial) 4 mg IV Q6H PRN PRN Reason: Nausea Stop: 08/19/20 01:32 Pantoprazole Sodium (Pantoprazole 40 Mg Tab) 40 mg PO DAILY [facility] Stop: 08/19/20 08:59 Last Admin: 07/20/20 08:28 Dose: 40 mg Documented by: Sodium Chloride (Sodium Chloride 0.9% 10ml Flush) 30 ml IV Q24H [facility] Stop: 07/24/20 13:01 Thiamine HCl (Thiamine Hcl 100 Mg Tab) 100 mg PO QAM [facility] Stop: 08/19/20 08:59 Last Admin: 07/20/20 08:29 Dose: 100 mg Documented by: Venlafaxine HCl (Venlafaxine Hcl Xr 150 Mg Capxr) 150 mg PO DAILY [facility] Stop: 08/19/20 08:59 Last Admin: 07/20/20 08:28 Dose: 150 mg Documented by: (1) Alcohol withdrawal Complication of substance-induced condition: with unspecified complication Qualified Code(s): F10.239 - Alcohol dependence with withdrawal, unspecified (2) Hypertension Hypertension type: essential hypertension Qualified Code(s): I10 - Essential (primary) hypertension (3) GERD (gastroesophageal reflux disease) Esophagitis presence: esophagitis presence not specified Qualified Code(s): K21.9 - Gastro-esophageal reflux disease without esophagitis
[2020-07-20] MEDS ORDERED: METOPROLOL TARTRATE 25 MG TAB PO ONE (14:00)
[2020-07-20 16:37] LABS: Calcium 8.8 mg/dl (8.5-10.1); Creatinine Clr Calc Pharmacy 70.3 ml/min; Est GFR (African American) 69.7; Est GFR (Non-African American) 60.1; Magnesium 2.2 mg/dl (1.8-2.4); Phosphorus 1.6 mg/dl (2.5-4.9); Potassium 3.6 mmol/L (3.5-5.1)
[2020-07-20] MEDS ORDERED: POTASSIUM PHOS 3 MMOL/1 ML INFUSION IV STA (17:09)
[2020-07-20] MEDS ORDERED: POTASSIUM PHOSPHATE 30 MMOL in SODIUM CHLORIDE 0.9% 500 ML IV ONE (17:30)
[2020-07-20] MEDS ORDERED: LORazepam 1 MG/2 ML VIAL IV STA (20:17)
[2020-07-20] MEDS: cloNIDine HCL 0.1 MG TAB PO PRN (20:21)
[2020-07-21] MEDS: GABAPENTIN 600 MG TAB PO SCH (06:07)
--- NOTE | 2020-07-21 06:27 | Electrocardiogram Report ---
Test Reason : Blood Pressure : / mmHG Vent. Rate : 106 BPM Atrial Rate : 106 BPM P-R Int : 130 ms QRS Dur : 088 ms QT Int : 372 ms P-R-T Axes : 035 020 038 degrees QTc Int : 494 ms Poor data quality, interpretation may be adversely affected Sinus tachycardia Prolonged QT When compared with ECG of 15-MAY-2020 18:00, No significant change was found Confirmed by Teja Morse ([id number]) on 07/21/2020 6:26:35 AM Referred By: REFERRED SELF Confirmed By:Teja Morse
[2020-07-21 06:56] LABS: BUN Creatinine Ratio 15.7 (10-20); Calcium 8.6 mg/dl (8.5-10.1); Creatinine Clr Calc Pharmacy 90.1 ml/min; Est GFR (Non-African American) 81.1; Potassium 3.7 mmol/L (3.5-5.1)
[2020-07-21 06:58] LABS: Phosphorus 2.6 mg/dl (2.5-4.9)
[2020-07-21] MEDS: CEROVITE ADV FORMULA TAB PO SCH (08:07)
[2020-07-21] MEDS: allopurinoL 300 MG TAB PO SCH (08:08)
[2020-07-21] MEDS: VENLAFAXINE HCL XR 150 MG CAPXR PO SCH (08:08)
[2020-07-21] MEDS: PANTOprazole 40 MG TAB PO SCH (08:08)
[2020-07-21] MEDS: ENOXAPARIN INJ 40 MG/0.4 ML SYR SQ SCH (08:09)
[2020-07-21] MEDS: THIAMINE HCL 100 MG TAB PO SCH (08:09)
[2020-07-21] MEDS: FOLIC ACID 1 MG TAB PO SCH (08:10)
[2020-07-21] MEDS: cloNIDine HCL 0.1 MG TAB PO PRN (08:11)
[2020-07-21] MEDS ORDERED: METOPROLOL SUCC 50MG EXT REL TAB PO SCH (09:00)
[2020-07-21] MEDS ORDERED: dexAMETHasone 6 MG in SYRINGE 0 ML IV SCH (09:00)
--- NOTE | 2020-07-21 09:31 | Hospitalist Progress Note ---
Date of Service July 21, 2020 Assessment & Plan (1) Alcohol withdrawal: He has history of alcoholism Has not been drinking daily as per the patient He has not been drinking heavily but has history of recurrent admission in the hospital with withdrawal symptoms Noted to be minimally confused at home and that was the reason that he was sent into the emergency room He does not have any symptoms of withdrawal now He has been ambulating in the room without any unsteady gait He wants to go home He was warned against possible withdrawal symptoms down the line and can cause serious problem ,even then he wanted to leave Does not have any symptoms of withdrawal Has been ambulating in the room without any unsteadiness and no tremors with outstretched hands (2) Electrolyte imbalance: He was noted to have hyponatremia with sodium of 129 Hypomagnesemia with magnesium of 1.1 Those are replaced and the numbers are getting better We will check again at around 4 PM today and if those are unremarkable he wants to go home He was warned that the electrolytes level can go down specially if he continues to drink He is well aware about the consequences His electrolytes have been normalized (3) COVID-19: He does not have any exposure to COVID-19 Received the first dose of vaccine on last or so He does not have any symptoms and had CT scans remain unremarkable He does not require any oxygen at rest Again he was born that the condition may get worse that he may require treatment He was advised to take extreme precaution to prevent Covid spread for 10 days from now He has been saturating normally on room air Was strongly advised to be home quarantine for the next 8 days (4) Status post mitral valve replacement with bioprosthetic valve: No acute findings and/or symptoms (5) Hypertension: Blood pressure remains on the upper side We will continue current medications We will increase dose of beta-laurel to 50 mg daily We will get Lopressor 25 mg p.o. now Blood pressure seems to be stable this morning (6) Gout: No acute attack (7) Anxiety: (8) GERD (gastroesophageal reflux disease): Continue with the Protonix DVT prophylaxis Lovenox He will be discharged this morning Admission and Anticipated Discharge Date Admission Date: July 20, 2020 Subjective 07/20/2020 The patient was seen and examined in telemetry unit He was admitted with mild confusion as noted by his family members and also his friend with whom he lives with He denies any symptoms now and has been ambulating inside the room without any problem He has Covid 19+ and also received the first dose of Covid vaccine last or so He definitely wants to go home 07/21/2020 The patient was seen and examined in telemetry unit He is ready to get out of the hospital He has been waiting anxiously since this morning His blood pressure was around 125 this morning and with anxiety it has gone up to 152/102 He does not want to stay any longer in the hospital He is saturating more than 98% on room air Review of Systems Review of Systems: All systems reviewed and are unremarkable except as noted below Neurologic: no gait abnormality, no unsteadiness and no tremor(s) Physical Exam Physical Exam: Moving around in the room without any symptoms Constitutional: well developed and well nourished; not ill appearing Eyes: PERRL, conjunctivae normal, anicteric sclerae ENMT: external ear and nose normal, oropharynx normal Neck: trachea midline, no thyromegaly Respiratory: no respiratory distress Auscultation: lungs clear to auscultation bilaterally Cardiovascular: Rate/Rhythm: regular rate, regular rhythm and + tachycardic Gastrointestinal (Abdomen): Inspection/Auscultation: normal bowel sounds; abdomen not distended Percussion/Palpation: abdomen soft; abdomen nontender Psychiatric: A+Ox3, euthymic affect Results & Data Results & Data [facility]) Vital Signs (Past 12 Hours) Vital Signs Temp Pulse Pulse Pulse Resp BP Pulse Ox 07/21/20 08:29 76 07/21/20 08:15 36.5 C 82 14 152/102 H 99 07/21/20 03:00 36.4 C L 72 14 123/77 99 07/21/20 01:33 07/20/20 23:21 93 H 07/20/20 22:47 36.8 C 87 18 142/90 H 98 Pulse Ox 07/21/20 08:29 07/21/20 08:15 07/21/20 03:00 07/21/20 01:33 98 07/20/20 23:21 07/20/20 22:47 Laboratory Results BMP 07/20/20 07/21/20 15:58 06:07 Sodium 135 L 137 Potassium 3.6 3.7 Chloride 104 107 Carbon Dioxide 22 24 BUN 15 17 Creatinine 1.37 1.07 Glucose 163 H 113 H Calcium 8.8 D 8.6 Medications Administered Current Inpatient Medications Acetaminophen (Acetaminophen 500 Mg Tab) 1,000 mg PO Q8H PRN PRN Reason: Pain or Fever Stop: 08/19/20 10:06 Allopurinol (Allopurinol 300 Mg Tab) 300 mg PO DAILY [facility] Stop: 08/19/20 08:59 Last Admin: 07/21/20 08:08 Dose: 300 mg Documented by: Clonidine HCl (Clonidine Hcl 0.1 Mg Tab) 0.1 mg PO Q4H PRN PRN Reason: Hypertension Stop: 08/19/20 01:32 Last Admin: 07/21/20 08:11 Dose: 0.1 mg Documented by: Enoxaparin Sodium (Enoxaparin Inj 40 Mg/0.4 Ml Syr) 40 mg SQ QAM [facility] Stop: 08/19/20 08:59 Last Admin: 07/21/20 08:09 Dose: 40 mg Documented by: Folic Acid (Folic Acid 1 Mg Tab) 1 mg PO QAM [facility] Stop: 08/19/20 08:59 Last Admin: 07/21/20 08:10 Dose: 1 mg Documented by: Gabapentin (Gabapentin 600 Mg Tab) 600 mg PO Q8H [facility] Stop: 07/21/20 14:01 Last Admin: 07/21/20 06:07 Dose: 600 mg Documented by: Gabapentin (Gabapentin 600 Mg Tab) 600 mg PO Q12H [facility] Stop: 07/22/20 14:01 Gabapentin (Gabapentin 600 Mg Tab) 600 mg PO Q24H [facility] Stop: 07/23/20 14:01 Lorazepam (Ativan) 1 mg in 2 mls @ 2 mls/min IV UD PRN; Protocol PRN Reason: EtOH Withdrawl AWSS Score 6,7 Stop: 08/19/20 01:32 Lorazepam (Ativan) 2 mg in 4 mls @ 4 mls/min IV UD PRN; Protocol PRN Reason: EtOH Withdrawl AWSS Score 8,9 Stop: 08/19/20 01:32 Lorazepam (Ativan) 3 mg in 6 mls @ 4 mls/min IV ONCE PRN; Protocol PRN Reason: EtOH Withdrawl AWSS Score >=10 Stop: 08/19/20 01:32 Metoprolol Succinate (Metoprolol Succ 50mg Ext Rel Tab) 50 mg PO DAILY [facility] Stop: 08/20/20 08:59 Last Admin: 07/21/20 08:13 Dose: 50 mg Documented by: Multivitamins/Minerals (Cerovite Adv Formula Tab) [facility] Stop: 08/19/20 08:59 Last Admin: 07/21/20 08:07 Dose: 1 tab Documented by: Nitroglycerin (Nitroglycerin Sl 0.4 Mg/Tab Tab) 0.4 mg SL UD PRN PRN Reason: Chest Pain Stop: 08/19/20 01:32 Ondansetron HCl (Ondansetron Inj 2 Mg/Ml 2 Ml Vial) 4 mg IV Q6H PRN PRN Reason: Nausea Stop: 08/19/20 01:32 Pantoprazole Sodium (Pantoprazole 40 Mg Tab) 40 mg PO DAILY [facility] Stop: 08/19/20 08:59 Last Admin: 07/21/20 08:08 Dose: 40 mg Documented by: Thiamine HCl (Thiamine Hcl 100 Mg Tab) 100 mg PO [facility] Stop: 08/19/20 08:59 Last Admin: 07/21/20 08:09 Dose: 100 mg Documented by: Venlafaxine HCl (Venlafaxine Hcl Xr 150 Mg Capxr) 150 mg PO DAILY [facility] Stop: 08/19/20 08:59 Last Admin: 07/21/20 08:08 Dose: 150 mg Documented by: (1) Alcohol withdrawal Complication of substance-induced condition: with unspecified complication Qualified Code(s): F10.239 - Alcohol dependence with withdrawal, unspecified (2) Hypertension Hypertension type: essential hypertension Qualified Code(s): I10 - Essential (primary) hypertension (3) GERD (gastroesophageal reflux disease) Esophagitis presence: esophagitis presence not specified Qualified Code(s): K21.9 - Gastro-esophageal reflux disease without esophagitis
[2020-07-21] MEDS ORDERED: REMDESIVIR 100 MG in SODIUM CHLORIDE 0.9% 230 ML IV SCH (12:00)
[2020-07-22] MEDS ORDERED: GABAPENTIN 600 MG TAB PO SCH (02:00)
--- NOTE | 2020-07-22 07:19 | Discharge Summary ---
Date of Service July 22, 2020 Admission HPI Per Admitting Provider DICTATED BY: Timoteo Turner MD DATE OF ADMISSION: 07/20/2020 CHIEF COMPLAINT: Alcoholism, hypomagnesemia, and COVID. HISTORY OF PRESENT ILLNESS: This is a 49-year-old male with past medical history significant for multiple admissions for alcohol withdrawal and electrolyte abnormalities, history of bioprosthetic mitral valve replacement, hypertension, IBS, GERD, gout, depression, who was brought in by his family because he was getting confused and jittery and sweating and family thought 4 times he was admitted with similar problem and thought that when his electrolytes go down, he behaves like this, and he was brought into the hospital. Currently living with his friend. Family was contacted by friend and daughter brought him to the hospital. When he came in, he was jittery and shaky and with Ativan he is doing much better. His rapid COVID test came back positive. The patient denies any cough, no fever, no headaches, no blurred vision, no earache, no runny nose, no sore throat, no nausea, no abdominal pain. Normal bowel and bladder movements. Appetite is good. No chest pain, no shortness of breath. Currently resting comfortably and hemodynamically stable. Denies any fevers at home. Has mild temp spike in the ER. His lactate is 6.7. Sodium is 129, bicarbonate is 13. Troponin is negative. Ethyl alcohol level 41. SARS-CoV-[address] of the chest, no acute findings. CT abdomen and pelvis, no acute finding in the preliminary report. Admission Exam Per Admitting Provider GENERAL: The patient is of moderate build, not in acute distress. VITAL SIGNS: Temperature 37.9, pulse 108, respiratory rate 21, blood pressure 181/118, oxygen 97% on room air. HEENT: Pupils equal, round, and reactive to light. Oral mucosa moist. NECK: No neck masses seen. CARDIOVASCULAR: S1, S2 heard, tachycardia. No murmur, no gallop. RESPIRATORY SYSTEM: Normal AP diameter. No accessory muscle use. No wheezing, no crackles. ABDOMEN: Soft, bowel sounds present, nontender. No distention. CENTRAL NERVOUS SYSTEM: Alert and oriented. Speech is clear. Obeys simple commands. Moves extremities. EXTREMITIES: No edema, no erythema. Principal Diagnosis Alcohol withdrawal with history of alcoholism, electrolyte imbalance, COVID-19 infection without any desaturation, status post mitral valve replacement with bioprosthetic valve Discharge Exam Constitutional well developed and well nourished; not ill appearing Eyes PERRL, conjunctivae normal, anicteric sclerae ENMT external ear and nose normal, oropharynx normal Neck trachea midline, no thyromegaly Respiratory no respiratory distress Auscultation: lungs clear to auscultation bilaterally Cardiovascular Rate/Rhythm: regular rate, regular rhythm and + tachycardic Gastrointestinal (Abdomen) Inspection/Auscultation: normal bowel sounds; abdomen not distended Percussion/Palpation: abdomen soft; abdomen nontender Psychiatric A+Ox3, euthymic affect Discharge Data Allergies Allergy/AdvReac Type Severity Reaction Status Date / Time No Known Allergies Allergy Verified 07/19/20 21:33 Consultations 07/19/20 22:50 ED Decision to Admit Stat Ordered Studies 07/19/20 20:28 CT abd pelvis IV con only Urgent CT angio chest PE protocol Urgent Hospital Course (1) Alcohol withdrawal: He has history of alcoholism Has not been drinking daily as per the patient He has not been drinking heavily but has history of recurrent admission in the hospital with withdrawal symptoms Noted to be minimally confused at home and that was the reason that he was sent into the emergency room He does not have any symptoms of withdrawal now He has been ambulating in the room without any unsteady gait He wants to go home He was warned against possible withdrawal symptoms down the line and can cause serious problem ,even then he wanted to leave Does not have any symptoms of withdrawal Has been ambulating in the room without any unsteadiness and no tremors with outstretched hands (2) Electrolyte imbalance: He was noted to have hyponatremia with sodium of 129 Hypomagnesemia with magnesium of 1.1 Those are replaced and the numbers are getting better We will check again at around 4 PM today and if those are unremarkable he wants to go home He was warned that the electrolytes level can go down specially if he continues to drink He is well aware about the consequences His electrolytes have been normalized (3) COVID-19: He does not have any exposure to COVID-19 Received the first dose of vaccine on last or so He does not have any symptoms and had CT scans remain unremarkable He does not require any oxygen at rest Again he was born that the condition may get worse that he may require treatment He was advised to take extreme precaution to prevent Covid spread for 10 days from now He has been saturating normally on room air Was strongly advised to be home quarantine for the next 8 days (4) Status post mitral valve replacement with bioprosthetic valve: No acute findings and/or symptoms (5) Hypertension: Blood pressure remains on the upper side We will continue current medications We will increase dose of beta-laurel to 50 mg daily We will get Lopressor 25 mg p.o. now Blood pressure seems to be stable this morning (6) Gout: No acute attack (7) Anxiety: (8) GERD (gastroesophageal reflux disease): Continue with the Protonix DVT prophylaxis Lovenox He will be discharged this morning Total Time Total Time Spent Total Time Spent (In Minutes): 40 minutes Total Time Includes: Examination of the Patient, Discharge Planning, Medication Reconciliation and Communication With Other Providers Discharge Plan Discharge Items Patient Disposition: Home - Self-Care Reason For Visit: ALCOHOLISM Discharge Diagnosis: Alcohol withdrawal with history of alcoholism, electrolyte imbalance, COVID-19 infection without any desaturation, status post mitral valve replacement with bioprosthetic valve Condition on Discharge: Good Activity: Resume your previous activity Non-emergency contact: Primary Care Provider Call non-emergency contact if: you have any medication questions and your symptoms worsen Follow-up/Referrals: Carrington Lei DO [Primary Care Provider] - 07/25/20 10:00 am (Date & Time 07/25/2020 10:00 AM Provider Carrington Lei DO [facility] PLEASE NOTE THAT THIS IS A TELEVIDEO APPOINTMENT. PLEASE FOLLOW THE INSTRUCTIONS PROVIDED IN YOUR EMAIL. IF YOU HAVE ANY QUESTIONS REGARDING THIS APPOINTMENT, PLEASE CALL ) Diet: Heart Healthy Addtl Attending Provider Instructions: Requires home recording time for next 8 days COVID-19 precaution as general after 8 days Strongly advised to quit drinking Advised to cancel any appointment with providers for next 8 days Please take precaution to avoid falls Covid 19 Guidelines:Home Isolation COVID-19 Instructions The following information about Home Isolation is from the CDC Website: https://www.cdc.gov/coronavirus/2019-ncov/hcp/lorgvzfo-tknvsup-zhwusz.html Stay home except to get medical care People who are mildly ill with COVID-19 are able to isolate at home during their illness. You should restrict activities outside your home, except for getting medical care. Do not go to work, school, or public areas. Avoid using public transportation, ride-sharing, or taxis. Separate yourself from other people and animals in your home People: As much as possible, you should stay in a specific room and away from other people in your home. Also, you should use a separate bathroom, if available. Animals: You should restrict contact with pets and other animals while you are sick with COVID-19, just like you would around other people. Although there have not been reports of pets or other animals becoming sick with COVID-19, it is still recommended that people sick with COVID-19 limit contact with animals until more information is known about the virus. When possible, have another member of your household care for your animals while you are sick. If you are sick with COVID-19, avoid contact with your pet, including petting, snuggling, being kissed or licked, and sharing food. If you must care for your pet or be around animals while you are sick, wash your hands before and after you interact with pets and wear a face mask. Call ahead before visiting your doctor If you have a medical appointment, call the healthcare provider and tell them that you have or may have COVID-19. This will help the healthcare providers office take steps to keep other people from getting infected or exposed. Wear a face mask You should wear a face mask when you are around other people (e.g., sharing a room or vehicle) or pets and before you enter a healthcare providers office. If you are not able to wear a face mask (for example, because it causes trouble breathing), then people who live with you should not stay in the same room with you, or they should wear a face mask if they enter your room. Cover your coughs and sneezes Cover your mouth and nose with a tissue when you cough or sneeze. Throw used tissues in a lined trash can. Immediately wash your hands with soap and water for at least 20 seconds or, if soap and water are not available, clean your hands with an alcohol-based hand pie maker that contains at least 60% alcohol. Clean your hands often Wash your hands often with soap and water for at least 20 seconds, especially after blowing your nose, coughing, or sneezing; going to the bathroom; and before eating or preparing food. If soap and water are not readily available, use an alcohol-based hand pie maker with at least 60% alcohol, covering all surfaces of your hands and rubbing them together until they feel dry. Soap and water are the best option if hands are visibly dirty. Avoid touching your eyes, nose, and mouth with unwashed hands. Avoid sharing personal household items You should not share dishes, drinking glasses, cups, eating utensils, towels, or bedding with other people or pets in your home. After using these items, they should be washed thoroughly with soap and water. Clean all high-touch surfaces everyday High touch surfaces include counters, tabletops, doorknobs, bathroom fixtures, toilets, phones, keyboards, tablets, and bedside tables. Also, clean any surfaces that may have blood, stool, or body fluids on them. Use a household cleaning spray or wipe, according to the label instructions. Labels contain instructions for safe and effective use of the cleaning product including precautions you should take when applying the product, such as wearing gloves and making sure you have good ventilation during use of the product. Monitor your symptoms Seek prompt medical attention if your illness is worsening (e.g., difficulty breathing).Beforeseeking care, call your healthcare provider and tell them that you have, or are being evaluated for, COVID-19. Put on a face mask before you enter the facility. These steps will help the healthcare providers office to keep other people in the office or waiting room from getting infected or exposed. Ask your healthcare provider to call the local or state health department. Persons who are placed under active monitoring or facilitated self-monitoring should follow instructions provided by their local health department or occupational health professionals, as appropriate. When working with your local health department check their available hours. If you have a medical emergency and need to call 911, notify the dispatch personnel that you have, or are being evaluated for COVID-19. If possible, put on a face mask before emergency medical services arrive. Discontinuing home isolation Patients with confirmed COVID-19 should remain under home isolation precautions until the risk of secondary transmission to others is thought to be low. The decision to discontinue home isolation precautions should be made on a [id number] basis, in consultation with healthcare providers and state and local health departments. Pending Studies at Discharge: No Stand-Alone Forms: [facility], Smoking Cessation Medications and DC Order Prescriptions: New metoprolol succinate 50 mg Tablet Extended Release 24 Hr 50 mg PO DAILY Qty: 30 RF: 0 gabapentin 600 mg Tablet 600 mg PO UD Qty: 5 RF: 0 folic acid 1 mg Tablet 1 mg PO QAM Qty: 30 RF: 0 Certavite-Antioxidant 18-400 mg-mcg Tablet 1 tab PO QAM Qty: 30 RF: 0 thiamine HCl (vitamin B1) [Vitamin B-1] 100 mg Tablet 100 mg PO QAM Qty: 30 RF: 0 Continued venlafaxine 150 mg capsule,extended release 24hr 150 mg PO DAILY RF: 0 allopurinol 300 mg tablet 300 mg PO DAILY RF: 0 omeprazole 20 mg Capsule,Delayed Release(Dr/Ec) 20 mg PO DAILY RF: 0 Changed metoprolol succinate 25 mg Capsule,Sprinkle,Er 24hr 50 mg PO DAILY Qty: 0 RF: 0 Discharge Orders: Discharge Order (Routine); Ordered 07/21/20 Ordered By: Mauricio Clark Admission Data Admit Date/Time: 07/20/20 00:41 Attending Provider: Mauricio Clark Admit Provider: Timoteo Turner Primary Care Provider: Carrington Lei Other Providers: Timoteo Turner ; Cosntanza Leiva Other Interventions: Discharge Summary Assessment (RN) Last Done: 07/21/20 10:03
[2020-07-23] MEDS ORDERED: GABAPENTIN 600 MG TAB PO SCH (14:00)
== END 2020-07-21 10:44 | disposition home or self-care (01) | DRG 896 ==
LOC: ED 19:03 → SUATTDRO 07-20 00:41 → 2S 07-20 00:41